=== PATIENT | male | born 1950 | race Two or more races ===

== ENCOUNTER 2020-01-29 08:37 | Outpatient (REF) | payer MEDICARE, SELFPAY ==
[2020-01-29 10:28] LABS: Prostate Specific Antigen 0.09 ng/mL (<0.05-4.0)
== END 2020-01-29 08:38 | disposition home or self-care (01) ==
LOC: HO.LAB 08:37
PROVIDERS: PCP Nurse Practitioner Family; Visit Provider Urology
DX: C61 Malignant neoplasm of prostate (principal)
CPT/HCPCS: 36415; 84153

== ENCOUNTER → 2020-02-12 10:04 | Outpatient (BNVA) | payer MEDICARE, SELFPAY | PROVIDERS: PCP Nurse Practitioner Family; Visit Provider Urology | DX: C61 Malignant neoplasm of prostate (principal); N32.0 Bladder-neck obstruction; R33.9 Retention of urine, unspecified; Z79.899 Other long term (current) drug therapy | CPT/HCPCS: 96402; 99214; J9217 ==

== ENCOUNTER 2020-05-09 09:31 | Outpatient (REF) | payer MEDICARE, SELFPAY ==
[2020-05-09 11:33] LABS: Prostate Specific Antigen 0.26 ng/mL (<0.05-4.0)
== END 2020-05-09 09:32 | disposition home or self-care (01) ==
LOC: HO.LAB 09:31
PROVIDERS: PCP Nurse Practitioner Family; Visit Provider Urology
DX: C61 Malignant neoplasm of prostate (principal)
CPT/HCPCS: 36415; 84153

== ENCOUNTER → 2020-05-13 12:51 | Outpatient (BNVA) | payer MEDICARE, SELFPAY | PROVIDERS: PCP Nurse Practitioner Family; Visit Provider Urology | DX: R97.20 Elevated prostate specific antigen [PSA] (principal) | CPT/HCPCS: 99212 ==

== ENCOUNTER 2020-07-22 09:57 | Outpatient (REF) | payer MEDICARE, SELFPAY ==
[2020-07-22 11:45] LABS: Prostate Specific Antigen 0.45 ng/mL (<0.05-4.0)
== END 2020-07-22 09:58 | disposition home or self-care (01) ==
LOC: HO.LAB 09:57
PROVIDERS: PCP Nurse Practitioner Family; Visit Provider Urology
DX: Z12.5 Encounter for screening for malignant neoplasm of prostate (principal); C61 Malignant neoplasm of prostate
CPT/HCPCS: 36415; 84153

== ENCOUNTER → 2020-07-29 13:25 | Outpatient (BNVA) | payer MEDICARE, SELFPAY | PROVIDERS: PCP Nurse Practitioner Family; Visit Provider Urology | DX: C61 Malignant neoplasm of prostate (principal); N32.0 Bladder-neck obstruction; R97.21 Rising PSA following treatment for malignant neoplasm of prostate | CPT/HCPCS: 96402; 99212; J9217 ==

== ENCOUNTER 2020-10-14 08:55 | Outpatient (REF) | payer MEDICARE, SELFPAY ==
[2020-10-14 10:15] LABS: Prostate Specific Antigen 0.59 ng/mL (<0.05-4.0)
[2020-10-19 15:12] LABS: Testosterone, Total 8 ng/dL (250-1100)
== END 2020-10-14 08:56 | disposition home or self-care (01) ==
LOC: HO.LAB 08:55
PROVIDERS: Visit Provider Urology
DX: N40.1 Benign prostatic hyperplasia with lower urinary tract symptoms (principal); E29.1 Testicular hypofunction; N13.8 Other obstructive and reflux uropathy; Z12.5 Encounter for screening for malignant neoplasm of prostate
CPT/HCPCS: 36415; 84153; 84403

== ENCOUNTER → 2020-10-27 13:36 | Outpatient (BNVA) | payer MEDICARE, SELFPAY | PROVIDERS: Visit Provider Urology | DX: C61 Malignant neoplasm of prostate (principal); N32.0 Bladder-neck obstruction | CPT/HCPCS: 99212 ==

== ENCOUNTER 2021-01-21 17:28 | Emergency (ER) | payer MEDICARE, SELFPAY ==
[2021-01-21 17:48] VITALS: BP 183/99; PULSE 85; RESP 18; TEMP 36.8; O2SAT 95; BMI 29.7
[2021-01-21 18:32] LABS: Appearance Urine CLOUDY; Color Urine STRAW; Glucose Urine UA >=1000 MG/DL (NEG); Leukocyte Esterase Urine 2+ (NEG); Nitrite Urine NEG (NEG); Specific Gravity - Urine 1.015 (1.005-1.025); UACC Culture Trigger YES; Urine Blood 2+ (NEG); Urine Ketones NEG (NEG); Urine Protein NEG (NEG-TRACE)
[2021-01-21 18:43] LABS: Bacteria Urine 2+ /LPF; Squamous Epithelial Cell Urine 3+ /LPF
[2021-01-21 20:57] VITALS: BP 205/111; PULSE 74; RESP 16; TEMP 36.8; O2SAT 94
--- NOTE | 2021-01-21 21:04 | PC.NURSE ---
BP 205/111 Provider (Rosa) notified
--- NOTE | 2021-01-21 21:24 | ED_ITS ---
HPI - Male Genitourinary General Chief complaint: Urogenital-Male Stated complaint: Groin swelling Time Seen by Provider: 01/21/21 21:10 History of Present Illness HPI Narrative: Patient states for the past 3-4 days he has had penile swelling and pain. He is able to urinate without difficulty but states it gilliam at the tip of his penis. He has never had anything like this before. No causative factors that he can think of. He has a history of prostate trouble for which he takes tamsulosin. No history of acute urinary retention. No fevers or chills. No nausea vomiting. No testicular pain or swelling. No pelvic pain History of type 2 diabetes for which he takes metformin Related Data Previous Rx's Medication Instructions Recorded bicalutamide 50 mg tablet 50 mg PO DAILY 30 Days #30 tab 04/07/20 bicalutamide 50 mg tablet 50 mg PO DAILY 30 Days #30 tab 11/24/20 tamsulosin 0.4 mg capsule 0.4 mg PO BEDTIME #90 cap 01/04/21 cephalexin 500 mg tablet 1,000 mg PO Q12H #40 tab 01/21/21 fluconazole 100 mg tablet 100 mg PO DAILY #7 tab 01/21/21 (Diflucan) Allergies Allergy/AdvReac Type Severity Reaction Status Date / Time lisinopril [LISINOPRIL] Allergy Unknown ANGIOEDEMA, Verified 01/21/21 17:48 edema Review of Systems Constitutional: Comments: No fevers or chills or weakness Cardiovascular: Comments: No chest pain Respiratory: Comments: No shortness of breath or cough Gastrointestinal: Comments: No abdominal pain or nausea or vomiting Genitourinary: Comments: Penile pain. No testicular pain. Dysuria only at the tip of the penis [facility] Past Medical History Medical History Benign prostatic hyperplasia with lower urinary tract symptoms H/O urinary retention HTN (hypertension) with goal to be determined Nonrheumatic aortic (valve) stenosis Pure hypercholesterolemia Renal artery stenosis Type 2 diabetes mellitus without complication, without long-term current use of insulin Surgical History History of prostate biopsy Social History Social History Advance Directives: No Advance Directives Information Provided: No Physical Exam Vital Signs: Vital Signs: Last Vital Signs Temp 98.2 F 01/21/21 20:57 Pulse 74 01/21/21 20:57 Resp 16 01/21/21 23:01 BP 205/111 H 01/21/21 20:57 Pulse Ox 94 01/21/21 20:57 Body Mass Index 29.7 Const: Other: Awake alert in no obvious distress Resp: Other: Clear and equal bilaterally without wheezes rales or rhonchi. Cardio: Other: Regular rate and rhythm GI: Other: Abdomen is soft nontender nondistended. Normoactive bowel sounds : Other: Penis is swollen, erythematous, warm to touch. Some purulence drainage at the meatus. No ulceration. No fluctuant areas noted Skin: Other: Otherwise warm pink and dry Neuro: Other: Awake alert no acute distress Course Course Course Narrative: Apparent penile cellulitis. Afebrile. Will treat with IV antibiotics. Urinalysis shows bacteria and yeast. Also treated with Diflucan Urology consult. Case discussed with . Agree with plan. Will hospitalize for further treatment. 11:43 p.m.. Patient now declining hospitalization as he states he has a 13-year-old granddaughter to take care of at home and is unable to leave her alone. He st ates he will return in the morning when he can get her mother to stay with her. In the meantime will treat with antibiotics as above. He understands he is leaving against medical advice. MDM - Male Genitourinary Lab Data Result diagrams: 01/21/21 21:37 01/21/21 21:37 Labs: Lab Results 01/21/21 01/21/21 01/21/21 Range/Units 18:10 21:36 21:37 WBC 6.2 (4.8-10.8) X10*3/uL RBC 4.65 (4.60-5.80) X10*6/uL Hgb 13.7 L (14.0-18.0) g/dl Hct 41.9 L (42-52) % MCV 90.1 (80-98) fL MCH 29.5 (27.0-33.0) pg MCHC 32.7 (31.0-36.0) g/dl RDW 13.1 (11.0-16.0) % Plt Count 218 (160-400) X10*3/uL MPV 11.3 (9.4-12.4) fL Immature Gran % (Auto) 0.3 (0.0-0.4) % Neut % (Auto) 61.1 (45-73) % Lymph % (Auto) 28.8 (20-40) % [place] % (Auto) 8.2 (2-11) % Eos % (Auto) 1.4 (0-4) % Baso % (Auto) 0.2 (0-2) % Lymph # (Auto) 1.8 (1.2-4.9) X10*3/uL [place] # (Auto) 0.5 (0.1-1.2) X10*3/uL Eos # (Auto) 0.1 (0.0-0.4) X10*3/uL Baso # (Auto) 0.0 (0.0-0.2) X10*3/uL Abs Immat Gran (auto) 0.02 (0.00-0.03) X10*3/uL Absolute Neuts (auto) 3.8 (2.0-8.3) X10*3/uL Absolute Nucleated RBC 0.000 (0.0-0.012) X10*3/uL Nucleated RBC % (auto) 0.0 (0.0-0.2) /100WBC Sodium (135-145) mmol/L Potassium (3.3-5.1) mmol/L Chloride (96-108) mmol/L Carbon Dioxide (22-29) mmol/L Anion Gap (12-20) BUN (9-16) mg/dL Creatinine (0.5-1.4) mg/dL Estim Creat Clear Calc Estimated GFR POC Glucose (60-115) mg/dL Random Glucose (60-115) mg/dL Lactic Acid 1.6 (0.5-2.0) mmol/L Calcium (8.4-10.2) mg/dL Total Bilirubin (0.0-1.0) mg/dL AST (5-37) U/L ALT (0-40) U/L Alkaline Phosphatase (39-117) U/L Total Protein (6.5-8.0) g/dL Albumin (3.5-5.0) g/dL Urine Color STRAW Urine Appearance CLOUDY Urine pH 6.0 (5.0-8.0) Ur Specific [place] 1.015 (1.005-1.025) Urine Protein NEG (NEG-TRACE) MG/DL Urine Glucose (UA) >=1000 H (NEG) MG/DL Urine Ketones NEG (NEG) MG/DL Urine Blood 2+ H (NEG) Urine Nitrite NEG (NEG) Ur Leukocyte Esterase 2+ H (NEG) Urine RBC 1-4 (0) /HPF Urine WBC 15-29 H (0-4) /HPF Ur Squamous Epith Cells 3+ /LPF Urine Bacteria 2+ /LPF Urine Yeast 2+ /HPF 01/21/21 01/21/21 Range/Units 21:37 23:13 WBC (4.8-10.8) X10*3/uL RBC (4.60-5.80) X10*6/uL Hgb (14.0-18.0) g/dl Hct (42-52) % MCV (80-98) fL MCH (27.0-33.0) pg MCHC (31.0-36.0) g/dl RDW (11.0-16.0) % Plt Count (160-400) X10*3/uL MPV (9.4-12.4) fL Immature Gran % (Auto) (0.0-0.4) % Neut % (Auto) (45-73) % Lymph % (Auto) (20-40) % [place] % (Auto) (2-11) % Eos % (Auto) (0-4) % Baso % (Auto) (0-2) % Lymph # (Auto) (1.2-4.9) X10*3/uL [place] # (Auto) (0.1-1.2) X10*3/uL Eos # (Auto) (0.0-0.4) X10*3/uL Baso # (Auto) (0.0-0.2) X10*3/uL Abs Immat Gran (auto) (0.00-0.03) X10*3/uL Absolute Neuts (auto) (2.0-8.3) X10*3/uL Absolute Nucleated RBC (0.0-0.012) X10*3/uL Nucleated RBC % (auto) (0.0-0.2) /100WBC Sodium 139 (135-145) mmol/L Potassium 4.0 (3.3-5.1) mmol/L Chloride 102 (96-108) mmol/L Carbon Dioxide 27 (22-29) mmol/L Anion Gap 14 (12-20) BUN 10 (9-16) mg/dL Creatinine 0.98 (0.5-1.4) mg/dL Estim Creat Clear Calc 64.4 Estimated GFR > 60 POC Glucose 270 H (60-115) mg/dL Random Glucose 373 H* (60-115) mg/dL Lactic Acid (0.5-2.0) mmol/L Calcium 9.9 (8.4-10.2) mg/dL Total Bilirubin 0.6 (0.0-1.0) mg/dL AST 11 (5-37) U/L ALT 18 (0-40) U/L Alkaline Phosphatase 146 H (39-117) U/L Total Protein 7.7 (6.5-8.0) g/dL Albumin 4.3 (3.5-5.0) g/dL Urine Color Urine Appearance Urine pH (5.0-8.0) Ur Specific [place] (1.005-1.025) Urine Protein (NEG-TRACE) MG/DL Urine Glucose (UA) (NEG) MG/DL Urine Ketones (NEG) MG/DL Urine Blood (NEG) Urine Nitrite (NEG) Ur Leukocyte Esterase (NEG) Urine RBC (0) /HPF Urine WBC (0-4) /HPF Ur Squamous Epith Cells /LPF Urine Bacteria /LPF Urine Yeast /HPF Discharge Plan Discharge Clinical Impression: Balanitis, Cellulitis of penis Patient Disposition: Left Against Medical Advice Instructions: Cellulitis (ED), Balanitis (ED) Prescriptions: New cephalexin 500 mg tablet 1,000 mg PO Q12H Qty: 40 RF: 0 fluconazole [Diflucan] 100 mg tablet 100 mg PO DAILY Qty: 7 RF: 0 No Action bicalutamide 50 mg tablet 50 mg PO DAILY 30 Days Qty: 30 RF: 6 bicalutamide 50 mg tablet 50 mg PO DAILY 30 Days Qty: 30 RF: 6 tamsulosin 0.4 mg capsule 0.4 mg PO BEDTIME Qty: 90 RF: 3
[2021-01-21 21:44] LABS: MANUAL DIFF FLAG NO
[2021-01-21 21:46] VITALS: RESP 16
[2021-01-21] MEDS: HYDROmorphone HCl 0.5 MG/0.5 ML SYRINGE IVPUSH (21:46)
[2021-01-21] MEDS: Piperacillin Sodium/Tazobactam 3.375 GM in 0.9 % Sodium Chloride 50 ML IV (21:48)
[2021-01-21] MEDS: 0.9 % Sodium Chloride 500 ML IV (21:52)
[2021-01-21 22:00] LABS: Lactic Acid 1.6 mmol/L (0.5-2.0)
[2021-01-21 22:04] LABS: Basophils Percent Auto 0.2 % (0-2); Eosinophils Absolute Auto 0.1 X10*3/uL (0.0-0.4); Eosinophils Percent Auto 1.4 % (0-4); Hematocrit 41.9 % (42-52); Hemoglobin 13.7 g/dl (14.0-18.0); Imm Gran Abs Auto 0.02 X10*3/uL (0.00-0.03); Imm Gran Pct Auto 0.3 % (0.0-0.4); Lymphocytes Absolute Auto 1.8 X10*3/uL (1.2-4.9); Lymphocytes Percent Auto 28.8 % (20-40); Mean Corpuscular HGB Conc 32.7 g/dl (31.0-36.0); Mean Corpuscular Hemoglobin 29.5 pg (27.0-33.0); Mean Corpuscular Volume 90.1 fL (80-98); Mean Platelet Volume 11.3 fL (9.4-12.4); Monocytes Absolute Auto 0.5 X10*3/uL (0.1-1.2); Monocytes Percent Auto 8.2 % (2-11); Neutrophils Absolute Auto 3.8 X10*3/uL (2.0-8.3); Neutrophils Percent Auto 61.1 % (45-73); Platelet Count 218 X10*3/uL (160-400); Red Blood Count 4.65 X10*6/uL (4.60-5.80); Red Cell Distribution Width 13.1 % (11.0-16.0); White Blood Count 6.2 X10*3/uL (4.8-10.8)
[2021-01-21 22:11] LABS: Alanine Aminotransferase 18 U/L (0-40); Albumin Level 4.3 g/dL (3.5-5.0); Alkaline Phosphatase 146 U/L (39-117); Anion Gap 14 (12-20); Aspartate Amino Transferase 11 U/L (5-37); Bilirubin Total 0.6 mg/dL (0.0-1.0); Blood Urea Nitrogen 10 mg/dL (9-16); Calcium 9.9 mg/dL (8.4-10.2); Carbon Dioxide 27 mmol/L (22-29); Chloride 102 mmol/L (96-108); Creatinine Clr Calc Pharmacy 64.4; Estimated Glomerular Filt Rate > 60; Glucose Random 373 mg/dL (60-115); Sodium 139 mmol/L (135-145); Total Protein 7.7 g/dL (6.5-8.0)
[2021-01-21] MEDS: vancomycin HCL 1,500 MG in 0.9 % Sodium Chloride 500 ML 333.33 MG IV (22:11)
[2021-01-21] MEDS: Insulin Regular, Human 100 UNIT/ML 3 ML VIAL IVPUSH (22:38)
[2021-01-21 23:01] VITALS: RESP 16
--- NOTE | 2021-01-21 23:09 | PC.NURSE ---
hospitalist at bedside doing admission eval and pt stated he was unaware he was being admitted and that he cannot stay in the hospital as he has teenagers at home he has to take care of. ED provider notified and brought to bedside to discuss with pt possibility of admission.
--- NOTE | 2021-01-21 23:17 | PC.NURSE ---
pt is making the decision to leave AMA. pt aware of risks of leaving and informed he can return at anytime. pt stated he will return to ED tomorrow for treatment/admission however he is unable to stay tonight due to not having childcare. MD at bedside with staff engineer during this discussion. charge nurse aware.
[2021-01-21 23:18] LABS: Glucose, Whole Blood 270 mg/dL (60-115)
[2021-01-21] MEDS: Fluconazole 150 MG TABLET PO (23:46)
[2021-01-21 23:52] VITALS: BP 179/90; PULSE 62; RESP 16; TEMP 36.8; O2SAT 96
== END 2021-01-22 07:01 | disposition left against medical advice (07) ==
PROVIDERS: Emergency Provider Emergency Medicine
DX: N48.1 Balanitis (principal); Z79.899 Other long term (current) drug therapy
CPT/HCPCS: 36415; 80053; 81001; 82947; 83605; 85025; 87040; 87086; 96361; 96365; 96367; 96375; 99284; J1170; J2543; J3370

== ENCOUNTER 2021-01-24 07:55 | Outpatient (REF) | payer MEDICARE, SELFPAY ==
[2021-01-24 10:12] LABS: Prostate Specific Antigen 0.73 ng/mL (<0.05-4.0)
[2021-01-28 08:12] LABS: Testosterone, Total 24 ng/dL (250-1100)
== END 2021-01-24 07:56 | disposition home or self-care (01) ==
LOC: HO.LAB 07:55
PROVIDERS: Visit Provider Urology
DX: Z12.5 Encounter for screening for malignant neoplasm of prostate (principal); C61 Malignant neoplasm of prostate; N13.8 Other obstructive and reflux uropathy; N40.1 Benign prostatic hyperplasia with lower urinary tract symptoms
CPT/HCPCS: 36415; 84153; 84403

== ENCOUNTER → 2021-01-31 14:12 | Outpatient (BNVA) | payer MEDICARE, SELFPAY | PROVIDERS: Visit Provider Urology | DX: C61 Malignant neoplasm of prostate (principal) | CPT/HCPCS: 96402; 99212; J9217 ==

== ENCOUNTER 2021-04-28 09:25 | Outpatient (REF) | payer MEDICARE, SELFPAY ==
[2021-04-28 11:20] LABS: Prostate Specific Antigen 1.34 ng/mL (<0.05-4.0)
[2021-05-03 00:02] LABS: Testosterone, Total 10 ng/dL (250-1100)
== END 2021-04-28 09:26 | disposition home or self-care (01) ==
LOC: HO.LAB 09:25
PROVIDERS: Visit Provider Urology
DX: Z12.5 Encounter for screening for malignant neoplasm of prostate (principal); C61 Malignant neoplasm of prostate; N13.8 Other obstructive and reflux uropathy; N40.1 Benign prostatic hyperplasia with lower urinary tract symptoms
CPT/HCPCS: 36415; 84153; 84403

== ENCOUNTER → 2021-05-09 15:19 | Outpatient (BNVA) | payer MEDICARE, SELFPAY | PROVIDERS: Visit Provider Urology | DX: M81.8 Other osteoporosis without current pathological fracture (principal); C61 Malignant neoplasm of prostate; T38.7X5A Adverse effect of androgens and anabolic congeners, initial encounter; C79.51 Secondary malignant neoplasm of bone | CPT/HCPCS: 99212 ==

== ENCOUNTER 2021-06-24 09:54 | Emergency (ER) | payer MEDICARE, SELFPAY ==
--- NOTE | ~2021-06-24 | CT_ITS ---
EXAMINATION CT CHEST, ABDOMEN AND PELVIS WITH CONTRAST CLINICAL INFORMATION: Multiple rib fractures. Assess for contusion/hemothorax. COMPARISON: X-ray performed earlier same date TECHNIQUE: Multidetector volumetric CT imaging of the chest, abdomen and pelvis was obtained after the administration of 80 mL of intravenous Omnipaque 350 without immediate adverse reactions. Coronal and sagittal reformats were reviewed. This CT examination was performed using dose optimization techniques as appropriate, variously including the following: *Automated exposure control *Adjustment of mA and/or kV according to patient size (this includes techniques or standardized protocols for targeted exams where dose is matched to indication/reason for exam; i.e. extremities or head) *Use of iterative reconstruction technique DLP: 1102 mGy-cm. FINDINGS: CHEST LUNGS/PLEURA: There is a small left pleural effusion, simple fluid in attenuation with accompanying atelectasis. No pulmonary parenchymal contusion/lacerations seen. No pneumothorax. MEDIASTINUM/GIANCARLO: Mild cardiomegaly. No pericardial effusion. Great vessels normal caliber. No evidence of acute traumatic aortic injury. No mediastinal hematoma. No lymphadenopathy. CHEST WALL/AXILLA: Unremarkable. ABDOMEN/PELVIS HEPATOBILIARY: Liver normal in size, contour and morphology. There is a subcentimeter cyst within hepatic segment 7 laterally. There is a anterior subcapsular hypodensity within hepatic segment 4A, which may represent focal fatty infiltration. No suspicious lesions. No intra or extrahepatic biliary dilation. Gallbladder unremarkable. PANCREAS: Unremarkable. SPLEEN: Unremarkable. ADRENAL GLANDS: Unremarkable. KIDNEYS, URETERS AND BLADDER: Kidneys normal in size, axis and morphology demonstrating symmetric enhancement. There are a few bilateral subcentimeter renal cysts which are benign and require no further follow-up. No hydronephrosis or urinary calculi. Ureters normal in course and caliber. There is approximately 1.6 cm rounded soft tissue density structure within the left inferolateral bladder (see anguiano images). GASTROINTESTINAL TRACT: Scattered colonic diverticula. No evidence of diverticulitis. Normal appendix. Small sliding-type hernia. Stomach otherwise unremarkable. Normal small bowel. PELVIC VISCERA: Unremarkable. LYMPH NODES: No lymphadenopathy. PERITONEUM/BODY WALL: Unremarkable. VASCULAR STRUCTURES: Aorta is atherosclerotic but normal caliber. Patent venous structures. OSSEOUS STRUCTURES Nondisplaced left posterior second rib fracture. Segmental fractures of the left 3rd-6th ribs anteriorly and posteriorly. Mildly displaced left lateral seventh rib fracture. No additional fractures of the imaged axial and appendicular skeleton. Prominent bulky endplate osteophytes present throughout the thoracic and lumbar spine. Moderate bilateral hip joint space narrowing and marginal osteophytosis bilateral hip joints. Prominent subchondral cyst present within the superior acetabula bilaterally. CT/CT abdomen pelvis w con IMPRESSION: * Acute left third through seventh rib fractures as described. * Small simple fluid left pleural effusion with accompanying atelectasis. * No hemothorax, pulmonary contusion, pulmonary laceration or pneumothorax. * No evidence of acute traumatic injury within the abdomen or pelvis.mmm * Incidental 1.6 cm rounded soft tissue density structure within the bladder. While this could represent asymmetric prominence of the median lobe of the prostate, the structure does appear to be separate from the prostate and bladder neoplasm is the diagnosis until proven otherwise. Recommend cystoscopy for further evaluation.
--- NOTE | ~2021-06-24 | XR_ITS ---
EXAMINATION: XR RIBS, LEFT CLINICAL INFORMATION: Fall with rib fractures COMPARISON: 06/08/2019 TECHNIQUE: PA view of the chest and 4 views of the left ribs were obtained. XR/XR ribs LT min 3V w CXR1V FINDINGS/IMPRESSION: Acute mildly displaced and angulated fractures of the left lateral 3rd-7th ribs. No pneumothorax. Small left pleural effusion. Right lung and pleural space are clear. Normal heart size and pulmonary vascularity. Aorta is atherosclerotic.
[2021-06-24 10:04] VITALS: BP 199/102; PULSE 80; RESP 20; TEMP 35.9; O2SAT 96; BMI 29.7
--- NOTE | 2021-06-24 10:10 | ED.GENADULT ---
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 He reports he was walking down the stairs at his home in [place] when he slipped and fell onto his left side. He went to the doctor there where they performed a CXR and told him he had a rib fracture. He was prescribed NSAID and muscle relaxer and discharged. [place] the [place] and has had continued pain in his left ribs with movement and deep breathing. He denies any cough, fever or chills. No abdominal pain, nausea or vomiting. MD complaint: rib pain s/p fall Onset (ago): day(s) (9) Location: chest and back Radiation: non-radiation Severity: severe Severity scale (1-10): 8 Quality: sharp Pain Consistency: constant Relieving factors: immobilization and rest Exacerbating factors: movement and other (deep breaths) Associated symptoms: denies other symptoms Treatments prior to arrival: NSAID Related Data Previous Rx's Medication Instructions Recorded bicalutamide 50 mg tablet 50 mg PO DAILY 30 Days #30 tab 04/07/20 bicalutamide 50 mg tablet 50 mg PO DAILY 30 Days #30 tab 11/24/20 tamsulosin 0.4 mg capsule 0.4 mg PO BEDTIME #90 cap 01/04/21 cephalexin 500 mg tablet 1,000 mg PO Q12H #40 tab 01/21/21 fluconazole 100 mg tablet 100 mg PO DAILY #7 tab 01/21/21 (Diflucan) calcium carbonate 500 mg calcium 500 mg PO BID 90 Days #180 tab 05/09/21 (1,250 mg) chewable tablet (Calcium 500) cholecalciferol (vitamin D3) 10 800 unit PO DAILY 90 Days #180 cap 05/09/21 mcg (400 unit) capsule hydrocodone 5 mg-acetaminophen 325 1 tab PO Q8H PRN #8 tab 06/24/21 mg tablet Allergies Allergy/AdvReac Type Severity Reaction Status Date / Time lisinopril [LISINOPRIL] Allergy Unknown ANGIOEDEMA, Verified 01/21/21 17:48 edema Review of Systems Review of Systems: Constitutional: No Fever, No Chills ENT/Mouth: No sore throat, No Rhinorrhea, No Swallowing Difficulty Cardiovascular: + Chest Pain (left lateral), No SOB Respiratory: No Cough, No Sputum, No Wheezing, No dyspnea Gastrointestinal: No Nausea, No Vomiting, No Diarrhea, No abdominal Pain, No Hematochezia, No Melena Genitourinary: No Dysuria, No Urinary Frequency, No Hematuria Musculoskeletal: + joint pain, + Myalgias Skin: No Skin Lesions, No rash Neuro: No Weakness, No Numbness, No Dizziness, No Headache Psych: No Anxiety/Panic, No Depression Heme/Lymph: No Bruising, No Lymphadenopathy PMFSH Past Medical History Medical History Benign prostatic hyperplasia with lower urinary tract symptoms H/O urinary retention HTN (hypertension) with goal to be determined Nonrheumatic aortic (valve) stenosis Pure hypercholesterolemia Renal artery stenosis Type 2 diabetes mellitus without complication, without long-term current use of insulin Surgical History History of prostate biopsy Social History Social History Alcohol intake: former Patient Tobacco Use Status: Never used Tobacco Use of substances other than those prescribed or required for medical reasons: No Advance Directives: Yes Advance Directives Information Provided: No Advance Directives on File: No Physical Exam ED Vital Signs: Vital Signs - 24 hr 06/24/21 10:04 06/24/21 10:29 06/24/21 13:39 Temperature 96.7 F L 97.8 F 98.8 F Pulse Rate 80 76 63 Respiratory Rate 20 17 18 Blood Pressure 199/102 H 181/94 H 205/107 H Pulse Oximetry 96 93 95 06/24/21 14:29 Temperature Pulse Rate Respiratory Rate Blood Pressure 170/76 H Pulse Oximetry BMI result Body Mass Index 29.7 Appearance: Alert. Oriented X3. No acute distress. Eyes: Pupils equal, round and reactive to light. ENT: Pharynx normal. Neck: Normal inspection. Neck supple. CVS: Normal heart rate and rhythm. Pulses normal. Respiratory: No respiratory distress. Breath sounds diminished at left base, no crackles. left anterior and lateral middle and lower ribs with moderate tenderness, no crepitus, no palpable flail chest, no ecchymosis Abdomen: Soft and nontender. +BS x4 Skin: Skin warm and dry. Normal skin color. Normal skin turgor. No rashes. Extremities: No lower extremity edema. Neuro: Oriented X 3. No motor deficit. No sensory deficit. Course Course Course Narrative: 70 y/o male with hx DM and HTN presents to the ER ongoing left sided rib pain s/p slip and fall on stairs in [place] on 06/15/21. He reports no relief with meloxicam and orphenadrine. SpO2 93% on room air on arrival, he is splinting slightly due to pain. Concern for possible PNA or atelectasis. CXR/rib XR pending. BP severely elevated on arrival - he did not take his BP med this morning, cannot recall what he is on. Pain likely contributing as well. Will give dose of [place] and reassess. Reevaluation(s) Reevaluation #1: XR with acute, mildly displaced and angulated fractures of left lateral ribs 3-7. no PTX. small left effusion. Concern for possible hemothorax and/or pulmonary contusion. Will get CT scan of the chest for further evaluation and add CT abd to assess the spleen given multiple fractures are present. Reevaluation #2: CT scan is showing multiple rib fractures 3 through 7 on the left side. Small simple left-sided pleural effusion without any evidence of pneumothorax, pulmonary contusion or pulmonary lacerations. No pneumothorax. There was no traumatic injury in the abdomen. 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 The results of the CT scans were discussed with the patient using staff nuclear weapons officer. At this time given his injury was 9 days ago, he has no pneumonia, is saturating well on room air he is stable for discharge home with close outpatient follow-up with his PCP. Will also refer to Dr. Choi for further evaluation of his bladder lesion. Will prescribe short course of opiates for pain control. We will send him home with an incentive spirometer to maintain pulmonary expansion and help prevent pneumonia. Stable for discharge home. Case discussed with Reevaluation #3: Blood pressure elevated in the 200 systolic. He has asymptomatic has no chest pain, headache, vision changes. He is on blood pressure medication but does not know what they are called. Will give a dose of amlodipine and see if this improves his blood pressure. Shortly after administration of amlodipine blood pressure improved to the 170 systolic. He remains symptom free. Stable for discharge home. Medical Decision Making Lab Data Result diagrams: 06/24/21 11:05 06/24/21 11:05 Labs: Lab Results 06/24/21 06/24/21 06/24/21 Range/Units 11:05 11:05 11:05 WBC 4.8 (4.8-10.8) X10*3/uL RBC 4.34 L (4.60-5.80) X10*6/uL Hgb 12.3 L (14.0-18.0) g/dl Hct 38.4 L (42.0-52.0) % MCV 88.5 (80.0-98.0) fL MCH 28.3 (27.0-33.0) pg MCHC 32.0 (31.0-36.0) g/dl RDW 13.3 (11.0-16.0) % Plt Count 240 (160-400) X10*3/uL MPV 10.3 (9.4-12.4) fL Immature Gran % (Auto) 0.4 (0.0-0.4) % Neut % (Auto) 64.3 (45-73) % Lymph % (Auto) 23.0 (20-40) % [place] % (Auto) 9.4 (2-11) % Eos % (Auto) 2.7 (0-4) % Baso % (Auto) 0.2 (0-2) % Lymph # (Auto) 1.1 L (1.2-4.9) X10*3/uL [place] # (Auto) 0.5 (0.1-1.2) X10*3/uL Eos # (Auto) 0.1 (0.0-0.4) X10*3/uL Baso # (Auto) 0.0 (0.0-0.2) X10*3/uL Abs Immat Gran (auto) 0.02 (0.00-0.03) X10*3/uL Absolute Neuts (auto) 3.1 (2.0-8.3) x10*3/uL Absolute Nucleated RBC 0.000 (0.0-0.012) X10*3/uL Nucleated RBC % (auto) 0.0 (0.0-0.2) /100WBC Sodium 138 (135-145) mmol/L Potassium 4.3 (3.3-5.1) mmol/L Chloride 103 (96-108) mmol/L Carbon Dioxide 26 (22-29) mmol/L Anion Gap 13 (12-20) BUN 14 (9-16) mg/dL Creatinine 0.81 (0.5-1.4) mg/dL Estim Creat Clear Calc 78.0 Estimated GFR > 60 Random Glucose 140 H D (60-115) mg/dL Calcium 9.8 (8.4-10.2) mg/dL Magnesium 1.7 (1.6-2.6) mg/dL Total Bilirubin 0.3 (0.0-1.0) mg/dL Direct Bilirubin 0.2 (0.0-0.5) mg/dL AST 14 (5-37) U/L ALT 17 (0-40) U/L Alkaline Phosphatase 102 D (39-117) U/L Total Protein 7.0 (6.5-8.0) g/dL Albumin 3.9 (3.5-5.0) g/dL COVID-19 (ESTRADA) Negative (Negative) COVID-19 Clin Com See Note Discharge Plan Discharge Clinical Impression: Multiple fractures of ribs, Bladder tumor, Poorly-controlled hypertension Patient Disposition: Home, Self-Care Instructions: Rib Fracture (ED), Chronic Hypertension (DC) Additional Instructions: Your imaging today showed you have multiple fractured rib #3 through #7. Take the prescribed medications as needed for pain Use the incentive spirometer several times per day - recommend 10 deep breaths per hour while awake This helps prevent pneumonia - even though it may be uncomfortable it is important to do deep breathing CT scan also showed a 1.6 cm lesion in your bladder. You need to follow up with Urologist Dr. Choi for further evaluation Follow up with your PCP as well for high blood pressure If you develop new or worsening symptoms call 911 or come back to the ER for further evaluation. Lyn imagen de hoy mostr? que tiene varias costillas fracturadas del n.? 3 al n.? 7. [place] los medicamentos recetados seg?n sea necesario para el dolor. Use el espir?metro de incentivo varias veces al d?a; recomiende 10 respiraciones profundas por hora mientras est? despierto [place] ayuda a prevenir la neumon?a; aunque puede ser inc?modo, es importante respirar profundamente. La tomograf?a computarizada tambi?n mostr? mau lesi?n de 1,6 cm en la vejiga. Debe hacer un seguimiento con el ur?logo Dr. Choi para mau evaluaci?n adicional. Ramón un seguimiento con lyn PCP tambi?n para la presi?n arterial nemesio Si desarrolla s?ntomas nuevos o que empeoran, llame al 911 o regrese a la tj de emergencias para mau evaluaci?n adicional. Prescriptions: New hydrocodone-acetaminophen 5-325 mg tablet 1 tab PO Q8H PRN (Reason: pain) Qty: 8 0RF No Action bicalutamide 50 mg tablet 50 mg PO DAILY 30 Days Qty: 30 6RF bicalutamide 50 mg tablet 50 mg PO DAILY 30 Days Qty: 30 6RF tamsulosin 0.4 mg capsule 0.4 mg PO BEDTIME Qty: 90 3RF cephalexin 500 mg tablet 1,000 mg PO Q12H Qty: 40 0RF fluconazole [Diflucan] 100 mg tablet 100 mg PO DAILY Qty: 7 0RF calcium carbonate [Calcium 500] 500 mg calcium (1,250 mg) tablet,chewable 500 mg PO BID 90 Days Qty: 180 1RF cholecalciferol (vitamin D3) 10 mcg (400 unit) capsule 800 unit PO DAILY 90 Days Qty: 180 1RF Referrals: Ga Choi MD [Physician] - 2 days (CT 06/24: 1.6 cm rounded soft tissue density structure within the bladder. While this could represent asymmetric prominence of the median lobe of the prostate, the structure does appear to be separate from the prostate and bladder neoplasm is the diagnosis until proven otherwise. Recommend cystoscopy for further evaluation.) Interventions: ED Discharge Assessment Last Done: 06/24/21 14:34 Discharge Date/Time: 06/24/21 14:49
[2021-06-24 10:29] VITALS: BP 181/94; PULSE 76; RESP 17; TEMP 36.6; O2SAT 93
[2021-06-24] MEDS: HYDROcodone Bit/Acetam 5/325 TABLET 1 TAB PO (10:45)
[2021-06-24 11:08] LABS: MANUAL DIFF FLAG NO
[2021-06-24 11:21] LABS: Basophils Percent Auto 0.2 % (0-2); Eosinophils Absolute Auto 0.1 X10*3/uL (0.0-0.4); Eosinophils Percent Auto 2.7 % (0-4); Hematocrit 38.4 % (42.0-52.0); Hemoglobin 12.3 g/dl (14.0-18.0); Imm Gran Abs Auto 0.02 X10*3/uL (0.00-0.03); Imm Gran Pct Auto 0.4 % (0.0-0.4); Lymphocytes Absolute Auto 1.1 X10*3/uL (1.2-4.9); Mean Corpuscular Hemoglobin 28.3 pg (27.0-33.0); Mean Corpuscular Volume 88.5 fL (80.0-98.0); Mean Platelet Volume 10.3 fL (9.4-12.4); Monocytes Absolute Auto 0.5 X10*3/uL (0.1-1.2); Monocytes Percent Auto 9.4 % (2-11); Neutrophils Absolute Auto 3.1 x10*3/uL (2.0-8.3); Neutrophils Percent Auto 64.3 % (45-73); Platelet Count 240 X10*3/uL (160-400); Red Blood Count 4.34 X10*6/uL (4.60-5.80); Red Cell Distribution Width 13.3 % (11.0-16.0); White Blood Count 4.8 X10*3/uL (4.8-10.8)
[2021-06-24 11:34] LABS: Alanine Aminotransferase 17 U/L (0-40); Albumin Level 3.9 g/dL (3.5-5.0); Alkaline Phosphatase 102 U/L (39-117); Anion Gap 13 (12-20); Aspartate Amino Transferase 14 U/L (5-37); Bilirubin Direct 0.2 mg/dL (0.0-0.5); Bilirubin Total 0.3 mg/dL (0.0-1.0); Blood Urea Nitrogen 14 mg/dL (9-16); Calcium 9.8 mg/dL (8.4-10.2); Carbon Dioxide 26 mmol/L (22-29); Chloride 103 mmol/L (96-108); Estimated Glomerular Filt Rate > 60; Glucose Random 140 mg/dL (60-115); Magnesium 1.7 mg/dL (1.6-2.6); Potassium 4.3 mmol/L (3.3-5.1); Sodium 138 mmol/L (135-145)
[2021-06-24 11:39] LABS: COVID-19 Test Negative (Negative)
[2021-06-24] MEDS: iohexoL 350 MG/ML 100 ML INFUS..BTL IV (12:14)
[2021-06-24 13:39] VITALS: BP 205/107; PULSE 63; RESP 18; TEMP 37.1; O2SAT 95
[2021-06-24] MEDS: amLODIPine Besylate 10 MG TABLET PO (13:56)
[2021-06-24 14:29] VITALS: BP 170/76
== END 2021-06-24 14:49 | disposition home or self-care (01) ==
PROVIDERS: Physician Assistant; Emergency Provider Emergency Medicine Emergency Medical Services
DX: S22.42XA Multiple fractures of ribs, left side, initial encounter for closed fracture (principal); W10.8XXA Fall (on) (from) other stairs and steps, initial encounter; J90 Pleural effusion, not elsewhere classified; D49.4 Neoplasm of unspecified behavior of bladder; I10 Essential (primary) hypertension; Z20.822 Contact with and (suspected) exposure to COVID-19; Y93.89 Activity, other specified; Y92.9 Unspecified place or not applicable; Y99.9 Unspecified external cause status; Z85.46 Personal history of malignant neoplasm of prostate
CPT/HCPCS: 71101; 71260; 74177; 80048; 80076; 83735; 85025; 87635; 99284; Q9967

== ENCOUNTER 2021-07-28 07:42 | Outpatient (REF) | payer MEDICARE, SELFPAY ==
[2021-07-28 08:45] LABS: Prostate Specific Antigen 1.47 ng/mL (<0.05-4.0)
[2021-08-03 02:11] LABS: Testosterone, Total 6 ng/dL (250-1100)
== END 2021-07-28 07:43 | disposition home or self-care (01) ==
LOC: HO.LAB 07:42
PROVIDERS: Visit Provider Urology
DX: C61 Malignant neoplasm of prostate (principal); M81.8 Other osteoporosis without current pathological fracture; T38.7X5A Adverse effect of androgens and anabolic congeners, initial encounter; Z12.5 Encounter for screening for malignant neoplasm of prostate
CPT/HCPCS: 36415; 84153; 84403

== ENCOUNTER 2021-08-08 14:58 | Outpatient (REF) | payer MEDICARE, SELFPAY ==
--- NOTE | ~2021-08-08 | MM_ITS ---
EXAMINATION: BONE DENSITOMETRY CLINICAL INDICATION: Other specified disorders of bone density and structure. COMPARISON: None (current study represents initial baseline exam). TECHNIQUE: Using a IActionable DXA System (software version: 13.1) manufactured by [employer], dual-energy x-ray absorptiometry was performed of the lumbar spine and left hip. The images are of good technical quality. Summary results are attached. FINDINGS: AP SPINE L1-L4: BMD 1.171 g/cm2, Z-score 0.0, T-score -0.4, normal. LEFT FEMUR, NECK: BMD 0.852 g/cm2, Z-score -0.5, T-score -1.7, osteopenia. LEFT FEMUR, TOTAL: BMD 0.932 g/cm2, Z-score -0.5, T-score -1.2, osteopenia. IDENTIFIED RISK FACTORS: History of fracture (adult). HISTORY OF FRACTURE: Other; No insufficiency fracture reported. MEDICATIONS: None listed. MM/XR DEXA axial skeleton IMPRESSION: 1. DIAGNOSIS: Osteopenia based on the lowest T-score value of -1.7 in the femoral neck applying World Health Organization criteria. 2. 10-YEAR FRACTURE RISK PREDICTION, FRAX: Major osteoporotic fracture (clinical spine, forearm, hip or shoulder) 3.9%. Hip fracture 1.0%. 3. Treatment Recommendations: NOF guidelines recommend consideration for treatment in postmenopausal women and men age 50 and older presenting with the following: -A hip or vertebral (clinical or morphometric) fracture. -T-score less than or equal to -2.5 at the femoral neck or spine after appropriate evaluation to exclude secondary causes. -Low bone mass at the hip or spine and a 10-year fracture probability by FRAX of greater than or equal to 3% for hip fracture or greater than or equal to 20% for major osteoporotic fracture based on the [place] adapted WHO algorithm. 4. Other Recommendations: All treatment decisions require clinical judgment and consideration of individual patient factors, including patient preferences, comorbidities, previous drug use, risk factors not captured in the FRAX model (e.g. frailty, falls, vitamin D deficiency, increased bone turnover, interval significant decline in bone density) and possible under or overestimation of fracture risk by FRAX. Additional medical evaluation for secondary cause of low bone mineral density may be appropriate. FUTURE SCAN RECOMMENDATION: People with diagnosed cases of osteoporosis or at high risk for fracture should have regular bone mineral density tests. For patients eligible for Medicare, routine testing is allowed once every 2 years. The testing frequency can be increased to one year for patients who have rapidly progressing disease, those who are receiving or discontinuing medical therapy to restore bone mass, or have additional risk factors.
== END 2021-08-08 14:59 | disposition home or self-care (01) ==
LOC: HO.MAMMO 14:58
PROVIDERS: Visit Provider Urology
DX: Z13.820 Encounter for screening for osteoporosis (principal); M85.88 Other specified disorders of bone density and structure, other site
CPT/HCPCS: 77080

== ENCOUNTER → 2021-08-09 10:58 | Outpatient (REF) | payer MEDICARE, SELFPAY ==
--- NOTE | ~2021-08-09 | NM_ITS ---
EXAMINATION: NM BONE SCAN OF THE WHOLE BODY CLINICAL INFORMATION: Malignant neoplasm of prostate. COMPARISON: The previous bone scan dated 07/30/2018 is available for comparison. The diagnostic CT scan of the chest, abdomen, and pelvis, dated 06/24/2021, is available for comparison. Left rib radiographs also dated 06/24/2021 are available for comparison. TECHNIQUE: Multiple gamma scintillation camera images of the whole body were performed 2.5 hours following the intravenous administration of 29 mCi Tc-99m MDP. FINDINGS: In the head, there is moderately intense diffuse abnormality in the right maxillary sinus region. In the thoracic cage and upper extremities, multiple left-sided moderately intense rib lesions are present involving the anterolateral aspects of the left third through seventh ribs and posterior aspects of the second through 6 ribs and in additional prominent focus in the costovertebral junction of the right eighth rib. There is also mildly increased activity in the right sternoclavicular joint region which appears somewhat expansile and there is mildly increased activity in the left glenohumeral articulation. In the spine, no significant abnormalities are present other than at the left side of the eighth costovertebral junction which may be in the posterior medial left eighth rib or the left transverse process of T8. In the pelvis, there is minimally increased activity in the superior aspect of the right sacroiliac joint and there is very mildly increased activity in the superior lip of the acetabula bilaterally. In the lower extremities, there is moderately increased activity in a bilaterally symmetrical distribution in the medial compartments of both knees. There is mildly increased activity in the first metatarsophalangeal joint regions bilaterally and in additional mild abnormalities are present laterally in the proximal feet bilaterally and faintly in the lateral malleolus of the right ankle. No other definite bony abnormalities are noted. The urinary bladder and faint visualization of both kidneys are noted. Compared to the previous scan dated 07/30/2018, all of the rib abnormalities are new but the abnormalities in the acetabula, knees, and feet appear unchanged. The faint abnormality in the superior aspect of the right sacroiliac joint appears new. The abnormality in the right maxillary sinus is similar in distribution but appears slightly more intense on the current study. NM/NM bone scan whole body IMPRESSION: 1. Multiple left-sided rib fractures involving the left lateral and left posterior ribs as well as the left costovertebral junction of T8 are noted as described above, all most likely due to recent fractures. 2. Prominent chronic abnormality in the right maxillary sinus is nonspecific. This may be due to a chronic sinusitis, but other nonaggressive pathology, such as fibrous dysplasia, might also have this appearance. This could be further characterized with CT imaging of the right maxillary sinus, if clinically indicated. 3. A few additional mild nonspecific abnormalities are noted as described above and these are all likely arthritic or traumatic in etiology. None of these abnormalities is strongly suspicious for metastatic disease.
== END ==
LOC: HO.NUCMED 10:58
PROVIDERS: Visit Provider Urology
DX: C61 Malignant neoplasm of prostate (principal); C79.51 Secondary malignant neoplasm of bone
CPT/HCPCS: 78306; A9503

== ENCOUNTER → 2021-08-11 14:59 | Outpatient (BNVA) | payer MEDICARE, SELFPAY | PROVIDERS: Visit Provider Urology | DX: R97.21 Rising PSA following treatment for malignant neoplasm of prostate (principal); C61 Malignant neoplasm of prostate | CPT/HCPCS: 52000; 96402; 99212; J9217 ==

== ENCOUNTER 2021-11-17 07:38 | Outpatient (REF) | payer MEDICARE, SELFPAY ==
[2021-11-17 09:27] LABS: Prostate Specific Antigen 0.11 ng/mL (<0.05-4.0)
[2021-11-26 09:23] LABS: Testosterone, Total <1 ng/dL (250-1100)
== END 2021-11-17 07:39 | disposition home or self-care (01) ==
LOC: HO.LAB 07:38
PROVIDERS: Visit Provider Urology
DX: Z12.5 Encounter for screening for malignant neoplasm of prostate (principal); C61 Malignant neoplasm of prostate; R97.21 Rising PSA following treatment for malignant neoplasm of prostate
CPT/HCPCS: 36415; 84153; 84403

== ENCOUNTER → 2021-11-29 11:41 | Outpatient (BNVA) | payer MEDICARE, SELFPAY | PROVIDERS: Visit Provider Urology | DX: C61 Malignant neoplasm of prostate (principal); M81.8 Other osteoporosis without current pathological fracture; T38.7X5A Adverse effect of androgens and anabolic congeners, initial encounter; Z19.2 Hormone resistant malignancy status | CPT/HCPCS: Q3014 ==

== ENCOUNTER 2022-02-16 07:42 | Outpatient (REF) | payer MEDICARE, SELFPAY ==
[2022-02-16 09:45] LABS: Prostate Specific Antigen < 0.05 ng/mL (<0.05-4.0)
[2022-02-23 01:18] LABS: Testosterone, Total <1 ng/dL (250-1100)
== END 2022-02-16 07:43 | disposition home or self-care (01) ==
LOC: HO.LAB 07:42
PROVIDERS: Visit Provider Urology
DX: Z12.5 Encounter for screening for malignant neoplasm of prostate (principal); R97.21 Rising PSA following treatment for malignant neoplasm of prostate
CPT/HCPCS: 36415; 84153; 84403

== ENCOUNTER → 2022-03-02 14:34 | Outpatient (BNVA) | payer MEDICARE, SELFPAY | PROVIDERS: Visit Provider Urology | DX: C61 Malignant neoplasm of prostate (principal); N32.0 Bladder-neck obstruction; N40.1 Benign prostatic hyperplasia with lower urinary tract symptoms; N13.8 Other obstructive and reflux uropathy; R97.21 Rising PSA following treatment for malignant neoplasm of prostate; M85.80 Other specified disorders of bone density and structure, unspecified site | CPT/HCPCS: 96402; 99212; J9217 ==

== ENCOUNTER 2022-05-18 07:39 | Outpatient (REF) | payer MEDICARE, SELFPAY ==
[2022-05-18 09:22] LABS: Prostate Specific Antigen < 0.10 ng/mL (<0.05-4.0)
[2022-05-25 18:43] LABS: Testosterone, Total 3 ng/dL (250-1100)
== END 2022-05-18 07:40 | disposition home or self-care (01) ==
LOC: HO.LAB 07:39
PROVIDERS: Visit Provider Urology
DX: R97.21 Rising PSA following treatment for malignant neoplasm of prostate (principal); Z12.5 Encounter for screening for malignant neoplasm of prostate
CPT/HCPCS: 36415; 84153; 84403

== ENCOUNTER → 2022-06-06 15:17 | Outpatient (BNVA) | payer MEDICARE, SELFPAY | PROVIDERS: Visit Provider Urology | DX: M81.8 Other osteoporosis without current pathological fracture (principal); T38.7X5A Adverse effect of androgens and anabolic congeners, initial encounter; C61 Malignant neoplasm of prostate; Z19.2 Hormone resistant malignancy status | CPT/HCPCS: 99212 ==

== ENCOUNTER 2022-08-24 07:20 | Outpatient (REF) | payer MEDICARE, SELFPAY ==
[2022-08-24 08:25] LABS: Blood Urea Nitrogen 16 mg/dL (9-16); Estimated Glomerular Filt Rate > 60
[2022-08-24 09:06] LABS: Prostate Specific Antigen 0.19 ng/mL (<0.05-4.0)
[2022-08-30 13:49] LABS: Testosterone, Total 7 ng/dL (250-1100)
== END 2022-08-24 07:21 | disposition home or self-care (01) ==
LOC: HO.LAB 07:20
PROVIDERS: Visit Provider Urology
DX: C61 Malignant neoplasm of prostate (principal); Z19.2 Hormone resistant malignancy status; Z12.5 Encounter for screening for malignant neoplasm of prostate
CPT/HCPCS: 36415; 82565; 84153; 84403; 84520

== ENCOUNTER 2022-09-07 14:54 | Outpatient (AMB) | payer MEDICARE, SELFPAY ==
--- NOTE | 2022-09-07 15:46 | A.OFFVIS_ITS ---
Intake Intake Visit Reasons: 3M LABS/MRI/GnRH(Set) Intake Note: Patient is present for Follow Up MRI/LABS/[facility] Med: Tamsulosin Antibiotic Allergy: none Blood Thinner: none Allergies lisinopril [LISINOPRIL] Allergy (Unknown, Verified 12/26/22 13:55) ANGIOEDEMA, edema HPI HPI Comments History of Present Illness Details Toro is a pleasant male. He is a patient of Dr. Noel. he is seen for the following urologic conditions - prostate cancer - bladder outlet obstruction Belarusian translation provided by qualified medical chemist Here for injection GnRH today Three-month follow-up lab work and imaging Prostate cancer group 5 - primary therapy hormonal last GnRH 03/20 Diagnosed 07/[address] Che Presenting PSA 150 Initial biopsy Haroldo 8 and 9 disease Staging bone scan 07/18 rib fractures but no evidence of metastatic disease Imaging - 08/18 DEXA osteopenia Current PSA 11/15 <0.1, 07/17 0.45, 10/17 .6 T 8, 01/17 0.7 T 24, 04/18 1.4 T 10, 08/18 1.47 T 6, 11/17 0.1 <1, 02/17 <0.1 T <1, 05/21 <0.1 T 3, 08/19 0.2 7 Adjuvant therapy calcium and vitamin-D 3 08/18 GnRH given, anti androgen started 03/20 GnRH given, antiandrogen held Bladder outlet obstruction Ongoing urgency, hesitancy Good response to tamsulosin Cystoscopy 08/18 prostatic regrowth left side PFSH Medical History Benign prostatic hyperplasia with lower urinary tract symptoms H/O urinary retention HTN (hypertension) with goal to be determined Nonrheumatic aortic (valve) stenosis Pure hypercholesterolemia Renal artery stenosis Type 2 diabetes mellitus without complication, without long-term current use of insulin Surgical History History of prostate biopsy Social History Alcohol intake: former Patient Tobacco Use Status: Never used Tobacco Review of Systems Const Denies chills and Denies fever(s) Card Reports no additional complaints and Denies syncope Resp Denies cough GI Denies abdominal pain and Denies heartburn Reports as per HPI and Denies change in libido Neuro Denies syncope Psych Denies change in libido Endo Denies change in libido Physical Exam Const General: cooperative, healthy appearing, comfortable and no acute distress Orientation/consciousness: patient oriented x3 HEENT Face and sinus: Yes normal facial exam Mouth: moist mucous membranes Neck Neck: Yes normal visual inspection, Yes full ROM and Yes trachea midline Chest Chest palpation & inspection: normal inspection of the chest Resp Effort & Inspection: normal respiratory effort, able to speak in complete sentences and no respiratory distress GI Inspection: Yes normal to inspection Back/Spine/Pelvis Cervical Spine: normal cervical lordosis Thoracic/Lumbar Spine: thoracic and lumbar spine normal to inspection Skin General skin exam: no rashes or lesions noted Neuro General: patient oriented x3, gait normal, tone normal and moves all extremities Extrem General: Yes normal to inspection and Yes capillary refill normal Office Meds Gudelia (6 month) Performing Provider: Ga Choi MD Administered by: Fidelia Panda RN on 09/07/22 16:10 Dose Route Admin Location Lot Number Expiration Date NDC Internet Marketing Director 45 mg subcut left arm [id number] 02/28/24 [id number] [place]. 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: Code(s): C61 - Malignant neoplasm of prostate; Z19.2 - Hormone resistant malignancy status (2) Osteoporosis due to androgen therapy: Code(s): M81.8 - Other osteoporosis without current pathological fracture; T38.7X5A - Adverse effect of androgens and anabolic congeners, initial encounter (3) Prostate cancer: Comment: High-grade initial treatment hormonal Code(s): C61 - Malignant neoplasm of prostate Plan Continue with surveillance laboratory and imaging Orders: Orders XR DEXA axial skeleton 3 Months M81.8 - Other osteoporosis without current pathological fracture, T38.7X5A - Adverse effect of androgens and anabolic congeners, initial encounter AMB Leuprolide Injection - Practice Supplied 09/07/22 C61 - Malignant neoplasm of prostate Patient Instructions: Imaging studies, laboratory and physical exam results were discussed and reviewed in detail. No major barriers to patient understanding were identified. An opportunity to ask questions regarding the treatment plan was provided. All questions were answered. The patient expressed understanding and agreement with the above treatment plan. The patient is aware they should contact our office by phone for worsening of their current condition or the appearance of new urologic symptoms. Compliance is encouraged with any medications and followup testing that is ordered. It is a privilege to participate in the urologic care of your patient. If you have any questions or concerns regarding treatment for the above conditions, or other urologic issues, please do not hesitate to contact me. The office telephone contact is [phone]. This note is constructed using voice recognition software. While every effort has been made to ensure accuracy dishwashing machine operator errors may have been included. 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
== END 2022-09-07 16:15 | disposition home or self-care (01) ==
LOC: HO.HUSH 14:54
PROVIDERS: Visit Provider Urology
DX: C61 Malignant neoplasm of prostate (principal); Z19.2 Hormone resistant malignancy status; M81.8 Other osteoporosis without current pathological fracture; T38.7X5A Adverse effect of androgens and anabolic congeners, initial encounter
CPT/HCPCS: 99213

== ENCOUNTER → 2022-09-07 14:54 | Outpatient (BNVA) | payer MEDICARE, SELFPAY | PROVIDERS: Visit Provider Urology | DX: C61 Malignant neoplasm of prostate (principal); M81.8 Other osteoporosis without current pathological fracture; T38.7X5A Adverse effect of androgens and anabolic congeners, initial encounter; Z19.2 Hormone resistant malignancy status | CPT/HCPCS: 96402; 99212; J9217 ==

== ENCOUNTER 2022-11-19 12:59 | Outpatient (REF) | payer MEDICARE, SELFPAY ==
--- NOTE | 2022-11-19 | PFT_ITS ---
Forced vital capacity is 74% and FEV1 is 74%. FEV1/FVC ratio is 74. FEF 25/75 72%. MVV is 67%. Post bronchodilator therapy, there is no change. Total lung capacity 73% and residual volume is 76%. Diffusion capacity 82%. CONCLUSION: Mild restrictive pulmonary disorder. There is no evidence of any significant obstructive airway disorder. There is no response to bronchodilator therapy. Clinical correlation is recommended. MD BRANDON Salter/RUDOLPH / [phone]
== END 2022-11-19 13:00 | disposition home or self-care (01) ==
LOC: HO.RESP 12:59
PROVIDERS: Visit Provider Internal Medicine
DX: R06.02 Shortness of breath (principal)
CPT/HCPCS: 94010; 94727; 94729

== ENCOUNTER → 2022-11-19 13:25 | Outpatient (BNV) | payer MEDICARE, SELFPAY | PROVIDERS: Visit Provider Internal Medicine | DX: J45.909 Unspecified asthma, uncomplicated (principal) | CPT/HCPCS: 94060; 94727; 94729 ==

== ENCOUNTER 2022-12-07 07:41 | Outpatient (REF) | payer MEDICARE, SELFPAY ==
[2022-12-07 14:49] LABS: PSA,Total (Free>4and<10) 0.41 ng/mL (0.00-4.00)
[2022-12-12 12:12] LABS: Testosterone, Total 7 ng/dL (250-1100)
== END 2022-12-07 07:42 | disposition home or self-care (01) ==
LOC: HO.LAB 07:41
PROVIDERS: Visit Provider Urology
DX: Z12.5 Encounter for screening for malignant neoplasm of prostate (principal); C61 Malignant neoplasm of prostate
CPT/HCPCS: 36415; 84153; 84403

== ENCOUNTER 2022-12-26 13:45 | Outpatient (AMB) | payer MEDICARE, SELFPAY ==
--- NOTE | 2022-12-26 13:52 | A.OFFVIS_ITS ---
Intake Intake Visit Reasons: 3M PSA/Testo(set) Intake Note: Patient is present for Follow Up Urology Med:Tamsulosin Antibiotic Allergy:None Blood Thinner: None Pharmacy: [facility] Allergies lisinopril [LISINOPRIL] Allergy (Unknown, Verified 12/26/22 13:55) ANGIOEDEMA, edema HPI HPI Comments History of Present Illness Details Toro is a pleasant male. He is a patient of Dr. Noel. he is seen for the following urologic conditions - prostate cancer - bladder outlet obstruction Welsh translation provided by qualified pediatric medical assistant 12/19 P 0.4, T 7 MRI shows disease localized prostate Had initially been treated with hormonal therapy after diagnosis with PSA of 150 and high-grade disease Discussed possible definitive treatment with radiation Will obtain PET-CT with referral to Radiation Oncology Prostate cancer group 5 - primary therapy hormonal last GnRH 09/18 Diagnosed 07/[address] Che Presenting PSA 150 Initial biopsy Haroldo 8 and 9 disease Staging bone scan 07/18 rib fractures but no evidence of metastatic disease Imaging - 07/19 MRI pelvis disease localized to prostate - 08/18 DEXA osteopenia Current PSA 11/15 <0.1, 07/17 0.45, 10/17 .6 T 8, 01/17 0.7 T 24, 04/18 1.4 T 10, 08/18 1.47 T 6, 11/17 0.1 <1, 02/17 <0.1 T <1, 05/21 <0.1 T , 08/19 0.2 7 Adjuvant therapy calcium and vitamin-D 3 08/18 GnRH given, anti androgen started 03/20 GnRH given, antiandrogen held Bladder outlet obstruction Ongoing urgency, hesitancy Good response to tamsulosin Cystoscopy 08/18 prostatic regrowth left side [facility] Medical History Benign prostatic hyperplasia with lower urinary tract symptoms H/O urinary retention HTN (hypertension) with goal to be determined Nonrheumatic aortic (valve) stenosis Pure hypercholesterolemia Renal artery stenosis Type 2 diabetes mellitus without complication, without long-term current use of insulin Surgical History History of prostate biopsy Social History Alcohol intake: former Patient Tobacco Use Status: Never used Tobacco Review of Systems Const Denies chills and Denies fever(s) Card Reports no additional complaints and Denies syncope Resp Denies cough GI Denies abdominal pain and Denies heartburn Reports as per HPI and Denies change in libido Neuro Denies syncope Psych Denies change in libido Endo Denies change in libido Physical Exam Const General: cooperative, healthy appearing, comfortable and no acute distress Orientation/consciousness: patient oriented x3 HEENT Face and sinus: Yes normal facial exam Mouth: moist mucous membranes Neck Neck: Yes normal visual inspection, Yes full ROM and Yes trachea midline Chest Chest palpation & inspection: normal inspection of the chest Resp Effort & Inspection: normal respiratory effort, able to speak in complete sentences and no respiratory distress GI Inspection: Yes normal to inspection Back/Spine/Pelvis Cervical Spine: normal cervical lordosis Thoracic/Lumbar Spine: thoracic and lumbar spine normal to inspection Skin General skin exam: no rashes or lesions noted Neuro General: patient oriented x3, gait normal, tone normal and moves all extremities Extrem General: Yes normal to inspection and Yes capillary refill normal 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: Code(s): C61 - Malignant neoplasm of prostate; Z19.2 - Hormone resistant malignancy status (2) Prostate cancer: Comment: High-grade initial treatment hormonal Code(s): C61 - Malignant neoplasm of prostate Plan PET-CT, radiation oncology referral Orders: Orders Blood Urea Nitrogen Today C61 - Malignant neoplasm of prostate, R39.15 - Urgency of urination, Z19.2 - Hormone resistant malignancy status Creatinine Today C61 - Malignant neoplasm of prostate, R39.15 - Urgency of urination, Z19.2 - Hormone resistant malignancy status PET CT fusion skull to thigh Today C61 - Malignant neoplasm of prostate, Z19.2 - Hormone resistant malignancy status Prostate Specific Antigen 3 Months C61 - Malignant neoplasm of prostate Testosterone, Free/Total 3 Months C61 - Malignant neoplasm of prostate Referrals Radiation Oncology Referral C61 - Malignant neoplasm of prostate Patient Instructions: Imaging studies, laboratory and physical exam results were discussed and reviewed in detail. No major barriers to patient understanding were identified. An opportunity to ask questions regarding the treatment plan was provided. All questions were answered. The patient expressed understanding and agreement with the above treatment plan. The patient is aware they should contact our office by phone for worsening of their current condition or the appearance of new urologic symptoms. Compliance is encouraged with any medications and followup testing that is ordered. It is a privilege to participate in the urologic care of your patient. If you have any questions or concerns regarding treatment for the above conditions, or other urologic issues, please do not hesitate to contact me. The office telephone contact is [phone]. This note is constructed using voice recognition software. While every effort has been made to ensure accuracy private banker errors may have been included. 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
== END 2022-12-26 14:14 | disposition home or self-care (01) ==
PROVIDERS: Visit Provider Urology
DX: C61 Malignant neoplasm of prostate (principal); N32.0 Bladder-neck obstruction
CPT/HCPCS: 99214

== ENCOUNTER → 2022-12-26 13:45 | Outpatient (BNVA) | payer MEDICARE, SELFPAY | PROVIDERS: Visit Provider Urology | DX: C61 Malignant neoplasm of prostate (principal); Z19.2 Hormone resistant malignancy status | CPT/HCPCS: 99212 ==

== ENCOUNTER 2023-03-29 13:59 | Outpatient (AMB) | payer MEDICARE, SELFPAY ==
--- NOTE | 2023-03-29 14:10 | A.OFFVIS_ITS ---
Intake Intake Visit Reasons: [facility]-/PETCT Intake Note: Patient is Present for Follow Up Elipriyankad Inj/PET CT Follow Up Urology Medication: Tamsulosin Antibiotic Allergies: None Blood Thinners: None Allergies lisinopril [LISINOPRIL] Allergy (Unknown, Verified 03/29/23 14:11) ANGIOEDEMA, edema HPI HPI Comments History of Present Illness Details Toro is a pleasant male. He is a patient of Dr. Noel. he is seen for the following urologic conditions - prostate cancer - bladder outlet obstruction Welsh translation provided by qualified medical photographer Has seen Dr Tomas - radiation oncology. Is candidate for external beam radiation GnRH given today Would benefit from maximum androgen blockade Patient had concerns regarding receiving abiraterone Will plan on classic maximum androgen blockade using combination finasteride and bicalutamide throughout radiation Prescriptions provided 04/20 - PET-CT - enhancement of prostate and single node May still consider external beam radiation if known lies within typical area Recently updated [place] Society for Clinical Oncology (ASCO) evidence-based guidelines and the National Comprehensive Cancer Network (NCCN - (Version 3.2021)) Guidelines have updated recommendations for the addition of second generation anti-androgens to androgen deprivation therapy (ADT) in men receiving radiation therapy (RT) for noncastrate locally advanced high and very high risk nonmetastatic or node positive prostate cancer (cT3N0/1). ADT with RT is an established standard of care treatment for men with high-risk prostate cancer. RTOG 9202 prison ADT (24 months) significantly improved DFS (30%), local progression (46%, and OS (12% relative reduction) compared to short term ADT (4 months). Other similar studies included EORTC 42110 and DART/ GICOR trial. The 5-year results of AbiRT were presented at DEBBIE 2020. In this trial patients with unfavorable intermediate risk or low volume high risk prostate cancer (Eligibility included 2+ intermediate or 1 high NCCN risk factors and no metastatic disease) were treated with 6 months of abiraterone, prednisone, and depot LHRH agonist. The 5-year bPFS was 92%.This study suggested that a short course of complete androgen blockade (abiraterone with prednisone and LHRH agonist) and definitive RT may be beneficial without long-term toxicity as compared to 2-3 years of abiraterone and ADT. The NCCN Guidelines recommend use of anti-androgen in addition to ADT. Abiraterone can be added to EBRT and 2 years of ADT in patients with lctk-dvjr-puhe prostate cancer (Has at least one of the following: ? cT3b?cT4 ? Primary Haroldo pattern 5 ? 2 or 3 high-risk features ? >4 cores with Grade Group 4 or 5). In the STAMPEDE trial, the hazard ratios for overall survival with the addition of abiraterone to EBRT and ADT in patients with node-negative disease was 0.69 (95% CI, 0.49?0.96) 12/19 P 0.4, T 7 MRI shows disease localized prostate Discussed possible definitive treatment with radiation Prostate cancer group 5 - primary therapy hormonal last GnRH 09/18 Diagnosed 07/[address] Che Presenting PSA 150 Initial biopsy Reading 8 and 9 disease Staging bone scan 07/18 rib fractures but no evidence of metastatic disease Imaging - 07/19 MRI pelvis disease localized to p rostate - 08/18 DEXA osteopenia Current PSA 11/15 <0.1, 07/17 0.45, 10/17 .6 T 8, 01/17 0.7 T 24, 04/18 1.4 T 10, 08/18 1.47 T 6, 11/17 0.1 <1, 02/17 <0.1 T <1, 05/21 <0.1 T , 08/19 0.2 7 Adjuvant therapy calcium and vitamin-D 3 08/18 GnRH given, anti androgen started 03/20 GnRH given, antiandrogen held Bladder outlet obstruction Ongoing urgency, hesitancy Good response to tamsulosin Cystoscopy 08/18 prostatic regrowth left side [facility] Medical History (Updated 03/29/23 @ 14:47 by Ga Choi MD) 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 H/O urinary retention Benign prostatic hyperplasia with lower urinary tract symptoms Renal artery stenosis Pure hypercholesterolemia Type 2 diabetes mellitus without complication, without long-term current use of insulin HTN (hypertension) with goal to be determined Nonrheumatic aortic (valve) stenosis Surgical History History of prostate biopsy Social History Alcohol intake: former Patient Tobacco Use Status: Never used Tobacco Review of Systems Const Denies chills and Denies fever(s) Card Reports no additional complaints and Denies syncope Resp Denies cough GI Denies abdominal pain and Denies heartburn Reports as per HPI and Denies change in libido Neuro Denies syncope Psych Denies change in libido Endo Denies change in libido Physical Exam Const General: cooperative, healthy appearing, comfortable and no acute distress Orientation/consciousness: patient oriented x3 HEENT Face and sinus: Yes normal facial exam Mouth: moist mucous membranes Neck Neck: Yes normal visual inspection, Yes full ROM and Yes trachea midline Chest Chest palpation & inspection: normal inspection of the chest Resp Effort & Inspection: normal respiratory effort, able to speak in complete sentences and no respiratory distress GI Inspection: Yes normal to inspection Back/Spine/Pelvis Cervical Spine: normal cervical lordosis Thoracic/Lumbar Spine: thoracic and lumbar spine normal to inspection Skin General skin exam: no rashes or lesions noted Neuro General: patient oriented x3, gait normal, tone normal and moves all extremities Extrem General: Yes normal to inspection and Yes capillary refill normal Office Meds Eligard (6 month) 45 mg (6 month) subcutaneous syringe Performing Provider: Ga Choi MD [facility] Administered by: Fidelia Campbell RN on 03/29/23 14:47 Dose Route Admin Location Dispensed Lot Number Expiration Date [facility] Flight Mechanic 45 mg subcut 45 mg [id number] 04/29/24 41226-871-86 [id number]. Assessment & Plan Assessment & Plan (1) Osteoporosis due to androgen therapy: Code(s): M81.8 - Other osteoporosis without current pathological fracture; T38.7X5A - Adverse effect of androgens and anabolic congeners, initial encounter (2) Prostate cancer: Comment: High-grade initial treatment hormonal Code(s): C61 - Malignant neoplasm of prostate Plan GnRH Prescription provided for finasteride and bicalutamide for maximum androgen blockade Orders: Orders AMB Leuprolide Injection - Practice Supplied 03/29/23 C61 - Malignant neoplasm of prostate Medications: New finasteride 5 mg PO DAILY 90 tabs 0RF 90 days C61 - Malignant neoplasm of prostate, N32.0 - Bladder-neck obstruction levofloxacin Take day before, day of and day after procedure 500 mg PO ONCE 3 tabs 0RF 3 days C61 - Malignant neoplasm of prostate, R97.20 - Elevated prostate specific antigen [PSA] bicalutamide 50 mg PO DAILY 90 tabs 0RF 90 days C61 - Malignant neoplasm of prostate Patient Instructions: Imaging studies, laboratory and physical exam results were discussed and reviewed in detail. No major barriers to patient understanding were identified. An opportunity to ask questions regarding the treatment plan was provided. All questions were answered. The patient expressed understanding and agreement with the above treatment plan. The patient is aware they should contact our office by phone for worsening of their current condition or the appearance of new urologic symptoms. Compliance is encouraged with any medications and followup testing that is ordered. It is a privilege to participate in the urologic care of your patient. If you have any questions or concerns regarding treatment for the above conditions, or other urologic issues, please do not hesitate to contact me. The office telephone contact is [phone]. This note is constructed using voice recognition software. While every effort has been made to ensure accuracy call center dispatcher errors may have been included. Yours sincerely, Dr Ga Choi MD, MICHA[facility] - Urology Providers of Expert, Compassionate Care for the Genitourinary System Coding Level of Care Code Est Pt Level 4 (27268) Diagnoses Osteoporosis due to androgen therapy M81.8; T38.7X5A Prostate cancer C61
== END 2023-03-29 15:07 | disposition home or self-care (01) ==
PROVIDERS: Visit Provider Urology
DX: M81.8 Other osteoporosis without current pathological fracture (principal); T38.7X5A Adverse effect of androgens and anabolic congeners, initial encounter; C61 Malignant neoplasm of prostate
CPT/HCPCS: 99214

== ENCOUNTER → 2023-03-29 13:59 | Outpatient (BNVA) | payer MEDICARE, OTHER, SELFPAY | PROVIDERS: Visit Provider Urology | DX: M81.8 Other osteoporosis without current pathological fracture (principal); T38.7X5A Adverse effect of androgens and anabolic congeners, initial encounter; C61 Malignant neoplasm of prostate | CPT/HCPCS: 96402; 99212; J9217 ==

== ENCOUNTER → 2023-04-02 06:21 | Outpatient (BNV) | payer MEDICARE, SELFPAY | PROVIDERS: PCP General Practice; Visit Provider Urology | DX: C61 Malignant neoplasm of prostate (principal) | CPT/HCPCS: 55700; 76942 ==

== ENCOUNTER → 2023-04-02 06:21 | Day surgery (SDC) | payer MEDICARE, OTHER, SELFPAY ==
[2023-04-02 07:36] VITALS: BP 185/98; PULSE 81; RESP 16; TEMP 36.4; O2SAT 97
[2023-04-02 07:38] VITALS: BMI 32.6
--- NOTE | 2023-04-02 08:24 | W.PM.OPN ---
Operative Note Operative Note Date of Service: 04/02/23 Narrative: Preoperative diagnosis: Prostate cancer Postoperative diagnosis: Prostate cancer Procedure: 1. Transrectal ultrasound-guided pudendal nerve block 2. Transrectal ultrasound-guided gold seed placement Surgeon: Dr. Ga Choi Anesthetic: Local Indications for procedure: Prostate Cancer Procedure: After informed consent was verified, the patient was brought into the procedure area and lay left-hand side down on the table. Patient identity confirmed. Perioperative antibiotics confirmed. Gel was placed per rectum Ultrasound probe was placed per rectum A ultrasound-guided pudendal nerve block was performed using 10 cc of 1% lidocaine. 8 cc was placed at the base and 2 cc of the apex. 2 visicoil seed markers placed. 1 on the right, 1 on the left. The purpose is for triangulation. He tolerated the procedure well. Was able to ambulate to bathroom after 5 minutes. Printed instructions regarding antibiotic use and common side effects such as low-grade temperature and bleeding were given
[2023-04-02 08:34] VITALS: BP 180/96; PULSE 82; RESP 16; O2SAT 95
== END ==
PROVIDERS: PCP General Practice; Visit Provider Urology
PROC: (CPT 55876; principal; 2023-04-02 08:00)
DX: C61 Malignant neoplasm of prostate (principal)
CPT/HCPCS: 55876; 76942; A4648

== ENCOUNTER 2023-06-26 14:27 | Outpatient (AMB) | payer MEDICARE, SELFPAY ==
--- NOTE | 2023-06-26 14:28 | A.OFFVIS_ITS ---
Intake Vital Signs 06/26/23 14:29 Height 5 ft 4 in Weight 171 lb 15.369 oz BMI 29.5 BP 160/75 H Blood Pressure Location Lt brachial Position Sitting Pulse 72 Intake Visit Reasons: NPV/HTN/B. Maria Intake Note: PT is here NPV/HTN/B. Betancout, PT feels good. Scientist/Engineer Required: Yes Scientist/Engineer Name: [facility] Allergies lisinopril [LISINOPRIL] Allergy (Unknown, Verified 06/26/23 14:41) ANGIOEDEMA, edema Medication List - Last Reconciled 06/26/23 by Sergio Carreno MD amlodipine 10 mg PO DAILY atorvastatin 40 mg PO BEDTIME bicalutamide 50 mg PO DAILY 90 days calcium carbonate (Calcium 500) 500 mg PO BID 90 days cholecalciferol (vitamin D3) 800 units PO DAILY 90 days finasteride 5 mg PO DAILY 90 days fluconazole (Diflucan) 100 mg PO DAILY glipizide ER 10 mg PO QAM levofloxacin 500 mg PO ONCE 3 days metformin 1,000 mg PO orphenadrine citrate ER 100 mg PO DAILY PRN spironolactone 50 mg PO DAILY tamsulosin 0.4 mg PO BEDTIME HPI HPI Comments History of Present Illness Details Thank you for referring Toro in cardiology consultation today for exertional shortness of breath with management of blood pressure. Patient was last seen in 2019 was advised some testing although do not have a copy of any of the testing done in the past. Patient says that over the last several months he has been getting exertional shortness of breath especially when he climbs a flight of stairs. He denies any associated chest discomfort although history is difficult to obtain despite the welder apprentice arc which was present at bedside. Patient denies any symptoms of lightheadedness, syncope. Denies any exertional chest pain. Denies any orthopnea, PND, leg edema. Takes all his medications. Although not shown a dose of amlodipine, question is taking 10 mg. Patient was recently diagnosed with metastatic prostate cancer underwent radiation therapy as well as chemotherapy. Last treatment was last week as per him. 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 H/O urinary retention Benign prostatic hyperplasia with lower urinary tract symptoms Renal artery stenosis Pure hypercholesterolemia Type 2 diabetes mellitus without complication, without long-term current use of insulin HTN (hypertension) with goal to be determined Nonrheumatic aortic (valve) stenosis Surgical History History of prostate biopsy Social History Alcohol intake: former Patient Tobacco Use Status: Never used Tobacco Review of Systems Const Denies weakness ENT Denies dizziness Card Denies chest pain, Denies chest pain with activity, Denies syncope, Denies rapid heart rate, Denies pedal edema, Denies edema, Denies leg edema, Denies lightheadedness, Denies palpitations, Denies dyspnea, Denies dyspnea on exertion and Denies orthopnea Resp Denies cough, Denies dyspnea and Denies dyspnea on exertion GI Denies hematochezia and Denies change in stool character Musc Denies abnormal gait, Denies muscle cramps, Denies muscle weakness, Denies numbness, Denies radiating pain into limb and Denies tingling Neuro Denies abnormal gait, Denies dizziness, Denies syncope, Denies numbness, Denies tingling and Denies weakness Endo Denies palpitations Physical Exam Vital Signs: Last Vital Signs Pulse 72 06/26/23 14:29 BP 160/75 H 06/26/23 14:29 BMI result Body Mass Index 29.5 Const General: cooperative, comfortable, no acute distress, alert, awake and Physically active Nutritional Appearance: overweight Orientation/consciousness: patient oriented x3 Limitations: no limitations HEENT Head: Yes normocephalic and Yes atraumatic Neck Neck: Yes trachea midline, Yes supple and Yes no JVD Resp Effort & Inspection: normal respiratory effort Auscultation: clear to auscultation bilaterally Cardio Jugular venous distension: no JVD Rate: regular rate Rhythm: regular rhythm Heart sounds: S1 normal heart sound present, S2 normal heart sound present, no click, no gallops and Murmur heart sound present systolic late, decrescendo and crescendo GI Auscultation: normal bowel sounds Skin General skin exam: no rashes or lesions noted Neuro General: patient oriented x3 and no focal motor deficits Extrem General: Yes no clubbing, cyanosis or edema Psych Appearance: grossly normal Office Procedures EKG Details: EKG shows normal sinus rhythm at 72 beats per minute with right bundle-branch block and left anterior fascicular block [id number], Complete Assessment & Plan Assessment & Plan (1) SOB (shortness of breath) on exertion: Code(s): R06.02 - Shortness of breath Plan: Shortness of breath on exertion in this elderly gentleman with multiple risk factors for obstructive coronary artery disease. Could also be related to uncontrolled blood pressure. At this point time need to evaluate for coronary artery disease with exercise myocardial perfusion imaging. Also could be related to progressive aortic stenosis. Suggest an echocardiogram. These tests will be scheduled in near future. Needs better control of his blood pressure, see below. (2) Nonrheumatic aortic (valve) stenosis: Code(s): I35.0 - Nonrheumatic aortic (valve) stenosis Plan: Aortic stenosis which clinically appears to be moderately severe. Follow-up echocardiogram in near future. Suggest further treatment based on the findings of the echocardiogram. Should be on low-dose aspirin therapy for neurologic protection. Continue aggressive vascular risk factor modification. Currently on multiple blood pressure medication and despite the blood pressure is not well controlled. Continue current treatment. Further workup as below. Continue aggressive management diabetes goal hemoglobin A1c less than 7%. Goal LDL less than 70 mg/dL. (3) Uncontrolled hypertension: Code(s): I10 - Essential (primary) hypertension Plan: Uncontrolled hypertension on multiple medications at this point time. Patient amlodipine 10 mg, spironolactone 50 mg. He has not on angiotensin receptor blockers or beta-blockers. Can consider addition of labetalol 100 mg b.i.d. for better blood pressure control after pursuing renal duplex. Advised to monitor blood pressure at home maintain a log. Low-salt diet was discussed. Follow up in the clinic in 6 weeks time, sooner p.r.n.. Thank you for allowing me to partake in his care Orders: Orders NM cardiolite stress test 2 Weeks R06.02 - Shortness of breath, R07.9 - Chest pain, unspecified CA echo transthoracic complete Today R06.02 - Shortness of breath CA stress test Today R06.02 - Shortness of breath US renal doppler Today I10 - Essential (primary) hypertension Medications: New labetalol 100 mg PO BID 60 tabs 3RF I10 - Essential (primary) hypertension Coding Level of Care Code New Pt Level 4 (71845) Diagnoses SOB (shortness of breath) on exertion R06.02 Nonrheumatic aortic (valve) stenosis I35.0 Uncontrolled hypertension I10 CPT Codes EKG - CPT: 47629-[id number], Complete ([id number])
[2023-06-26 14:29] VITALS: BP 160/75; PULSE 72; BMI 29.5
== END 2023-06-26 14:54 | disposition home or self-care (01) ==
PROVIDERS: PCP General Practice; Visit Provider Internal Medicine Cardiovascular Disease
DX: R06.02 Shortness of breath (principal); I35.0 Nonrheumatic aortic (valve) stenosis; I10 Essential (primary) hypertension
CPT/HCPCS: 93010; 99204

== ENCOUNTER → 2023-06-26 14:27 | Outpatient (BNVA) | payer MEDICARE, SELFPAY | PROVIDERS: PCP General Practice; Visit Provider Internal Medicine | DX: I35.0 Nonrheumatic aortic (valve) stenosis (principal); I10 Essential (primary) hypertension; R06.02 Shortness of breath | CPT/HCPCS: 93005; 99202 ==

== ENCOUNTER 2023-06-28 10:05 | Outpatient (AMB) | payer OTHER, SELFPAY ==
--- NOTE | 2023-06-28 10:20 | A.OFFVIS_ITS ---
Intake Intake Visit Reasons: S/P Visicoil/3m follow up/after Radiation (CONF.) Intake Note: Patient presents today for a follow-up Meds- Finasteride, Tamsulosin Allergies to Antibiotic- No Known Allergies Blood Thinner- None PVR: 68ml Patient stated he does no need to take Tamsulosin. 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 He is a patient of Dr. Noel. he is seen for the following urologic conditions - prostate cancer - bladder outlet obstruction Hebrew translation provided by qualified medical staff services manager Undergoing radiation Tolerating current therapy three-month follow-up lab work, GnRH Patient had concerns regarding receiving abiraterone Will plan on classic maximum androgen blockade using combination finasteride and bicalutamide throughout radiation Prescriptions provided 06/22 follow-up from Visicoil placement 04/20 - PET-CT - enhancement of prostate and single node May still consider external beam radiation GnRH 12/19 P 0.4, T 7 MRI shows disease localized prostate Discussed possible definitive treatment with radiation Prostate cancer group 5 - primary therapy hormonal last GnRH 09/18 Diagnosed 07/[address] Che Presenting PSA 150 Initial biopsy Haroldo 8 and 9 disease Staging bone scan 07/18 rib fractures but no evidence of metastatic disease Imaging - 07/19 MRI pelvis disease localized to p rostate - 08/18 DEXA osteopenia Current PSA 11/15 <0.1, 07/17 0.45, 10/17 .6 T 8, 01/17 0.7 T 24, 04/18 1.4 T 10, 08/18 1.47 T 6, 11/17 0.1 <1, 02/17 <0.1 T <1, 05/21 <0.1 T 3, 08/19 0.2 7 Adjuvant therapy calcium and vitamin-D 3 08/18 GnRH given, anti androgen started 03/20 GnRH given, antiandrogen held Bladder outlet obstruction Ongoing urgency, hesitancy Good response to tamsulosin Cystoscopy 08/18 prostatic regrowth left side PFSH Medical History Uncontrolled hypertension 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 H/O urinary retention Benign prostatic hyperplasia with lower urinary tract symptoms Renal artery stenosis Pure hypercholesterolemia Type 2 diabetes mellitus without complication, without long-term current use of insulin HTN (hypertension) with goal to be determined Nonrheumatic aortic (valve) stenosis Surgical History History of prostate biopsy Social History Alcohol intake: former Patient Tobacco Use Status: Never used Tobacco Review of Systems Const Denies chills and Denies fever(s) Card Reports no additional complaints and Denies syncope Resp Denies cough GI Denies abdominal pain and Denies heartburn Reports as per HPI and Denies change in libido Neuro Denies syncope Psych Denies change in libido Endo Denies change in libido Physical Exam Const General: cooperative, healthy appearing, comfortable and no acute distress Orientation/consciousness: patient oriented x3 HEENT Face and sinus: Yes normal facial exam Mouth: moist mucous membranes Neck Neck: Yes normal visual inspection, Yes full ROM and Yes trachea midline Chest Chest palpation & inspection: normal inspection of the chest Resp Effort & Inspection: normal respiratory effort, able to speak in complete sentences and no respiratory distress GI Inspection: Yes normal to inspection Back/Spine/Pelvis Cervical Spine: normal cervical lordosis Thoracic/Lumbar Spine: thoracic and lumbar spine normal to inspection Skin General skin exam: no rashes or lesions noted Neuro General: patient oriented x3, gait normal, tone normal and moves all extremities Extrem General: Yes normal to inspection and Yes capillary refill normal Office Procedures Post Void Residual Post Residual Void Post Void Residual (PVR): [id number] Void Residual by ultrasound Assessment & Plan Assessment & Plan (1) Prostate cancer: Comment: High-grade initial treatment hormonal Code(s): C61 - Malignant neoplasm of prostate (2) Rising PSA following treatment for malignant neoplasm of prostate: Code(s): R97.21 - Rising PSA following treatment for malignant neoplasm of prostate Plan Three-month follow-up GnRH labs Orders: Orders Prostate Specific Antigen 3 Months C61 - Malignant neoplasm of prostate Testosterone, Total 3 Months C61 - Malignant neoplasm of prostate AMB Post Void Residual by ultrasound 06/28/23 R33.9 - Retention of urine, unspecified Medications: Refilled finasteride 5 mg PO DAILY 90 tabs 1RF 90 days C61 - Malignant neoplasm of prostate, N32.0 - Bladder-neck obstruction Discontinued bicalutamide Discontinued Reason: Doctor's Order 50 mg PO DAILY 90 days 90 tabs 0RF C61 - Malignant neoplasm of prostate Patient Instructions: Imaging studies, laboratory and physical exam results were discussed and reviewed in detail. No major barriers to patient understanding were identified. An opportunity to ask questions regarding the treatment plan was provided. All questions were answered. The patient expressed understanding and agreement with the above treatment plan. The patient is aware they should contact our office by phone for worsening of their current condition or the appearance of new urologic symptoms. Compliance is encouraged with any medications and followup testing that is ordered. It is a privilege to participate in the urologic care of your patient. If you have any questions or concerns regarding treatment for the above conditions, or other urologic issues, please do not hesitate to contact me. The office telephone contact is [phone]. This note is constructed using voice recognition software. While every effort has been made to ensure accuracy rotor casting machine setup operator errors may have been included. Yours sincerely, Dr Ga Choi MD, MIC[facility] - Urology Providers of Expert, Compassionate Care for the Genitourinary System Coding Level of Care Code Est Pt Level 3 (06115) Diagnoses Prostate cancer C61 Rising PSA following treatment for malignant neoplasm of prostate R97.21 CPT Codes Post Residual Void - PVR CPT Code: 81119-Qgpu Void Residual by ultrasound ([id number])
== END 2023-06-28 11:01 | disposition home or self-care (01) ==
PROVIDERS: PCP Internal Medicine; Visit Provider Urology
DX: C61 Malignant neoplasm of prostate (principal); R97.21 Rising PSA following treatment for malignant neoplasm of prostate
CPT/HCPCS: 99213

== ENCOUNTER → 2023-06-28 10:05 | Outpatient (BNVA) | payer OTHER, SELFPAY | PROVIDERS: PCP Internal Medicine; Visit Provider Urology | DX: C61 Malignant neoplasm of prostate (principal); R97.21 Rising PSA following treatment for malignant neoplasm of prostate | CPT/HCPCS: 51798; 99212 ==

== ENCOUNTER → 2023-07-30 07:48 | Outpatient (REF) | payer OTHER, SELFPAY ==
--- NOTE | ~2023-07-30 | NM_ITS ---
Myocardial perfusion study Indication: Chest pain to evaluate for myocardial ischemia Technique: The patient was brought in for a Lexiscan perfusion study on 07/30/2023. Patient performed low-level exercise and was injected 0.4 mg of Lexiscan intravenously. Within a minute of injection, 30 mCi of sestamibi was given intravenously. Images were obtained using the SPECT gamma camera interlaced with the gating device. Images were obtained in supine position. Resting perfusion study was performed on 08/06/2023. Patient was administered 30 mCi of sestamibi intravenously at rest. Images were then obtained in supine position. Images obtained with and without CT attenuation. Total DLP 75 mGy-cm. Images were processed with the software and compared side to side in short axis, horizontal long axis and vertical long axis views. Findings: The stress perfusion study showed non attenuated images show mildly reduced uptake in the basal and mid inferolateral wall of the LV myocardium. Is also mildly reduced uptake in the entire inferior wall of the LV myocardium. Attenuated corrected images show mildly reduced uptake in the inferolateral, distal anterior as well as apex of the LV myocardium. Remainder of the LV myocardium is normally perfused.. The gated study shows normal LV systolic function with calculated LVEF of 47%. LV cavity is mildly dilated size. The gated study shows normal wall thickening and contraction of segments. Resting study shows improved uptake in the mid and distal inferolateral as well as the distal anterior and apical wall of the LV myocardium on attenuated corrected images.. Gating at rest reveals normal systolic wall motion with ejection fraction at 54%. The findings are consistent with reversible defect of the mid and distal inferolateral as well as distal anterior and apical wall suggestive of ischemia, possibly in the circumflex and mid to distal LAD.. NM/NM cardiolite stress test Impression: 1. Myocardial perfusion imaging study shows mild intensity ischemia in circumflex as well as mid to distal LAD territory 2. Gated LVEF is 47% with stress and 54% with rest 3. Transient ischemic dilatation present EKG is nondiagnostic for ischemia
--- NOTE | 2023-07-30 07:51 | CA_ITS ---
Acquisition Time: 2023-07-30 09:56:26 Total Exercise Time: 00:02:00 Test Indications: R06.02 - Shortness of breath Medications: Protocol: LEXISCAN Max HR: 096 BPM 65% of Pred: 146 BPM Max BP: 162/084 mmHG Max Work Load: 1.0 METS Exercise stress test with exercise 39 sec of Alcides protocol and need to stop due to difficulty maneuvering treadmill and report of back discomfort. Testing was changed to a pharmacological stress test with Lexiscan injection, while sitting and kicking his legs, with report of mild sob and 9/10 mid chest pressure which lasted 1 min and resolved, without arrythmia, with normotensive response to injection, with nondiagnostic EKG for ischemia. In recovery there are downsloping ST segments seen in V4-V5. Throughout the test there are downsloping ST segments in V1-V3 consistent with his RBBB. In recovery he was treated with Aminophylline 75mg IVP to reverse Lexiscan. Nuclear images pending. Test reviewed with Dr Carreno. Referred By: Sergio Carreno Overread By: CARLOS FREIRE
--- NOTE | 2023-07-30 07:51 | CA_ITS ---
Transthoracic Echocardiogram Patient (Last, First, Middle): Toro Lu, Gender: Male Date of : 1950 Age: 72 Procedure Date: 07/30/2023 Procedure Type: Transthoracic Echocardiogram Location: OP Height: 162.56 cm Weight: 81.65 kg BSA: 1.87 m2 Heart Rate: bpm BP: 124 / 70 mmHg Fieldwork Coordinator: Referring MD: Sergio Carreno MD [employer] Principal: Sergio Carreno MD Symptoms: R06.02 - Shortness of breath Study Quality: Adequate ECG Rhythm: Sinus Conclusions: - 1. Normal LV ejection fraction 55-60% with mild LVH 2. Mild aortic regurgitation 3. Mildly dilated ascending aorta 3.7 cm 4. No gross pericardial effusion Findings Left Ventricle Normal left ventricular size and systolic function. There is mildly increased left ventricular wall thickness. The visually estimated ejection fraction is between 55-60%. Spectral Doppler is indicative of a normal filling pattern. Right Ventricle Normal right ventricular cavity size and systolic function. Atria The left atrium is likely dilated. There is no evidence of interatrial shunt. The right atrium is normal in size. Aortic Valve Normal aortic valve structure and function. There is no aortic valve stenosis. There is no aortic valve regurgitation. Mitral Valve Normal mitral valve structure and function. There is trace mitral valve regurgitation. There is no mitral valve stenosis. Pulmonic Valve The pulmonic valve is likely normal. There is trace pulmonic valve regurgitation. Tricuspid Valve Normal tricuspid valve structure. Tricuspid regurgitation envelope is inadequate for calculation of right ventricular systolic pressure. Normal right atrial pressure. Great Vessels The pulmonary artery was not well visualized. There is mild dilatation of the ascending aorta measuring 3.70 cm. Venous The inferior vena cava is normal in size and collapses greater than 50% with inspiration. Pericardium/Pleural There is no evidence of pericardial effusion. Prior Study Comparison No significant change compared to prior study dated: 03/16/2019. Measurements 2D Linear Measurements IVSd: 1.39 0.6-0.9/0.6-1.0 cm LVIDd: 4.89 3.9-5.3/4.2-5.9 cm LVIDd Index: 2.61 2.4-3.2/2.2-3.1 cm/m2 LVIDs: 3.68 2.0-3.6 cm LVPWd: 1.24 0.7-1.1 cm Ao Root: 3.00 2.1-3.5 cm LA Diam: 4.60 2.7-3.8/3.0-4.0 cm LAIDs Index: 2.46 1.5-2.3 cm/m2 LV Mass: 320.66 67-162/88-224 g LV Mass Index: 171.48 43-95/49-115 g/m2 LVOT Diam: 2.00 3.0+(-)1.3 cm 2D Systolic Function EF 4C: 57.50 >55% EF 2C: 55.00 >55% EF BiP: 55.80 >55% Mitral Valve MV Pk E: 0.89 MV PK A: 0.78 MV Decel Time: 168.00 E/A: 1.10 E'Lateral: 4.90 E'Medial: 4.35 E/E' Med: 20.50 E/E' Lat: 18.20 PHT: 49.00 MVA PHT: 4.49 Decel [place]: 5.31 Aortic Valve AoV Pk Patrick: 1.79 AoV Mn Patrick: 1.20 AoV VTI: 0.44 AoV Pk Grad: 13.00 Aov Mn Grad: 7.00 JIMMIE Cont.VTI: 1.61 LVOT LVOT Pk Patrick: 0.93 LVOT Mn Patrick: 0.64 LVOT VTI: 0.23 LVOT Pk Grad: 3.00 LVOT Mn Grad: 2.00 LVOT Diam: 2.00 LVOT Area: 3.14 Diastolic Function MV Pk E: 0.89 MV Pk A: 0.78 E/A: 1.10 E'Medial: 4.35 E/E' Med: 20.50 E' Laterial: 4.90 E/E' Lat: 18.20 Right Ventricle TAPSE (mm): 26.30 TVS' Patrick: 11.40 Tricuspid Valve TR Pk Patrick: 1.88 TR Pk Grad: 14.00 Great Vessels Aorta Ao Root-2D: 3.00 2.0-3.7 cm Ao Asc: 3.70 2.1-3.4 cm Pulmonary Valve PV Pk Patrick: 1.10 Peak PV Grad: 5.00 Updated in Other Vendor System with Status of Final Sergio Carreno MD electronically signed on 07/31/2023 12:47:40 PM with status of Final
== END ==
LOC: HO.CARD 07:48
PROVIDERS: PCP General Practice; Visit Provider Internal Medicine Cardiovascular Disease
DX: R07.9 Chest pain, unspecified (principal); R06.02 Shortness of breath
CPT/HCPCS: 78452; 93017; 93306; A9500; J0280; J2785

== ENCOUNTER → 2023-07-30 07:51 | Outpatient (BNV) | payer OTHER, SELFPAY | PROVIDERS: PCP General Practice; Visit Provider Nurse Practitioner Family | DX: I25.5 Ischemic cardiomyopathy (principal); R07.9 Chest pain, unspecified | CPT/HCPCS: 78452; 93016; 93018; 93320; 93350 ==

== ENCOUNTER 2023-08-09 12:59 | Outpatient (AMB) | payer OTHER, MEDICAID, SELFPAY ==
--- NOTE | 2023-08-09 13:22 | MHC.OFFVIS ---
Intake Vital Signs 08/09/23 13:23 Height 5 ft 4 in Weight 185 lb 3.013 oz BMI 31.8 BP 160/72 H Blood Pressure Location Lt brachial Position Sitting Pulse 69 Pulse Source Pulse Oximeter Intake Visit Reasons: 6 wk f/up flor/ echo/ NS Wastewater Project Engineer Required: Yes Wastewater Project Engineer Language: Rubber Liner Name: seferino contreras [id number] Ecological Technical Officer: Ecological Technical Officer Present Allergies lisinopril [LISINOPRIL] Allergy (Unknown, Verified 08/09/23 13:25) ANGIOEDEMA, edema Medication List - Last Reconciled 08/09/23 by Naida Guy, ALEXA-C amlodipine 10 mg PO DAILY atorvastatin 40 mg PO BEDTIME calcium carbonate (Calcium 500) 500 mg PO BID 90 days finasteride 5 mg PO DAILY 90 days glipizide ER 10 mg PO QAM labetalol 100 mg PO BID metformin 1,000 mg PO tamsulosin 0.4 mg PO BEDTIME HPI 6 wk f/up flor/ echo/ NS HPI Details Toro is a 72-year-old male with past medical history of hypertension, prostate CA who was recently evaluated for shortness of breath and uncontrolled hypertension. On last visit a echocardiogram and a nuclear stress test were ordered. Renal Doppler ordered however not completed as of yet. On last visit labetalol was started. Today he reports that he continues to have shortness of breath with stair climbing and walking distances. This visit he reports to me that he gets chest discomfort with these activities as well. No lightheadedness, presyncope, syncope, falls. No PND, orthopnea or edema. He says he is only taking 1 pill in the a.m. and 1 pill in the p.m., which I assume to be labetalol. He has not sure what happened with his other medications. Significant other present. 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 H/O urinary retention Benign prostatic hyperplasia with lower urinary tract symptoms Renal artery stenosis Pure hypercholesterolemia Type 2 diabetes mellitus without complication, without long-term current use of insulin HTN (hypertension) with goal to be determined Nonrheumatic aortic (valve) stenosis Surgical History History of prostate biopsy Social History Alcohol intake: former Patient Tobacco Use Status: Never used Tobacco Review of Systems Const All systems reviewed & are unremarkable except as noted in HPI and below ENT Denies dizziness Card Denies chest pain, Denies chest pain at rest, Reports chest pain with activity, Denies rapid heart rate, Denies pedal edema, Denies edema, Denies leg edema, Denies lightheadedness, Denies palpitations, Denies dyspnea, Denies dyspnea on exertion and Denies orthopnea Resp Denies cough, Denies dyspnea and Denies dyspnea on exertion GI Denies hematochezia and Denies change in stool character Musc Denies abnormal gait, Denies limited range of motion, Denies muscle cramps, Denies muscle weakness, Denies numbness, Denies radiating pain into limb, Denies stiffness and Denies tingling Neuro Denies abnormal gait, Denies dizziness, Denies numbness and Denies tingling Endo Denies palpitations Physical Exam Vital Signs: Last Vital Signs Pulse 69 08/09/23 13:23 BP 160/72 H 08/09/23 13:23 BMI result Body Mass Index 31.8 Const General: cooperative, healthy appearing, comfortable and no acute distress Orientation/consciousness: patient oriented x3 Eyes Sclerae: sclerae normal Neck Neck: Yes normal visual inspection Resp Effort & Inspection: normal respiratory effort Auscultation: clear to auscultation bilaterally, no crackles, no rales, no rhonchi and no wheezes Cardio Jugular venous distension: no JVD Rate: regular rate Rhythm: regular rhythm Heart sounds: S1 normal heart sound present, S2 normal heart sound present, no murmurs and no rubs Neuro General: patient oriented x3 Extrem General: Yes normal to inspection and No no pedal edema Psych Appearance: grossly normal Mental Status: mental status grossly normal Speech and movement: Normal speech and movement present Assessment & Plan Assessment & Plan (1) Abnormal nuclear stress test: Code(s): R94.39 - Abnormal result of other cardiovascular function study Plan: Cardiac evaluation for shortness of breath and now chest discomfort with physical activity. Cardiac risk factors of hypertension, hyperlipidemia, diabetes, obesity. EKG completed last visit shows normal sinus rhythm, right bundle branch block, left anterior fascicular block, rate 72. An echocardiogram was done on 07/30/2023 showing EF 55-60%, mild LVH, mild AR, ascending aorta 3.7 cm. A nuclear stress test was done on 07/30/2023. He was unable to exercise on the treadmill so pharmacological test was done which he did get chest discomfort following Reg adenosine injection. His nuclear scan shows mild ischemia in the left circumflex territory and mid distal LAD territory. He has no chest discomfort today. This time he seems to be only on labetalol 100 mg b.i.d.. He is unsure what happened to the prior amlodipine and Aldactone. He says he only takes 1 pill in the morning and 1 pill in the evening. His blood pressure is elevated today. Will send his antihypertensives to the pharmacy, amlodipine and Aldactone. His labetalol and amlodipine can act as dual anti anginal agents. Will start on aspirin and moderate dose atorvastatin. No recent lipid profile in our system. Lipids done 06/13/2018 showed LDL 109. Will arrange for cardiology follow-up in 2 weeks to reassess vital signs and condition. At that time will make arrangements for preprocedure labs and diagnostic cardiac catheterization. (2) Uncontrolled hypertension: Code(s): I10 - Essential (primary) hypertension Plan: History of uncontrolled hypertension. Had been on amlodipine and Aldactone which he is unsure of what happened to. He is now only on labetalol. Will be restarting his other antihypertensives. Labs done 08/24/2022 had shown creatinine 0.84. He will need an update of his labs which I will be ordering next visit. His echocardiogram did show mild LVH. A renal Doppler study was ordered however not completed as of yet. Will notify our air traffic systems technician. Blood pressure elevated today at 160/72. Planning recheck in 2 weeks. (3) Chest discomfort: Code(s): R07.89 - Other chest pain Plan: As above Medications: New aspirin 81 mg PO DAILY 90 tabs 3RF spironolactone 50 mg PO DAILY 90 tabs 1RF amlodipine 10 mg PO DAILY 90 tabs 1RF atorvastatin 40 mg PO BEDTIME 90 tabs 1RF Patient Instructions: Time spent on chart review, documentation, interview and assessment Coding Level of Care Code Est Pt Level 4 (58191) Diagnoses Abnormal nuclear stress test R94.39 Uncontrolled hypertension I10 Chest discomfort R07.89 Time Spent (min) 30
[2023-08-09 13:23] VITALS: BP 160/72; PULSE 69; BMI 31.8
== END 2023-08-09 13:53 | disposition home or self-care (01) ==
PROVIDERS: PCP General Practice; Visit Provider Nurse Practitioner Family
DX: R94.39 Abnormal result of other cardiovascular function study (principal); I10 Essential (primary) hypertension; R07.89 Other chest pain
CPT/HCPCS: 99214

== ENCOUNTER → 2023-08-09 12:59 | Outpatient (BNVA) | payer MEDICARE, SELFPAY | PROVIDERS: PCP General Practice; Visit Provider Nurse Practitioner Family | DX: R94.39 Abnormal result of other cardiovascular function study (principal); R07.89 Other chest pain; I10 Essential (primary) hypertension | CPT/HCPCS: 99212 ==

== ENCOUNTER 2023-08-27 08:46 | Outpatient (REF) | payer MEDICARE, SELFPAY ==
--- NOTE | ~2023-08-27 | US_ITS ---
EXAMINATION: ULTRASOUND RENAL WITH DOPPLER CLINICAL INFORMATION: Hypertension. COMPARISON: CT abdomen 06/24/2021. Renal ultrasound 11/29/2017. TECHNIQUE: Real-time grayscale, color Doppler, and duplex Doppler evaluation of the kidneys and renal vasculature was performed. FINDINGS: RENAL MEASUREMENTS: Right: 10.7 x 5.1 x 5.5 cm (Sag x AP x TV) Left: 11.1 x 5.1 x 4.9 cm (Sag x AP x TV) Unchanged 7 mm nonobstructing calculus in the mid to lower left kidney. No hydronephrosis. Benign renal cysts bilaterally for which no imaging follow-up is recommended. DOPPLER INTERROGATION: AORTA: Mid aorta: 133 cm/sec RIGHT MAIN RENAL ARTERY: Proximal: 108 cm/sec Mid: 71 cm/sec Distal: 118 cm/sec LEFT MAIN RENAL ARTERY: Proximal: 60 cm/sec Mid: 309 cm/sec Distal: 113 cm/sec RENAL-AORTIC RATIO (RAR): Right: Not calculated due to mid aortic velocity outside of range 40-100 cm/s making RAR inaccurate. Left: Not calculated due to mid aortic velocity outside of range 40-100 cm/s making RAR inaccurate. SEGMENTAL RESISTIVE INDICES: Right: 0.57-0.71 Left: 0.74-0.79 RENAL VEINS: Right: Patent with normal waveform. Left: Patent with normal waveform. US/US renal doppler IMPRESSION: Elevated velocity in the mid left renal artery consistent with a less than 60% stenosis. Recommend CTA of the abdomen without and with contrast for further evaluation.
== END 2023-08-27 08:47 | disposition home or self-care (01) ==
LOC: HO.US 08:46
PROVIDERS: PCP General Practice; Visit Provider Internal Medicine Cardiovascular Disease
DX: I10 Essential (primary) hypertension (principal)
CPT/HCPCS: 93975

== ENCOUNTER 2023-08-30 08:17 | Outpatient (AMB) | payer MEDICARE, MEDICAID, SELFPAY ==
[2023-08-30 08:21] VITALS: BP 144/82; PULSE 62; BMI 31.8
--- NOTE | 2023-08-30 08:21 | MHC.OFFVIS ---
Vital Signs 08/30/23 08:21 Height 5 ft 4 in Weight 185 lb 3.013 oz BMI 31.8 BP 144/82 H Blood Pressure Location Lt brachial Position Sitting Pulse 62 Pulse Source Pulse Oximeter Intake Visit Reasons: 2wk f/up post med change Informatics Analyst Required: Yes Informatics Analyst Language: Housing Management Representative Name: seferino ballesteros [id number] Allergies lisinopril [LISINOPRIL] Allergy (Unknown, Verified 08/30/23 08:23) ANGIOEDEMA, edema Medication List - Last Reconciled 08/30/23 by Naida Guy NP-C amlodipine 10 mg PO DAILY atorvastatin 40 mg PO BEDTIME calcium carbonate (Calcium 500) 500 mg PO BID 90 days finasteride 5 mg PO DAILY 90 days glipizide ER 10 mg PO QAM labetalol 100 mg PO BID metformin 1,000 mg PO spironolactone 50 mg PO DAILY tamsulosin 0.4 mg PO BEDTIME HPI HPI 2wk f/up post med change: Details: Toro is a 72-year-old male with past medical history of hypertension, prostate CA who is being followed for shortness of breath and uncontrolled hypertension. On prior visit he was started on labetalol. His stress test was mildly abnormal. On last visit he was started on amlodipine, Aldactone, atorvastatin and aspirin and he now presents for follow-up. Today he reports that he he has been feeling better in recent months since starting his medications. He tells me at this point his breathing is now comfortable at rest and with activity. He has not been getting any concerning chest discomfort. 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 He reports compliance with his medications. No lightheadedness, presyncope, syncope, falls. No PND, orthopnea or edema. He says he is not taking aspirin for unclear reason. 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 H/O urinary retention Benign prostatic hyperplasia with lower urinary tract symptoms Renal artery stenosis Pure hypercholesterolemia Type 2 diabetes mellitus without complication, without long-term current use of insulin HTN (hypertension) with goal to be determined Nonrheumatic aortic (valve) stenosis Surgical History History of prostate biopsy Social History Alcohol intake: former Patient Tobacco Use Status: Never used Tobacco Review of Systems Const All systems reviewed & are unremarkable except as noted in HPI and below ENT Denies dizziness Card Denies chest pain, Denies chest pain at rest, Denies chest pain with activity, Denies rapid heart rate, Denies pedal edema, Denies edema, Denies leg edema, Denies lightheadedness, Denies palpitations, Denies dyspnea, Denies dyspnea on exertion and Denies orthopnea Resp Denies cough, Denies dyspnea and Denies dyspnea on exertion GI Denies hematochezia and Denies change in stool character Musc Denies abnormal gait, Denies limited range of motion, Denies muscle cramps, Denies muscle weakness, Denies numbness, Denies radiating pain into limb, Denies stiffness and Denies tingling Neuro Denies abnormal gait, Denies dizziness, Denies numbness and Denies tingling Endo Denies palpitations Physical Exam Vital Signs: Last Vital Signs Pulse 62 08/30/23 08:21 BP 144/82 H 08/30/23 08:21 BMI result Body Mass Index 31.8 Const General: cooperative, healthy appearing, comfortable and no acute distress Orientation/consciousness: patient oriented x3 Eyes Sclerae: sclerae normal Neck Neck: Yes normal visual inspection Resp Effort & Inspection: normal respiratory effort Auscultation: clear to auscultation bilaterally, no crackles, no rales, no rhonchi and no wheezes Cardio Jugular venous distension: no JVD Rate: regular rate Rhythm: regular rhythm Heart sounds: S1 normal heart sound present, S2 normal heart sound present, no murmurs and no rubs Neuro General: patient oriented x3 Extrem General: Yes normal to inspection and No no pedal edema Psych Appearance: grossly normal Mental Status: mental status grossly normal Speech and movement: Normal speech and movement present Assessment & Plan Assessment & Plan (1) Abnormal nuclear stress test: Code(s): R94.39 - Abnormal result of other cardiovascular function study Category: Medical Plan: Cardiac evaluation for shortness of breath. On last visit he did report some chest discomfort with physical activity as well. Cardiac risk factors of hypertension, hyperlipidemia, diabetes, obesity. EKG previously done showed normal sinus rhythm, right bundle branch block, left anterior fascicular block, rate 72. An echocardiogram was done on 07/30/2023 showing EF 55-60%, mild LVH, mild AR, ascending aorta 3.7 cm. A nuclear stress test was done on 07/30/2023. A pharmacological test was done which he did get chest discomfort following Reg adenosine injection. His nuclear scan shows mild ischemia in the left circumflex territory and mid distal LAD territory. His blood pressure has been uncontrolled. Has since been started on medications for better blood pressure control. At this time he denies any concerning symptoms of shortness of breath or chest discomfort. He tells me he has been feeling good. He is reporting compliance with his amlodipine, labetalol, Aldactone, atorvastatin. On last visit I started aspirin but he says he is not taking it. I will recent to his pharmacy. He still may have some coronary artery disease. Discussed options for further evaluation including CTA of the coronary arteries versus diagnostic cardiac catheterization. Since he is reportedly asymptomatic at this time will pursue the CTA of the coronaries as it is less invasive. Will check a CMP and lipids. Continue labetalol and amlodipine which can act as dual anti anginal agents. No med changes made. Signs and symptoms of angina reviewed. Instructed to notify this office if he has recurrent symptoms. Emergency care if ever needed for symptoms. Cardiology follow-up in 3 months, sooner if needed. (2) Uncontrolled hypertension: Code(s): I10 - Essential (primary) hypertension Category: Medical Plan: History of uncontrolled hypertension. Had been on amlodipine and Aldactone which he is unsure of what happened to. As of last visit he was only on labetalol. I restarted his amlodipine and Aldactone. He is due for lab work, orders placed and placed and patient informed. Blood pressure improved on examination today. Initially 144/82 in recheck done by me 138/70. His echocardiogram did show mild LVH. A renal Doppler study was done on 08/27/2023 showing increased velocity in the mid left renal artery consistent with less than 60% stenosis, CTA was recommended. Reviewed results with him. Will order a CTA of the abdomen to evaluate for significant renal artery stenosis. Restarting aspirin, continue atorvastatin. Orders: Orders CT angio abdomen Today I70.1 - Atherosclerosis of renal artery Comprehensive Met. Panel Today I10 - Essential (primary) hypertension, R94.39 - Abnormal result of other cardiovascular function study Lipid Panel Today E78.00 - Pure hypercholesterolemia, unspecified CT Cardiac Coronary Angio Today I10 - Essential (primary) hypertension, R94.39 - Abnormal result of other cardiovascular function study Medications: New aspirin 81 mg PO DAILY 90 tabs 1RF Coding Level of Care Code Est Pt Level 4 (28317) Diagnoses Abnormal nuclear stress test R94.39 Uncontrolled hypertension I10 Time Spent (min) 30
== END 2023-08-30 09:00 | disposition home or self-care (01) ==
PROVIDERS: PCP General Practice; Visit Provider Nurse Practitioner Family
DX: R94.39 Abnormal result of other cardiovascular function study (principal); I10 Essential (primary) hypertension
CPT/HCPCS: 99214

== ENCOUNTER → 2023-08-30 08:17 | Outpatient (BNVA) | payer MEDICARE, SELFPAY | PROVIDERS: PCP General Practice; Visit Provider Nurse Practitioner Family | DX: R94.39 Abnormal result of other cardiovascular function study (principal); I10 Essential (primary) hypertension; Z79.899 Other long term (current) drug therapy | CPT/HCPCS: 99212 ==

== ENCOUNTER 2023-09-18 07:11 | Outpatient (REF) | payer MEDICARE, SELFPAY ==
[2023-09-18 08:49] LABS: Alanine Aminotransferase 13 U/L (0-40); Albumin Level 4.1 g/dL (3.5-5.0); Alkaline Phosphatase 111 U/L (39-117); Anion Gap 14 (12-20); Aspartate Amino Transferase 12 U/L (5-37); Bilirubin Total 0.6 mg/dL (0.0-1.0); Blood Urea Nitrogen 18 mg/dL (9-16); Calcium 9.8 mg/dL (8.4-10.2); Carbon Dioxide 20 mmol/L (22-29); Chloride 108 mmol/L (96-108); Cholesterol 145 mg/dL (<200); Estimated Glomerular Filt Rate > 60; Glucose Random 195 mg/dL (60-115); HDL Cholesterol 58 mg/dL (>40); LDL Cholesterol Calculated 58 mg/dL (<100); Sodium 138 mmol/L (135-145); Total Protein 7.5 g/dL (6.5-8.0); Triglycerides 147 mg/dL (<150)
[2023-09-18 09:01] LABS: Prostate Specific Antigen 0.21 ng/mL (<0.05-4.0)
[2023-09-22 16:39] LABS: Testosterone, Total 6 ng/dL (250-1100)
== END 2023-09-18 07:12 | disposition home or self-care (01) ==
LOC: HO.LAB 07:11
PROVIDERS: Nurse Practitioner Family; Visit Provider Urology
DX: I10 Essential (primary) hypertension (principal); R94.39 Abnormal result of other cardiovascular function study; E78.00 Pure hypercholesterolemia, unspecified; C61 Malignant neoplasm of prostate; Z12.5 Encounter for screening for malignant neoplasm of prostate
CPT/HCPCS: 36415; 80053; 80061; 84153; 84403

== ENCOUNTER 2023-10-02 11:30 | Outpatient (AMB) | payer MEDICARE, SELFPAY ==
--- NOTE | 2023-10-02 11:38 | A.OFFVIS_ITS ---
Intake Visit Reasons: LABS/GnRH(Set) Intake Note: Patient presents today for a 3 months follow-up, Labs and GnRH Injection: Meds- Finasteride, Tamsulosin Allergies to Antibiotic- No Known Allergies Blood Thinner- Aspirin Gas Pit Worker Required: Yes Accompanied by: Self / Same As Patient Allergies lisinopril [LISINOPRIL] Allergy (Unknown, Verified 10/02/23 11:39) ANGIOEDEMA, edema Medication List - Last Reconciled 10/02/23 by Ga Choi MD amlodipine 10 mg PO DAILY aspirin 81 mg PO DAILY atorvastatin 40 mg PO BEDTIME calcium carbonate (Calcium 500) 500 mg PO BID 90 days finasteride 5 mg PO DAILY 90 days glipizide ER 10 mg PO QAM labetalol 100 mg PO BID metformin 1,000 mg PO spironolactone 50 mg PO DAILY tamsulosin 0.4 mg PO BEDTIME HPI Comments Details: Toro is a pleasant male. He is a patient of Dr. Noel. he is seen for the following urologic conditions - prostate cancer - bladder outlet obstruction Amharic translation provided by qualified medical logistics specialist Review in 3 months with lab 10/20 PSA 0.2 T 6 GNRH given, continue finasteride 06/22 follow-up from Visicoil placement Maximum androgen blockade during radiation 04/20 - PET-CT - enhancement of prostate and single node 12/19 P 0.4, T 7 MRI shows disease localized prostate Discussed possible definitive treatment with radiation Prostate cancer group 5 - primary therapy hormonal Diagnosed 07/[address] Che Presenting PSA 150 Initial biopsy [place] 8 and 9 disease Staging bone scan 07/18 rib fractures but no evidence of metastatic disease Imaging - 07/19 MRI pelvis disease localized to prostate - 08/18 DEXA osteopenia Current PSA 11/15 <0.1, 07/17 0.45, 10/17 .6 T 8, 01/17 0.7 T 24, 04/18 1.4 T 10, 08/18 1.47 T 6, 11/17 0.1 <1, 02/17 <0.1 T <1, 05/21 <0.1 T 3, 08/19 0.2 7 Adjuvant therapy calcium and vitamin-D 3 08/18 GnRH given, anti androgen started 03/20 GnRH given, antiandrogen held Bladder outlet obstruction Ongoing urgency, hesitancy Good response to tamsulosin Cystoscopy 08/18 prostatic regrowth left side PFSH Medical History (Updated 08/30/23 @ 09:14 by Naida Guy NP-C) Uncontrolled hypertension 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 H/O urinary retention Benign prostatic hyperplasia with lower urinary tract symptoms Renal artery stenosis Pure hypercholesterolemia Type 2 diabetes mellitus without complication, without long-term current use of insulin HTN (hypertension) with goal to be determined Nonrheumatic aortic (valve) stenosis Surgical History History of prostate biopsy Social History Alcohol intake: former Patient Tobacco Use Status: Never used Tobacco Review of Systems Const Denies chills and Denies fever(s) Card Reports no additional complaints and Denies syncope Resp Denies cough GI Denies abdominal pain and Denies heartburn Reports as per HPI and Denies change in libido Neuro Denies syncope Psych Denies change in libido Endo Denies change in libido Physical Exam Const General: cooperative, healthy appearing, comfortable and no acute distress Orientation/consciousness: patient oriented x3 HEENT Face and sinus: Yes normal facial exam Mouth: moist mucous membranes Neck Neck: Yes normal visual inspection, Yes full ROM and Yes trachea midline Chest Chest palpation & inspection: normal inspection of the chest Resp Effort & Inspection: normal respiratory effort, able to speak in complete sentences and no respiratory distress GI Inspection: Yes normal to inspection Back/Spine/Pelvis Cervical Spine: normal cervical lordosis Thoracic/Lumbar Spine: thoracic and lumbar spine normal to inspection Skin General skin exam: no rashes or lesions noted Neuro General: patient oriented x3, gait normal, tone normal and moves all extremities Extrem General: Yes normal to inspection and Yes capillary refill normal Office Meds Eligard (6 month) 45 mg (6 month) subcutaneous syringe Performing Provider: Ga Choi MD Performing Location: [facility] Administered by: Octavio Cruz LPN on 10/02/23 12:16 Dose Route Admin Location Dispensed Lot Number Expiration Date [employer] 45 mg subcut left arm 45 mg [id number] 11/27/24 82269-662-64 [employer]. Assessment & Plan Assessment & Plan (1) Osteoporosis due to androgen therapy: Code(s): M81.8 - Other osteoporosis without current pathological fracture; T38.7X5A - Adverse effect of androgens and anabolic congeners, initial encounter Category: Medical (2) Rising PSA following treatment for malignant neoplasm of prostate: Code(s): R97.21 - Rising PSA following treatment for malignant neoplasm of prostate Category: Medical (3) Prostate cancer: Comment: High-grade initial treatment hormonal Code(s): C61 - Malignant neoplasm of prostate Category: Medical Plan Three-month follow-up lab work Orders: Orders Prostate Specific Antigen 3 Months C61 - Malignant neoplasm of prostate AMB Leuprolide Injection - Practice Supplied 10/02/23 C61 - Malignant neoplasm of prostate, M81.8 - Other osteoporosis without current pathological fracture, R97.21 - Rising PSA following treatment for malignant neoplasm of prostate, T38.7X5A - Adverse effect of androgens and anabolic congeners, initial encounter Testosterone, Total 3 Months C61 - Malignant neoplasm of prostate Patient Instructions: Imaging studies, laboratory and physical exam results were discussed and reviewed in detail. No major barriers to patient understanding were identified. An opportunity to ask questions regarding the treatment plan was provided. All questions were answered. The patient expressed understanding and agreement with the above treatment plan. The patient is aware they should contact our office by phone for worsening of their current condition or the appearance of new urologic symptoms. Compliance is encouraged with any medications and followup testing that is ordered. It is a privilege to participate in the urologic care of your patient. If you have any questions or concerns regarding treatment for the above conditions, or other urologic issues, please do not hesitate to contact me. The office telephone contact is [phone]. This note is constructed using voice recognition software. While every effort has been made to ensure accuracy mental health nurse errors may have been included. Yours sincerely, Dr Ga Choi MD, [facility] - Urology Providers of Expert, Compassionate Care for the Genitourinary System Coding Level of Care Code Est Pt Level 3 (20436) Diagnoses Osteoporosis due to androgen therapy M81.8; T38.7X5A Rising PSA following treatment for malignant neoplasm of prostate R97.21 Prostate cancer C61
== END 2023-10-02 12:20 | disposition home or self-care (01) ==
PROVIDERS: PCP Internal Medicine; Visit Provider Urology
DX: M81.8 Other osteoporosis without current pathological fracture (principal); T38.7X5A Adverse effect of androgens and anabolic congeners, initial encounter; R97.21 Rising PSA following treatment for malignant neoplasm of prostate; C61 Malignant neoplasm of prostate
CPT/HCPCS: 99213

== ENCOUNTER → 2023-10-02 11:30 | Outpatient (BNVA) | payer MEDICARE, SELFPAY | PROVIDERS: PCP Internal Medicine; Visit Provider Urology | DX: C61 Malignant neoplasm of prostate (principal); M81.8 Other osteoporosis without current pathological fracture; T38.7X5A Adverse effect of androgens and anabolic congeners, initial encounter; R97.21 Rising PSA following treatment for malignant neoplasm of prostate; N32.0 Bladder-neck obstruction; Z79.899 Other long term (current) drug therapy | CPT/HCPCS: 96402; 99212; J9217 ==

== ENCOUNTER 2023-10-28 15:14 | Outpatient (REF) | payer MEDICARE, SELFPAY ==
--- NOTE | ~2023-10-28 | CT_ITS ---
EXAMINATION: CT ANGIOGRAM ABDOMEN CLINICAL INFORMATION: Atherosclerosis of the renal artery COMPARISON: Renal duplex August 29, 2023, CT abdomen and pelvis June 24, 2021 TECHNIQUE: Multiple axial images were obtained through the abdomen following the administration of 80 mL Omnipaque 350 intravenous contrast. Images were reviewed on a dedicated 3-D workstation. This CT examination was performed using dose optimization techniques as appropriate, variously including the following: *Automated exposure control *Adjustment of mA and/or kV according to patient size (this includes techniques or standardized protocols for targeted exams where dose is matched to indication/reason for exam; i.e. extremities or head) *Use of iterative reconstruction technique DLP: 183 mGy-cm FINDINGS: VASCULAR: Abdominal aorta: The abdominal aorta is normal in caliber. Iliac arteries: The right common iliac artery is ectatic measuring 1.5 cm in diameter. The left common iliac artery is ectatic measuring 1.5 cm. Mesenteric arteries: The celiac artery is patent. The common hepatic artery is replaced to the SMA. The SMA is patent. Renal arteries: Patent bilateral renal arteries. Fibrofatty plaque in the proximal left renal artery causing approximately 20% stenosis. NONVASCULAR: Lung Bases: The lungs are clear with no evidence of inflammation or nodules. Liver, Gallbladder, Biliary Tree: The liver is normal in size, shape, and attenuation. No focal hepatic lesion or biliary ductal dilatation is present. The gallbladder is unremarkable with no evidence of radiopaque gallstones, gallbladder wall thickening, or pericholecystic inflammatory changes. Pancreas: Unremarkable. Spleen: Unremarkable. Adrenal Glands: Unremarkable. Kidneys and Ureters: The kidneys are normal in size, shape, and attenuation. No hydronephrosis or hydroureter or calculi seen. No perinephric stranding. Gastrointestinal Tract: The small and large bowel are unremarkable. The appendix is unremarkable. Abdominal Wall: No hernia is demonstrated. Lymph Nodes: Normal. Osseous Structures: Severe degenerative changes at the L5-S1 level. CT/CT angio abdomen IMPRESSION: 1. Fibrofatty plaque in the proximal left renal artery causing approximately 20% stenosis. 2. 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
[2023-10-28 16:03] LABS: Alanine Aminotransferase 22 U/L (0-40); Albumin Level 4.2 g/dL (3.5-5.0); Alkaline Phosphatase 108 U/L (39-117); Anion Gap 14 (12-20); Aspartate Amino Transferase 16 U/L (5-37); Bilirubin Total 0.5 mg/dL (0.0-1.0); Blood Urea Nitrogen 19 mg/dL (9-16); Calcium 9.8 mg/dL (8.4-10.2); Carbon Dioxide 25 mmol/L (22-29); Chloride 106 mmol/L (96-108); Cholesterol 179 mg/dL (<200); Estimated Glomerular Filt Rate > 60; Glucose Random 143 mg/dL (60-115); HDL Cholesterol 65 mg/dL (>40); LDL Cholesterol Calculated 86 mg/dL (<100); Potassium 4.1 mmol/L (3.3-5.1); Sodium 141 mmol/L (135-145); Total Protein 7.8 g/dL (6.5-8.0); Triglycerides 142 mg/dL (<150)
[2023-10-28] MEDS: iohexoL 350 MG/ML 100 ML INFUS..BTL 80 ML IV (16:37)
[2023-10-28 16:38] LABS: Creatinine Urine 84.24 mg/dL; Microalbum/Creatinine Ratio Ur 39.1 ug/mg cr (<30)
[2023-10-29 07:39] LABS: ~HepC Num1 0.14 S/CO (0.00-0.79); ~Hepatitis C Antibody Nonreactive (Nonreactive)
== END 2023-10-28 15:15 | disposition home or self-care (01) ==
LOC: HO.CT 15:14
PROVIDERS: General Practice; PCP Internal Medicine; Visit Provider Nurse Practitioner Family
DX: I70.1 Atherosclerosis of renal artery (principal); E11.9 Type 2 diabetes mellitus without complications
CPT/HCPCS: 36415; 74175; 80053; 80061; 82043; 82570; 86803; Q9967

== ENCOUNTER 2024-01-07 07:39 | Outpatient (REF) | payer MEDICARE, SELFPAY ==
[2024-01-07 09:20] LABS: Anion Gap 12 (12-20); Blood Urea Nitrogen 12 mg/dL (9-16); Calcium 9.8 mg/dL (8.4-10.2); Carbon Dioxide 28 mmol/L (22-29); Chloride 104 mmol/L (96-108); Estimated Glomerular Filt Rate > 60; Glucose Random 214 mg/dL (60-115); Potassium 4.1 mmol/L (3.3-5.1); Sodium 140 mmol/L (135-145)
[2024-01-07 09:52] LABS: Prostate Specific Antigen < 0.10 ng/mL (<0.05-4.0)
[2024-01-14 09:24] LABS: Testosterone, Free 2.6 pg/mL (30.0-135.0); Testosterone, Total 13 ng/dL (250-1100)
== END 2024-01-07 07:40 | disposition home or self-care (01) ==
LOC: HO.LAB 07:39
PROVIDERS: Nurse Practitioner Family; PCP General Practice; Visit Provider Urology
DX: C61 Malignant neoplasm of prostate (principal); R94.39 Abnormal result of other cardiovascular function study; I10 Essential (primary) hypertension; R07.89 Other chest pain; Z12.5 Encounter for screening for malignant neoplasm of prostate
CPT/HCPCS: 36415; 80048; 84153; 84402; 84403

== ENCOUNTER 2024-01-24 09:13 | Outpatient (AMB) | payer MEDICARE, SELFPAY ==
--- NOTE | 2024-01-24 09:10 | A.OFFVIS_ITS ---
Intake Visit Reasons: 3M Follow Up-PSA/Testo(set) Intake Note: Patient presents today for a 3 months follow-up/PSA/TESTO Meds- Finasteride, Tamsulosin Allergies to Antibiotic- No Known Allergies Blood Thinner- Aspirin Exchange Teller Required: Yes Accompanied by: Self / Same As Patient Allergies lisinopril [LISINOPRIL] Allergy (Unknown, Verified 01/24/24 09:11) ANGIOEDEMA, edema Medication List - Last Reconciled 01/24/24 by Ga Choi MD amlodipine 10 mg PO DAILY aspirin 81 mg PO DAILY atorvastatin 40 mg PO BEDTIME calcium carbonate (Calcium 500) 500 mg PO BID 90 days finasteride 5 mg PO DAILY 90 days glipizide ER 10 mg PO QAM labetalol 100 mg PO BID metformin 1,000 mg PO spironolactone 50 mg PO DAILY tamsulosin 0.4 mg PO BEDTIME HPI Comments Details: Toro is a pleasant male. He is a patient of Dr. Noel. he is seen for the following urologic conditions - prostate cancer - bladder outlet obstruction Uzbek translation provided by qualified medical assistant per diem Telemedicine Evaluation 15 min Consultation Doximity Antelmo Video attempted Three-month follow-up lab work Well-controlled lab work Nocturia 1-2x which he is tolerating 01/20 PSA <0.1, T 13 10/20 PSA 0.2 T 6 GNRH given, continue finasteride Completed external beam radiation therapy with Dr. Genoveva Khan - 7800 Gy 32 fractions 06/22 follow-up from Visicoil placement Maximum androgen blockade during radiation 04/20 - PET-CT - enhancement of prostate and single node 12/19 P 0.4, T 7 MRI shows disease localized prostate Discussed possible definitive treatment with radiation Prostate cancer group 5 - primary therapy hormonal Diagnosed 07/[address] Che Presenting PSA 150 Initial biopsy [place] 8 and 9 disease Staging bone scan 07/18 rib fractures but no evidence of metastatic disease Imaging - 07/19 MRI pelvis disease localized to prostate - 08/18 DEXA osteopenia Current PSA 11/15 <0.1, 07/17 0.45, 10/17 .6 T 8, 01/17 0.7 T 24, 04/18 1.4 T 10, 08/18 1.47 T 6, 11/17 0.1 <1, 02/17 <0.1 T <1, 05/21 <0.1 T 3, 08/19 0.2 7 Adjuvant therapy calcium and vitamin-D 3 08/18 GnRH given, anti androgen started 03/20 GnRH given, antiandrogen held Bladder outlet obstruction Ongoing urgency, hesitancy Good response to tamsulosin Cystoscopy 08/18 prostatic regrowth left side [facility] Medical History (Updated 08/30/23 @ 09:14 by MINERVA MirelesC) Uncontrolled hypertension 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 H/O urinary retention Benign prostatic hyperplasia with lower urinary tract symptoms Renal artery stenosis Pure hypercholesterolemia Type 2 diabetes mellitus without complication, without long-term current use of insulin HTN (hypertension) with goal to be determined Nonrheumatic aortic (valve) stenosis Surgical History History of prostate biopsy Social History Alcohol intake: former Patient Tobacco Use Status: Never used Tobacco Review of Systems Const All systems reviewed & are unremarkable except as noted in HPI and below Reports no additional complaints Resp Reports no additional complaints GI Reports no additional complaints Reports as per HPI Musc Reports no additional complaints Physical Exam Telemedicine evaluation Appropriate responses Regular breathing rate and rhythm HEENT Head: Yes normal to inspection Ears: hearing grossly normal bilaterally Eyes General: appearance normal, both eyes and all related structures Neck Neck: Yes normal visual inspection Chest Chest palpation & inspection: normal inspection of the chest Resp Effort & Inspection: normal respiratory effort and able to speak in complete sentences Telehealth Telehealth Telehealth Platform: [facility] Location of provider rendering services: practice address Location of patient: address on file Patient Identification confirmed using: Name, : Yes Telehealth method: video Patient verbally consented to treatment: Yes Patient verbally consented to billing insurance company: Yes Patient informed of any privacy concerns related to visit: Yes Minutes spent on Phone/Video with Pt.: 15 Assessment & Plan Assessment & Plan (1) Prostate cancer: Comment: High-grade initial treatment hormonal Code(s): C61 - Malignant neoplasm of prostate Category: Medical Plan Three-month follow-up GnRH, lab work Orders: Orders Prostate Specific Antigen 3 Months C61 - Malignant neoplasm of prostate Testosterone, Total 3 Months C61 - Malignant neoplasm of prostate Patient Instructions: Imaging studies, laboratory and physical exam results were discussed and reviewed in detail. No major barriers to patient understanding were identified. An opportunity to ask questions regarding the treatment plan was provided. All questions were answered. The patient expressed understanding and agreement with the above treatment plan. The patient is aware they should contact our office by phone for worsening of their current condition or the appearance of new urologic symptoms. Compliance is encouraged with any medications and followup testing that is ordered. It is a privilege to participate in the urologic care of your patient. If you have any questions or concerns regarding treatment for the above conditions, or other urologic issues, please do not hesitate to contact me. The office telephone contact is [phone]. This note is constructed using voice recognition software. While every effort has been made to ensure accuracy high school business teacher errors may have been included. Yours sincerely, Dr Ga Choi MD, [facility] - Urology Providers of Expert, Compassionate Care for the Genitourinary System Coding Level of Care Code Tele Est Pt Level 3 (73460) Diagnoses Prostate cancer C61
== END 2024-01-24 10:09 | disposition home or self-care (01) ==
LOC: HO.HUSH 09:13
PROVIDERS: PCP General Practice; Visit Provider Urology
DX: C61 Malignant neoplasm of prostate (principal)
CPT/HCPCS: 99213

== ENCOUNTER → 2024-01-24 09:13 | Outpatient (BNVA) | payer MEDICARE, SELFPAY | PROVIDERS: PCP General Practice; Visit Provider Urology ==

== ENCOUNTER 2024-05-01 10:07 | Outpatient (REF) | payer OTHER, SELFPAY ==
[2024-05-01 11:06] LABS: Blood Urea Nitrogen 12 mg/dL (9-16); Estimated Glomerular Filt Rate > 60
[2024-05-01 11:46] LABS: Prostate Specific Antigen < 0.10 ng/mL (<0.05-4.0)
[2024-05-06 14:12] LABS: Testosterone, Total 14 ng/dL (250-1100)
== END 2024-05-01 10:08 | disposition home or self-care (01) ==
LOC: HO.LAB 10:07
PROVIDERS: Nurse Practitioner Family; PCP General Practice; Visit Provider Urology
DX: C61 Malignant neoplasm of prostate (principal); Z12.5 Encounter for screening for malignant neoplasm of prostate
CPT/HCPCS: 36415; 82565; 84153; 84403; 84520

== ENCOUNTER 2024-05-13 14:38 | Outpatient (AMB) | payer MEDICARE, SELFPAY ==
--- NOTE | 2024-05-13 14:39 | MHC.OFFVIS ---
Intake Visit Reasons: GnRH/Labs(set)PA Set Intake Note: Pt presents to the office today for a follow up labs/GnRH. Allergies lisinopril [LISINOPRIL] Allergy (Unknown, Verified 05/13/24 14:43) ANGIOEDEMA, edema HPI Comments Details: Toro is a pleasant male. He is a patient of Dr. Noel. he is seen for the following urologic conditions - prostate cancer - bladder outlet obstruction Turkmen translation provided by qualified medical billing and coding specialist Three-month follow-up lab work Well-controlled lab work Nocturia 1-2x which he is tolerating T remains controlled Last GnRH today Continue three-month follow-up 05/23 PSA <0.1, T 14 01/20 PSA <0.1, T 13 10/20 PSA 0.2 T 6 - GNRH given, continue finasteride Completed external beam radiation therapy with Dr. Genoveva Khan - 7800 Gy 32 fractions 06/22 follow-up from Visicoil placement - Maximum androgen blockade during radiation 04/20 - PET-CT - enhancement of prostate and single node 12/19 P 0.4, T 7 MRI shows disease localized prostate Discussed possible definitive treatment with radiation Prostate cancer group 5 - primary therapy hormonal Diagnosed 07/[address] Che Presenting PSA 150 Initial biopsy [place] 8 and 9 disease Staging bone scan 07/18 rib fractures but no evidence of metastatic disease Imaging - 07/19 MRI pelvis disease localized to prostate - 08/18 DEXA osteopenia Current PSA 11/15 <0.1, 07/17 0.45, 10/17 .6 T 8, 01/17 0.7 T 24, 04/18 1.4 T 10, 08/18 1.47 T 6, 11/17 0.1 <1, 02/17 <0.1 T <1, 05/21 <0.1 T 3, 08/19 0.2 7 Adjuvant therapy calcium and vitamin-D 3 08/18 GnRH given, anti androgen started 03/20 GnRH given, antiandrogen held Bladder outlet obstruction Ongoing urgency, hesitancy Good response to tamsulosin Cystoscopy 08/18 prostatic regrowth left side [facility] Medical History Uncontrolled hypertension 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 H/O urinary retention Benign prostatic hyperplasia with lower urinary tract symptoms Renal artery stenosis Pure hypercholesterolemia Type 2 diabetes mellitus without complication, without long-term current use of insulin HTN (hypertension) with goal to be determined Nonrheumatic aortic (valve) stenosis Surgical History History of prostate biopsy Social History Alcohol intake: former Patient Tobacco Use Status: Never used Tobacco Review of Systems Const Denies chills and Denies fever(s) Card Reports no additional complaints and Denies syncope Resp Denies cough GI Denies abdominal pain and Denies heartburn Reports as per HPI and Denies change in libido Neuro Denies syncope Psych Denies change in libido Endo Denies change in libido Physical Exam Const General: cooperative, healthy appearing, comfortable and no acute distress Orientation/consciousness: patient oriented x3 HEENT Face and sinus: Yes normal facial exam Mouth: moist mucous membranes Neck Neck: Yes normal visual inspection, Yes full ROM and Yes trachea midline Chest Chest palpation & inspection: normal inspection of the chest Resp Effort & Inspection: normal respiratory effort, able to speak in complete sentences and no respiratory distress GI Inspection: Yes normal to inspection Back/Spine/Pelvis Cervical Spine: normal cervical lordosis Thoracic/Lumbar Spine: thoracic and lumbar spine normal to inspection Skin General skin exam: no rashes or lesions noted Neuro General: patient oriented x3, gait normal, tone normal and moves all extremities Extrem General: Yes normal to inspection and Yes capillary refill normal Assessment & Plan Assessment & Plan (1) Prostate cancer: Comment: High-grade initial treatment hormonal Code(s): C61 - Malignant neoplasm of prostate Category: Medical Plan Three-month follow-up lab work Orders: Orders Prostate Specific Antigen 3 Months C61 - Malignant neoplasm of prostate Testosterone, Total 3 Months C61 - Malignant neoplasm of prostate Patient Instructions: Imaging studies, laboratory and physical exam results were discussed and reviewed in detail. No major barriers to patient understanding were identified. An opportunity to ask questions regarding the treatment plan was provided. All questions were answered. The patient expressed understanding and agreement with the above treatment plan. The patient is aware they should contact our office by phone for worsening of their current condition or the appearance of new urologic symptoms. Compliance is encouraged with any medications and followup testing that is ordered. It is a privilege to participate in the urologic care of your patient. If you have any questions or concerns regarding treatment for the above conditions, or other urologic issues, please do not hesitate to contact me. The office telephone contact is [phone]. This note is constructed using voice recognition software. While every effort has been made to ensure accuracy business relations manager errors may have been included. Yours sincerely, Dr Ga Choi MD, [facility] - Urology Providers of Expert, Compassionate Care for the Genitourinary System Coding Level of Care Code Est Pt Level 3 (32065) Diagnoses Prostate cancer C61
--- NOTE | 2024-05-13 15:43 | MHC.OFFVIS ---
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 H/O urinary retention Benign prostatic hyperplasia with lower urinary tract symptoms Renal artery stenosis Pure hypercholesterolemia Type 2 diabetes mellitus without complication, without long-term current use of insulin HTN (hypertension) with goal to be determined Nonrheumatic aortic (valve) stenosis Surgical History History of prostate biopsy Social History Alcohol intake: former Patient Tobacco Use Status: Never used Tobacco Office Meds Eligard (6 month) 45 mg (6 month) subcutaneous syringe Performing Provider: Ga Choi MD [facility] Administered by: Octavio Cruz LPN on 05/13/24 15:43 Dose Route Admin Location Dispensed Lot Number Expiration Date [facility] [employer] 45 mg subcut left arm 45 mg [id number] 09/27/25 78072-613-52 [employer] Assessment & Plan Assessment & Plan (1) Prostate cancer: Comment: High-grade initial treatment hormonal Code(s): C61 - Malignant neoplasm of prostate Category: Medical Orders: Orders Prostate Specific Antigen 3 Months C61 - Malignant neoplasm of prostate Testosterone, Total 3 Months C61 - Malignant neoplasm of prostate AMB Leuprolide Injection - Practice Supplied Today C61 - Malignant neoplasm of prostate Medications: New Eligard (6 month) (leuprolide acetate (6 month)) 45 mg subcut ONCE 1 ea 0RF NS C61 - Malignant neoplasm of prostate Coding Diagnoses Prostate cancer C61
== END 2024-05-13 14:51 | disposition home or self-care (01) ==
PROVIDERS: PCP General Practice; Visit Provider Urology
DX: C61 Malignant neoplasm of prostate (principal)
CPT/HCPCS: 99213

== ENCOUNTER → 2024-05-13 14:38 | Outpatient (BNVA) | payer MEDICARE, SELFPAY | PROVIDERS: PCP General Practice; Visit Provider Urology | DX: C61 Malignant neoplasm of prostate (principal); N13.8 Other obstructive and reflux uropathy | CPT/HCPCS: 96402; 99212; J9217 ==

== ENCOUNTER 2024-07-24 15:54 | Outpatient (REF) | payer MEDICARE, SELFPAY ==
[2024-07-24 17:58] LABS: MANUAL DIFF FLAG NO
[2024-07-24 18:04] LABS: Basophils Percent Auto 0.2 % (0-2); Eosinophils Absolute Auto 0.1 X10*3/uL (0.0-0.4); Eosinophils Percent Auto 1.1 % (0-4); Hematocrit 39.5 % (42.0-52.0); Hemoglobin 13.2 g/dl (14.0-18.0); Imm Gran Abs Auto 0.02 X10*3/uL (0.00-0.03); Imm Gran Pct Auto 0.5 % (0.0-0.4); Lymphocytes Absolute Auto 0.9 X10*3/uL (1.2-4.9); Lymphocytes Percent Auto 19.7 % (20-40); Mean Corpuscular HGB Conc 33.4 g/dl (31.0-36.0); Mean Corpuscular Hemoglobin 30.5 pg (27.0-33.0); Mean Corpuscular Volume 91.2 fL (80.0-98.0); Mean Platelet Volume 10.8 fL (9.4-12.4); Monocytes Absolute Auto 0.5 X10*3/uL (0.1-1.2); Monocytes Percent Auto 10.3 % (2-11); Neutrophils Percent Auto 68.2 % (45-73); Platelet Count 204 X10*3/uL (160-400); Red Blood Count 4.33 X10*6/uL (4.60-5.80); Red Cell Distribution Width 13.6 % (11.0-16.0); White Blood Count 4.4 X10*3/uL (4.8-10.8)
[2024-07-24 18:18] LABS: B Type Natriuretic Peptide 33 pg/mL (<100)
[2024-07-24 18:22] LABS: Alanine Aminotransferase 25 U/L (0-40); Alkaline Phosphatase 104 U/L (39-117); Anion Gap 10 (12-20); Aspartate Amino Transferase 19 U/L (5-37); Bilirubin Total 0.5 mg/dL (0.0-1.0); Blood Urea Nitrogen 18 mg/dL (9-16); Calcium 9.6 mg/dL (8.4-10.2); Carbon Dioxide 26 mmol/L (22-29); Chloride 105 mmol/L (96-108); Estimated Glomerular Filt Rate > 60; Glucose Random 244 mg/dL (60-115); Lipase 17 U/L (8-78); Potassium 4.2 mmol/L (3.3-5.1); Sodium 137 mmol/L (135-145); Total Protein 7.5 g/dL (6.5-8.0)
[2024-07-24 18:39] LABS: TSH reflex Free T4 0.73 uIU/mL (0.32-4.0)
== END 2024-07-24 15:55 | disposition home or self-care (01) ==
LOC: HO.HHCL 15:54
PROVIDERS: Visit Provider General Practice
DX: R10.11 Right upper quadrant pain (principal)
CPT/HCPCS: 36415; 80053; 83690; 83880; 84443; 85025

== ENCOUNTER 2024-07-29 06:09 | Outpatient (REF) | payer OTHER, SELFPAY ==
--- OUTSIDE RECORDS SUMMARY | 2024-07-29 06:12 | XMS_ITS | Encounter Summary ---
Author Organization [employer] Address [address] [facility] 7[address] [place] [address] Care Team Providers Care Sizing Machine And Drier Operator Name Role Phone Bala Blanco MD Primary Care Provider [phone] Reason for Referral * Imaging (Routine) - Authorized Specialty Diagnoses / Procedures Referred By Contac t Referred To Contact Radiology Diagnoses Right upper quadrant abdominal pain Procedures US Abdomen Complete Bala Blanco MD [address] [place] [address] Phone: tel: fax: [address] Phone: tel: fax: Referral ID Status Reason Start Date Expiration Date V isits Requested Visits Authorized [id number] Authorized 07/28/2024 07/28/2025 1 1 Reason for Visit * Reason Comments Abdominal Pain Encounter Details Date Type Department Care Team (Late st Contact Info) Description 07/24/2024 3:40 PM EDT Office Visit [facility] [address] [place], [place] [phone] Bala Blanco MD [address] [place] [address] [phone] Right upper quadrant abdominal pain (Primary Dx); Essential hypertension; Left renal artery stenosis (CMS/HCC); Adenocarcinoma of prostate (CMS/HCC); Diabetes 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, with long-term current use of insulin (CMS/HCC); Dietary counseling; Exercise counseling; Class 1 obesity with serious comorbidity and body mass index (BMI) of 32.0 to 32.9 in adult, unspecified obesity type Social History Tobacco Use Types Packs/Day Years Used Date Smoking Tobacco: Never Smokeless Tobacco: Never Tobacco Cessation:Counseling Given: Not Answered Alcohol Use Standard Drinks/Week Comments Yes 0 (1 standard drink = 0.6 oz pur e alcohol) Depression Answer Date Recorded Patient Health Questionnaire-9 Score 0 10/14/2023 Patient Health Questionnaire-9 Score 0 10/14/2023 Last PHQ-9: Questionnaire Data Not on file 0 10/14/2023 Housing Stability Answer Date Recorded What is your housing situation today? I have vidya webster 02/11/[address] you li ve. Do you have problems with any of the following? None of the above 02/11/2023 Food Insecurity Answer Date Recorded Within the past 12 months, y ou worried that your food would run out before you got money to buy more: Never True 02/11/2023 Within the past 12 months,th e food you bought just didn't last and you didn't have enough money to get more: Never True Transportation Answer Date Recorded In the past 12 months, has l ack of transportation kept you from medical appts, meetings, work or from getting things needed for daily living? No 10/02/2023 Utilities Answer Date Recorded In the past 12 months, has t he electric, gas, oil or water company threatened to shut off services in your home? No 02/11/2023 Depression Answer Date Recorded Patient Health Questionnaire-2 Score 0 10/14/2023 Sex and Gender Information Value Date Recorded Sex Assigned at Male 02/26/2022 10:15 AM EDT Legal Sex Male 10:15 AM EDT Gender Identity Male 02/26/2022 10:15 AM EDT Sexual Orientation Straight 02/26/2022 10 :15 AM EDT documented as of this encounter Last Filed Vital Signs Vital Sign Reading Time Taken Comments Blood Pressure 170/91 07/24/2024 3:11 PM EDT Pulse 78 07/24/2024 3:11 PM EDT Temperature 36.8 ??C (98.3 ??F) 07/24/2024 3:11 PM ED T Respiratory Rate 19 07/24/2024 3:11 PM EDT Oxygen Saturation - - Inhaled Oxygen Concentration - - Weight 85.7 kg (189 lb) 07/24/2024 3:11 PM EDT Height 162.6 cm (5' 4 ) 07/24/2024 3:11 PM EDT Body Mass Index 32.44 07/24/2024 3:11 PM EDT documented in this encounter Progress Notes * Bala Blanco MD - 07/24/2024 3:40 PM EDT Images from the original note were not included. SUBJECTIVE: Toro Lu is a 73 y.o. male who presents for acute visit of RUQ pain for two weeks. Denies recent illness, ER visit, or hospitalization. Acute Concerns: RUQ/flank pain intermittently x 2 weeks. It is not related to position or food intake. Not related to ongoing GnRH agonist treatment for prostate cancer. Labs with normal renal and liver function. Normal lipase. Slight anemia of 13.2 Interim Updates: Bilateral knee pain saw [facility] early 2023 had liquid drained from his knee and given prn follow-up Still with pain, but not effusion Using cream for diabetic pain that he buys over the counter SOB, PFTs not diagnostic of asthma 11/20/2022 PFTs Forced vital capacity is 74% and FEV1 is 74%. FEV1/FVC ratio is 74. FEF 25/75 72%. MVV is 67%. Post bronchodilator therapy, there is no change. Total lung capacity 73% and residual volume is 76%. Diffusion capacity 82%. Uses RL prn as he feels it gives relief of SOB Prostate cancer with bladder outlet obstruction Bladder tumor 1.6cm seen incidentally on CT in ER, has urology appt with Dr Choi at [facility] 08/11/2021 ended up being prostate impinging on bladder, known history of prostate cancer persistent slow rise in PSA following treatment for cancer Initiate second-line therapy with anti androgen aberiterone Every three month PSA monitoring 11/19/2022 Pirads 4 MRI Cystoscopy showed prostatic regrowth 12/2023 total testosterone 13, gnRH/lab work with urology, on hormonal treatment of prostate cancer 04/2024 testosterone 14 (up from 3, one year ago), followed by Dr Choi for prostate cancer 06/11/24 Patient received GNRH injection Hypertension Taking Amlodipine and maybe chlorthalidone Blood pressure machine at home not working had a MPI done in 2019 with normal perfusion and preserved EF, pending cardiology consult Cards 07/2023 1. Myocardial perfusion imaging study shows mild intensity ischemia in circumflex as well as mid todistal LAD territory 2. Gated LVEF is 47% with stress and 54% with rest 3. Transient ischemic dilatation present 08/2023 renal artery doppler IMPRESSION: Elevated velocity in the mid left renal artery consistent with a less than 60% stenosis. Recommend CTA of the abdomen without and with contrast for further evaluation. 10/2023 CT/CT angio abdomen IMPRESSION: 1. Fibrofatty plaque in the proximal left renal artery causing approximately 20% stenosis. 2. 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 Diabetes - A1C 10.3 Gluc 286 Taking Metforin 1000mg twice a day Taking Glipizide 5mg daily Lantus 30 units at night Eye surgery for glaucoma: had it in 2020 at [facility] [place] [facility], followed at [facility] 02/23/24, no ocular complication of DM2, L eye global atrophy Health maintenance: Colon- 10/2016, due 10/2026 Prostate- n/a due to prostate cancer Imms- COVID vaccines x 3 07/24/241839 Comprehensive Metabolic Panel Collected: 07/24/241555 Final result Specimen: Blood, Venous Sodium 137 mmol/L Glucose 244 High mg/dL Potassium 4.2 mmol/L Calcium 9.6 mg/dL Chloride 105 mmol/L Bilirubin, Total 0.5 mg/dL Carbon Dioxide 26 mmol/L Aspartate Amino Transferase 19 U/L Anion Gap 10 Low Alanine Aminotransferase 25 U/L Urea Nitrogen (BUN) 18 High mg/dL Total Protein 7.5 g/dL Creatinine, Serum 0.92 mg/dL Albumin Level 4.0 g/dL Estimated Glomerular Filt Rate >60 Alkaline Phosphatase 104 U/L 07/24/24 184 Lipase Collected: 07/24/241555 Final result Specimen: Blood, Venous Lipase 17 U/L 07/24/241839 TSH W/Reflex to FT4 Collected: 07/24/241555 Final result Specimen: Blood, Venous TSH reflex Free T4 0.73 uIU/mL 07/24/24 181 B Type Natriuretic Peptide (BNP) Collected: 03/28/25 1556 Final result Specimen: Blood, Venous B Type Natriuretic Peptide 33 pg/mL 07/24/24 1806 CBC auto differential Collected: 07/24/24 155 Final result Specimen: Blood, Venous White Blood Count 4.4 Low X10*3/uL Lymphocytes Percent Auto 19.7 Low % Red Blood Count 4.33 Low X10*6/uL Monocytes Percent Auto 10.3 % Hemoglobin 13.2 Low g/dl Eosinophils Percent Auto 1.1 % Hematocrit 39.5 Low % Basophils Percent Auto 0.2 % Mean Corpuscular Volume 91.2 fL NRBC Pct Auto 0.0 /100WBC Mean Corpuscular Hemoglobin 30.5 pg Neutrophils Absolute Auto 3.0 x10*3/uL Mean Corpuscular HGB Conc 33.4 g/dl Imm Gran Abs Auto 0.02 X10*3/uL Red Cell Distribution Width 13.6 % Lymphocytes Absolute Auto 0.9 Low X10*3/uL Platelet Count 204 X10*3/uL Monocytes Absolute Auto 0.5 X10*3/uL Mean Platelet Volume 10.8 fL Eosinophils Absolute Auto 0.1 X10*3/uL Neutrophils Percent Auto 68.2 % Basophils Absolute Auto 0.0 X10*3/uL Imm Gran Pct Auto 0.5 High % NRBC Abs Auto 0.000 X10*3/uL Patient Active Problem List Diagnosis Adenocarcinoma of prostate ([facility]) Bilateral cataracts Diabetes 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, with long-term current use of insulin ([facility]) Essential hypertension Neoplasm of bladder Osteoporosis Right bundle branch block Vitamin D deficiency Left renal artery stenosis ([facility]) Right upper quadrant abdominal pain Class 1 obesity with serious comorbidity and body mass index (BMI) of 32.0 to 32.9 in adult Past Surgical History: Procedure Laterality Date CTA ABDOMEN W AND WO CONTRAST 10/30/2023 CTA ABDOMEN W AND WO CONTRAST No family history on file. Social History Social History Narrative Not on file Review of Systems Constitutional: Negative. HENT: Negative. Respiratory: Negative. Cardiovascular: Negative. Gastrointestinal: Positive for abdominal distention and abdominal pain. Negative for anal bleeding,blood in stool, constipation, diarrhea, nausea, rectal pain and vomiting. OBJECTIVE: Vitals: 07/24/24 1511 BP: (!) 170/91 BP Location: Left arm Patient Position: Sitting BP Cuff Size: Adult Pulse: 78 Resp: 19 Temp: 98.3 ??F (36.8 ??C) TempSrc: Temporal Weight: 189 lb (85.7 kg) Height: 5' 4 (1.626 m) Physical Exam Vitals and nursing note reviewed. Constitutional: Appearance: Normal appearance. He is normal weight. HENT: Head: Normocephalic and atraumatic. Right Ear: Tympanic membrane, ear canal and external ear normal. Left Ear: Tympanic membrane, ear canal and external ear normal. Nose: Nose normal. Mouth/Throat: Mouth: Mucous membranes are moist. Pharynx: Oropharynx is clear. Eyes: Extraocular Movements: Extraocular movements intact. Conjunctiva/sclera: Conjunctivae normal. Pupils: Pupils are equal, round, and reactive to light. Cardiovascular: Rate and Rhythm: Normal rate and regular rhythm. Pulses: Normal pulses. Heart sounds: Normal heart sounds. Pulmonary: Effort: Pulmonary effort is normal. Breath sounds: Normal breath sounds. Abdominal: General: There is distension. Palpations: There is no mass. Tenderness: There is abdominal tenderness. There is no right CVA tenderness, left CVA tenderness, guarding or rebound. Hernia: No hernia is present. Musculoskeletal: Cervical back: Normal range of motion and neck supple. Skin: General: Skin is warm and dry. Capillary Refill: Capillary refill takes less than 2 seconds. Neurological: General: No focal deficit present. Mental Status: He is alert and oriented to person, place, and time. Psychiatric: Mood and Affect: Mood normal. Behavior: Behavior normal. ASSESSMENT/PLAN Problem List Items Addressed This Visit Adenocarcinoma of prostate ([facility]) Current Assessment & Plan Continue GnRH agonist treatments Urologist is Dr Choi at [facility] Continue q 3 month followup Diabetes 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, with long-term current use of insulin ([facility]) Current Assessment & Plan Next visit with [place] 09/04/24 for DM2 mgmt, labs ordered so they can be completed prior to visit Relevant Orders Hemoglobin A1c Lipid Panel, Standard Albumin, Random Urine W/Creatinine Essential hypertension Current Assessment & Plan Continue Amlodipine, Labetalol, Aldactone, clorthalidone; refills sent for one year and encouraged compliance with his med regimen to protect his eyes, kidneys Measure home Bps daily and record Start ARB as next line therapy if needed The 10-year ASCVD risk score (Kirk DK, et al., 2019) is: 61% Values used to calculate the score: Age: 73 years Sex: Male Is Non- : No Diabetic: Yes Tobacco smoker: No Systolic Blood Pressure: 170 mmHg Is BP treated: Yes HDL Cholesterol: 65 mg/dL Total Cholesterol: 179 mg/dL - Aerobic exercise to reduce BP. Initial goal of 30 min walk 3-5x/week. Increase as tolerated. - low-sodium diet (goal: <2g/day) and heart healthy diet such as DASH to reduce BP and prevent ASCVD. - Home BP monitoring 1-2 x day with goal of <140/90. - Seek immediate medical attention for chest pain, palpitations, SOB, syncope, or sudden changes inmental status. - Do not change or discontinue current prescriptions without first consulting health care provider Left renal artery stenosis (CMS/HCC) Overview 10/2023 CTA of abd/pelvis 20% blockage of L renal artery Right upper quadrant abdominal pain - Primary Current Assessment & Plan Exam is reassuring for non-emergent abdominal pain, labs within normal limits Will obtain RUQUS to rule out cholelithiasis, encourage bland diet with lots of fiber to assist with regular bowel movements and walking daily, preferably after a meal ER precautions for worsening pain, fever> 102, intolerance to PO with N/V/D Relevant Orders Comprehensive Metabolic Panel (Completed) Lipase (Completed) CBC auto differential (Completed) B Type Natriuretic Peptide (BNP) (Completed) TSH W/Reflex to FT4 (Completed) US Abdomen Complete Class 1 obesity with serious comorbidity and body mass index (BMI) of 32.0 to 32.9 in adult Other Visit Diagnoses Dietary counseling Exercise counseling Follow Up: 1 months or sooner prn Allergies Allergen Reactions Lisinopril Angioedema Current Outpatient Medications: albuterol 108 (90 Base) MCG/ACT inhaler, Inhale 2 puffs every 4 (four) hours if needed for wheezing., Disp: 18 g, Rfl: 11 amLODIPine (Norvasc) 10 MG tablet, Take 1 tablet (10 mg) by mouth Once per day., Disp: 90 tablet, Rfl: 3 aspirin (Ecotrin Low Strength) 81 MG EC tablet, Take 1 tablet (81 mg) by mouth Once per day., Disp:90 tablet, Rfl: 3 atorvastatin (Lipitor) 40 MG tablet, Take 1 tablet (40 mg) by mouth at bedtime., Disp: 90 tablet, Rfl: 3 Blood Pressure kit, Use to check blood pressure once daily (1 hour after taking medication for blood pressure) and if symptomatic, Disp: 1 kit, Rfl: 0 brimonidine-timolol (Combigan) 0.2-0.5 % ophthalmic solution, INSTILL 1 DROP IN THE LEFT EYE TWICE DAILY, Disp: , Rfl: chlorthalidone (Hygroton) 25 MG tablet, Take 1 tablet (25 mg) by mouth Once per day., Disp: 90 tablet, Rfl: 3 finasteride (Proscar) 5 MG tablet, Take 5 mg by mouth Once per day., Disp: , Rfl: glipiZIDE XL (Glucotrol XL) 10 MG 24 hr tablet, Take 1 tablet (10 mg) by mouth with breakfast. Do not crush, chew, or split., Disp: 90 tablet, Rfl: 3 glucose blood (FREESTYLE LITE) test strip, Check BS once a day, Disp: , Rfl: insulin glargine (Lantus SoloStar) 100 UNIT/ML pen, inject 30 units by Subcutaneous route every evening, Disp: 3 mL, Rfl: 11 insulin pen needle (Sure Comfort Pen [place]) 31G x 5 mm [facility], USE WITH lantus, Disp: 100 each, Rfl: 11 labetalol (Normodyne) 100 MG tablet, Take 1 tablet (100 mg) by mouth 2 times daily., Disp: 180 tablet, Rfl: 3 metFORMIN (Glucophage) 1000 MG tablet, Take 1 tablet (1,000 mg) by mouth with breakfast and with evening meal., Disp: 180 tablet, Rfl: 3 prednisoLONE acetate (Pred-Forte) 1 % ophthalmic suspension, PLACE 1 DROP IN THE AFFECTED EYE THREETIMES DAILY. START ON THE DAY AFTER SURGERY, Disp: , Rfl: sildenafil (Viagra) 50 MG tablet, Take 1 tablet (50 mg) by mouth if needed for erectile dysfunction(20-30 minutes before sexual activity)., Disp: 10 tablet, Rfl: 3 spironolactone (Aldactone) 50 MG tablet, Take 1 tablet (50 mg) by mouth Once per day., Disp: 90 tablet, Rfl: 3 Albanian Translation: Provided by [facility] staff member YOMI Hooker documented in this encounter Miscellaneous Notes * Assessment & Plan Note - Bala Blanco MD - 07/28/2024 8:42 AM EDTAssociated Problem(s): Diabetes 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, with long-term current use of insulin ([facility]) Next visit with [place] 09/04/24 for DM2 mgmt, labs ordered so they can be completed prior to visit * Assessment & Plan Note - Bala Blanco MD - 07/28/2024 8:42 AM EDTAssociated Problem(s): Adenocarcinoma of prostate (CMS/HCC) Continue GnRH agonist treatments Urologist is Dr Choi at [facility] Continue q 3 month followup * Assessment & Plan Note - Bala Blanco MD - 07/28/2024 8:42 AM EDTAssociated Problem(s): Essential hypertension Continue Amlodipine, Labetalol, Aldactone, clorthalidone; refills sent for one year and encouraged compliance with his med regimen to protect his eyes, kidneys Measure home Bps daily and record Start ARB as next line therapy if needed The 10-year ASCVD risk score (Kirk TURNER, et al., 2019) is: 61% Values used to calculate the score: Age: 73 years Sex: Male Is Non- : No Diabetic: Yes Tobacco smoker: No Systolic Blood Pressure: 170 mmHg Is BP treated: Yes HDL Cholesterol: 65 mg/dL Total Cholesterol: 179 mg/dL - Aerobic exercise to reduce BP. Initial goal of 30 min walk 3-5x/week. Increase as tolerated. - low-sodium diet (goal: <2g/day) and heart healthy diet such as DASH to reduce BP and prevent ASCVD. - Home BP monitoring 1-2 x day with goal of <140/90. - Seek immediate medical attention for chest pain, palpitations, SOB, syncope, or sudden changes inmental status. - Do not change or discontinue current prescriptions without first consulting health care provider * Assessment & Plan Note - Bala Blanco MD - 07/28/2024 8:41 AM EDTAssociated Problem(s): Right upper quadrant abdominal pain Exam is reassuring for non-emergent abdominal pain, labs within normal limits Will obtain RUQUS to rule out cholelithiasis, encourage bland diet with lots of fiber to assist with regular bowel movements and walking daily, preferably after a meal ER precautions for worsening pain, fever> 102, intolerance to PO with N/V/D * Addendum Note - Bala Blanco MD - 07/24/2024 3:40 PM EDTAddended by: BALA BLANCO on: 07/28/2024 08:44 AM Modules accepted: Orders documented in this encounter Plan of Treatment Upcoming Encounters Date Type Department Care Team (Late st Contact Info) Description 09/04/2024 2:30 PM EDT Office Visit [facility] [address] [place] [address] Bala Blanco MD [address] [place] [address] Scheduled Orders Name Type Priority Associated Diagnoses Orde r Schedule Hemoglobin A1c Lab Routine Diabetes 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, with long-term current use of insulin ([facility]) Expected: 07/28/2024 (Approximate), Expires: 07/28/2025 US Abdomen Complete Imaging Routine Right upper quadrant abdominal pain Expected: 07/28/2024, Expires: 07/28/2025 Lipid Panel, Standard Lab Routine Diabetes 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, with long-term current use of insulin ([facility]) Expected: 07/28/2024 (Approximate), Expires: 07/28/2025 Albumin, Random Urine W/Creatinine Lab Routine Diabetes 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, with long-term current use of insulin (CMS/HCC) Expected: 07/28/2024 (Approximate), Expires: 07/28/2025 documented as of this encounter Procedures Procedure Name Priority Date/Time Associated Diagnosis Comments TSH W/REFLEX TO FT4 Routine 07/24/2024 3 :56 PM EDT Right upper quadrant abdominal pain CBC WITH AUTO DIFFERENTIAL Routine 07/24/2024 3:56 PM EDT Right upper quadrant abdominal pain B TYPE NATRIURETIC PEPTIDE (BNP) Routine 07/24/2024 3:56 PM EDT Right upper quadrant abdominal pain LIPASE Routine 07/24/2024 3:56 PM EDT Right upper quadrant abdominal pain COMPREHENSIVE METABOLIC PANEL Routine 07/24/2024 3:56 PM EDT Right upper quadrant abdominal pain documented in this encounter Results * TSH W/Reflex to FT4 (07/24/2024 3:56 PM EDT) TSH reflex Free T4 0.73 0.32 - 4.0 uIU/mL [facility] Blood Venous blood specimen / Unknown 07/24/2024 3:56 PM EDT 07/24/2024 5:56 PM EDT Bala Blanco MD LAB BLOOD ORDERABLES Final Res ult [facility] [address] [place] [phone] * B Type Natriuretic Peptide (BNP) (07/24/2024 3:56 PM EDT) B Type Natriuretic Peptide 33 <100 pg/mL [facility] Blood Venous blood specimen / Unknown 07/24/2024 3:56 PM EDT 07/24/2024 5:56 PM EDT Bala Blanco MD LAB BLOOD ORDERABLES Final Res ult [facility] [address] [place], [place] [phone] * (ABNORMAL) CBC auto differential (07/24/2024 3:56 PM EDT) White Blood Count 4.4(L) 4.8 - 10.8 X10*3/uL [facility] Red Blood Count 4.33(L) 4.60 - 5.80 X10*6/uL [facility] Hemoglobin 13.2(L) 14.0 - 18.0 g/dl [facility] Hematocrit 39.5(L) 42.0 - 52.0 % [facility] Mean Corpuscular Volume 91.2 80.0 - 98.0 fL [facility] Mean Corpuscular Hemoglobin 30.5 27.0 - 33.0 pg [facility] Mean Corpuscular HGB Conc 33.4 31.0 - 36.0 g/dl [facility] Red Cell Distribution Width 13.6 11.0 - 16.0 % [facility] Platelet Count 204 160 - 400 X10*3/uL [facility] Mean Platelet Volume 10.8 9.4 - 12.4 fL [facility] Neutrophils Percent Auto 68.2 45 - 73 % [facility] Imm Gran Pct Auto 0.5(H) 0.0 - 0.4 % [facility] Lymphocytes Percent Auto 19.7(L) 20 - 40 % [facility] Monocytes Percent Auto 10.3 2 - 11 % [facility] Eosinophils Percent Auto 1.1 0 - 4 % [facility] Basophils Percent Auto 0.2 0 - 2 % [facility] NRBC Pct Auto 0.0 0.0 - 0.2 /100WBC [facility] Neutrophils Absolute Auto 3.0 2.0 - 8.3 x10*3/uL [facility] Imm Gran Abs Auto 0.02 0.00 - 0.03 X10*3/uL [facility] Lymphocytes Absolute Auto 0.9(L) 1.2 - 4.9 X10*3/uL [facility] Monocytes Absolute Auto 0.5 0.1 - 1.2 X10*3/uL [facility] Eosinophils Absolute Auto 0.1 0.0 - 0.4 X10*3/uL [facility] Basophils Absolute Auto 0.0 0.0 - 0.2 X10*3/uL [facility] NRBC Abs Auto 0.000 0.0 - 0.012 X10*3/uL [facility] Blood Venous blood specimen / Unknown 07/24/2024 3:56 PM EDT 07/24/2024 5:56 PM EDT Bala Blanco MD LAB BLOOD ORDERABLES Final Res ult Performing Organization Address [facility]/ZIP Co de Phone Number [facility] [address] [place] [phone] * Lipase (07/24/2024 3:56 PM EDT) Pathologist [facility] Lipase 17 8 - 78 U/L [facility] Blood Venous blood specimen / Unknown 07/24/2024 3:56 PM EDT 07/24/2024 5:56 PM EDT Bala Blanco MD LAB BLOOD ORDERABLES Final Res ult Performing Organization Address [facility]/ZIP Co de Phone Number [facility] [address] [place] [phone] * (ABNORMAL) Comprehensive Metabolic Panel (07/24/2024 3:56 PM EDT) Pathologist [facility] Sodium 137 135 - 145 mmol/L [facility] Potassium 4.2 3.3 - 5.1 mmol/L [facility] Chloride 105 96 - 108 mmol/L [facility] Carbon Dioxide 26 22 - 29 mmol/L [facility] Anion Gap 10(L) 12 - 20 [facility] Urea Nitrogen (BUN) 18(H) 9 - 16 mg/dL [facility] Creatinine, Serum 0.92 0.5 - 1.4 mg/dL [facility] Estimated Glomerular Filt Rate >60 [facility] Comment:Chronic Kidney Disea se: Estimated GFR < 60 mL/min/1.41o0Upglmt Kidney Disease: Estimated GFR < 15 mL/min/1.73m2 Glucose 244(H) 60 - 115 mg/dL [facility] Calcium 9.6 8.4 - 10.2 mg/dL [facility] Bilirubin, Total 0.5 0.0 - 1.0 mg/dL [facility] Aspartate Amino Transferase 19 5 - 37 U/L [facility] Alanine Aminotransferase 25 0 - 40 U/L [facility] Total Protein 7.5 6.5 - 8.0 g/dL [facility] Albumin Level 4.0 3.5 - 5.0 g/dL [facility] Alkaline Phosphatase 104 39 - 117 U/L [facility] Blood Venous blood specimen / Unknown 07/24/2024 3:56 PM EDT 07/24/2024 5:56 PM EDT us Bala Blanco MD LAB BLOOD ORDERABLES Final Res ult [facility] [address] [place] [address] [phone] documented in this encounter Visit Diagnoses Diagnosis Right upper quadrant abdominal pain- Primary Essential hypertension Unspecified essential hypertension Left renal artery stenosis (CMS/HCC) Adenocarcinoma of prostate (CMS/HCC) Malignant neoplasm of prostate Diabetes 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, with long-term current use of insulin (CMS/HCC) Dietary counseling Dietary surveillance and counseling Exercise counseling Class 1 obesity with serious comorbidity and body mass index (BMI) of 32.0 to 32.9 in adult, unspecified obesity type documented in this encounter Additional Health Concerns Assessment Noted Time PHQ-9 Depression Total Score: 0 10/14/19 24 3:49 PM EDT documented as of this encounter Care Teams Sizing Machine And Drier Operator Relationship Specialty Start Date End Date Bala Blanco MD [address] [place] [id number] PCP - General Family Medicine 11/21/20 documented as of this encounter
--- OUTSIDE RECORDS SUMMARY | 2024-07-29 06:12 | XMS_ITS | Encounter Summary ---
Author Organization [employer] Address [address] [facility] [address] [place] [address] Care Team Providers Care Bookstore Clerk Name Role Phone Urszula Sue MD Primary Care Provider [phone] Encounter Details Date Type Department Care Team (Late Contact Info) Description 10/31/2022 Orders Only [facility] [address] [place] [address] Gregoria Mitchell LPN Social History Tobacco Use Types Packs/Day Years Used Date Smoking Tobacco: Never Smokeless Tobacco: Never Alcohol Use Standard Drinks/Week Comments Yes 0 (1 standard drink = 0.6 oz pur e alcohol) Depression Answer Date Recorded Patient Health Questionnaire-2 Score 0 09/15/2022 Sex and Gender Information Value Date Recorded Sex Assigned at Male 02/26/2022 10:15 AM EDT Legal Sex Male 10:15 AM EDT Gender Identity Male 02/26/2022 10:15 AM EDT Sexual Orientation Straight 02/26/2022 10 :15 AM EDT documented as of this encounter Plan of Treatment Upcoming Encounters Date Type Department Care Team (Late st Contact Info) Description 09/04/2024 2:30 PM EDT Office Visit [facility] [address] [place] [address] Urszula Sue MD [address] [place], [place] [phone] documented as of this encounter Visit Diagnoses Not on filedocumented in this encounter Care Teams Bookstore Clerk Relationship Specialty Start Date End Date Urszula Sue MD [address] [place], [place] [phone] PCP - General Family Medicine 11/21/20 documented as of this encounter
--- OUTSIDE RECORDS SUMMARY | 2024-07-29 06:12 | XMS_ITS | Encounter Summary ---
Author Organization [employer] Address [address] [facility] [address] [place] [address] Care Team Providers Care Customer Associate Name Role Phone Urszula Sue MD Primary Care Provider [phone] Encounter Details Date Type Department Care Team (Late st Contact Info) Description 07/28/2024 Telephone [facility] [address] [place], [place] [phone] Urszula Sue MD [address] [place], [place] [phone] Social History Tobacco Use Types Packs/Day Years [...] AM EDT documented as of this encounter Miscellaneous Notes * Telephone Encounter - Juliana Cooley RN - 07/28/2024 10:07 AM EDT T/C placed to pt via [employer] Free[employer] Worker Artem #[id number]. Advised of message from PCP re: lab results andpoc. Pt verbalized understanding and reports agreement with plan. * Telephone Encounter - Juliana Cooley RN - 07/28/2024 10:01 AM EDT ----- Message from Urszula Sue MD sent at 07/28/2024 8:44 AM EDT ----- Good morning, please let Toro know that his abdominal labs returned normal. I ordered an abd US to rule out cholelithiasis, encourage bland diet with lots of fiber to assist with regular bowel movements and walking daily, preferably after a meal. I also ordered his DM2 labs, to be completed prior to his visit 09/04/24 with me. Also, to record his BP daily and bring that log in August as well. Thank you! documented in this encounter Plan of Treatment Upcoming Encounters Date Type Department Care Team (Late st Contact Info) Description 09/04/2024 2:30 PM EDT Office Visit [facility] [address] [place] [address] Urszula Sue MD [address] [place] [address] documented as of this encounter Visit Diagnoses Not on filedocumented in this encounter Additional Health Concerns Assessment Noted Time PHQ-9 Depression Total Score: 0 10/14/19 24 3:49 PM EDT documented as of this encounter Care Teams Customer Associate Relationship Specialty Start Date End Date Urszula Sue MD [address] [place] [phone] PCP - General Family Medicine 11/21/20 documented as of this encounter
--- OUTSIDE RECORDS SUMMARY | 2024-07-29 06:12 | XMS_ITS | Clinical Summary ---
Author Organization [employer] Address [address] [facility] [address] [place] [address] Care Team Providers Care Stitcher Set Up Operator Automatic Name Role Phone Urszula Sue MD Primary Care Provider [phone] Allergies Active Allergy Reactions Criticality Noted Date Comments Lisinopril Angioedema 06/06/2017 Medications glucose blood (FREESTYLE LITE) test strip Check BS once a day 1 Active prednisoLONE acetate (Pred-Forte) 1 % ophthalmic suspension PLACE 1 DROP IN THE AFFECTED EYE THREE TIMES DAILY. START ON THE DAY AFTER SURGERY 2 Active insulin pen needle (Sure Comfort Pen [place]) 31G x 5 mm misc USE WITH lantus 100 each 11 3 Active brimonidine-cali lol (Combigan) 0.2-0.5 % ophthalmic solution INSTILL 1 DROP IN THE LEFT EYE TWICE DAILY 4 Active finasteride (Proscar) 5 MG tablet Take 5 mg by mouth Once per day. 4 Active insulin glargine (Lantus SoloStar) 100 UNIT/ML pen inject 30 units by Subcutaneous route every evening 3 mL 11 4 Active sildenafil (Viagra) 50 MG tablet Take 1 tablet (50 mg) by mouth if needed for erectile dysfunction (20-30 minutes before sexual activity). 10 tablet 3 4 Active metFORMIN (Glucophage) 1000 MG tabletIndication s:Diabetes 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, with long-term current use of insulin (CMS/HCC) Take 1 tablet (1,000 mg) by mouth with breakfast and with evening meal. 180 tablet 3 4 Active labetalol (Normodyne) 100 MG tabletIndication s:Essential hypertension Take 1 tablet (100 mg) by mouth 2 times daily. 180 tablet 3 4 Active spironolactone (Aldactone) 50 MG tabletIndication s:Essential hypertension Take 1 tablet (50 mg) by mouth Once per day. 90 tablet 3 4 Active amLODIPine (Norvasc) 10 MG tabletIndication s:Essential hypertension Take 1 tablet (10 mg) by mouth Once per day. 90 tablet 3 4 Active aspirin (Ecotrin Low Strength) 81 MG EC tabletIndication s:Diabetes 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, with long-term current use of insulin (CMS/HCC) Take 1 tablet (81 mg) by mouth Once per day. 90 tablet 3 4 Active atorvastatin (Lipitor) 40 MG tabletIndication s:Diabetes 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, with long-term current use of insulin (CMS/HCC) Take 1 tablet (40 mg) by mouth at bedtime. 90 tablet 3 4 Active albuterol 108 (90 Base) MCG/ACT inhaler Inhale 2 puffs every 4 (four) hours if needed for wheezing. 18 g 11 4 025 Active glipiZIDE XL (Glucotrol XL) 10 MG 24 hr tabletIndication s:Diabetes 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, with long-term current use of insulin (CMS/HCC) Take 1 tablet (10 mg) by mouth with breakfast. Do not crush, chew, or split. 90 tablet 3 4 Active chlorthalidone (Hygroton) 25 MG tabletIndication s:Essential hypertension Take 1 tablet (25 mg) by mouth Once per day. 90 tablet 3 4 025 Active Blood Pressure kit Use to check blood pressure once daily (1 hour after taking medication for blood pressure) and if symptomatic 1 kit 5 Active Active Problems Problem Noted Date Diagnosed Date Class 1 obesity with serious comorbidity and body mass index (BMI) of 32.0 to 32.9 in adult 07/28/2024 Right upper quadrant abdominal pain 07/27/2024 Assessment & Plan (07/28/2024 8:41 AM EDT): Exam is reassuring for non-emergent abdominal pain, labs within normal limits Will obtain RUQUS to rule out cholelithiasis, encourage bland diet with lots of fiber to assist with regular bowel movements and walking daily, preferably after a meal ER precautions for worsening pain, fever> 102, intolerance to PO with N/V/D Left renal artery stenosis 03/20/2024 Overview (03/20/2024): 10/2023 CTA of abd/pelvis 20% blockage of L renal artery Right bundle branch block 11/06/2022 Neoplasm of bladder 06/28/2021 Osteoporosis 06/28/2021 Adenocarcinoma of prostate 01/28/2019 Assessment & Plan (07/28/2024 8:42 AM EDT): Continue GnRH agonist treatments Urologist is Dr Choi at [facility] [place] Continue q 3 month followup Assessment & Plan (11/10/2022 9:17 AM EDT): Mgmt per [facility] Urologist is Dr Choi at [facility] [place] Continue q 3 month followup Vitamin D deficiency 06/27/2018 Bilateral cataracts 09/11/2017 Diabetes mellitus due to und erlying condition with hyperglycemia, with long-term current use of insulin 09/05/2016 Assessment & Plan (07/28/2024 8:42 AM EDT): Next visit with me 09/04/24 for DM2 mgmt, labs ordered so they can be completed prior to visit Assessment & Plan (03/20/2024 2:05 PM EST): Current A1c: 10.3 Continue Lantus 30 units nightly Add back Metformin 1000mg BID and Glipizide 10mg BMP: 0.84 Cr, eGFR > 60 Microalbumin: due Foot Exam: Complete at follow up Eye Exam: 01/2024 Lipid panel: due ASCVD: The 10-year ASCVD risk score (Kirk TURNER, et al., 2019) is: 63.7% Values used to calculate the score: Age: 73 years Sex: Male Is Non- : No Diabetic: Yes Tobacco smoker: No Systolic Blood Pressure: 177 mmHg Is BP treated: Yes HDL Cholesterol: 65 mg/dL Total Cholesterol: 179 mg/dL Statin: Yes, Atorvastatin 40mg ASA: Yes MILDRED/ARB: No Encouraged regular aerobic exercise for improved glycemic control Encouraged daily foot checks Encouraged lean protein snacks and to avoid foods high in sugar and simple carbohydrates Treatment Goals: A1c goal: <7% FBG goal: <130 2 hour post prandial goal: <180 Assessment & Plan (10/15/2023 7:20 PM EDT): Current A1c: 8.7 Continue Lantus 30 units nightly Continue Metformin 1000mg BID and Glipizide 10mg BMP: 0.84 Cr, eGFR > 60 Microalbumin: due Foot Exam: Complete at follow up Eye Exam: with eye and Lasik, referral placed today Lipid panel: due ASCVD: Calculate pending updated labs Statin: Yes, Atorvastatin 40mg ASA: Yes MILDRED/ARB: No Encouraged regular aerobic exercise for improved glycemic control Encouraged daily foot checks Encouraged lean protein snacks and to avoid foods high in sugar and simple carbohydrates Treatment Goals: A1c goal: <7% FBG goal: <130 2 hour post prandial goal: <180 Assessment & Plan (11/10/2022 9:21 AM EDT): Current A1c: 11.5, restart Lantus 30 units nightly Continue Metformin 1000mg BID and Glipizide 10mg If A1C > 9 at next visit, with add Trulicity BMP: 0.84 Cr, eGFR > 60 Microalbumin: due Foot Exam: Complete at follow up Eye Exam: with eye and Lasik Lipid panel: due ASCVD: Calculate pending updated labs Statin: Yes ASA: No MILDRED/ARB: Yes Encouraged regular aerobic exercise for improved glycemic control Encouraged daily foot checks Encouraged lean protein snacks and to avoid foods high in sugar and simple carbohydrates Treatment Goals: A1c goal: <7% FBG goal: <130 2 hour post prandial goal: <180 Essential hypertension 09/05/2016 Assessment & Plan (07/28/2024 8:42 AM EDT): Continue Amlodipine, Labetalol, Aldactone, clorthalidone; refills sent for one year and encouraged compliance with his med regimen to protect his eyes, kidneys Measure home Bps daily and record Start ARB as next line therapy if needed The 10-year ASCVD risk score ([place] DK, et al., 2019) is: 61% Values [...] pain, palpitations, SOB, syncope, or sudden changes in mental status. - Do not change or discontinue current prescriptions without first consulting health care provider Assessment & Plan (03/20/2024 2:03 PM EST): Continue Amlodipine, Labetalol, Aldactone, clorthalidone; refills sent for one year and encouraged compliance with his med regimen to protect his eyes, kidneys He reports that at home his BP <140/90 Start ARB as next line therapy if needed The 10-year ASCVD risk score (Kirk TURNER, et al., 2019) is: 63.7% Values used to calculate the score: Age: 73 years Sex: Male Is Non- : No Diabetic: Yes Tobacco smoker: No Systolic Blood Pressure: 177 mmHg Is BP treated: Yes HDL Cholesterol: [...] pain, palpitations, SOB, syncope, or sudden changes in mental status. - Do not change or discontinue current prescriptions without first consulting health care provider Assessment & Plan (10/15/2023 7:19 PM EDT): Continue Amlodipine, chlorthalidone, Labetalol, Aldactone He reports that at home his BP <140/90 Start ARB as next line therapy if needed The 10-year ASCVD risk score (Kirk TURNER, et al., 2019) is: 45.3% Values used to calculate the score: Age: 72 years Sex: Male Is Non- : No Diabetic: Yes Tobacco smoker: No Systolic Blood Pressure: 148 mmHg Is BP treated: No HDL Cholesterol: 54 mg/dL Total Cholesterol: 169 mg/dL - Aerobic exercise to reduce BP. Initial goal of 30 min walk 3-5x/week. Increase as tolerated. - low-sodium diet (goal: <2g/day) and heart healthy diet such as DASH to reduce BP and prevent ASCVD. - Home BP monitoring 1-2 x day with goal of <140/90. - Seek immediate medical attention for chest pain, palpitations, SOB, syncope, or sudden changes in mental status. - Do not change or discontinue current prescriptions without first consulting health care provider Assessment & Plan (11/10/2022 9:20 AM EDT): Restarted Amlodipine, chlorthalidone Start ARB at next visit if BP still >140/90 - Aerobic exercise to reduce BP. Initial goal of 30 min walk 3-5x/week. Increase as tolerated. - low-sodium diet (goal: <2g/day) and heart healthy diet such as DASH to reduce BP and prevent ASCVD. - Home BP monitoring 1-2 x day with goal of <140/90. - Seek immediate medical attention for chest pain, palpitations, SOB, syncope, or sudden changes in mental status. - Do not change or discontinue current prescriptions without first consulting health care provider Resolved Problems Problem Noted Date Diagnosed Date Resolved Date Class 1 obesity with serious comorbidity and body mass index (BMI) of 33.0 to 33.9 in adult 10/14/2023 07/28/2024 Encounters Date Type Department Care Team Description 07/28/2024 Telephone [facility] [address] [place] [address] Urszula Sue MD 07/24/2024 3:40 PM EDT Office Visit [facility] [address] [place] [address] Urszula Sue MD Right upper quadrant abdominal pain (Primary Dx); Essential hypertension; Left renal artery stenosis (CMS/HCC); Adenocarcinoma of prostate ([facility]); Diabetes 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, with long-term current use of insulin ([facility]); Dietary counseling; Exercise counseling; Class 1 obesity with serious comorbidity and body mass index (BMI) of 32.0 to 32.9 in adult, unspecified obesity type 06/19/2024 Telephone [facility] [address], [place] [phone] Urszula Sue MD recall 05/01/2024 Orders Only GENERIC EXTERNAL DATA DEPARTMENT Provider, Generic External Data from Last 3 Months Immunizations Name Administration Dates Next Due Hep B, adult 03/28/2017, 7,04/01/2014,11/20 Influenza High-dose Quadriva lent Preservative Free 02/13/2021,01/29/2020 Influenza injectable quadriv alent IIV4 with preservative 03/28/2017,01/24/2015 Influenza injectable quadriv alent preservative free 01/28/2019,06/09/2018 Influenza, IIV3, injectable 04/01/2014, 0 Moderna Covid-19 Vaccine 6+ Bivalent 05/04/2022 Pneumococcal Conjugate PCV 13 09/05/2016 Pneumococcal Polysaccharide PPSV23 06/09/2018, TD (adult), 2 Lf tetanus tox oid, preservative free, adsorbed 10/27/1996 Tdap 03/20/2010 Social History Tobacco Use Types Packs/Day Years [...] Orientation Straight 02/26/2022 10 :15 AM EDT Last Filed Vital Signs Vital Sign Reading Time Taken Comments Blood Pressure 170/91 07/24/2024 3:11 PM EDT Pulse 78 07/24/2024 3:11 PM EDT Temperature 36.8 ??C (98.3 ??F) 07/24/2024 3:11 PM ED T Respiratory Rate 19 07/24/2024 3:11 PM EDT Oxygen Saturation 98% 03/20/2024 1:11 PM EST Inhaled Oxygen Concentration - - Weight 85.7 kg (189 lb) 07/24/2024 3:11 PM EDT Height 162.6 cm (5' 4 ) 07/24/2024 3:11 PM EDT Body Mass Index 32.44 07/24/2024 3:11 PM EDT Plan of Treatment Upcoming Encounters Date Type Department Care Team (Late st Contact Info) Description 09/04/2024 2:30 PM EDT Office Visit [facility] [address] [place] [address] Urszula Sue MD [address] [place] [address] Health Maintenance Due Date Last Done Comments CT Colonography 1948 FIT DNA/Cologuard 1948 FIT 1948 FOBT 1948 Sigmoidoscopy 1948 Diabetes: Foot Exam 1958 Alcohol/Substance Use Screening 1960 Zoster Vaccines (1 of 2) 1998 DTaP/Tdap/Td Vaccines (2 - Td or Tdap) 03/20/2020 03/20/2010, 10/27/1996 RSV Patients and Patients Aged 60 years or older (1 - 1-dose 75+ series) 12/17/2023 COVID-19 Vaccine (6 - season) 2023 05/04/2022, 09/29/2021, 04/20/2021, Additional history exists Influenza Vaccine (#1) 2023 , 01/29/2020, 01/28/2019, Additional history exists Diabetes: Hemoglobin A1C 06/20/2024 024, 10/14/2023, 11/09/2022, Additional history exists SDOH Screening 10/01/2024 10/02/2023 Depression Screening 10/13/2024 10/14/2023, 10/14/19 Diabetes: Urine Protein Screening 10/27/2024 10/28/2023, 02/13/2021 Lipid Panel 10/27/2024 10/28/2023, 02/10/2021 Tobacco Screening 07/27/2025 07/27/2024 Eye Exam 02/20/2026 02/21/2024 Colonoscopy 11/23/2026 11/23/2016 Colorectal Cancer Screening 11/23/2026 Hepatitis B Vaccines Completed 03/28/2017, 09/05/2016, 04/01/2014, Additional history exists Pneumococcal Vaccine: 50+ Years Completed 06/09/2018, 09/05/2016, 07/03/2010 Hepatitis C Screening Completed 10/28/2023 HIB Vaccines Aged Out No longer eligi ble based on patient's age to complete this topic HPV Vaccines Aged Out No longer eligi ble based on patient's age to complete this topic Hepatitis A Vaccines Aged Out No long er eligible based on patient's age to complete this topic IPV Vaccines Aged Out No longer eligi ble based on patient's age to complete this topic Meningococcal Vaccine Aged Out No bryon trevor eligible based on patient's age to complete this topic RSV under 20 months Aged Out No longe r eligible based on patient's age to complete this topic Rotavirus Vaccines Aged Out No longer eligible based on patient's age to complete this topic Procedures Procedure Name Priority Date/Time Associated Diagnosis [...] PM EDT Right upper quadrant abdominal pain TESTOSTERONE, TOTAL, MALES (ADULT), IA Routine 05/01/2024 10:26 AM EST PSA, TOTAL Routine 05/01/2024 10:26 AM EST POCT GLYCATED HEMOGLOBIN, TOTAL Routine 03/20/2024 1:21 PM EST Diabetes 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, with long-term current use of insulin (CMS/HCC) ALBUMIN, RANDOM URINE W/CREATININE Routine 10/28/2023 3:40 PM EDT Diabetes mellitus without complication (CMS/HCC) HEPATITIS C AB W/REFL TO HCV RNA, QN, PCR Routine 10/28/2023 3:39 PM EDT Diabetes mellitus without complication (CMS/HCC) LIPID PANEL, STANDARD Routine 10/28/2023 3:39 PM EDT Diabetes mellitus without complication (CMS/HCC) HM COLONOSCOPY Routine 11/23/2016 3:19 PM EDT from Last 3 Months or Most Recently Relevant to Health Maintenance Results * TSH W/Reflex to FT4 (07/24/2024 3:56 PM EDT) TSH reflex Free T4 0.73 0.32 - 4.0 uIU/mL [facility] Blood Venous blood specimen / Unknown 07/24/2024 3:56 PM EDT 07/24/2024 5:56 PM EDT us Urszula Sue MD LAB BLOOD ORDERABLES Final Res ult [facility] [address] [place] [phone] * (ABNORMAL) CBC auto differential (07/24/2024 3:56 PM EDT) Pathologist [facility] White Blood Count 4.4(L) 4.8 - 10.8 X10*3/uL [facility] Red Blood Count 4.33(L) 4.60 - 5.80 X10*6/uL [facility] Hemoglobin 13.2(L) 14.0 - 18.0 g/dl [facility] Hematocrit 39.5(L) 42.0 - 52.0 % [facility] Mean Corpuscular Volume 91.2 80.0 - 98.0 fL [facility] Mean Corpuscular Hemoglobin 30.5 27.0 - 33.0 pg [facility] Mean Corpuscular HGB Conc 33.4 31.0 - 36.0 g/dl [facility] Red Cell Distribution Width 13.6 11.0 - 16.0 % [facility] Platelet Count 204 160 - 400 X10*3/uL [facility] Mean Platelet Volume 10.8 9.4 - 12.4 fL [facility] Neutrophils Percent Auto 68.2 45 - 73 % [facility] Imm Gran Pct Auto 0.5(H) 0.0 - 0.4 % [facility] Lymphocytes Percent Auto 19.7(L) 20 - 40 % [facility] Monocytes Percent Auto 10.3 2 - 11 % [facility] Eosinophils Percent Auto 1.1 0 - 4 % [facility] Basophils Percent Auto 0.2 0 - 2 % [facility] NRBC Pct Auto 0.0 0.0 - 0.2 /100WBC [facility] Neutrophils Absolute Auto 3.0 2.0 - 8.3 x10*3/uL [facility] Imm Gran Abs Auto 0.02 0.00 - 0.03 X10*3/uL [facility] Lymphocytes Absolute Auto 0.9(L) 1.2 - 4.9 X10*3/uL [facility] Monocytes Absolute Auto 0.5 0.1 - 1.2 X10*3/uL [facility] Eosinophils Absolute Auto 0.1 0.0 - 0.4 X10*3/uL [facility] Basophils Absolute Auto 0.0 0.0 - 0.2 X10*3/uL [facility] NRBC Abs Auto 0.000 0.0 - 0.012 X10*3/uL [facility] Blood Venous blood specimen / Unknown 07/24/2024 3:56 PM EDT 07/24/2024 5:56 PM EDT Urszula Sue MD LAB BLOOD ORDERABLES Final Res ult Performing Organization Address City/[facility]/ZIP Co de Phone Number [facility] [address] [place] [phone] * B Type Natriuretic Peptide (BNP) (07/24/2024 3:56 PM EDT) B Type Natriuretic Peptide 33 <100 pg/mL [facility] Blood Venous blood specimen / Unknown 07/24/2024 3:56 PM EDT 07/24/2024 5:56 PM EDT Urszula Sue MD LAB BLOOD ORDERABLES Final Res ult Performing Organization Address City/[facility]/ZIP Co de Phone Number [facility] [address] [place] [phone] * Lipase (07/24/2024 3:56 PM EDT) Lipase 17 8 - 78 U/L [facility] Blood Venous blood specimen / Unknown 07/24/2024 3:56 PM EDT 07/24/2024 5:56 PM EDT us Urszula Sue MD LAB BLOOD ORDERABLES Final Res ult [facility] [address] [place] [phone] * (ABNORMAL) Comprehensive Metabolic Panel (07/24/2024 3:56 PM EDT) Sodium 137 135 - 145 mmol/L [facility] Potassium 4.2 3.3 - 5.1 mmol/L [facility] Chloride 105 96 - 108 mmol/L [facility] Carbon Dioxide 26 22 - 29 mmol/L [facility] Anion Gap 10(L) 12 - 20 [facility] Urea Nitrogen (BUN) 18(H) 9 - 16 mg/dL [facility] Creatinine, Serum 0.92 0.5 - 1.4 mg/dL [facility] Estimated Glomerular Filt Rate >60 [facility] Comment:Chronic Kidney Disea se: Estimated GFR < 60 mL/min/1.71i4Bymxtr Kidney Disease: Estimated GFR < 15 mL/min/1.73m2 Glucose 244(H) 60 - 115 mg/dL [facility] Calcium 9.6 8.4 - 10.2 mg/dL [facility] Bilirubin, Total 0.5 0.0 - 1.0 mg/dL [facility] Aspartate Amino Transferase 19 5 - 37 U/L [facility] Alanine Aminotransferase 25 0 - 40 U/L [facility] Total Protein 7.5 6.5 - 8.0 g/dL [facility] Albumin Level 4.0 3.5 - 5.0 g/dL [facility] Alkaline Phosphatase 104 39 - 117 U/L [facility] Blood Venous blood specimen / Unknown 07/24/2024 3:56 PM EDT 07/24/2024 5:56 PM EDT us Urszula Sue MD LAB BLOOD ORDERABLES Final Res ult Performing Organization Address [facility] Co de Phone Number [facility] [address] [place] [phone] * (ABNORMAL) Testosterone, Total, males (Adult), IA (05/01/2024 10:26 AM EST) Testosterone, Total 14(A) 250 - 1100 ng/dL [facility] Comment:Men with clinically significant hypogonadalsymptoms and testosterone values repeatedly inthe range of the 200-300 ng/dL or less, maybenefit from testosterone treatment afteradequate risk and benefits counseling.For additional information, please refer [email or web address].se/faq/[email or web address](This link is being provided for informational/educational purposes only.)This test was developed and its analytical performancecharacteristics have been determined by [employer] [place], [place]. It hasnot been cleared or approved by the U.S. Food and DrugAdministration. This assay has been validated pursuantto the CLIA regulations and is used for clinicalpurposes.THIS TEST WAS PERFORMED AT:[employer] [place] [id number] GONZALEZ MD,PHD 05/01/2024 10:2 6 AM EST 05/01/2024 10:26 AM EST us Generic External Data Provider LAB BLOOD ORDERAB LES Final Result Performing Organization Address [facility]/ZIP Co de Phone Number [facility] [address] [place] [address] [phone] * PSA,Total (05/01/2024 10:26 AM EST) Prostate Specific Antigen <0.10 <0.05 - 4.0 ng/mL [facility] Comment:PSA methodology: Abb sj Aligaboty i ChemiluminescentMicroparticle Immunoassay (CMIA) 05/01/2024 10:2 6 AM EST 05/01/2024 10:26 AM EST Generic External Data Provider LAB BLOOD ORDERAB LES Final Result Performing Organization Address [facility] Co de Phone Number [facility] [address] [place] [phone] * (ABNORMAL) POCT HGB A1C (03/20/2024 1:21 PM EST) Hemoglobin A1C 10.3(A) 4.0 - 6.0 % QC Media Lot # [id number] Lot# Expiration Date Blood 03/20/2024 1:21 PM EST Urszula Sue MD POINT OF CARE TEST ENTER/EDIT ORDERABLES Final Result * (ABNORMAL) Albumin, Random Urine W/Creatinine (10/28/2023 3:40 PM EDT) Creatinine, Urine 84.24 mg/dL [facility] Microalbumin Urine 33.0 mg/L [facility] Microalbum Creatinine Ratio Ur 39.1(H) <30 ug/mg cr [facility] Comment:Albumin/Creatinine R atio Reference Ranges: Normal: < 30 ug/mg creatinine Microalbuminuria: 30 - 300 ug/mg creatinineClinical Albuminuria: > 300 ug/mg creatinine Urine (Urine, Random) 10/28/2023 3:40 PM EDT 10/28/2023 4:02 PM EDT Urszula Sue MD LAB URINE ORDERABLES Final Res ult Performing Organization Address [facility]/ZIP Co de Phone Number [facility] [address] [place] [phone] * Hepatitis C Antibody with Reflex to HCV, RNA, Quantitative, Real-Time PCR (10/28/2023 3:39 PM EDT) Hepatitis C Antibody Nonreactive Nonreactive [facility] Comment:Antibodies to HCV no t detected; does not exclude early acuteHCV infection. Blood Venous blood specimen / Unknown 10/28/2023 3:39 PM EDT 10/28/2023 3:39 PM EDT us Urszula Sue MD LAB BLOOD ORDERABLES Final Res ult Performing Organization Address [facility]/State/ZIP Co de Phone Number [facility] [address] [place] [address] [phone] * Lipid Panel, Standard (10/28/2023 3:39 PM EDT) Triglycerides 142 <150 mg/dL [facility] Comment:Desirable Triglyceri de: less than 150 mg/dLBorderline High Triglyceride 150-199 mg/dLHigh Triglyceride: 200-499 mg/dLVery High Triglyceride: greater than or equal to 5OO mg/dL Cholesterol 179 <200 mg/dL [facility] Comment:Desirable Cholestero l: less than 200 mg/dLBorderline High Cholesterol: 200-239 mg/dLHigh Cholesterol: greater than 239 mg/dL LDL Cholesterol Calculated 86 <100 mg/dL [facility] Comment:Desirable LDL: less than 100 mg/dLNear Optimal/Above Optimal LDL: 110- 129 mg/dLBorderline High LDL: 130-159 mg/dLHigh LDL: 160-189 mg/dLVery High LDL: greater than or equal to 190 mg/dL HDL Cholesterol 65 >40 mg/dL [facility] Comment:Desirable HDL: great er than 40 mg/dL Note: This HDL assay may give artificially low results in patients with liver disease. Blood Venous blood specimen / Unknown 10/28/2023 3:39 PM EDT 10/28/2023 3:39 PM EDT Urszula Sue MD LAB BLOOD ORDERABLES Final Res ult [facility] [address] [place] [phone] * Hm Colonoscopy (11/23/2016 3:19 PM EDT) us Historical Provider HEALTH MAINTENANCE Final Result from Last 3 Months or Most Recently Relevant to Health Maintenance Insurance [facility] Care Teams Stitcher Set Up Operator Automatic Relationship Specialty Start Date End Date Urszula Sue MD [address] [place] [phone] PCP - General Family Medicine 11/21/20
--- OUTSIDE RECORDS SUMMARY | 2024-07-29 06:12 | XMS_ITS | Encounter Summary ---
Author Organization [employer] Address [address] [place] [address] Care Team Providers Care Transit Survey Worker Name Role Phone Urszula Sue MD Primary Care Provider [phone] Encounter Details Date Type Department Care Team (Late st Contact Info) Description 09/05/2023 Orders Only [facility] [address] [place] [address] ProviderMartha MD Social History Tobacco Use Types Packs/Day Years Used Date Smoking Tobacco: Never Smokeless Tobacco: Never Alcohol Use Standard Drinks/Week Comments Yes 0 (1 standard drink = 0.6 oz pur e alcohol) Housing Stability Answer Date Recorded What is your housing situation today? I have [employer] webster 02/11/[address] you [...] from getting things needed for daily living? Yes, it has kept me from medical appointments or getting medications. 02/03/2023 Utilities Answer Date Recorded In the past [...] Description 09/04/2024 2:30 PM EDT Office Visit [facility] [address] [place] [address] Urszula Sue MD [address] [place] [address] documented as of this encounter Procedures Procedure Name Priority Date/Time Associated Diagnosis Comments HM COLONOSCOPY Routine 11/23/2016 3:19 PM EDT documented in this encounter Results * Hm Colonoscopy (11/23/2016 3:19 PM EDT) Historical Provider HEALTH MAINTENANCE Final Result documented in this encounter Visit Diagnoses Not on filedocumented in this encounter Care Teams Transit Survey Worker Relationship Specialty Start Date End Date Urszula Sue MD [address] [place] [address] PCP - General Family Medicine 11/21/20 documented as of this encounter
--- OUTSIDE RECORDS SUMMARY | 2024-07-29 06:12 | XMS_ITS | Encounter Summary ---
Author Organization [employer] [facility] Address [address] [facility] [address] [place] [address] Care Team Providers Care Classification Analyst Name Role Phone Urszula Sue MD Primary Care Provider [phone] Encounter Details Date Type Department Care Team (Late st Contact Info) Description 08/16/2022 Orders Only [facility] [address] [place] [phone] Barbara Cerna LPN Social History Tobacco Use Types Packs/Day Years Used Date Smoking Tobacco: Never Assessed Sex and Gender Information Value Date Recorded Sex Assigned at Male 02/26/2022 10:15 AM EDT Legal Sex Male 10:15 AM EDT Gender Identity Male 02/26/2022 10:15 AM EDT Sexual Orientation Straight 02/26/2022 10 :15 AM EDT documented as of this encounter Plan of Treatment Upcoming Encounters Date Type Department Care Team (Late st Contact Info) Description 09/04/2024 2:30 PM EDT Office Visit [facility] [address] [place] [phone] Urszula Sue MD [address] [place] [phone] documented as of this encounter Visit Diagnoses Not on filedocumented in this encounter Care Teams Classification Analyst Relationship Specialty Start Date End Date Urszula Sue MD [address] [place] [phone] PCP - General Family Medicine 11/21/20 documented as of this encounter
[2024-07-29 07:45] LABS: Estimated Average Glucose 292 mg/dL; Hemoglobin A1C 371.1943 umol/L; Hemoglobin A1c % 11.8 % (<6.0); Total Hemoglobin (HGBA1C) 3531.0911 umol/L
[2024-07-29 08:05] LABS: Cholesterol 170 mg/dL (<200); HDL Cholesterol 57 mg/dL (>40); LDL Cholesterol Calculated 79 mg/dL (<100); Triglycerides 171 mg/dL (<150)
[2024-07-29 08:33] LABS: Creatinine Urine 147.38 mg/dL
[2024-07-29 08:53] LABS: Prostate Specific Antigen < 0.10 ng/mL (<0.05-4.0)
[2024-08-08 13:24] LABS: Testosterone, Total 7 ng/dL (250-1100)
== END 2024-07-29 06:10 | disposition home or self-care (01) ==
LOC: HO.LAB 06:09
PROVIDERS: PCP General Practice; Visit Provider Urology
DX: C61 Malignant neoplasm of prostate (principal); E08.65 Diabetes 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; Z79.4 Long term (current) use of insulin; Z12.5 Encounter for screening for malignant neoplasm of prostate
CPT/HCPCS: 36415; 80061; 82043; 82570; 83036; 84153; 84403

== ENCOUNTER 2024-08-11 13:48 | Outpatient (AMB) | payer MEDICARE, SELFPAY ==
--- NOTE | 2024-08-11 13:49 | MHC.OFFVIS ---
Intake Visit Reasons: 3m/PSA/Testo Intake Note: Patient is present for 3m/psa/testo Urology Medication:tamsulosin,finasteride,calcium Antibiotic Allergy:none Blood Thinner:aspirin Ranch Helper Required: No Allergies lisinopril [LISINOPRIL] Allergy (Unknown, Verified 08/11/24 13:51) ANGIOEDEMA, edema HPI Comments Details: Toro is a pleasant male. He is a patient of Dr. Noel. he is seen for the following urologic conditions - prostate cancer - bladder outlet obstruction Macanese translation provided by qualified medical biller/coder Telemedicine Evaluation 15 min Consultation [employer] Three-month follow-up lab work Well-controlled lab work 4m f/u office 08/21 <0.1, T 7 05/23 PSA <0.1, T 14, GnRH 01/20 PSA <0.1, T 13 10/20 PSA 0.2 T 6 - GNRH given, continue finasteride Completed external beam radiation therapy with Dr. Genoveva Khan - 7800 Gy 32 fractions 06/22 follow-up from [facility] placement - Maximum androgen blockade during radiation 04/20 - PET-CT - enhancement of prostate and single node 12/19 P 0.4, T 7 MRI shows disease localized prostate Discussed possible definitive treatment with radiation Prostate cancer group 5 - primary therapy hormonal Diagnosed 07/[address] Che Presenting PSA 150 Initial biopsy Haroldo 8 and 9 disease Staging bone scan 07/18 rib fractures but no evidence of metastatic disease Imaging - 07/19 MRI pelvis disease localized to prostate - 08/18 DEXA osteopenia Current PSA 11/15 <0.1, 07/17 0.45, 10/17 .6 T 8, 01/17 0.7 T 24, 04/18 1.4 T 10, 08/18 1.47 T 6, 11/17 0.1 <1, 02/17 <0.1 T <1, 05/21 <0.1 T 3, 08/19 0.2 7 Adjuvant therapy calcium and vitamin-D 3 08/18 GnRH given, anti androgen started 03/20 GnRH given, antiandrogen held Bladder outlet obstruction Ongoing urgency, hesitancy Good response to tamsulosin Cystoscopy 08/18 prostatic regrowth left side [facility] Medical History (Reviewed 05/13/24 @ 14:43 by Doreen Butt [facility]) Uncontrolled hypertension 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 H/O urinary retention Benign prostatic hyperplasia with lower urinary tract symptoms Renal artery stenosis Pure hypercholesterolemia Type 2 diabetes mellitus without complication, without long-term current use of insulin HTN (hypertension) with goal to be determined Nonrheumatic aortic (valve) stenosis Surgical History History of prostate biopsy Social History Alcohol intake: former Patient Tobacco Use Status: Never used Tobacco Review of Systems Const All systems reviewed & are unremarkable except as noted in HPI and below Reports no additional complaints Resp Reports no additional complaints GI Reports no additional complaints Reports as per HPI Musc Reports no additional complaints Physical Exam Telemedicine evaluation Appropriate responses Regular breathing rate and rhythm HEENT Head: Yes normal to inspection Ears: hearing grossly normal bilaterally Eyes General: appearance normal, both eyes and all related structures Neck Neck: Yes normal visual inspection Chest Chest palpation & inspection: normal inspection of the chest Resp Effort & Inspection: normal respiratory effort and able to speak in complete sentences Telehealth Telehealth Location of provider rendering services: practice address Location of patient: address on file Patient Identification confirmed using: Name, : Yes Telehealth method: voice only Patient verbally consented to treatment: Yes Patient verbally consented to billing insurance company: Yes Patient informed of any privacy concerns related to visit: Yes Assessment & Plan Assessment & Plan (1) Prostate cancer: Comment: High-grade initial treatment hormonal Code(s): C61 - Malignant neoplasm of prostate Category: Medical Plan Four month follow-up lab work Patient Instructions: This note is constructed using voice recognition software. While every effort has been made to ensure accuracy territory manager errors may have been included. Imaging studies, laboratory and physical exam results were discussed and reviewed in detail. No major barriers to patient understanding were identified. An opportunity to ask questions regarding the treatment plan was provided. All questions were answered. The patient expressed understanding and agreement with the above treatment plan. The patient is aware they should contact our office by phone for worsening of their current condition or the appearance of new urologic symptoms. Compliance is encouraged with any medications and followup testing that is ordered. It is a privilege to participate in the urologic care of your patient. If you have any questions or concerns regarding treatment for the above conditions, or other urologic issues, please do not hesitate to contact me. The office telephone contact is [phone]. Sincerely, Dr Ga Choi MD, [facility] - Urology Compassionate Specialist Care for the Genitourinary System Coding Level of Care Code Tele Est Pt Level 3 (97546) Complex EM visit Add On G2211 Diagnoses Prostate cancer C61
--- OUTSIDE RECORDS SUMMARY | 2024-08-11 16:59 | XMS_ITS | Clinical Summary ---
Author Organization [employer] Address 75 [facility] 7t [place] [address] Care Team Providers Care Metal Bonder Name Role Phone Urszula Sue MD Primary Care Provider [phone] Allergies Active Allergy Reactions Criticality Noted Date Comments Lisinopril Angioedema 06/06/2017 Medications glucose blood (FREESTYLE LITE) test strip Check BS once a day 1 Active prednisoLONE acetate (Pred-Forte) 1 % ophthalmic suspension PLACE 1 DROP IN THE AFFECTED EYE THREE TIMES DAILY. START ON THE DAY AFTER SURGERY 2 Active insulin pen needle (Sure Comfort Pen [place]) 31G x 5 mm misc USE [...] agonist treatments Urologist is Dr Choi at [facility] Continue q 3 month followup Assessment & Plan (11/10/2022 9:17 AM EDT): Mgmt per [facility] Urologist is Dr Choi at [facility] Continue q 3 month [...] if needed The 10-year ASCVD risk score ([place] DK, et al., 2019) is: 61% Values [...] Encounters Date Type Department Care Team Description 07/29/2024 Orders Only GENERIC EXTERNAL DATA DEPARTMENT Provider, Generic External Data 07/28/2024 Telephone [facility] [address] [place] [address] Urszula Sue MD 07/24/2024 3:40 PM EDT Office Visit [facility] [address] [place] [address] Urszula Sue MD Right upper quadrant abdominal [...] Telephone [facility] [address] [place] [phone] Urszula Sue MD recall from Last 3 Months Immunizations Name Administration [...] Visit [facility] [address] [place] [address] Urszula Sue MD [address] [place] [address] Health Maintenance Due Date Last Done Comments CT Colonography 1948 FIT DNA/Cologuard 1948 FIT 1948 FOBT 1948 Sigmoidoscopy 1948 Diabetes: Foot Exam 1958 Alcohol/Substance Use Screening 1960 Zoster Vaccines (1 of 2) 1998 DTaP/Tdap/Td Vaccines (2 - Td or Tdap) 03/20/2020 03/20/2010, 10/27/1996 RSV Patients and Patients Aged 60 years or older (1 - 1-dose 75+ series) 12/17/2023 COVID-19 Vaccine ( - season) 2023 05/04/2022, 09/29/2021, 04/20/2021, Additional history exists Influenza Vaccine (#1) 2023 , 01/29/2020, 01/28/2019, Additional history exists SDOH Screening 10/01/2024 10/02/2023 Depression Screening 10/13/2024 10/14/2023, 10/14/19 Diabetes: Hemoglobin A1C 10/28/2024 025, 03/20/2024, 10/14/2023, Additional history exists Tobacco Screening 07/27/2025 07/27/2024 Diabetes: Urine Protein Screening 07/29/2025 07/29/2024, 10/28/2023, 02/13/2021 Lipid Panel 07/29/2025 07/29/2024, 07/0 04/2023, 02/10/2021 Eye Exam 02/20/2026 02/21/2024 Colonoscopy 11/23/2026 11/23/2016 [...] Procedure Name Priority Date/Time Associated Diagnosis Comments TESTOSTERONE, TOTAL, MALES (ADULT), IA Routine 07/29/2024 6:17 AM EDT PSA, TOTAL Routine 07/29/2024 6:17 AM EDT LIPID PANEL, STANDARD Routine 07/29/2024 6:17 AM EDT Diabetes 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, with long-term current use of insulin (CMS/HCC) HEMOGLOBIN A1C Routine 07/29/2024 6:17 AM EDT Diabetes 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, with long-term current use of insulin (CMS/HCC) ALBUMIN, RANDOM URINE W/CREATININE Routine 07/29/2024 6:15 AM EDT Diabetes 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, with long-term current use of insulin (CMS/HCC) TSH W/REFLEX TO FT4 Routine 07/24/2024 3 [...] PM EDT Right upper quadrant abdominal pain HEPATITIS C AB W/REFL TO HCV RNA, QN, PCR Routine 10/28/2023 3:39 PM EDT Diabetes mellitus without complication (CMS/HCC) HM COLONOSCOPY Routine 11/23/2016 3:19 PM EDT from Last 3 Months or Most Recently Relevant to Health Maintenance Results * (ABNORMAL) Testosterone, Total, males (Adult), IA (07/29/2024 6:17 AM EDT) Testosterone, Total 7(A) 250 - 1100 ng/dL [facility] Comment:Men with clinically significant hypogonadalsymptoms and testosterone values repeatedly inthe range of the 200-300 ng/dL or less, maybenefit from testosterone treatment afteradequate risk and benefits counseling.For additional information, please refer tohttp://education.[employer]/faq/TodamHhbgbfvpustfVWLCVXXGD643(This link is being provided for informational/educational purposes only.)This test was developed and its analytical performancecharacteristics have been determined by [employer] [place], [place]. It hasnot been cleared or approved by the U.S. Food and DrugAdministration. This assay has been validated pursuantto the CLIA regulations and is used for clinicalpurposes.THIS TEST WAS PERFORMED AT:[facility]/[id number] [place] [address]TZGWUZOADITYA GONZALEZ MD,PHD 07/29/2024 6:17 AM EDT 07/29/2024 6:17 AM EDT us Generic External Data Provider LAB BLOOD ORDERAB LES Final Result [facility] [address] [place] [phone] * PSA,Total (07/29/2024 6:17 AM EDT) Pathologist [facility] Prostate Specific Antigen <0.10 <0.05 - 4.0 ng/mL [facility] Comment:PSA methodology: Abb sj Aligaboty i ChemiluminescentMicroparticle Immunoassay (CMIA) 07/29/2024 6:17 AM EDT 07/29/2024 6:17 AM EDT us Generic External Data Provider LAB BLOOD ORDERAB LES Final Result Performing Organization Address [facility] Co de Phone Number [facility] [address] [place] [address] [phone] * (ABNORMAL) Hemoglobin A1c (07/29/2024 6:17 AM EDT) Hemoglobin A1c 11.8(H) <6.0 % [facility] Comment:Hemoglobin A1C Refer ence Range Adults: 4.8 - 6.0 % Non diabetic: < 6.0 % Goal: < 7.0 %Additional Action Suggested: > 8.0 %Note: Hemoglobin A1c results are invalid for patients with abnormal amounts of HbF. Blood transfusions may impact the HbA1c concentration in the patient sample. Estimated Average Glucose 292 mg/dL [facility] Comment:eAG = Estimated ave rage glucose which is %A1C expressed asaverage glucose, using the formula of the K4X-VdqdeojHktturr Glucose study (ADAG), Diabetes Care, Vol.31,#8,Nov. 2007 Blood Venous blood specimen / Unknown 07/29/2024 6:17 AM EDT 07/29/2024 6:17 AM EDT us Urszula Sue MD LAB BLOOD ORDERABLES Final Res ult Performing Organization Address [facility] Co de Phone Number [facility] [address] [place] [address] [phone] * (ABNORMAL) Lipid Panel, Standard (07/29/2024 6:17 AM EDT) Triglycerides 171(H) <150 mg/dL [facility] Comment:Desirable Triglyceri de: less than 150 mg/dLBorderline High Triglyceride 150-199 mg/dLHigh Triglyceride: 200-499 mg/dLVery High Triglyceride: greater than or equal to 5OO mg/dL Cholesterol 170 <200 mg/dL [facility] Comment:Desirable Cholestero l: less than 200 mg/dLBorderline High Cholesterol: 200-239 mg/dLHigh Cholesterol: greater than 239 mg/dL LDL Cholesterol Calculated 79 <100 mg/dL [facility] Comment:Desirable LDL: less than 100 mg/dLNear Optimal/Above Optimal LDL: 110- 129 mg/dLBorderline High LDL: 130-159 mg/dLHigh LDL: 160-189 mg/dLVery High LDL: greater than or equal to 190 mg/dL HDL Cholesterol 57 >40 mg/dL [facility] Comment:Desirable HDL: great er than 40 mg/dL Note: This HDL assay may give artificially low results in patients with liver disease. Blood Venous blood specimen / Unknown 07/29/2024 6:17 AM EDT 07/29/2024 6:17 AM EDT us Urszula Sue MD LAB BLOOD ORDERABLES Final Res ult Performing Organization Address [facility] de Phone Number [facility] [address] [place] [address] [phone] * (ABNORMAL) Albumin, Random Urine W/Creatinine (07/29/2024 6:15 AM EDT) Creatinine, Urine 147.38 mg/dL [facility] Microalbumin Urine 62.0 mg/L [facility] Microalbum Creatinine Ratio Ur 42.0(H) <30 ug/mg cr [facility] Comment:Albumin/Creatinine R atio Reference Ranges: Normal: < 30 ug/mg creatinine Microalbuminuria: 30 - 300 ug/mg creatinineClinical Albuminuria: > 300 ug/mg creatinine Urine (Urine, Random) 07/29/2024 6:15 AM EDT 07/29/2024 7:44 AM EDT us Urszula Sue MD LAB URINE ORDERABLES Final Res ult Performing Organization Address [facility] Co de Phone Number [facility] [address] [place] [address] [phone] * TSH W/Reflex to FT4 (07/24/2024 3:56 PM EDT) TSH reflex Free T4 0.73 0.32 - 4.0 uIU/mL [facility] Blood Venous blood specimen / Unknown 07/24/2024 3:56 PM EDT 07/24/2024 5:56 PM EDT us Urszula Sue MD LAB BLOOD ORDERABLES Final Res ult [facility] [address] [place] [phone] * (ABNORMAL) CBC auto differential (07/24/2024 3:56 PM EDT) White Blood Count 4.4(L) 4.8 - 10.8 X10*3/uL [facility] Red Blood Count 4.33(L) 4.60 - 5.80 X10*6/uL [facility] Hemoglobin 13.2(L) 14.0 - 18.0 g/dl [facility] Hematocrit 39.5(L) 42.0 - 52.0 % [facility] Mean Corpuscular Volume 91.2 80.0 - 98.0 fL [facility] Mean Corpuscular Hemoglobin 30.5 27.0 - 33.0 pg [facility] Mean Corpuscular HGB Conc 33.4 31.0 - 36.0 g/dl [facility] Red Cell Distribution Width 13.6 11.0 - 16.0 % [facility] Platelet Count 204 160 - 400 X10*3/uL [facility] Mean Platelet Volume 10.8 9.4 - 12.4 fL [facility] Neutrophils Percent Auto 68.2 45 - 73 % [facility] Imm Gran Pct Auto 0.5(H) 0.0 - 0.4 % [facility] Lymphocytes Percent Auto 19.7(L) 20 - 40 % [facility] Monocytes Percent Auto 10.3 2 - 11 % [facility] Eosinophils Percent Auto 1.1 0 - 4 % [facility] Basophils Percent Auto 0.2 0 - 2 % [facility] NRBC Pct Auto 0.0 0.0 - 0.2 /100WBC [facility] Neutrophils Absolute Auto 3.0 2.0 - 8.3 x10*3/uL [facility] Imm Gran Abs Auto 0.02 0.00 - 0.03 X10*3/uL [facility] Lymphocytes Absolute Auto 0.9(L) 1.2 - 4.9 X10*3/uL [facility] Monocytes Absolute Auto 0.5 0.1 - 1.2 X10*3/uL [facility] Eosinophils Absolute Auto 0.1 0.0 - 0.4 X10*3/uL [facility] Basophils Absolute Auto 0.0 0.0 - 0.2 X10*3/uL [facility] NRBC Abs Auto 0.000 0.0 - 0.012 X10*3/uL [facility] Blood Venous blood specimen / Unknown 07/24/2024 3:56 PM EDT 07/24/2024 5:56 PM EDT Urszula Sue MD LAB BLOOD ORDERABLES Final Res ult Performing Organization Address City/[facility]/ZIP Co de Phone Number [facility] [address] [place] [phone] * B Type Natriuretic Peptide (BNP) (07/24/2024 3:56 PM EDT) B Type Natriuretic Peptide 33 <100 pg/mL [facility] Blood Venous blood specimen / Unknown 07/24/2024 3:56 PM EDT 07/24/2024 5:56 PM EDT Urszula Sue MD LAB BLOOD ORDERABLES Final Res ult Performing Organization Address City/[facility]/ZIP Co de Phone Number [facility] [address] [place] [address] [phone] * Lipase (07/24/2024 3:56 PM EDT) Lipase 17 8 - 78 U/L [facility] Blood Venous blood specimen / Unknown 07/24/2024 3:56 PM EDT 07/24/2024 5:56 PM EDT us Urszula Sue MD LAB BLOOD ORDERABLES Final Res ult [facility] [address] [place] [phone] * (ABNORMAL) Comprehensive Metabolic Panel (07/24/2024 3:56 PM EDT) Sodium 137 135 - 145 mmol/L [facility] Potassium 4.2 3.3 - 5.1 mmol/L [facility] Chloride 105 96 - 108 mmol/L [facility] Carbon Dioxide 26 22 - 29 mmol/L [facility] Anion Gap 10(L) 12 - 20 [facility] Urea Nitrogen (BUN) 18(H) 9 - 16 mg/dL [facility] Creatinine, Serum 0.92 0.5 - 1.4 mg/dL [facility] Estimated Glomerular Filt Rate >60 [facility] Comment:Chronic Kidney Disea se: Estimated GFR < 60 mL/min/1.01m9Tvoumz Kidney Disease: Estimated GFR < 15 mL/min/1.73m2 Glucose 244(H) 60 - 115 mg/dL [facility] Calcium 9.6 8.4 - 10.2 mg/dL [facility] Bilirubin, Total 0.5 0.0 - 1.0 mg/dL [facility] Aspartate Amino Transferase 19 5 - 37 U/L [facility] Alanine Aminotransferase 25 0 - 40 U/L [facility] Total Protein 7.5 6.5 - 8.0 g/dL [facility] Albumin Level 4.0 3.5 - 5.0 g/dL [facility] Alkaline Phosphatase 104 39 - 117 U/L [facility] Blood Venous blood specimen / Unknown 07/24/2024 3:56 PM EDT 07/24/2024 5:56 PM EDT Urszula Sue MD LAB BLOOD ORDERABLES Final Res ult Performing Organization Address City/[facility] Co de Phone Number [facility] [address] [place] [address] [phone] * Hepatitis C Antibody with Reflex to HCV, RNA, Quantitative, Real-Time PCR (10/28/2023 3:39 PM EDT) Hepatitis C Antibody Nonreactive Nonreactive [facility] Comment:Antibodies to HCV no t detected; does not exclude early acuteHCV infection. Blood Venous blood specimen / Unknown 10/28/2023 3:39 PM EDT 10/28/2023 3:39 PM EDT Urszula Sue MD LAB BLOOD ORDERABLES Final Res ult Performing Organization Address [facility] Co de Phone Number [facility] [address] [place] [address] [phone] * Hm Colonoscopy (11/23/2016 3:19 PM EDT) Martha Provider HEALTH MAINTENANCE Final Result from Last 3 Months or Most Recently Relevant to Health Maintenance Insurance [facility] Care Teams Metal Bonder Relationship Specialty Start Date End Date Urszual Sue MD [address] [place] [phone] PCP - General Family Medicine 11/21/20
--- OUTSIDE RECORDS SUMMARY | 2024-08-11 16:59 | XMS_ITS | Encounter Summary ---
Author Organization [employer] Address [address] [facility] 7t [place] [address] Care Team Providers Care Solar Photovoltaic Installer Name Role Phone Urszula Sue MD Primary Care Provider [phone] Encounter Details Date Type Department Care Team (Late Contact Info) Description 10/31/2022 Orders Only [facility] [address] [place] [address] Gregoria Mitchell LPN Social History Tobacco Use [...] Description 09/04/2024 2:30 PM EDT Office Visit [facility] [address] [place] [address] Urszula Sue MD [address] [place], [place] [phone] documented as of this encounter Visit Diagnoses Not on filedocumented in this encounter Care Teams Solar Photovoltaic Installer Relationship Specialty Start Date End Date Urszula Sue MD [address] [place], [place] [phone] PCP - General Family Medicine 11/21/20 documented as of this encounter
--- OUTSIDE RECORDS SUMMARY | 2024-08-11 16:59 | XMS_ITS | Encounter Summary ---
Author Organization [employer] Address [address] [facility] [address] [place] [address] Care Team Providers Care Contaminated Land Consultant Name Role Phone Urszula Sue MD Primary Care Provider [phone] Encounter Details Date Type Department Care Team (Late st Contact Info) Description 09/05/2023 Orders Only [facility] [address] [place] [address] ProviderMartha MD Social History Tobacco Use Types [...] Description 09/04/2024 2:30 PM EDT Office Visit [facility] [address] [place] [address] Urszula Sue MD [address] [place] [address] documented as of this encounter Procedures Procedure Name Priority Date/Time Associated Diagnosis Comments HM COLONOSCOPY Routine 11/23/2016 3:19 PM EDT documented in this encounter Results * Hm Colonoscopy (11/23/2016 3:19 PM EDT) Historical Provider HEALTH MAINTENANCE Final Result documented in this encounter Visit Diagnoses Not on filedocumented in this encounter Care Teams Contaminated Land Consultant Relationship Specialty Start Date End Date Urszula Sue MD [address] [place] [address] PCP - General Family Medicine 11/21/20 documented as of this encounter
--- OUTSIDE RECORDS SUMMARY | 2024-08-11 16:59 | XMS_ITS | Encounter Summary ---
Author Organization [employer] [facility] Address [address] [facility] 7t [place] [address] Care Team Providers Care Finish Off Operator Name Role Phone Urszula Sue MD Primary Care Provider [phone] Encounter Details Date Type Department Care Team (Late st Contact Info) Description 08/16/2022 Orders Only [facility] MEDICINE [address] [place] [phone] Barbara Cerna LPN Social History Tobacco Use [...] Description 09/04/2024 2:30 PM EDT Office Visit [facility] [address] [place] [phone] Urszula Sue MD [address] [place] [phone] documented as of this encounter Visit Diagnoses Not on filedocumented in this encounter Care Teams Finish Off Operator Relationship Specialty Start Date End Date Urszula Sue MD [address] [place] [address] [phone] PCP - General Family Medicine 11/21/20 documented as of this encounter
== END 2024-08-11 14:24 | disposition home or self-care (01) ==
LOC: HO.HUSH 13:48
PROVIDERS: PCP General Practice; Visit Provider Urology
DX: C61 Malignant neoplasm of prostate (principal)
CPT/HCPCS: 99213; G2211

== ENCOUNTER → 2024-08-11 13:48 | Outpatient (BNVA) | payer MEDICARE, SELFPAY | PROVIDERS: PCP General Practice; Visit Provider Urology ==

== ENCOUNTER 2024-09-03 08:10 | Outpatient (REF) | payer MEDICARE, SELFPAY ==
--- NOTE | ~2024-09-03 | US_ITS ---
CLINICAL HISTORY: RUQ pain x 4 weeks Exam: 1. Ultrasound of the abdomen, complete. 2. Duplex ultrasound of the main portal vein. Comparison: CT october 28, 2023. Findings: Liver is enlarged measuring 22 cm in long axis. Dense increased echotexture throughout the liver without focal lesions or intrahepatic biliary ductal dilatation. Common bile duct is within normal limits. Gallbladder is unremarkable. Pancreas is obscured by overlying bowel gas. No focal splenic lesions. Right kidney measures 11.0 cm in long axis. Several cysts within the right kidney measuring up to 1.5 cm in size. This includes a milk of calcium cyst. No concerning solid mass lesions or hydronephrosis. Left kidney measures 10.4 cm in long axis. Several simple cysts within the left kidney measuring up to 2.3 cm in size. No hydronephrosis. Aorta and inferior vena cava are patent. No free fluid. Duplex evaluation of the main portal vein was performed. This included real-time grayscale, color spectral Doppler analysis, and color Doppler flow imaging. Main portal vein is patent with hepatopetal flow. Impression: 1. Hepatomegaly with dense increased hepatic echotexture, likely related to fatty infiltration. 2. Bilateral renal cysts including a milk of calcium cyst within the right kidney. This document has been electronically signed by: Luís Stoll MD on 09/04/2024 08:45:10
--- OUTSIDE RECORDS SUMMARY | 2024-09-03 08:28 | XMS_ITS | Encounter Summary ---
Author Organization [employer] [facility] Address [address] [facility] [address]t [place] [address] Care Team Providers Care Scientific Publications Editor Name Role Phone Urszula Sue MD Primary Care Provider [phone] Encounter Details Date Type Department Care Team (Late st Contact Info) Description 08/16/2022 Orders Only [facility] MED[facility]INE [address] [place] [phone] Barbara Cerna LPN Social History Tobacco Use [...] Description 09/04/2024 2:30 PM EDT Office Visit [facility] MED[facility] [address] [place] [phone] Urszula Sue MD [address] [place] [phone] documented as of this encounter Visit Diagnoses Not on filedocumented in this encounter Care Teams Scientific Publications Editor Relationship Specialty Start Date End Date Urszula Sue MD [address] [place] [phone] PCP - General Family Medicine 11/21/20 documented as of this encounter
--- OUTSIDE RECORDS SUMMARY | 2024-09-03 08:28 | XMS_ITS | Encounter Summary ---
Author Organization [employer] Address [address] [facility] [address] [place] [address] Care Team Providers Care Student Finance Specialist Name Role Phone Urszula Sue MD Primary Care Provider [phone] Encounter Details Date Type Department Care Team (Late st Contact Info) Description 09/05/2023 Orders Only [facility] MED[facility]INE [address] [place] [address] ProviderMartha MD Social History Tobacco Use Types Packs/Day Years Used Date Smoking Tobacco: Never Smokeless Tobacco: Never Alcohol Use Standard Drinks/Week Comments Yes 0 (1 standard drink = 0.6 oz pur e alcohol) Housing Stability Answer Date Recorded What is your housing situation today? I have vidya darin 02/11/[address] you li [...] Office Visit [facility] [address] [place] [address] Urszula Sue MD [address] [place] [address] documented as of this encounter Procedures Procedure Name Priority Date/Time Associated Diagnosis Comments HM COLONOSCOPY Routine 11/23/2016 3:19 PM EDT documented in this encounter Results * Hm Colonoscopy (11/23/2016 3:19 PM EDT) Historical Provider HEALTH MAINTENANCE Final Result documented in this encounter Visit Diagnoses Not on filedocumented in this encounter Care Teams Student Finance Specialist Relationship Specialty Start Date End Date Urszula Sue MD [address] [place] [phone] PCP - General Family Medicine 11/21/20 documented as of this encounter
--- OUTSIDE RECORDS SUMMARY | 2024-09-03 08:28 | XMS_ITS | Clinical Summary ---
Author Organization [employer] Address [address] [facility] 7t [place] [address] Care Team Providers Care Utility Tech Name Role Phone Urszula Sue MD Primary Care Provider [phone] Allergies Active Allergy Reactions Criticality Noted Date Comments Lisinopril Angioedema 06/06/2017 Medications glucose blood (FREESTYLE LITE) test strip Check BS once a day 1 Active prednisoLONE acetate (Pred-Forte) 1 % ophthalmic suspension PLACE 1 DROP IN THE AFFECTED EYE THREE TIMES DAILY. START ON THE DAY AFTER SURGERY 2 Active insulin pen needle (Sure Comfort Pen [place]) 31G x 5 mm misc USE WITH [...] hyperglycemia, with long-term current use of insulin (CMS/[facility]) Take 1 tablet (10 mg) by mouth [...] Plan (11/10/2022 9:17 AM EDT): Mgmt per HPI [facility] [...] Encounters Date Type Department Care Team Description 08/31/2024 Patient Outreach [facility] [address] [place] [phone] Urszula Sue MD Care Coordination (W outreach for SDOH housing search-referral completed ) 08/31/2024 Patient Outreach [facility] [address] [place] [address] Urszula Sue MD Pre-visit Planning (SDOH screening positive and Tobacco screening negative) 07/29/2024 Orders Only GENERIC EXTERNAL DATA DEPARTMENT Provider, Generic External Data 07/28/2024 Telephone [facility] [address] [place], [place] [phone] Urszula Sue MD 07/24/2024 3:40 PM EDT Office Visit [facility] WALK[facility]IN [facility] [address] [place] [address] Urszula Sue MD Right upper quadrant abdominal pain (Primary Dx); Essential hypertension; Left renal artery stenosis (CMS/HCC); Adenocarcinoma of prostate (CMS/HCC); Diabetes 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, with long-term current use of insulin (CMS/HCC); Dietary counseling; Exercise counseling; Class 1 obesity with serious comorbidity and body mass index (BMI) of 32.0 to 32.9 in adult, unspecified obesity type 06/19/2024 Telephone [facility] [address] [place] [address] Urszula Sue MD recall from Last 3 [...] What is your housing situation today? I do not have housing (Staying with others, in a hotel, in a nursing home, living outside on the street, on a beach, in a car, or in a park 08/31/[address] you li ve. Do you have problems with any of the following? None of the above 08/31/2024 Food Insecurity Answer Date Recorded Within the [...] Recorded Patient Health Questionnaire-2 Score 0 10/14/2023 Internet Access Answer Date Recorded Internet Access Q1 Yes 08/31/2024 Internet Access Q2 Not on file 08/31/2024 Sex and Gender Information Value Date Recorded [...] Description 09/04/2024 2:30 PM EDT Office Visit [facility] [address] [place] [address] Urszula Sue MD [address] [place], [place] [phone] Health Maintenance Due Date Last Done Comments CT Colonography 1948 FIT DNA/Cologuard 1948 FIT 1948 FOBT 1948 Sigmoidoscopy 1948 Diabetes: Foot Exam 1958 Alcohol/Substance Use Screening 1960 Zoster Vaccines (1 of 2) 1998 DTaP/Tdap/Td Vaccines (2 - Td or Tdap) 03/20/2020 03/20/2010, 10/27/1996 RSV Patients and Patients Aged 60 years or older (1 - 1-dose 75+ series) 12/17/2023 COVID-19 Vaccine ( season) 2023 05/04/2022, 09/29/2021, 04/20/2021, Additional history exists Influenza Vaccine (#1) 2023 , 01/29/2020, 01/28/2019, Additional history exists Depression Screening 10/13/2024 10/14/2023, 10/14/19 24 Diabetes: Hemoglobin A1C 10/28/2024 04/2 025, 03/20/2024, 10/14/2023, Additional history exists Tobacco Screening 07/27/2025 07/27/2024 Diabetes: Urine Protein Screening 07/29/2025 07/29/2024, 10/28/2023, 02/13/2021 Lipid Panel 07/29/2025 07/29/2024, 07/0 04/2023, 02/10/2021 SDOH Screening 08/31/2025 08/31/2024 Eye Exam 02/20/2026 02/21/2024 Colonoscopy 11/23/2026 11/23/2016 [...] hyperglycemia, with long-term current use of insulin ([facility]) HEMOGLOBIN A1C Routine 07/29/2024 6:17 AM EDT Diabetes 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, with long-term current use of insulin ([facility]) ALBUMIN, RANDOM URINE W/CREATININE Routine 07/29/2024 6:15 AM EDT Diabetes 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, with long-term current use of insulin ([facility]) TSH W/REFLEX TO FT4 Routine 07/24/2024 3 [...] males (Adult), [place] (07/29/2024 6:17 AM EDT) [facility] Testosterone, Total 7(A) 250 - 1100 ng/dL [facility] Comment:Men with clinically significant hypogonadalsymptoms and testosterone values repeatedly inthe range of the 200-300 ng/dL or less, maybenefit from testosterone treatment afteradequate risk and benefits counseling.For additional information, please refer [email or web address](This link is being provided for informational/educational purposes only.)This test was developed and its analytical performancecharacteristics have been determined by [facility] [place], [place]. It hasnot been cleared or approved by the U.S. Food and DrugAdministration. This assay has been validated pursuantto the CLIA regulations and is used for clinicalpurposes.THIS TEST WAS PERFORMED AT:[facility] [id number] [place] [address]FERMCNTADITYA GONZALEZ MD,PHD 07/29/2024 6:17 AM EDT 07/29/2024 6:17 AM EDT us Generic External Data Provider LAB BLOOD ORDERAB LES Final Result Performing Organization Address [facility]/ZIP Co de Phone Number [facility] [address] [place] [phone] * PSA,Total (07/29/2024 6:17 AM EDT) Prostate Specific Antigen <0.10 <0.05 - 4.0 ng/mL [facility] Comment:PSA methodology: Abb sj Alinity i ChemiluminescentMicroparticle Immunoassay (CMIA) 07/29/2024 6:17 AM EDT 07/29/2024 6:17 AM EDT us Generic External Data Provider LAB BLOOD ORDERAB LES Final Result Performing Organization Address [facility] Co de Phone Number [facility] [address] [place] [phone] * (ABNORMAL) Hemoglobin A1c (07/29/2024 6:17 AM EDT) Hemoglobin A1c 11.8(H) <6.0 % [facility] Comment:Hemoglobin A1C Refer ence Range Adults: 4.8 - 6.0 % Non diabetic: < 6.0 % Goal: < 7.0 %Additional Action Suggested: > 8.0 %Note: Hemoglobin A1c results are invalid for patients with abnormal amounts of HbF. Blood transfusions may impact the HbA1c concentration in the patient sample. Estimated Average Glucose 292 mg/dL [facility] Comment:eAG = Estimated ave rage glucose which is %A1C expressed asaverage glucose, using the formula of the Y9D-HwscplcLwzpvti Glucose study (ADAG), Diabetes Care, Vol.31,#8,2007 Blood Venous blood specimen / Unknown 07/29/2024 6:17 AM EDT 07/29/2024 6:17 AM EDT us Urszula Sue MD LAB BLOOD ORDERABLES Final Res ult Performing Organization Address [facility] Co de Phone Number [facility] [address] [place] [phone] * (ABNORMAL) Lipid Panel, Standard (07/29/2024 6:17 AM EDT) Triglycerides 171(H) <150 mg/dL [facility] Comment:Desirable Triglyceri de: less than 150 mg/dLBorderline High Triglyceride 150-199 mg/dLHigh Triglyceride: 200-499 mg/dLVery High Triglyceride: greater than or equal to 5OO mg/dL Cholesterol 170 <200 mg/dL [facility] Comment:Desirable Cholestero l: less than 200 mg/dLBorderline High Cholesterol: 200-239 mg/dLHigh Cholesterol: greater than 239 mg/dL LDL Cholesterol Calculated 79 <100 mg/dL [facility] Comment:Desirable LDL: less than 100 mg/dLNear Optimal/Above Optimal LDL: 110- 129 mg/dLBorderline High LDL: 130-159 mg/dLHigh LDL: 160-189 mg/dLVery High LDL: greater than or equal to 190 mg/dL HDL Cholesterol 57 >40 mg/dL [facility] Comment:Desirable HDL: great er than 40 mg/dL Note: This HDL assay may give artificially low results in patients with liver disease. Blood Venous blood specimen / Unknown 07/29/2024 6:17 AM EDT 07/29/2024 6:17 AM EDT us Urszula Sue MD LAB BLOOD ORDERABLES Final Res ult [facility] [address] [place] [phone] * (ABNORMAL) Albumin, Random Urine W/Creatinine (07/29/2024 6:15 AM EDT) Creatinine, Urine 147.38 mg/dL [facility] Microalbumin Urine 62.0 mg/L [facility] Microalbum Creatinine Ratio Ur 42.0(H) <30 ug/mg cr [facility] Comment:Albumin/Creatinine R atio Reference Ranges: Normal: < 30 ug/mg creatinine Microalbuminuria: 30 - 300 ug/mg creatinineClinical Albuminuria: > 300 ug/mg creatinine Urine (Urine, Random) 07/29/2024 6:15 AM EDT 07/29/2024 7:44 AM EDT Urszula Sue MD LAB URINE ORDERABLES Final Res ult Performing Organization Address [facility]/ZIP Co de Phone Number [facility] [address] [place] [phone] * TSH W/Reflex to FT4 (07/24/2024 3:56 PM EDT) TSH reflex Free T4 0.73 0.32 - 4.0 uIU/mL [facility] Blood Venous blood specimen / Unknown 07/24/2024 3:56 PM EDT 07/24/2024 5:56 PM EDT Urszula Sue MD LAB BLOOD ORDERABLES Final Res ult Performing Organization Address [facility]/ZIP Co de Phone Number [facility] [address] [place] [phone] * (ABNORMAL) CBC auto differential (07/24/2024 3:56 PM EDT) White Blood Count 4.4(L) 4.8 - 10.8 X10*3/uL [facility] Red Blood Count 4.33(L) 4.60 - 5.80 X10*6/uL [facility] Hemoglobin 13.2(L) 14.0 - 18.0 g/dl [facility] Hematocrit 39.5(L) 42.0 - 52.0 % [facility] Mean Corpuscular Volume 91.2 80.0 - 98.0 fL [facility] Mean Corpuscular Hemoglobin 30.5 27.0 - 33.0 pg [facility] Mean Corpuscular HGB Conc 33.4 31.0 - 36.0 g/dl [facility] Red Cell Distribution Width 13.6 11.0 - 16.0 % [facility] Platelet Count 204 160 - 400 X10*3/uL [facility] Mean Platelet Volume 10.8 9.4 - 12.4 fL [facility] Neutrophils Percent Auto 68.2 45 - 73 % [facility] Imm Gran Pct Auto 0.5(H) 0.0 - 0.4 % [facility] Lymphocytes Percent Auto 19.7(L) 20 - 40 % [facility] Monocytes Percent Auto 10.3 2 - 11 % [facility] Eosinophils Percent Auto 1.1 0 - 4 % [facility] Basophils Percent Auto 0.2 0 - 2 % [facility] NRBC Pct Auto 0.0 0.0 - 0.2 /100WBC [facility] Neutrophils Absolute Auto 3.0 2.0 - 8.3 x10*3/uL [facility] Imm Gran Abs Auto 0.02 0.00 - 0.03 X10*3/uL [facility] Lymphocytes Absolute Auto 0.9(L) 1.2 - 4.9 X10*3/uL [facility] Monocytes Absolute Auto 0.5 0.1 - 1.2 X10*3/uL [facility] Eosinophils Absolute Auto 0.1 0.0 - 0.4 X10*3/uL [facility] Basophils Absolute Auto 0.0 0.0 - 0.2 X10*3/uL [facility] NRBC Abs Auto 0.000 0.0 - 0.012 X10*3/uL [facility] Blood Venous blood specimen / Unknown 07/24/2024 3:56 PM EDT 07/24/2024 5:56 PM EDT us Urszula Sue MD LAB BLOOD ORDERABLES Final Res ult [facility] [address] [place] [phone] * B Type Natriuretic Peptide (BNP) (07/24/2024 3:56 PM EDT) Pathologist [facility] B Type Natriuretic Peptide 33 <100 pg/mL [facility] Blood Venous blood specimen / Unknown 07/24/2024 3:56 PM EDT 07/24/2024 5:56 PM EDT Urszula Sue MD LAB BLOOD ORDERABLES Final Res ult Performing Organization Address [facility]/ZIP Co de Phone Number [facility] [address] [place] [phone] * Lipase (07/24/2024 3:56 PM EDT) [facility] Lipase 17 8 - 78 U/L [facility] Blood Venous blood specimen / Unknown 07/24/2024 3:56 PM EDT 07/24/2024 5:56 PM EDT Urszula Sue MD LAB BLOOD ORDERABLES Final Res ult Performing Organization Address [facility]/ZIP Co de Phone Number [facility] [address] [place] [phone] * (ABNORMAL) Comprehensive Metabolic Panel (07/24/2024 3:56 PM EDT) [facility] Sodium 137 135 - 145 mmol/L [facility] Potassium 4.2 3.3 - 5.1 mmol/L [facility] Chloride 105 96 - 108 mmol/L [facility] Carbon Dioxide 26 22 - 29 mmol/L [facility] Anion Gap 10(L) 12 - 20 [facility] Urea Nitrogen (BUN) 18(H) 9 - 16 mg/dL [facility] Creatinine, Serum 0.92 0.5 - 1.4 mg/dL [facility] Estimated Glomerular Filt Rate >60 [facility] Comment:Chronic Kidney Disea se: Estimated GFR < 60 mL/min/1.43s9Wqsahy Kidney Disease: Estimated GFR < 15 mL/min/1.73m2 Glucose 244(H) 60 - 115 mg/dL [facility] Calcium 9.6 8.4 - 10.2 mg/dL [facility] Bilirubin, Total 0.5 0.0 - 1.0 mg/dL [facility] Aspartate Amino Transferase 19 5 - 37 U/L [facility] Alanine Aminotransferase 25 0 - 40 U/L [facility] Total Protein 7.5 6.5 - 8.0 g/dL [facility] Albumin Level 4.0 3.5 - 5.0 g/dL [facility] Alkaline Phosphatase 104 39 - 117 U/L [facility] Blood Venous blood specimen / Unknown 07/24/2024 3:56 PM EDT 07/24/2024 5:56 PM EDT Urszula Sue MD LAB BLOOD ORDERABLES Final Res ult Performing Organization Address [facility] de Phone Number [facility] [address] [place] [phone] * Hepatitis C Antibody with Reflex to HCV, RNA, Quantitative, Real-Time PCR (10/28/2023 3:39 PM EDT) Hepatitis C Antibody Nonreactive Nonreactive [facility] Comment:Antibodies to HCV no t detected; does not exclude early acuteHCV infection. Blood Venous blood specimen / Unknown 10/28/2023 3:39 PM EDT 10/28/2023 3:39 PM EDT Urszula Sue MD LAB BLOOD ORDERABLES Final Res ult Performing Organization Address [facility] Co de Phone Number [facility] [address] [place] [phone] * Hm Colonoscopy (11/23/2016 3:19 PM EDT) Martha Cramona MD HEALTH MAINTENANCE Final Result from Last 3 Months or Most Recently Relevant to Health Maintenance Insurance [employer] (HMO D-SNP) [place] [id number] Care Teams Utility Tech Relationship Specialty Start Date End Date Urszula Sue MD [address] [place] [phone] PCP - General Family Medicine 11/21/20
--- OUTSIDE RECORDS SUMMARY | 2024-09-03 08:28 | XMS_ITS | Encounter Summary ---
Author Organization [employer] Address [address] 7t [place] [address] Care Team Providers Care Superintendent Power Name Role Phone Urszula Sue MD Primary Care Provider [phone] Encounter Details Date Type Department Care Team (Late Contact Info) Description 10/31/[address] [facility] [address] [place], [place] [phone] Gregoria Mitchell LPN Social History Tobacco Use [...] Encounters Date Type Department Care Team (Late Contact Info) Description 09/04/2024 2:30 PM EDT Office Visit [facility] [address] [place] [address] Urszula Sue MD [address] [place], [place] [phone] documented as of this encounter Visit Diagnoses Not on filedocumented in this encounter Care Teams Superintendent Power Relationship Specialty Start Date End Date Urszula Sue MD [address] [place], [place] [phone] PCP - General Family Medicine 7/26/21 documented as of this encounter
--- OUTSIDE RECORDS SUMMARY | 2024-09-03 08:28 | XMS_ITS | Encounter Summary ---
Author Organization [employer] Address [address] [place] [address] Care Team Providers Care Glycerin Operator Name Role Phone Urszula Sue MD Primary Care Provider [phone] Reason for Visit * Reason Comments Pre-visit Planning SDOH screening posit nahid and Tobacco screening negative Encounter Details Date Type Department Care Team ([facility] st Contact Info) Description 08/31/2024 Patient Outreach [facility] [address] [place] [address] Urszula Sue MD [address] [place] [address] Pre-visit Planning (SDOH screening positive and Tobacco screening negative) Social History Tobacco Use Types Packs/Day Years [...] with others, in a hotel, in a intermediate, living outside on the street, on a [...] AM EDT documented as of this encounter Progress Notes * Arnaud Segundo - 08/31/2024 10:31 AM EDT CC Arnaud Locke placed successful outbound call to patient for pre-visit planning. Patient name and confirmed. Patient confirms appt date and time, and has transportation arrangements. Biggest concern for appointment at this time is foot pain. Patient advised to bring to appointment a photo id andinsurance card. Appropriate screenings completed in anticipation of appointment. SDOH positive. Patient looking for assistance with housing: Staying with other. Referral will be placed. documented in this encounter Plan of Treatment Upcoming Encounters Date Type Department Care Team (Late st Contact Info) Description 09/04/2024 2:30 PM EDT Office Visit [facility] [address] [place] [address] Urszula Sue MD [address] [place] [address] documented as of this encounter Visit Diagnoses Not on filedocumented in this encounter Additional Health Concerns Assessment Noted Time PHQ-9 Depression Total Score: 0 10/14/19 24 3:49 PM EDT documented as of this encounter Care Teams Glycerin Operator Relationship Specialty Start Date End Date Urszula Sue MD [address] [place] [address] PCP - General Family Medicine 11/21/20 documented as of this encounter
--- OUTSIDE RECORDS SUMMARY | 2024-09-03 08:28 | XMS_ITS | Encounter Summary ---
Author Organization [employer] Address [address] [facility] 7t [place] [address] Care Team Providers Care Template Maker Name Role Phone Urszula Sue MD Primary Care Provider [phone] Reason for Visit * Reason Comments Care Coordination CHW outreach for SDO H housing search-referral completed Encounter Details Date Type Department Care Team (Latest Contact Info) Description 08/31/2024 Patient Outreach [facility] [address] [place] [address] Urszula Sue MD [address] [place] [address] Care Coordination (CHW outreach for SDOH housing search-referral completed ) Social History Tobacco Use Types Packs/Day Years [...] with others, in a hotel, in a longterm, living outside on the street, on a [...] as of this encounter Progress Notes * Ramiro Decker - 08/31/2024 1:04 PM EDT CHW Ramiro Decker, placed outbound call to patient for assistance with SDOH as a referral was received by the provider. Patient's name and were confirmed. Patient screened positive for the following SDSC housing insecurities. Patient states is staying with her friend but is searching for her own apartment. Will be in appointment 09/[address] Sanchez, will meet with CHW/CH after the appointment to provided the list of application for his housing search. Patient verbalizes understanding, andable to agree with plan to follow up herself. Patient educated on extended clinic hours on Mondays through Wednesdays, and Walk-In Urgent Care Located in [facility] of [facility]. Patient provided with after-hours line for [facility], , which offer night time triage service and option to transfer to director employee communications provider if needed. documented in this encounter Plan of Treatment Upcoming Encounters Date Type Department Care Team (Late st Contact Info) Description 09/04/2024 2:30 PM EDT Office Visit [facility] [address] [place] [phone] Urszula Sue MD [address] [place] [address] documented as of this encounter Visit Diagnoses Not on filedocumented in this encounter Additional Health Concerns Assessment Noted Time PHQ-9 Depression Total Score: 0 10/14/19 24 3:49 PM EDT documented as of this encounter Care Teams Template Maker Relationship Specialty Start Date End Date Urszula Sue MD [address] [place] [address] PCP - General Family Medicine 11/21/20 documented as of this encounter
== END 2024-09-03 08:11 | disposition home or self-care (01) ==
LOC: HO.US 08:10
PROVIDERS: PCP General Practice; Visit Provider General Practice
DX: R10.11 Right upper quadrant pain (principal)
CPT/HCPCS: 76700

== ENCOUNTER → 2024-09-03 08:13 | Outpatient (BNV) | payer MEDICARE, SELFPAY | PROVIDERS: PCP General Practice; Visit Provider Radiology Diagnostic Radiology | DX: R16.0 Hepatomegaly, not elsewhere classified (principal); N28.1 Cyst of kidney, acquired; R93.2 Abnormal findings on diagnostic imaging of liver and biliary tract | CPT/HCPCS: 76700; 93976 ==

== ENCOUNTER 2024-09-04 14:56 | Outpatient (REF) | payer MEDICARE, SELFPAY ==
--- NOTE | ~2024-09-04 | XR_ITS ---
XR KNEE DONALD 3V HISTORY: Chronic pain of both knees. COMPARISON: None. TECHNIQUE: AP view bilateral knees standing, AP view bilateral knees tunnel, and lateral views of both knees. FINDINGS: RIGHT KNEE: No fracture, dislocation, or suspicious bone lesion. Diffuse chondrocalcinosis in the medial and lateral compartments. Severe arthritis medial compartment with [id number] appearance, subchondral sclerosis, cystic changes, and marginally projecting spurs. Moderate arthritis in the lateral and patellofemoral compartments. No evidence of joint effusion. Soft tissues otherwise appear normal. There are vascular calcifications. LEFT KNEE: No fracture, dislocation, or suspicious bone lesion. Diffuse chondrocalcinosis in the medial and lateral compartments. Moderate to severe arthritis in the medial compartment with marginal and projecting osteophytes. Moderate changes in the medial lateral and patellofemoral compartments. There is a small to moderate sized suprapatellar joint effusion. Soft tissues otherwise appear normal. There are vascular calcifications. XR/XR Knee Donald 3V IMPRESSION: RIGHT KNEE: 1. No acute bony abnormalities. 2. Diffuse chondrocalcinosis suggesting CPPD. 3. Tricompartmental arthritis, severe in the medial compartment. LEFT KNEE: 1. No acute bony abnormalities. 2. Diffuse chondrocalcinosis suggesting CPPD. 3. Small to moderate size joint effusion. 4. Tricompartmental arthritis, moderate to severe in the medial compartment. Electronically signed by: Javi Redd MD 09/04/2024 03:54 PM EDT
--- OUTSIDE RECORDS SUMMARY | 2024-09-04 14:59 | XMS_ITS | Encounter Summary ---
Author Organization [employer] Address [address] [facility] 7[address] [place] [address] Care Team Providers Care Structural Steel Fitter Name Role Phone Urszula Sue MD Primary Care Provider [phone] Reason for Visit * Reason Onset Date Comments chart prep 09/03/2024 Encounter Details Date Type Department Care Team ([facility] st Contact Info) Description 09/03/2024 Telephone [facility] [address] [place], [place] [phone] Urszula Sue MD [address] [place], [place] [phone] chart prep Social History Tobacco Use Types Packs/Day Years [...] with others, in a hotel, in a fci, living outside on the street, on a [...] encounter Miscellaneous Notes * Telephone Encounter - Chiqui Mercado [place] - 09/03/2024 10:33 AM EDT Chart Prep Labs: done Images: done Abdomen US completed today 09/03/2024 report not ready Referrals: complete Vaccines due: Covid, Flu, Tdap, and RSV Screenings: foot exam Overdue care gaps: A1c, Glucose, PHQ-9, LAUREN-7, and Tobacco documented in this encounter Plan of Treatment Not on file documented as of this encounter Visit Diagnoses Not on filedocumented in this encounter Additional Health Concerns Assessment Noted Time PHQ-9 Depression Total Score: 0 10/14/19 24 3:49 PM EDT documented as of this encounter Care Teams Structural Steel Fitter Relationship Specialty Start Date End Date Urszula Sue MD [address] [place] [address] PCP - General Family Medicine 11/21/20 documented as of this encounter
--- OUTSIDE RECORDS SUMMARY | 2024-09-04 14:59 | XMS_ITS | Encounter Summary ---
Author Organization [employer] Address [address] [facility] [address] [place] [address] Care Team Providers Care Electrician Supervisor Substation Name Role Phone Urszula Sue MD Primary Care Provider [phone] Encounter Details Date Type Department Care Team (Late st Contact Info) Description 10/31/2022 Orders Only [facility] [address] [place] [address] Gregoria Mitchell LPN Social History Tobacco Use [...] as of this encounter Plan of Treatment Not on file documented as of this encounter Visit Diagnoses Not on filedocumented in this encounter Care Teams Electrician Supervisor Substation Relationship Specialty Start Date End Date Urszula Sue MD [address] [place] [address] PCP - General Family Medicine 11/21/20 documented as of this encounter
--- OUTSIDE RECORDS SUMMARY | 2024-09-04 14:59 | XMS_ITS | Clinical Summary ---
Author Organization [employer] Address [address] [facility] [address] [place] [address] Care Team Providers Care Reconsignment Clerk Name Role Phone Urszula Sue MD Primary Care Provider [phone] Allergies Active Allergy Reactions Criticality Noted Date Comments Lisinopril Angioedema 06/06/2017 Medications glucose blood (FREESTYLE LITE) test strip Check BS once a day 021 Active prednisoLONE acetate (Pred-Forte) 1 % ophthalmic suspension PLACE 1 DROP IN THE AFFECTED EYE THREE TIMES DAILY. START ON THE DAY AFTER SURGERY 022 Active insulin pen needle (Sure Comfort Pen [place]) 31G x 5 mm misc USE WITH lantus 100 each 11 023 Active brimonidine-manuel olol (Combigan) 0.2-0.5 % ophthalmic solution INSTILL 1 DROP IN THE LEFT EYE TWICE DAILY 024 Active insulin glargine (Lantus SoloStar) 100 UNIT/ML pen inject 30 units by Subcutaneous route every evening 3 mL 11 024 Active sildenafil (Viagra) 50 MG tablet Take 1 tablet (50 mg) by mouth if needed for erectile dysfunction (20-30 minutes before sexual activity). 10 tablet 3 024 Active metFORMIN (Glucophage) 1000 MG tabletIndicatio ns:Diabetes 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, with long-term current use of insulin ([facility]) Take 1 tablet (1,000 mg) by mouth with breakfast and with evening meal. 180 tablet 3 024 Active labetalol (Normodyne) 100 MG tabletIndicatio ns:Essential hypertension Take 1 tablet (100 mg) by mouth 2 times daily. 180 tablet 3 024 Active spironolactone (Aldactone) 50 MG tabletIndicatio ns:Essential hypertension Take 1 tablet (50 mg) by mouth Once per day. 90 tablet 3 Active albuterol 108 (90 Base) MCG/ACT inhaler Inhale 2 puffs every 4 (four) hours if needed for wheezing. 18 g 11 2024 Active glipiZIDE XL (Glucotrol XL) 10 MG 24 hr tabletIndicatio ns:Diabetes 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, with long-term current use of insulin (CMS/[facility]) Take 1 tablet (10 mg) by mouth with breakfast. Do not crush, chew, or split. 90 tablet 3 024 Active chlorthalidone (Hygroton) 25 MG tabletIndicatio ns:Essential hypertension Take 1 tablet (25 mg) by mouth Once per day. 90 tablet 3 2024 Active Blood Pressure kit Use to check blood pressure once daily (1 hour after taking medication for blood pressure) and if symptomatic 1 kit Active Blood Pressure Monitoring (Omron 3 Series BP Monitor) device USE TO CHECK BLOOD PRESSURE ONCE DAILY 1 HOUR AFTER MEDICATIONS FOR BLOOD PRESSURE AND NEEDED SYMPTOMS Active amLODIPine (Norvasc) 10 MG tabletIndicatio ns:Essential hypertension Take 1 tablet (10 mg) by mouth Once per day. 90 tablet 3 025 Active aspirin (Ecotrin Low Strength) 81 MG EC tabletIndicatio ns:Diabetes 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, with long-term current use of insulin (CMS/[facility]) Take 1 tablet (81 mg) by mouth Once per day. 90 tablet 3 025 Active atorvastatin (Lipitor) 40 MG tabletIndicatio ns:Diabetes 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, with long-term current use of insulin (CMS/HCC) Take 1 tablet (40 mg) by mouth at bedtime. 90 tablet 3 025 Active finasteride (Proscar) 5 MG tablet Take 1 tablet (5 mg) by mouth Once per day. 90 tablet 3 025 Active finasteride (Proscar) 5 MG tablet Take 5 mg by mouth Once per day. 024 2024 Discontinued(R eorder (will not trigger notification to Pharmacy)) amLODIPine (Norvasc) 10 MG tabletIndicatio ns:Essential hypertension Take 1 tablet (10 mg) by mouth Once per day. 90 tablet 3 024 2024 Discontinued(R eorder (will not trigger notification to Pharmacy)) aspirin (Ecotrin Low Strength) 81 MG EC tabletIndicatio ns:Diabetes 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, with long-term current use of insulin ([facility]) Take 1 tablet (81 mg) by mouth Once per day. 90 tablet 3 024 2024 Discontinued(R eorder (will not trigger notification to Pharmacy)) atorvastatin (Lipitor) 40 MG tabletIndicatio ns:Diabetes 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, with long-term current use of insulin ([facility]) Take 1 tablet (40 mg) by mouth at bedtime. 90 tablet 3 024 2024 Discontinued(R eorder (will not trigger notification to Pharmacy)) Active Problems Problem Noted Date Diagnosed Date [...] agonist treatments Urologist is Dr Choi at [facility] Continue q 3 month followup Assessment & Plan (11/10/2022 9:17 AM EDT): Mgmt per HPI Urologist is Dr Choi at [facility] Continue q 3 month followup Vitamin D deficiency 06/27/2018 Bilateral cataracts 09/11/2017 Diabetes mellitus due to und erlying condition with hyperglycemia, with long-term current use of insulin 09/05/2016 Assessment & Plan (07/28/2024 8:42 AM EDT): Next visit with mn 09/04/24 for DM2 mgmt, labs ordered so [...] Encounters Date Type Department Care Team Description 09/04/2024 2:30 PM EDT Office Visit [facility] [address] [place] [phone] Urszula Sue MD Chronic pain of both knees (Primary Dx); Diabetes 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, with long-term current use of insulin ([facility]); Essential hypertension 09/04/2024 Travel 09/03/[address] [facility] [address] [place] [phone] Urszula Sue MD chart prep 08/31/[address] [facility] [address] [place] [phone] Urszula Sue MD Care Coordination (W outreach for SDOH housing search-referral completed ) 08/31/2024 Patient Outreach [address] [phone] Urszula Sue MD Pre-visit Planning (SDOH screening positive and Tobacco screening negative) 07/29/2024 Orders Only GENERIC EXTERNAL DATA DEPARTMENT Provider, Generic External Data 07/28/[address] [facility] [address] [place] [phone] Urszula Sue MD 07/24/2024 3:40 PM EDT Office Visit [facility] [address] [place] [address] Urszula Sue MD Right upper quadrant abdominal pain (Primary Dx); Essential hypertension; Left renal artery stenosis (CMS/HCC); Adenocarcinoma of prostate (CMS/HCC); Diabetes 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, with long-term current use of insulin (CMS/HCC); Dietary counseling; Exercise counseling; Class 1 obesity with serious comorbidity and body mass index (BMI) of 32.0 to 32.9 in adult, unspecified obesity type 06/19/[address] [facility] [address] [place] [address] Urszula Sue MD recall from Last 3 [...] with others, in a hotel, in a assisted, living outside on the street, on a [...] Sign Reading Time Taken Comments Blood Pressure 177/96 09/04/2024 2:22 PM EDT Pulse 79 09/04/2024 2:22 PM EDT Temperature 35.4 ??C (95.7 ??F) 09/04/2024 2:22 PM ED T Respiratory Rate 20 09/04/2024 2:22 PM EDT Oxygen Saturation 97% 09/04/2024 2:22 PM EDT Inhaled Oxygen Concentration - - Weight 88.6 kg (195 lb 6 oz) 09/04/2024 2:22 PM EDT Height 162.6 cm (5' 4 ) 09/04/2024 2:22 PM EDT Body Mass Index 33.54 09/04/2024 2:22 PM EDT Plan of Treatment Health Maintenance Due Date Last Done Comments [...] history exists Depression Screening 10/13/2024 10/14/2023, 10/14/19 Diabetes: Hemoglobin [...] Procedure Name Priority Date/Time Associated Diagnosis Comments POCT GLUCOSE Routine 09/04/2024 2:24 PM EDT Diabetes 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, with long-term current use of insulin ([facility]) US ABDOMEN COMPLETE Routine 09/04/2024 8 :45 AM EDT Right upper quadrant abdominal pain TESTOSTERONE, TOTAL, MALES (ADULT), IA Routine 07/29/2024 6:17 AM EDT PSA, TOTAL Routine 07/29/2024 6:17 AM EDT LIPID PANEL, STANDARD Routine 07/29/2024 6:17 AM EDT Diabetes 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, with long-term current use of insulin ([facility]) HEMOGLOBIN A1C Routine 07/29/2024 6:17 AM EDT Diabetes 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, with long-term current use of insulin ([facility]) ALBUMIN, RANDOM URINE W/CREATININE Routine 07/29/2024 6:15 AM EDT Diabetes 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, with long-term current use of insulin ([facility]) TSH W/REFLEX TO FT4 Routine 07/24/2024 [...] Relevant to Health Maintenance Results * (ABNORMAL) POCT Glucose (09/04/2024 2:24 PM EDT) Glucose Blood, POC 271(A) 60 - 200 mg/dL QC Media Lot # [id number] Lot# Expiration Date [id number] Blood Capillary blood specimen / Unknown 09/04/2024 2:24 PM EDT us Urszula Sue MD POINT OF CARE TEST ENTER/EDIT ORDERABLES Final Result * US Abdomen Complete (09/04/2024 8:45 AM EDT) Anatomical Region Laterality Modality Abdomen Ultrasound 09/04/2024 8:45 AM EDT Narrative 09/04/2024 8:46 AM EDT ? [facility] ?[address] ?[place] [address] ? Ultrasound Report ? Signed ? Patient: Tabitha,Toro ?MR#: [id number] ? : 1950 ?Acct:[id number] ? Age/Sex: 73 / M ?ADM Date: 05/08/25 ? Loc: HO.US ? Attending Dr: Urszula Sue MD ? Ordering Physician: Urszula Sue ?? Date of Service: 05/08/25 ?? Procedure(s): US abdomen complete ?? Accession Number(s): [id number] ? cc: Urszula Sue ? CLINICAL HISTORY: RUQ pain x 4 weeks ? Exam: ? 1. Ultrasound of the abdomen, complete. ?? 2. Duplex ultrasound of the main portal vein. ? Comparison: CT october 28, 2023. ? Findings: ? Liver is enlarged measuring 22 cm in long axis. Dense increased ?? echotexture throughout the liver without focal lesions or intrahepatic ?? biliary ductal dilatation. ?? Common bile duct is within normal limits. ?? Gallbladder is unremarkable. ?? Pancreas is obscured by overlying bowel gas. ?? No focal splenic lesions. ?? Right kidney measures 11.0 cm in long axis. Several cysts within the right ?? kidney measuring up to 1.5 cm in size. This includes a milk of calcium ?? cyst. No concerning solid mass lesions or hydronephrosis. ?? Left kidney measures 10.4 cm in long axis. Several simple cysts within the ?? left kidney measuring up to 2.3 cm in size. No hydronephrosis. ?? Aorta and inferior vena cava are patent. ?? No free fluid. ? Duplex evaluation of the main portal vein was performed. This included ?? real-time grayscale, color spectral Doppler analysis, and color Doppler ?? flow imaging. Main portal vein is patent with hepatopetal flow. ? Impression: ? 1. Hepatomegaly with dense increased hepatic echotexture, likely related ?? to fatty infiltration. ?? 2. Bilateral renal cysts including a milk of calcium cyst within the right ?? kidney. ? This document has been electronically signed by: Luís Stoll MD on ?? 09/04/2024 08:45:10 ? Dictated By: ?Luís Stoll MD ? Signed By: ?<Electronically signed by Luís Stoll MD in OV> ? 09/04/24 0845 ? DD/ 0845 ? TD/TT: 09/04/24844 ? News Library Director: ? Procedure Note Mulugeta Parker - 09/04/[address] [address] Ultrasound Report Signed Patient: Manny Lu#: [id number] : 9Acct:[id number] Age/Sex: 73 / MADM Date: 09/03/24 Loc: HO.US Attending Dr: Urszula Sue MD Ordering Physician: Urszula Sue Date of Service: 09/03/24 Procedure(s): US abdomen complete Accession Number(s): [id number] cc: Urszula Sue CLINICAL HISTORY: RUQ pain x 4 weeks Exam: 1. Ultrasound of the abdomen, complete. 2. Duplex ultrasound of the main portal vein. Comparison: CT october 28, 2023. Findings: Liver is enlarged measuring 22 cm in long axis. Dense increased echotexture throughout the liver without focal lesions or intrahepatic biliary ductal dilatation. Common bile duct is within normal limits. Gallbladder is unremarkable. Pancreas is obscured by overlying bowel gas. No focal splenic lesions. Right kidney measures 11.0 cm in long axis. Several cysts within the right kidney measuring up to 1.5 cm in size. This includes a milk of calcium cyst. No concerning solid mass lesions or hydronephrosis. Left kidney measures 10.4 cm in long axis. Several simple cysts within the left kidney measuring up to 2.3 cm in size. No hydronephrosis. Aorta and inferior vena cava are patent. No free fluid. Duplex evaluation of the main portal vein was performed. This included real-time grayscale, color spectral Doppler analysis, and color Doppler flow imaging. Main portal vein is patent with hepatopetal flow. Impression: 1. Hepatomegaly with dense increased hepatic echotexture, likely related to fatty infiltration. 2. Bilateral renal cysts including a milk of calcium cyst within the right kidney. This document has been electronically signed by: Luís Stoll MD on 09/04/2024 08:45:10 Dictated By: Luís Stoll MD Signed By: <Electronically signed by Luís Stoll MD in OV> 09/04/24844 DD/ 4 TD/TT: 09/04/24844 News Library Director: us Urszula Sue MD [facility] US PROCEDURES Final Result * (ABNORMAL) Testosterone, Total, males (Adult), IA (07/29/2024 6:17 AM EDT) Testosterone, Total 7(A) 250 - 1100 ng/dL [facility] Comment:Men with clinically significant hypogonadalsymptoms and testosterone values repeatedly inthe range of the 200-300 ng/dL or less, maybenefit from testosterone treatment afteradequate risk and benefits counseling.For additional information, please refer [email or web address]/faq/[email or web address](This link is being provided for informational/educational purposes only.)This test was developed and its analytical performancecharacteristics have been determined by [facility] [place], [place]. It hasnot been cleared or approved by the U.S. Food and DrugAdministration. This assay has been validated pursuantto the CLIA regulations and is used for clinicalpurposes.THIS TEST WAS PERFORMED AT:[employer] [place] [address]SCNWYLFADITYA GONZALEZ MD,PHD 07/29/2024 6:17 AM EDT 07/29/2024 6:17 AM EDT Generic External Data Provider LAB BLOOD ORDERAB LES Final Result Performing Organization Address [facility]/ZIP Co de Phone Number [facility] [address] [place] [phone] * PSA,Total (07/29/2024 6:17 AM EDT) Prostate Specific Antigen <0.10 <0.05 - 4.0 ng/mL [facility] Comment:PSA methodology: Piter Garsia i ChemiluminescentMicroparticle Immunoassay (CMIA) 07/29/2024 6:17 AM EDT 07/29/2024 6:17 AM EDT Generic External Data Provider LAB BLOOD ORDERAB LES Final Result Performing Organization Address [facility]/ZIP Co de Phone Number [facility] [address] [place] [phone] * (ABNORMAL) Hemoglobin A1c (07/29/2024 6:17 AM EDT) Hemoglobin A1c 11.8(H) <6.0 % [facility] Comment:Hemoglobin A1C Refer ence Range Adults: 4.8 - 6.0 % Non diabetic: < 6.0 % Goal: < 7.0 %Additional Action Suggested: > 8.0 %Note: Hemoglobin A1c results are invalid for patients with abnormal amounts of HbF. Blood transfusions may impact the HbA1c concentration in the patient sample. Estimated Average Glucose 292 mg/dL [facility] Comment:eAG = Estimated ave rage glucose which is %A1C expressed asaverage glucose, using the formula of the A3Q-NoghtnqXpiikra Glucose study (ADAG), Diabetes Care, Vol.31,#8,Nov. 2007 Blood Venous blood specimen / Unknown 07/29/2024 6:17 AM EDT 07/29/2024 6:17 AM EDT us Urszula Sue MD LAB BLOOD ORDERABLES Final Res ult [facility] [address] [place] [phone] * (ABNORMAL) Lipid Panel, Standard (07/29/2024 6:17 AM EDT) Triglycerides 171(H) <150 mg/dL [facility] Comment:Desirable Triglyceri de: less than 150 mg/dLBorderline High Triglyceride 150-199 mg/dLHigh Triglyceride: 200-499 mg/dLVery High Triglyceride: greater than or equal to 5OO mg/dL Cholesterol 170 <200 mg/dL [facility] Comment:Desirable Cholestero l: less than 200 mg/dLBorderline High Cholesterol: 200-239 mg/dLHigh Cholesterol: greater than 239 mg/dL LDL Cholesterol Calculated 79 <100 mg/dL [facility] Comment:Desirable LDL: less than 100 mg/dLNear Optimal/Above Optimal LDL: 110- 129 mg/dLBorderline High LDL: 130-159 mg/dLHigh LDL: 160-189 mg/dLVery High LDL: greater than or equal to 190 mg/dL HDL Cholesterol 57 >40 mg/dL [facility] Comment:Desirable HDL: great er than 40 mg/dL Note: This HDL assay may give artificially low results in patients with liver disease. Blood Venous blood specimen / Unknown 07/29/2024 6:17 AM EDT 07/29/2024 6:17 AM EDT Urszula Sue MD LAB BLOOD ORDERABLES Final Res ult Performing Organization Address [facility]/ZIP Co de Phone Number [facility] [address] [place] [phone] * (ABNORMAL) Albumin, Random Urine W/Creatinine (07/29/2024 6:15 AM EDT) Creatinine, Urine 147.38 mg/dL [facility] Microalbumin Urine 62.0 mg/L [facility] Microalbum Creatinine Ratio Ur 42.0(H) <30 ug/mg cr [facility] Comment:Albumin/Creatinine R atio Reference Ranges: Normal: < 30 ug/mg creatinine Microalbuminuria: 30 - 300 ug/mg creatinineClinical Albuminuria: > 300 ug/mg creatinine Urine (Urine, Random) 07/29/2024 6:15 AM EDT 07/29/2024 7:44 AM EDT Urszula Sue MD LAB URINE ORDERABLES Final Res ult Performing Organization Address [facility] Co de Phone Number [facility] [address] [place] [phone] * TSH W/Reflex to FT4 (07/24/2024 3:56 PM EDT) TSH reflex Free T4 0.73 0.32 - 4.0 uIU/mL [facility] Blood Venous blood specimen / Unknown 07/24/2024 3:56 PM EDT 07/24/2024 5:56 PM EDT Urszula Sue MD LAB BLOOD ORDERABLES Final Res ult Performing Organization Address [facility] Co de Phone Number [facility] [address] [place] [phone] * (ABNORMAL) CBC auto differential (07/24/2024 3:56 PM EDT) White Blood Count 4.4(L) 4.8 - 10.8 X10*3/uL [facility] Red Blood Count 4.33(L) 4.60 - 5.80 X10*6/uL [facility] Hemoglobin 13.2(L) 14.0 - 18.0 g/dl [facility] Hematocrit 39.5(L) 42.0 - 52.0 % [facility] Mean Corpuscular Volume 91.2 80.0 - 98.0 fL [facility] Mean Corpuscular Hemoglobin 30.5 27.0 - 33.0 pg [facility] Mean Corpuscular HGB Conc 33.4 31.0 - 36.0 g/dl [facility] Red Cell Distribution Width 13.6 11.0 - 16.0 % [facility] Platelet Count 204 160 - 400 X10*3/uL [facility] Mean Platelet Volume 10.8 9.4 - 12.4 fL [facility] Neutrophils Percent Auto 68.2 45 - 73 % [facility] Imm Gran Pct Auto 0.5(H) 0.0 - 0.4 % [facility] Lymphocytes Percent Auto 19.7(L) 20 - 40 % [facility] Monocytes Percent Auto 10.3 2 - 11 % [facility] Eosinophils Percent Auto 1.1 0 - 4 % [facility] Basophils Percent Auto 0.2 0 - 2 % [facility] NRBC Pct Auto 0.0 0.0 - 0.2 /100WBC [facility] Neutrophils Absolute Auto 3.0 2.0 - 8.3 x10*3/uL [facility] Imm Gran Abs Auto 0.02 0.00 - 0.03 X10*3/uL [facility] Lymphocytes Absolute Auto 0.9(L) 1.2 - 4.9 X10*3/uL [facility] Monocytes Absolute Auto 0.5 0.1 - 1.2 X10*3/uL [facility] Eosinophils Absolute Auto 0.1 0.0 - 0.4 X10*3/uL [facility] Basophils Absolute Auto 0.0 0.0 - 0.2 X10*3/uL [facility] NRBC Abs Auto 0.000 0.0 - 0.012 X10*3/uL [facility] Blood Venous blood specimen / Unknown 07/24/2024 3:56 PM EDT 07/24/2024 5:56 PM EDT Urszula Sue MD LAB BLOOD ORDERABLES Final Res ult Performing Organization Address City/[facility]/ZIP Co de Phone Number [facility] [address] [place] [phone] * B Type Natriuretic Peptide (BNP) (07/24/2024 3:56 PM EDT) Pathologist [facility] [place] B Type Natriuretic Peptide 33 <100 pg/mL [facility] Blood Venous blood specimen / Unknown 07/24/2024 3:56 PM EDT 07/24/2024 5:56 PM EDT Urszula Sue MD LAB BLOOD ORDERABLES Final Res ult Performing Organization Address [facility] de Phone Number [facility] [address] [place] [phone] * Lipase (07/24/2024 3:56 PM EDT) Pathologist [facility] Lipase 17 8 - 78 U/L [facility] Blood Venous blood specimen / Unknown 07/24/2024 3:56 PM EDT 07/24/2024 5:56 PM EDT Urszula Sue MD LAB BLOOD ORDERABLES Final Res ult Performing Organization Address [facility] de Phone Number [facility] [address] [place] [phone] * (ABNORMAL) Comprehensive Metabolic Panel (07/24/2024 3:56 PM EDT) Pathologist [facility] Sodium 137 135 - 145 mmol/L [facility] Potassium 4.2 3.3 - 5.1 mmol/L [facility] Chloride 105 96 - 108 mmol/L [facility] Carbon Dioxide 26 22 - 29 mmol/L [facility] Anion Gap 10(L) 12 - 20 [facility] Urea Nitrogen (BUN) 18(H) 9 - 16 mg/dL [facility] Creatinine, Serum 0.92 0.5 - 1.4 mg/dL [facility] Estimated Glomerular Filt Rate >60 [facility] Comment:Chronic Kidney Disea se: Estimated GFR < 60 mL/min/[id number] Kidney Disease: Estimated GFR < 15 mL/min/1.73m2 Glucose 244(H) 60 - 115 mg/dL [facility] Calcium 9.6 8.4 - 10.2 mg/dL [facility] Bilirubin, Total 0.5 0.0 - 1.0 mg/dL [facility] Aspartate Amino Transferase 19 5 - 37 U/L [facility] Alanine Aminotransferase 25 0 - 40 U/L [facility] Total Protein 7.5 6.5 - 8.0 g/dL [facility] Albumin Level 4.0 3.5 - 5.0 g/dL [facility] Alkaline Phosphatase 104 39 - 117 U/L [facility] Blood Venous blood specimen / Unknown 07/24/2024 3:56 PM EDT 07/24/2024 5:56 PM EDT us Urszula Sue MD LAB BLOOD ORDERABLES Final Res ult [facility] [address] [place] [phone] * Hepatitis C Antibody with Reflex to HCV, RNA, Quantitative, Real-Time PCR (10/28/2023 3:39 PM EDT) Hepatitis C Antibody Nonreactive Nonreactive [facility] Comment:Antibodies to HCV no t detected; does not exclude early acuteHCV infection. Blood Venous blood specimen / Unknown 10/28/2023 3:39 PM EDT 10/28/2023 3:39 PM EDT Urszula Sue MD LAB BLOOD ORDERABLES Final Res ult [facility] [address] [place] [phone] * Colonoscopy (11/23/2016 3:19 PM EDT) us Historical Provider HEALTH MAINTENANCE Final Result from Last 3 Months or Most Recently Relevant to Health Maintenance Insurance [facility] LONG[employer]M OPT[employer] (O D-SNP) [place]RY [id number] Care Teams Reconsignment Clerk Relationship Specialty Start Date End Date Urszula Sue MD [address] [place] [id number] PCP - General Family Medicine 11/21/20
--- OUTSIDE RECORDS SUMMARY | 2024-09-04 14:59 | XMS_ITS | Encounter Summary ---
Author Organization [employer] Address [address] [facility] 7t [place] [address] Care Team Providers Care Fryline Attendant Name Role Phone Urszula Sue MD Primary Care Provider Reason for Visit * Reason Comments Care Coordination CHW outreach for SDO H housing search-referral completed Encounter Details Date Type Department Care Team (Latest Contact Info) Description 08/31/2024 Patient Outreach [facility] [address] [place] [address] Urszula Sue MD [address] [place] [address] Care Coordination (CHW outreach for SDOH housing [...] with others, in a hotel, in a [place] [facility], living outside on the street, on a [...] confirmed. Patient screened positive for the following SDOH housing insecurities. Patient states is staying with [...] Wednesdays, and Walk-In Urgent Care Located in [facility]. Patient provided with after-hours line for [facility], , which offer night time triage service and option to transfer to software applications engineer provider if needed. documented in this encounter Plan of Treatment Not on file documented as of this encounter Visit Diagnoses Not on filedocumented in this encounter Additional Health Concerns Assessment Noted Time PHQ-9 Depression Total Score: 0 10/14/19 24 3:49 PM EDT documented as of this encounter Care Teams Fryline Attendant Relationship Specialty Start Date End Date Urszula Sue MD [address] [place] [address] PCP - General Family Medicine 11/21/20 documented as of this encounter
--- OUTSIDE RECORDS SUMMARY | 2024-09-04 14:59 | XMS_ITS | Encounter Summary ---
Author Organization [employer] Address [address] [facility] 7t [place] [address] Care Team Providers Care Victim Witness Administrator Name Role Phone Urszula Sue MD Primary Care Provider [phone] Encounter Details Date Type Department Care Team (Late st Contact Info) Description 08/16/2022 Orders Only [facility] [address] [place] [address] Barbara Cerna LPN Social History Tobacco Use [...] on filedocumented in this encounter Care Teams Victim Witness Administrator Relationship Specialty Start Date End Date Urszula Sue MD [address] [place] [address] PCP - General Family Medicine 11/21/20 documented as of this encounter
--- OUTSIDE RECORDS SUMMARY | 2024-09-04 14:59 | XMS_ITS | Encounter Summary ---
Author Organization [employer] Address [address] [facility] [address] [place] [address] Care Team Providers Care Caddy Packer Name Role Phone Urszula Sue MD Primary Care Provider [phone] Encounter Details Date Type Department Care Team (Latest Contact Info) Description 09/04/2024 Travel Social History Tobacco Use Types Packs/Day Years [...] with others, in a hotel, in a detention, living outside on the street, on a [...] documented as of this encounter Care Teams Caddy Packer Relationship Specialty Start Date End Date Urszula Sue MD [address] [place] [address] PCP - General Family Medicine 11/21/20 documented as of this encounter
--- OUTSIDE RECORDS SUMMARY | 2024-09-04 14:59 | XMS_ITS | Encounter Summary ---
Author Organization [employer] Address [address] [facility] [place] [address] Care Team Providers Care Marketing Strategy Analyst Name Role Phone Urszula Sue MD Primary Care Provider [phone] Encounter Details Date Type Department Care Team (Late st Contact Info) Description 09/05/2023 Orders Only [facility] [address] [place] [address] ProviderMartha MD Social History Tobacco Use Types [...] on file documented as of this encounter Procedures Procedure Name Priority Date/Time Associated Diagnosis Comments HM COLONOSCOPY Routine 11/23/2016 3:19 PM EDT documented in this encounter Results * Hm Colonoscopy (11/23/2016 3:19 PM EDT) Historical Provider HEALTH MAINTENANCE Final Result documented in this encounter Visit Diagnoses Not on filedocumented in this encounter Care Teams Marketing Strategy Analyst Relationship Specialty Start Date End Date Urszula Sue MD [address] [place] [id number] PCP - General Family Medicine 11/21/20 documented as of this encounter
--- OUTSIDE RECORDS SUMMARY | 2024-09-04 14:59 | XMS_ITS | Encounter Summary ---
Author Organization [employer] Address [address] [facility] 7t [place] [address] Care Team Providers Care Instructional Technology Coordinator Name Role Phone Urszula Sue MD Primary Care Provider Reason for Referral * Consultation (Routine) - Authorized Specialty Diagnoses / Procedures Referred By Contac t Referred To Contact Pharmacy Diagnoses Diabetes 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, with long-term current use of insulin (CMS/HCC) Essential hypertension Urszula Sue MD [address] [place] [address] Phone: tel: fax: Referral ID Status Reason Start Date Expiration Date Visits Requested Visits Authorized [id number] Authorized Continuity of Care 09/04/2024 09/04/2025 6 6 Reason for Visit * Reason Comments Diabetes Encounter Details Date Type Department Care Team (Late st Contact Info) Description 09/04/2024 2:30 PM EDT Office Visit [facility] [address] [place], [place] [phone] Urszula Sue MD [address] [place], [place] [phone] Chronic pain of both knees (Primary Dx); Diabetes 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, with long-term current use of insulin (CMS/HCC); Essential hypertension Social History Tobacco Use Types Packs/Day Years [...] with others, in a hotel, in a alf, living outside on the street, on a [...] Mass Index 33.54 09/04/2024 2:22 PM EDT documented in this encounter Plan of Treatment Scheduled Orders Name Type Priority Associated Diagnoses Orde r Schedule XR Knee 3 Views Bilateral Imaging Routine Chronic pain of both knees Expected: 09/04/2024, Expires: 09/04/2025 Scheduled Referrals Name Type Priority Associated Diagnoses Orde r Schedule Referral to Pharmacy [facility] Outpatient Referral Routine Diabetes 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, with long-term current use of insulin ([facility]) Essential hypertension Ordered: 09/04/2024 documented as of this encounter Procedures Procedure Name Priority Date/Time Associated Diagnosis Comments POCT GLUCOSE Routine 09/04/2024 2:24 PM EDT Diabetes 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, with long-term current use of insulin ([facility]) documented in this encounter Results * (ABNORMAL) POCT Glucose (09/04/2024 2:24 PM EDT) [facility] Glucose Blood, POC 271(A) 60 - 200 mg/dL QC Media Lot # [id number] Lot# Expiration Date [id number] Blood Capillary blood specimen / Unknown 09/04/2024 2:24 PM EDT Urszula Sue MD POINT OF CARE TEST ENTER/EDIT ORDERABLES Final Result documented in this encounter Visit Diagnoses Diagnosis Chronic pain of both knees- Primary Diabetes 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, with long-term current use of insulin ([facility]) Essential hypertension Unspecified essential hypertension documented in this encounter Additional Health Concerns Assessment Noted Time PHQ-9 Depression Total Score: 0 10/14/19 24 3:49 PM EDT documented as of this encounter Care Teams Instructional Technology Coordinator Relationship Specialty Start Date End Date Urszula Sue MD [address] [place] [phone] PCP - General Family Medicine 11/21/20 documented as of this encounter
--- OUTSIDE RECORDS SUMMARY | 2024-09-04 14:59 | XMS_ITS | Encounter Summary ---
Author Organization [employer] Address [address] [facility] 7[address] [place] [address] Care Team Providers Care Sort Worker Name Role Phone Urszula Sue MD Primary Care Provider [phone] Reason for Visit * Reason Comments Pre-visit Planning SDOH screening posit nahid and Tobacco screening negative Encounter Details Date Type Department Care Team ([facility] st Contact Info) Description 08/31/2024 Patient Outreach [facility] [address] [place] [address] Urszula Sue MD [address] [place] [address] Pre-visit Planning (SDOH screening positive and Tobacco [...] with others, in a hotel, in a [facility], living outside on the street, on a [...] documented as of this encounter Care Teams Sort Worker Relationship Specialty Start Date End Date Urszula Sue MD [address] [place] [address] PCP - General Family Medicine 11/21/20 documented as of this encounter
== END 2024-09-04 14:57 | disposition home or self-care (01) ==
LOC: HO.HHCX 14:56
PROVIDERS: Visit Provider General Practice
DX: M25.561 Pain in right knee (principal); M25.562 Pain in left knee; G89.29 Other chronic pain
CPT/HCPCS: 73562

== ENCOUNTER → 2024-09-04 14:56 | Outpatient (BNV) | payer MEDICARE, SELFPAY | PROVIDERS: Visit Provider Radiology Diagnostic Radiology | DX: M17.0 Bilateral primary osteoarthritis of knee (principal) | CPT/HCPCS: 73562 ==

== ENCOUNTER 2024-10-08 06:03 | Outpatient (REF) | payer OTHER, SELFPAY ==
[2024-10-08 07:44] LABS: Anion Gap 13 (12-20); Blood Urea Nitrogen 19 mg/dL (9-16); Calcium 9.7 mg/dL (8.4-10.2); Carbon Dioxide 26 mmol/L (22-29); Chloride 105 mmol/L (96-108); Estimated Glomerular Filt Rate > 60; Glucose Random 185 mg/dL (60-115); Potassium 4.3 mmol/L (3.3-5.1); Sodium 140 mmol/L (135-145)
[2024-10-08 08:21] LABS: Vitamin B12 240 pg/mL (200-900)
== END 2024-10-08 06:04 | disposition home or self-care (01) ==
LOC: HO.LAB 06:03
PROVIDERS: PCP General Practice; Visit Provider General Practice
DX: Z79.4 Long term (current) use of insulin (principal); E08.65 Diabetes 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
CPT/HCPCS: 36415; 80048; 82607

== ENCOUNTER 2024-12-01 07:57 | Outpatient (REF) | payer OTHER, SELFPAY ==
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
--- OUTSIDE RECORDS SUMMARY | 2024-12-01 08:00 | XMS_ITS | Clinical Summary ---
Author Organization [employer] Address [address] [place] [address] Care Team Providers Care Ramp Service Man Name Role Phone Urszula Sue MD Primary Care Provider [phone] Kendy Madsen PharmD Unavailable [phone] Allergies Active Allergy Reactions Criticality Noted Date Comments Lisinopril Angioedema 06/06/2017 Medications metFORMIN (Glucophage) 1000 MG tabletIndication s:Diabetes 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, with long-term current use of insulin ([facility]) Take 1 tablet (1,000 mg) by mouth with breakfast and with evening meal. 180 tablet 3 4 Active labetalol (Normodyne) 100 MG tabletIndication s:Essential hypertension Take 1 tablet (100 mg) by mouth 2 times daily. 180 tablet 3 4 Active spironolactone (Aldactone) 50 MG tabletIndication s:Essential hypertension Take 1 tablet (50 mg) by mouth Once per day. 90 tablet 3 4 Active albuterol 108 (90 Base) MCG/ACT inhaler Inhale 2 puffs every 4 (four) hours if needed for wheezing. 18 g 11 4 025 Active glipiZIDE XL (Glucotrol XL) 10 MG 24 hr tabletIndication s:Diabetes 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, with long-term current use of insulin ([facility]) Take 1 tablet (10 mg) by mouth with breakfast. Do not crush, chew, or split. 90 tablet 3 4 Active chlorthalidone (Hygroton) 25 MG tabletIndication s:Essential hypertension Take 1 tablet (25 mg) by mouth Once per day. 90 tablet 3 4 025 Active Blood Pressure Monitoring (Omron 3 Series BP Monitor) device USE TO CHECK BLOOD PRESSURE ONCE DAILY 1 HOUR AFTER MEDICATIONS FOR BLOOD PRESSURE AND NEEDED SYMPTOMS 5 Active amLODIPine (Norvasc) 10 MG tabletIndication s:Essential hypertension Take 1 tablet (10 mg) by mouth Once per day. 90 tablet 3 5 Active atorvastatin (Lipitor) 40 MG tabletIndication s:Diabetes 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, with long-term current use of insulin (CMS/HCC) Take 1 tablet (40 mg) by mouth at bedtime. 90 tablet 3 5 Active finasteride (Proscar) 5 MG tablet Take 1 tablet (5 mg) by mouth Once per day. 90 tablet 3 5 Active naproxen sodium (Aleve) 220 MG tablet Take 1 tablet (220 mg) by mouth if needed in the morning and at bedtime for mild pain (knee pain). 60 tablet 1 5 026 Active insulin pen needle 32G x 4 mm miscIndications: Diabetes 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, with long-term current use of insulin ([facility]) Use to inject insulin 1 times daily 100 each 5 Active TRUEplus Lancets 33G miscIndications: Diabetes 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, with long-term current use of insulin (CMS/HCC) Use to test blood sugar 2 time(s) daily 100 each 5 Active Continuous Glucose Envelope Stuffer (FreeStyle Gwen 3 Wheeler) deviceIndication s:Diabetes 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, with long-term current use of insulin (CMS/HCC) 1 each Once per day. Use as directed for CGM 1 each 5 Active Continuous Glucose Sensor (FreeStyle Gwen 3 Plus Sensor) miscIndications: Diabetes 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, with long-term current use of insulin (CMS/HCC) 1 each every 15 days. Apply 1 every 15 days as directed for CGM 2 each 5 Active glucose blood (FreeStyle Precision Tay Test) test stripIndications :Diabetes 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, with long-term current use of insulin (CMS/HCC) Use to test blood sugar 2 times daily in case of CGM failure or extremes of BG 50 each 11 5 026 Active Calcium Citrate-Vitamin D (Calcium Citrate+D3 Petites) 200-6.25 MG-MCG tablet Take 1 tablet by mouth in the morning and 1 tablet in the evening. OTC. Active tamsulosin (Flomax) 0.4 MG 24 hr capsule Take 0.4 mg by mouth Once per day. Active Dulaglutide (Trulicity) 0.75 MG/0.5ML solution auto-injector Inject 0.75 mg under the skin 1 (one) time per week. 2 mL 11 5 Active insulin glargine (Lantus SoloStar) 100 UNIT/ML penIndications:D iabetes 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, with long-term current use of insulin (CMS/HCC) inject 40 units by Subcutaneous route every evening 15 mL 1 5 Active Active Problems Problem Noted Date [...] agonist treatments Urologist is Dr Choi at [facility] Continue q 3 month followup Assessment & Plan (11/10/2022 9:17 AM EDT): Mgmt per HPI Urologist is Dr Choi at [facility] Continue q 3 month [...] Encounters Date Type Department Care Team Description 11/25/[address] [facility] [address] [place] [address] Urszula Sue MD Pre-visit Planning ([facility] unable to reach [facility] ) 10/28/2024 Travel 10/09/2024 Travel 10/08/2024 Telephone [facility] [address] [place] [phone] Kendy Madsen PharmD Prior Authorization ([facility], Gwen [facility]) 10/08/2024 Orders Only [facility] [address] [place] [phone] Urszula Sue MD 10/07/2024 Travel 09/17/2024 Refill [facility] [address] [place] [address] Kendy Madsen PharmD Diabetes 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, with long-term current use of insulin ([facility]) (Primary Dx) 09/08/2024 Telephone [facility] [place] [address] Corrie Bhatia, RN Results 09/04/2024 2:30 PM EDT Office Visit [facility] [address] [place] [phone] Urszula Sue MD Chronic pain of both knees (Primary Dx); Diabetes 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, with long-term current use of insulin ([facility]); Essential hypertension 09/04/2024 Travel 09/03/2024 Telephone [facility] [address] [place] [phone] Urszula Sue MD chart prep 08/31/2024 Patient Outreach [address] [address] Urszula Sue MD Care Coordination ([facility] outreach for SDOH housing search-referral completed ) 08/31/2024 Patient Outreach [address] [address] Urszula Sue MD Pre-visit Planning (SDOH screening positive and Tobacco screening negative) from Last 3 Months Immunizations Immunization Administration Dates Next Due Hep B, adult 03/28/2017, 7,04/01/2014,11/20 Influenza High-dose Quadriva lent Preservative Free 02/13/2021,01/29/2020 Influenza injectable quadriv alent IIV4 with preservative 03/28/2017,01/24/2015 Influenza injectable quadriv alent preservative free 01/28/2019,06/09/2018 Influenza, IIV3, injectable 04/01/2014, 0 Moderna Covid-19 Vaccine 6+ Bivalent 05/04/2022 Pneumococcal Conjugate PCV 13 09/05/2016 Pneumococcal Polysaccharide PPSV23 06/09/2018, TD (adult), 2 Lf tetanus tox oid, preservative free, adsorbed 10/27/1996 Tdap 10/28/2024,03/20/2010 Social History Tobacco Use Types Packs/Day Years [...] with others, in a hotel, in a correction, living outside on the street, on a [...] Sign Reading Time Taken Comments Blood Pressure 142/72 10/28/2024 3:13 PM EDT Pulse 70 10/07/2024 2:30 PM EDT Temperature 35.4 C (95.7 F) 09/04/2024 2:22 PM EDT Respiratory Rate 20 09/04/2024 2:22 PM EDT Oxygen Saturation 97% 09/04/2024 2:22 PM EDT Inhaled Oxygen Concentration - - Weight 88.6 kg (195 lb 6 oz) 09/04/2024 2:22 PM EDT Height 162.6 cm (5' 4 ) 09/04/2024 2:22 PM EDT Body Mass Index 33.54 09/04/2024 2:22 PM EDT Plan of Treatment Upcoming Encounters Date Type Department Care Team (Late st Contact Info) Description 12/02/2024 3:00 PM EDT Office Visit [facility] [address] [place] [address] Urszula Sue MD [address] [place] [address] 01/05/2025 1:00 PM EDT Medication Management [facility] [address] [place] [address] Kendy Madsen, PharmD [address] [place] [address] Health Maintenance Due Date Last Done Comments CT Colonography 1948 FIT DNA/Cologuard 1950 FIT 1950 FOBT 1950 Sigmoidoscopy 1950 Diabetes: Foot Exam 1958 Alcohol/Substance Use Screening 1960 Zoster Vaccines (1 of 2) 1998 RSV Patients and Patients Aged 60 years or older (1 - 1-dose 75+ series) 12/17/2023 COVID-19 Vaccine ( season) 2023 05/04/2022, 09/29/2021, 04/20/2021, Additional history exists Depression Screening 10/13/2024 10/14/2023, 10/14/19 24 Influenza Vaccine (#1) 2024 , 01/29/2020, 01/28/2019, Additional history exists Diabetes: Hemoglobin A1C 01/28/2025 [address]70[address] 025, 07/29/2024, 03/20/2024, Additional history exists Diabetes: Urine Protein Screening 07/29/2025 07/29/2024, 10/28/2023, 02/13/2021 Lipid Panel 07/29/2025 07/29/2024, 07/0 04/2023, 02/10/2021 SDOH Screening 08/31/2025 08/31/2024 Tobacco Screening 09/08/2025 09/08/2024 Eye Exam 02/20/2026 02/21/2024 Colonoscopy 11/23/2026 11/23/2016 Colorectal Cancer Screening 11/23/2026 DTaP/Tdap/Td Vaccines (3 - Td or Tdap) 10/28/2034 10/28/2024, 03/20/2010, 10/27/1996 Hepatitis B Vaccines Completed 03/28/2017, 09/05/2016, 04/01/2014, [...] patient's age to complete this topic Meningococcal B Vaccine Aged Out No l onger eligible based on patient's age to complete [...] Name Priority Date/Time Associated Diagnosis Comments POCT GLYCATED HEMOGLOBIN, TOTAL Routine 10/28/2024 3:17 PM EDT Diabetes 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, with long-term current use of insulin ([facility]) VITAMIN B12 Routine 10/08/2024 6:19 AM EDT BASIC METABOLIC PANEL Routine 10/08/2024 6:19 AM EDT XR KNEE 3 VIEWS BILATERAL Routine 09/04/2024 2:56 PM EDT Chronic pain of both knees POCT GLUCOSE Routine 09/04/2024 2:24 PM EDT Diabetes 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, with long-term current use of insulin ([facility]) US ABDOMEN COMPLETE Routine 09/04/2024 8 :45 AM EDT Right upper quadrant abdominal pain LIPID PANEL, STANDARD Routine 07/29/2024 6:17 AM EDT Diabetes 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, with long-term current use of insulin (CMS/HCC) ALBUMIN, RANDOM URINE W/CREATININE Routine 07/29/2024 6:15 AM EDT Diabetes 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, with long-term current use of insulin (CMS/HCC) HEPATITIS C AB W/REFL TO HCV RNA, QN, PCR Routine 10/28/2023 3:39 PM EDT Diabetes mellitus without complication (CMS/HCC) HM COLONOSCOPY Routine 11/23/2016 3:19 PM EDT from Last 3 Months or Most Recently Relevant to Health Maintenance Results * (ABNORMAL) POCT HGB A1C (10/28/2024 3:17 PM EDT) Hemoglobin A1C 10.4(A) 4.0 - 5.7 % Blood 10/28/2024 3:17 PM EDT Urszula Sue MD POINT OF CARE TEST ENTER/EDIT ORDERABLES Final Result * Vitamin B12 (10/08/2024 6:19 AM EDT) Vitamin B12 240 200 - 900 pg/mL [facility] Comment:NORMAL 200-900 PG/ML INDETERMINATE 160-199 PG/ML DEFICIENT < 160 PG/ML 10/08/2024 6:19 AM EDT 10/08/2024 6:19 AM EDT us Urszula Sue MD LAB BLOOD ORDERABLES Final Res ult [facility] [address] [place] [phone] * (ABNORMAL) Basic Metabolic Panel (10/08/2024 6:19 AM EDT) Sodium 140 135 - 145 mmol/L [facility] Potassium 4.3 3.3 - 5.1 mmol/L [facility] Chloride 105 96 - 108 mmol/L [facility] Carbon Dioxide 26 22 - 29 mmol/L [facility] Anion Gap 13 12 - 20 [facility] Urea Nitrogen (BUN) 19(H) 9 - 16 mg/dL [facility] Creatinine, Serum 0.80 0.5 - 1.4 mg/dL [facility] Estimated Glomerular Filt Rate >60 [facility] Comment:Chronic Kidney Disea se: Estimated GFR < 60 mL/min/1.71h2Yeobct Kidney Disease: Estimated GFR < 15 mL/min/1.73m2 Glucose 185(H) 60 - 115 mg/dL [facility] Calcium 9.7 8.4 - 10.2 mg/dL [facility] 10/08/2024 6:19 AM EDT 10/08/2024 6:19 AM EDT us Urszula Sue MD LAB BLOOD ORDERABLES Final Res ult Performing Organization Address City/State/[facility] Co de Phone Number [facility] [address] [place] [phone] * XR Knee 3 Views Bilateral (09/04/2024 2:56 PM EDT) Anatomical Region Laterality Modality Lower Extremities, Knee Bilateral Radiogra phic Imaging 09/04/2024 2:56 PM EDT Narrative 09/04/2024 3:57 PM EDT [address] [address] XRay Report Signed Patient: Toro Lu MR#: [id number] : 1950 Acct:[id number] Age/Sex: 73 / M ADM Date: 09/04/24 Loc: HO.HHCX Attending Dr: Urszula Sue MD Ordering Physician: Urszula Sue Date of Service: 09/04/24 Procedure(s): XR Knee Donald 3V Accession Number(s): [id number] cc: Urszula Sue XR KNEE DONALD 3V HISTORY: Chronic pain of both knees. COMPARISON: None. TECHNIQUE: AP view bilateral knees standing, AP view bilateral knees tunnel, and lateral views of both knees. FINDINGS: RIGHT KNEE: No fracture, dislocation, or suspicious bone lesion. Diffuse chondrocalcinosis in the medial and lateral compartments. Severe arthritis medial compartment with ghal-gx-[id number] appearance, subchondral sclerosis, cystic changes, and marginally projecting spurs. Moderate arthritis in the lateral and patellofemoral compartments. No evidence of joint effusion. Soft tissues otherwise appear normal. There are vascular calcifications. LEFT KNEE: No fracture, dislocation, or suspicious bone lesion. Diffuse chondrocalcinosis in the medial and lateral compartments. Moderate to severe arthritis in the medial compartment with marginal and projecting osteophytes. Moderate changes in the medial lateral and patellofemoral compartments. There is a small to moderate sized suprapatellar joint effusion. Soft tissues otherwise appear normal. There are vascular calcifications. XR/XR Knee Donald 3V IMPRESSION: RIGHT KNEE: 1. No acute bony abnormalities. 2. Diffuse chondrocalcinosis suggesting CPPD. 3. Tricompartmental arthritis, severe in the medial compartment. LEFT KNEE: 1. No acute bony abnormalities. 2. Diffuse chondrocalcinosis suggesting CPPD. 3. Small to moderate size joint effusion. 4. Tricompartmental arthritis, moderate to severe in the medial compartment. Electronically signed by: Javi Redd MD 09/04/2024 03:54 PM EDT Dictated By: Javi Redd MD Signed By: <Electronically signed by Javi Redd MD in OV> 09/04/24 1554 DD/ 1456 TD/TT: 09/04/24 1500 Software Clerk: Procedure Note Donotuseinterpreter, Image - 09/04/[address] [address] XRay Report Signed Patient: Toro LuMR#: [id number] : 9Acct:[id number] Age/Sex: 73 / MADM Date: 09/04/24 [facility] Dr: Urszula Sue MD Ordering Physician: Urszula Sue Date of Service: 09/04/24 Procedure(s): XR Knee Donald 3V Accession Number(s): [id number] cc: Urszula Sue XR KNEE DONALD 3V HISTORY: Chronic pain of both knees. COMPARISON: None. TECHNIQUE: AP view bilateral knees standing, AP view bilateral knees tunnel, and lateral views of both knees. FINDINGS: RIGHT KNEE: No fracture, dislocation, or suspicious bone lesion. Diffuse chondrocalcinosis in the medial and lateral compartments. Severe arthritis medial compartment with fagm-rh-mzpa appearance, subchondral sclerosis, cystic changes, and marginally projecting spurs. Moderate arthritis in the lateral and patellofemoral compartments. No evidence of joint effusion. Soft tissues otherwise appear normal. There are vascular calcifications. LEFT KNEE: No fracture, dislocation, or suspicious bone lesion. Diffuse chondrocalcinosis in the medial and lateral compartments. Moderate to severe arthritis in the medial compartment with marginal and projecting osteophytes. Moderate changes in the medial lateral and patellofemoral compartments. There is a small to moderate sized suprapatellar joint effusion. Soft tissues otherwise appear normal. There are vascular calcifications. XR/XR Knee Donald 3V IMPRESSION: RIGHT KNEE: 1. No acute bony abnormalities. 2. Diffuse chondrocalcinosis suggesting CPPD. 3. Tricompartmental arthritis, severe in the medial compartment. LEFT KNEE: 1. No acute bony abnormalities. 2. Diffuse chondrocalcinosis suggesting CPPD. 3. Small to moderate size joint effusion. 4. Tricompartmental arthritis, moderate to severe in the medial compartment. Electronically signed by: Javi Redd MD 09/04/2024 03:54 PM EDT Dictated By: Javi Redd MD Signed By: <Electronically signed by Javi Redd MD in OV> 09/04/24 1554 DD/ 1456 TD/TT: 09/04/24 1500 Software Clerk: Urszula Sue MD IMG XR PROCEDURES Final Result * (ABNORMAL) POCT Glucose (09/04/2024 2:24 PM [...] AM EDT Narrative 09/04/2024 8:46 AM EDT [place] [address] Ultrasound Report Signed Patient: Toro Lu MR#: [id number] : 1950 Acct:[id number] Age/Sex: 73 / M ADM Date: 09/03/24 Loc: HO.US Attending Dr: Urszula Sue MD Ordering Physician: Urszula Sue Date of Service: 09/03/24 Procedure(s): US abdomen complete Accession Number(s): [id number] cc: Urszula Sue CLINICAL HISTORY: RUQ pain [...] in OV> 09/04/24844 DD/ 4 TD/TT: 09/04/24844 Software Clerk: Procedure Note Donotuseinterpreter, Image - 09/04/2024 [place] [address] Ultrasound Report Signed Patient: Manny Lu#: [id number] : 9Acct:[id number] Age/Sex: 73 / MADM Date: 09/03/24 Loc: HO.US Attending Dr: Urszula Sue MD Ordering Physician: Urszula Sue Date of Service: 09/03/24 Procedure(s): US abdomen complete Accession Number(s): [id number] cc: Urszula Sue CLINICAL HISTORY: RUQ pain [...] in OV> 09/04/24844 DD/ 4 TD/TT: 09/04/24844 Software Clerk: us Urszula Sue MD IMG US PROCEDURES Final Result * (ABNORMAL) Lipid Panel, Standard (07/29/2024 6:17 AM EDT) Triglycerides 171(H) <150 mg/dL [facility] Comment:Desirable Triglyceri de: less than 150 mg/dLBorderline High Triglyceride 150-199 mg/dLHigh Triglyceride: 200-499 mg/dLVery High Triglyceride: greater than or equal to 5OO mg/dL Cholesterol 170 <200 mg/dL [facility] Comment:Desirable Cholestero l: less than 200 mg/dLBorderline High Cholesterol: 200-239 mg/dLHigh Cholesterol: greater than 239 mg/dL LDL Cholesterol Calculated 79 <100 mg/dL [facility] Comment:Desirable LDL: less than 100 mg/dLNear Optimal/Above Optimal LDL: 110- 129 mg/dLBorderline High LDL: 130-159 mg/dLHigh LDL: 160-189 mg/dLVery High LDL: greater than or equal to 190 mg/dL HDL Cholesterol 57 >40 mg/dL [facility] Comment:Desirable HDL: grea ter than 40 mg/dL Note: This HDL assay may give artificially low results in patients with liver disease. Blood Venous blood specimen / Unknown 07/29/2024 6:17 AM EDT 07/29/2024 6:17 AM EDT Urszula Sue MD LAB BLOOD ORDERABLES Final Res ult [facility] [address] [place] [phone] * (ABNORMAL) Albumin, Random Urine W/Creatinine (07/29/2024 6:15 AM EDT) Creatinine, Urine 147.38 mg/dL [facility] Microalbumin Urine 62.0 mg/L H [facility] Microalbum Creatinine Ratio Ur 42.0(H) <30 ug/mg cr [facility] Comment:Albumin/Creatinine R atio Reference Ranges: Normal: < 30 ug/mg creatinine Microalbuminuria: 30 - 300 ug/mg creatinineClinical Albuminuria: > 300 ug/mg creatinine Urine (Urine, Random) 07/29/2024 6:15 AM EDT 07/29/2024 7:44 AM EDT Urszula Sue MD LAB URINE ORDERABLES Final Res ult Performing Organization Address [facility] Co de Phone Number [facility] [address] [place] [phone] * Hepatitis C Antibody with Reflex to HCV, RNA, Quantitative, Real-Time PCR (10/28/2023 3:39 PM EDT) Hepatitis C Antibody Nonreactive Nonreactive [facility] Comment:Antibodies to HCV no t detected; does not exclude early acuteHCV infection. Blood Venous blood specimen / Unknown 10/28/2023 3:39 PM EDT 10/28/2023 3:39 PM EDT Urszula Sue MD LAB BLOOD ORDERABLES Final Res ult Performing Organization Address [facility] Co de Phone Number [facility] [address] [place] [phone] * Hm Colonoscopy (11/23/2016 3:19 PM EDT) Historical Provider HEALTH MAINTENANCE Final Result from Last 3 Months or Most Recently Relevant to Health Maintenance Insurance [facility] [employer] (HMO D-SNP) Care Teams Ramp Service Man Relationship Specialty Start Date End Date Urszula Sue MD [address] [place] [address] PCP - General Family Medicine 11/21/20 Kendy Madsen PharmD [address] [place], [place] Pharmacist Internal Medicine 10/07/24
[2024-12-01 09:16] LABS: Anion Gap 12 (12-20); Blood Urea Nitrogen 18 mg/dL (9-16); Calcium 9.2 mg/dL (8.4-10.2); Carbon Dioxide 26 mmol/L (22-29); Chloride 107 mmol/L (96-108); Estimated Glomerular Filt Rate > 60; Potassium 4.2 mmol/L (3.3-5.1); Sodium 141 mmol/L (135-145)
[2024-12-01 09:29] LABS: Prostate Specific Antigen < 0.10 ng/mL (<0.05-4.0)
[2024-12-01 09:37] LABS: Vitamin B12 304 pg/mL (200-900)
== END 2024-12-01 07:58 | disposition home or self-care (01) ==
LOC: HO.LAB 07:57
PROVIDERS: PCP General Practice; Visit Provider Urology
DX: C61 Malignant neoplasm of prostate (principal); R97.21 Rising PSA following treatment for malignant neoplasm of prostate; E08.65 Diabetes 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; S81.801A Unspecified open wound, right lower leg, initial encounter; I70.1 Atherosclerosis of renal artery; I10 Essential (primary) hypertension; T14.8XXD Other injury of unspecified body region, subsequent encounter; Z79.4 Long term (current) use of insulin
CPT/HCPCS: 36415; 73590; 80048; 82607; 84153; 84403

== ENCOUNTER → 2024-12-01 14:20 | Outpatient (BNV) | payer OTHER, SELFPAY | PROVIDERS: PCP General Practice; Visit Provider Radiology Diagnostic Radiology | DX: M79.604 Pain in right leg (principal) | CPT/HCPCS: 73590 ==

== ENCOUNTER 2024-12-01 16:54 | Outpatient (REF) | payer OTHER, SELFPAY | END 2024-12-01 16:55 | disposition home or self-care (01) | LOC: HO.HHCLNP 16:54 | PROVIDERS: Visit Provider Nurse Practitioner Primary Care | DX: S81.801D Unspecified open wound, right lower leg, subsequent encounter (principal) | CPT/HCPCS: 87070; 87077; 87186; 87205 ==

== ENCOUNTER 2024-12-11 15:03 | Outpatient (AMB) | payer MEDICARE, SELFPAY ==
--- NOTE | 2024-12-11 15:04 | A.OFFVIS_ITS ---
Intake Visit Reasons: 4m/labs Intake Note: Patient is present for 4m/psa/testo Urology Medication:tamsulosin,finasteride, Antibiotic Allergy:none Blood Thinner:aspirin Labs done : 12/01/2024 PSA <0.10, Total testosterone :[address] Required: Yes Accompanied by: Self / Same As Patient Allergies lisinopril (LISINOPRIL) Allergy (Unknown, Verified 12/11/24 15:06) ANGIOEDEMA, edema HPI Comments Details: Toro is a pleasant male. He is a patient of Dr. Noel. he is seen for the following urologic conditions - prostate cancer - bladder outlet obstruction [place] translation provided by qualified pediatric medical assistant 4m f/u office Lab work stable May stop finasteride Continue tamsulosin 12/21 <0.1 T 12 08/21 <0.1, T 7 05/23 PSA <0.1, T 14, GnRH 01/20 PSA <0.1, T 13 10/20 PSA 0.2 T 6 - GNRH given, continue finasteride Completed external beam radiation therapy with Dr. Genoveva Khan - 7800 Gy 32 fractions 06/22 follow-up from [facility] placement - Maximum androgen blockade during radiation 04/20 - PET-CT - enhancement of prostate and single node 12/19 P 0.4, T 7 MRI shows disease localized prostate Discussed possible definitive treatment with radiation Prostate cancer group 5 - primary therapy hormonal - had good response with localization on Imaging and underwent external beam radiation Diagnosed 07/[address] Che Presenting PSA 150 Initial biopsy [place] 8 and 9 disease Staging bone scan 07/18 rib fractures but no evidence of metastatic disease Imaging - 07/19 MRI pelvis disease localized to prostate - 08/18 DEXA osteopenia Current PSA 11/15 <0.1, 07/17 0.45, 10/17 .6 T 8, 01/17 0.7 T 24, 04/18 1.4 T 10, 08/18 1.47 T 6, 11/17 0.1 <1, 02/17 <0.1 T <1, 05/21 <0.1 T , 08/19 0.2 7 Adjuvant therapy calcium and vitamin-D 3 08/18 GnRH given, anti androgen started 03/20 GnRH given, antiandrogen held Bladder outlet obstruction Ongoing urgency, hesitancy Good response to tamsulosin Cystoscopy 08/18 prostatic regrowth left side [facility] Medical History Uncontrolled hypertension 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 H/O urinary retention Benign prostatic hyperplasia with lower urinary tract symptoms Renal artery stenosis Pure hypercholesterolemia Type 2 diabetes mellitus without complication, without long-term current use of insulin HTN (hypertension) with goal to be determined Nonrheumatic aortic (valve) stenosis Surgical History History of prostate biopsy Social History Alcohol intake: former Patient Tobacco Use Status: Never used Tobacco Review of Systems Const Denies chills and Denies fever(s) Card Reports no additional complaints and Denies syncope Resp Denies cough GI Denies abdominal pain and Denies heartburn Reports as per HPI and Denies change in libido Neuro Denies syncope Psych Denies change in libido Endo Denies change in libido Physical Exam Const General: cooperative, healthy appearing, comfortable and no acute distress Orientation/consciousness: patient oriented x3 HEENT Face and sinus: Yes normal facial exam Mouth: moist mucous membranes Neck Neck: Yes normal visual inspection, Yes full ROM and Yes trachea midline Chest Chest palpation & inspection: normal inspection of the chest Resp Effort & Inspection: normal respiratory effort, able to speak in complete sentences and no respiratory distress GI Inspection: Yes normal to inspection Back/Spine/Pelvis Cervical Spine: normal cervical lordosis Thoracic/Lumbar Spine: thoracic and lumbar spine normal to inspection Skin General skin exam: no rashes or lesions noted Neuro General: patient oriented x3, gait normal, tone normal and moves all extremities Extrem General: Yes normal to inspection and Yes capillary refill normal Assessment & Plan Assessment & Plan (1) Prostate cancer: Comment: High-grade initial treatment hormonal Code(s): C61 - Malignant neoplasm of prostate Category: Medical Plan Four month follow-up lab work office Orders: Orders Testosterone, Total 4 Months C61 - Malignant neoplasm of prostate Prostate Specific Antigen 4 Months C61 - Malignant neoplasm of prostate Medications: Discontinued finasteride Discontinued Reason: Doctor's Order 5 mg PO DAILY 90 days 90 tabs 1RF C61 - Malignant neoplasm of prostate, N32.0 - Bladder-neck obstruction Patient Instructions: This note is constructed using voice recognition software. While every effort has been made to ensure accuracy senior staff specialized employment errors may have been included. Imaging studies, laboratory and physical exam results were discussed and reviewed in detail. No major barriers to patient understanding were identified. An opportunity to ask questions regarding the treatment plan was provided. All questions were answered. The patient expressed understanding and agreement with the above treatment plan. The patient is aware they should contact our office by phone for worsening of their current condition or the appearance of new urologic symptoms. Compliance is encouraged with any medications and followup testing that is ordered. It is a privilege to participate in the urologic care of your patient. If you have any questions or concerns regarding treatment for the above conditions, or other urologic issues, please do not hesitate to contact me. The office telephone contact is [phone]. Sincerely, Dr Ga Choi MD, [facility] - Urology Compassionate Specialist Care for the Genitourinary System Coding Level of Care Code Est Pt Level 3 (14910) Complex EM visit Add On G2211 Diagnoses Prostate cancer C61
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
== END 2024-12-11 15:41 | disposition home or self-care (01) ==
LOC: HO.HUSH 15:03
PROVIDERS: PCP General Practice; Visit Provider Urology
DX: C61 Malignant neoplasm of prostate (principal)
CPT/HCPCS: 99213; G2211

== ENCOUNTER → 2024-12-11 15:03 | Outpatient (BNVA) | payer OTHER, SELFPAY | PROVIDERS: PCP General Practice; Visit Provider Urology | DX: C61 Malignant neoplasm of prostate (principal); N32.0 Bladder-neck obstruction | CPT/HCPCS: 99212 ==

== ENCOUNTER 2024-12-25 14:15 | Emergency (ER) | payer OTHER, SELFPAY ==
--- NOTE | ~2024-12-25 | XR_ITS ---
EXAMINATION: XR CHEST 2 VIEWS HISTORY: pain COMPARISON: Comparison is made with the prior examination dated 06/24/2021. FINDINGS: AP and lateral views of the chest are submitted. Multiple pads overlie the left lung. There are small bilateral pleural effusions. There is mild prominence of the pulmonary vasculature, suggestive of congestion. There is no pneumothorax. The heart is enlarged. There is degenerative disc disease of the spine. XR/XR chest 2V IMPRESSION: Cardiomegaly, mild pulmonary vascular congestion, and small bilateral pleural effusions. Electronically signed by: Trae Heredia MD 12/25/2024 03:52 PM EDT
[2024-12-25 14:32] VITALS: BP 175/121; PULSE 45; RESP 16; TEMP 36.8; O2SAT 95; BMI 33.1
--- NOTE | 2024-12-25 14:32 | ED.GENADULT ---
HPI - General Adult General Chief complaint: Dyspnea Stated complaint: sob Time Seen by Provider: 12/25/24 14:42 Source: patient, family, old records reviewed and hospice clinical marketer Mode of arrival: ambulatory Limitations: no limitations History of Present Illness ED Provider: HARI MELENDEZ narrative: 74 yo male with PMH of prostate cancer, osteoporosis, HTN, HLD - takes labetalol who notes 1 month of CASTILLO, leg edema, some orthopnea and feeling really tired. He notes any activity he starts to feel short of breath like he is choking. He denies weight loss, sputum, fevers. He did report chest pain in triage but to me he states he has not had any chest pain just dyspnea. He went to urgent care they noted bradycardia. He has had normal BPs at home but states he doesn't check his HR. On arrival he was found to be in complete HB with BP 170s and asymptomatic laying flat. Cardiology notified and consulted on patient in ED. MD complaint: CASTILLO Onset (ago): month(s) (1) Radiation: non-radiation Severity: moderate Relieving factors: none Exacerbating factors: movement Associated symptoms: shortness of breath Treatments prior to arrival: none Related Data Home Medications ?Medication ?Instructions ?Recorded ?Confirmed metformin 1,000 mg tablet 1,000 mg PO 08/11/21 01/24/24 glipizide 10 mg tablet, extended 10 mg PO QAM 11/29/21 01/24/24 release 24 hr Previous Rx's ?Medication ?Instructions ?Recorded calcium carbonate (Calcium 500) 500 mg PO BID Prostate cancer 90 05/09/21 days #180 tabs labetalol 100 mg tablet 100 mg PO BID #60 tabs 06/26/23 amlodipine 10 mg tablet 10 mg PO DAILY #90 tabs 08/09/23 atorvastatin 40 mg tablet 40 mg PO BEDTIME #90 tabs 08/09/23 spironolactone 50 mg tablet 50 mg PO DAILY #90 tabs 08/09/23 aspirin 81 mg tablet,delayed 81 mg PO DAILY #90 tabs 08/30/23 release tamsulosin 0.4 mg capsule 0.4 mg PO BEDTIME #90 caps 10/08/24 Allergies Allergy/AdvReac Type Severity Reaction Status Date / Time lisinopril (LISINOPRIL) Allergy Unknown ANGIOEDEMA, Verified 12/25/24 14:38 edema Review of Systems Review of Systems: Constitutional : No Fever, No Chills, pos fatigue ENT/Mouth : No sore throat, No Rhinorrhea, No Swallowing Difficulty Eyes: No Eye Pain, No Swelling, No Redness Cardiovascular : No Chest Pain, positive SOB, pos Orthopnea, positive Edema Respiratory : No Cough, No Sputum, No Wheezing, positive dyspnea Gastrointestinal : No Nausea, No Vomiting, No Diarrhea, No abdominal Pain, No Hematochezia, No Melena Genitourinary : No Dysuria, No Urinary Frequency, No Hematuria Musculoskeletal : No joint pain, No Myalgias Skin : No Skin Lesions, No rash Neuro : No Weakness, No Numbness, No Dizziness, No Headache All other systems reviewed and are negative PMFSH Past Medical History Attestation statement: The following information was validated with the patient. 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 H/O urinary retention Benign prostatic hyperplasia with lower urinary tract symptoms Renal artery stenosis Pure hypercholesterolemia Type 2 diabetes mellitus without complication, without long-term current use of insulin HTN (hypertension) with goal to be determined Nonrheumatic aortic (valve) stenosis Surgical History History of prostate biopsy Social History Social History Alcohol intake: current Alcohol intake frequency: a few times a week Patient Tobacco Use Status: Never used Tobacco Smoked in Last 30 Days: No Use of substances other than those prescribed or required for medical reasons: No Advance Directives: No Advance Directives Information Provided: Yes Physical Exam ED Vital Signs: Vital Signs - 24 hr 12/25/24 14:32 12/25/24 15:10 12/25/24 15:10 Temperature 98.2 F Pulse Rate 45 L 44 L Pulse Rate [Monitor] 44 L Respiratory Rate 16 18 Blood Pressure 175/121 H 155/75 H Pulse Oximetry 95 95 Oxygen Delivery Method Room Air Room Air BMI result Body Mass Index 33.1 Appearance: Alert. Oriented X3. No acute distress. Eyes: Pupils equal, round and reactive to light. ENT: Pharynx normal. Neck: Normal inspection. Neck supple. CVS:bradycardic heart rate and rhythm. Pulses normal. Respiratory: No respiratory distress. Breath sounds rales both bases Abdomen: Soft and nontender. Skin: Skin warm and dry. Normal skin color. Normal skin turgor. Extremities: 1+ symmetric lower extremity edema. Neuro: Oriented X 3. No motor deficit. No sensory deficit. Course Course Course Narrative: RME, this is a rapid medical exam performed by Emanuel Boudreaux please refer to primary provider for complete H&P- 74 year old male presents for evaluation of dyspnea on exertion for 3 months but worsening over the last few days. He has associated chest pain. Plan for labs, EKG, chest x-ray and viral swabs Medical Decision Making Medical Decision Making MDM Narrative: 74 yo male with PMH of prostate cancer, osteoporosis, HTN, aortic stenosis, HLD - takes labetalol here with 1 month of CASTILLO, edema and feeling very tired. He denies chest pain. On arrival stable BPs and normal mentation but he is in complete heart block with rates in 40s. 2 IV lines, lyte check, trop check and consult to cardiology. He has pacer pads on but right now is maintaining well. Will discuss transfer for PPM - patient and grandson aware. Differential Diagnosis Differential Diagnoses: The differential diagnosis associated with the presentation includes heart block, CHF, acs seems less likely, anemia Admission/Observation Consideration of admission/observation: Escalation of care including admission/observation considered transfer to [facility] for PPM Dr. Malcolm faciliated the transfer - Dr. Mccoy Consult Healthcare Provider Management of the patient was discussed with: Rn Eligibility Dr. Malcolm at bedside will call EP at [facility] Lab Data [facility] Lab Attestation statement: I reviewed the patient's lab results. 12/25/24 14:57 12/25/24 14:57 Labs: Lab Results 12/25/24 Range/Units 14:57 WBC 4.2 L (4.8-10.8) X10*3/uL RBC 3.90 L (4.60-5.80) X10*6/uL Hgb 12.4 L (14.0-18.0) g/dl Hct 36.4 L (42.0-52.0) % MCV 93.3 (80.0-98.0) fL MCH 31.8 (27.0-33.0) pg MCHC 34.1 (31.0-36.0) g/dl RDW 14.6 (11.0-16.0) % Plt Count 178 (160-400) X10*3/uL MPV 11.4 (9.4-12.4) fL Immature Gran % (Auto) 0.2 (0.0-0.4) % Neut % (Auto) 71.3 (45-73) % Lymph % (Auto) 13.8 L (20-40) % [place] % (Auto) 11.9 H (2-11) % Eos % (Auto) 2.6 (0-4) % Baso % (Auto) 0.2 (0-2) % Lymph # (Auto) 0.6 L (1.2-4.9) X10*3/uL [place] # (Auto) 0.5 (0.1-1.2) X10*3/uL Eos # (Auto) 0.1 (0.0-0.4) X10*3/uL Baso # (Auto) 0.0 (0.0-0.2) X10*3/uL Abs Immat Gran (auto) 0.01 (0.00-0.03) X10*3/uL Absolute Neuts (auto) 3.0 (2.0-8.3) x10*3/uL Absolute Nucleated RBC 0.000 (0.0-0.012) X10*3/uL Nucleated RBC % (auto) 0.0 (0.0-0.2) /100WBC Sodium 142 (135-145) mmol/L Potassium 4.0 (3.3-5.1) mmol/L Chloride 111 H (96-108) mmol/L Carbon Dioxide 23 (22-29) mmol/L Anion Gap 12 (12-20) BUN 16 (9-16) mg/dL Creatinine 1.02 (0.5-1.4) mg/dL Estim Creat Clear Calc 61.4 Estimated GFR > 60 Random Glucose 173 H (60-115) mg/dL Calcium 9.0 (8.4-10.2) mg/dL Total Bilirubin 0.8 (0.0-1.0) mg/dL AST 30 (5-37) U/L ALT 70 H (0-40) U/L Alkaline Phosphatase 78 (39-117) U/L Troponin I High Sens 19.9 (<3.5-35.0) ng/L B-Natriuretic Peptide 819 H (<100) pg/mL Total Protein 6.9 (6.5-8.0) g/dL Albumin 3.9 (3.5-5.0) g/dL Lipase 18 (8-78) U/L COVID-19 (ESTRADA) Negative (Negative) COVID-19 Clin Com See Note Independent Interpretation I performed an independent interpretation of an: EKG and Plain X-Ray Interpretation: Rate: 44 Rhythm: 3rd degree heart block [place]: left RBBB. ST T wave : no MEDINA, nonspecific ST T wave changes anterior leads qTC: 388 prior studies: changed The study has been interpreted contemporaneously by me. FINDINGS: AP and lateral views of the chest are submitted. Multiple pads overlie the left lung. There are small bilateral pleural effusions. There is mild prominence of the pulmonary vasculature, suggestive of congestion. There is no pneumothorax. The heart is enlarged. There is degenerative disc disease of the spine. XR/XR chest 2V IMPRESSION: Cardiomegaly, mild pulmonary vascular congestion, and small bilateral pleural effusions. Radiology Impression Discussion of test interpretation with radiology: I have reviewed the radiologist's reading. Independent Historian Clinical information obtained from an independent historian. History obtained from or confirmed by: Other External Record Review External record reviewed: Outpatient record 2023 ECHO Transthoracic Echocardiogram Patient (Last, First, Middle): Toro Lu, Gender: Male Date of : 1950 Age: 72 Procedure Date: 07/30/2023 Procedure Type: Transthoracic Echocardiogram Location: OP Height: 162.56 cm Weight: 81.65 kg BSA: 1.87 m2 Heart Rate: bpm BP: 124 / 70 mmHg [place]: Referring MD: Sergio Carreno MD Care Assistant: Sergio Carreno MD Symptoms: R06.02 - Shortness of breath Study Quality: Adequate ECG Rhythm: Sinus Conclusions: - 1. Normal LV ejection fraction 55-60% with mild LVH 2. Mild aortic regurgitation 3. Mildly dilated ascending aorta 3.7 cm 4. No gross pericardial effusion Findings Left Ventricle Normal left ventricular size and systolic function. There is mildly increased left ventricular wall thickness. The visually estimated ejection fraction is between 55-60%. Spectral Doppler is indicative of a normal filling pattern. Right Ventricle Normal right ventricular cavity size and systolic function. Atria The left atrium is likely dilated. There is no evidence of interatrial shunt. The right atrium is normal in size. Aortic Valve Normal aortic valve structure and function. There is no aortic valve stenosis. There is no aortic valve regurgitation. Mitral Valve Normal mitral valve structure and function. There is trace mitral valve regurgitation. There is no mitral valve stenosis. Pulmonic Valve The pulmonic valve is likely normal. There is trace pulmonic valve regurgitation. Tricuspid Valve Normal tricuspid valve structure. Tricuspid regurgitation envelope is inadequate for calculation of right ventricular systolic pressure. Normal right atrial pressure. Great Vessels The pulmonary artery was not well visualized. There is mild dilatation of the ascending aorta measuring 3.70 cm. Venous The inferior vena cava is normal in size and collapses greater than 50% with inspiration. Pericardium/Pleural There is no evidence of pericardial effusion. Prior Study Comparison No significant change compared to prior study dated: 03/16/2019. Critical Care Time Critical Care Time Critical Care Time: Yes Total Critical Care Time: 45 Attestation: Time is exclusive of separately billable procedures. Time includes: direct patient care, patient reassessment, coordination of patient care, interpretation of data (laboratory data, pulse oximetry, chest xrays), review of patient's medical records, medical consultation and documentation of patient care. Procedures excluded from critical care time: central intravenous line placement and electrocardiography. I attest to this time spent taking care of the patient Discharge Plan Discharge Clinical Impression: AV heart block Congestive heart failure Qualifiers: Heart failure type: unspecified Heart failure chronicity: acute Qualified Code(s): I50.9 - Heart failure, unspecified Patient Disposition: [facility] Transfer Details: [facility] Prescriptions: No Action tamsulosin 0.4 mg capsule 0.4 mg PO BEDTIME Qty: 90 3RF calcium carbonate [Calcium 500] 500 mg calcium (1,250 mg) tablet,chewable 500 mg PO BID 90 Days Qty: 180 1RF metformin 1,000 mg tablet 1,000 mg PO glipizide 10 mg tablet extended release 24hr 10 mg PO QAM labetalol 100 mg tablet 100 mg PO BID Qty: 60 3RF spironolactone 50 mg tablet 50 mg PO DAILY Qty: 90 1RF amlodipine 10 mg tablet 10 mg PO DAILY Qty: 90 1RF atorvastatin 40 mg tablet 40 mg PO BEDTIME Qty: 90 1RF aspirin 81 mg tablet,delayed release (DR/EC) 81 mg PO DAILY Qty: 90 1RF Print Language: Jordanian
--- NOTE | 2024-12-25 14:33 | ECG_ITS ---
Test Reason : SOB Blood Pressure : */* mmHG Vent. Rate : 44 BPM Atrial Rate : 81 BPM P-R Int : * ms QRS Dur : 128 ms QT Int : 454 ms P-R-T Axes : * -19 -52 degrees QTcB Int : 388 ms Complete heart block Abnormal ECG When compared with ECG of 28-Oct-2008 10:20, Significant changes have occurred Referred By: Boaz Boudreaux Electronically Signed By: TERRI ARELLANO
[2024-12-25 15:03] LABS: MANUAL DIFF FLAG NO
[2024-12-25 15:06] LABS: Hematocrit 36.4 % (42.0-52.0); Hemoglobin 12.4 g/dl (14.0-18.0); Imm Gran Abs Auto 0.01 X10*3/uL (0.00-0.03); Imm Gran Pct Auto 0.2 % (0.0-0.4); Lymphocytes Absolute Auto 0.6 X10*3/uL (1.2-4.9); Mean Corpuscular HGB Conc 34.1 g/dl (31.0-36.0); Mean Corpuscular Hemoglobin 31.8 pg (27.0-33.0); Mean Corpuscular Volume 93.3 fL (80.0-98.0); NRBC Abs Auto 0.000 X10*3/uL (0.0-0.012); NRBC Pct Auto 0.0 /100WBC (0.0-0.2); Platelet Count 178 X10*3/uL (160-400); Red Blood Count 3.90 X10*6/uL (4.60-5.80); White Blood Count 4.2 X10*3/uL (4.8-10.8)
[2024-12-25 15:10] VITALS: BP 155/75; PULSE 44; RESP 18; O2SAT 95
--- NOTE | 2024-12-25 15:17 | PC.NURSE ---
Pt is alert and oriented, luxembourgish speaking only. Pt reports dizziness and SOB intermittently x 1 month. Feeling of near syncopal over that time as well. Denies dizziness at this time but does state SOB persist and worse with exertion. Denies CP. 3rd degree block on tele with HR 40s. Family at bedside. LS clear, breathing is even/unlabored. Skin is pwd. 18g to b/l forearms placed, pacer pads in place for precaution. ?transport to [facility] for pacer placement.
--- NOTE | 2024-12-25 15:19 | PM.CNCAR ---
History of Present Illness History of Present Illness Date of Service: 12/25/24 Chief complaint: sob Narrative: This is a cardiology consultation regarding complete heart block. Discussed with patient as well as grandson using translator/interpreter. Essentially, it seems that he has not been feeling well for the last month or so. Apparently, he has been getting short of breath with activity. No clear-cut anginal-type chest pains. He has been getting dizzy and has had sensations as if he is going to pass out. However, no clear true syncopal episodes. He was seen in the ER today and that shows complete heart block and hence we are consulted. Patient was seen by nurse practitioner last year. At that time, per notes she had an abnormal stress test showing mild ischemia in the left circumflex territory and distal LAD territory. She was arranging a coronary CTA but not clear if that was actually done. Review of Systems Review of Systems: Yes all other systems are reviewed and are negative Constitutional: Constitutional: Reports as per HPI and Reports no additional constitutional complaints Eyes: Eyes: Reports as per HPI and Denies no additional eye complaints ENT: Denies system reviewed and no additional complaints, except as documented and Reports as per HPI Cardiovascular: Cardiovascular: Reports as per HPI, Reports no additional cardiovascular complaints, Denies acrocyanosis, Denies cool extremities, Denies chest pain, Denies leg edema, Denies lightheadedness, Denies palpitations and Denies dyspnea Respiratory: Respiratory: Reports as per HPI, Denies no additional respiratory complaints and Denies dyspnea Gastrointestinal: Gastrointestinal: Reports as per HPI and Denies no additional gastrointestinal complaints Genitourinary: Genitourinary: Reports no additional male genitourinary complaints and Reports as per HPI Musculoskeletal: Musculoskeletal: Reports no additional musculoskeletal complaints and Reports as per HPI Integumentary/Breasts: Skin/Breast: Reports system reviewed and no additional complaints, except as docu Neurologic: Reports system reviewed and no additional complaints, except as documented and Reports as per HPI Psychiatric: Psychiatric: Reports no additional psychiatric complaints and Reports as per HPI Endocrine: Endocrine: Reports no additional endocrine complaints, Reports as per HPI and Denies palpitations Hematologic/Lymphatic: Hematologic/Lymphatic: Reports no additional hematologic/lymphatic complaints and Reports as per HPI Allergic/Immunologic: Allergic/Immunologic: Reports no additional allergic/immunologic complaints and Reports as per HPI [facility] Past Medical History Medical History Uncontrolled hypertension 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 H/O urinary retention Benign prostatic hyperplasia with lower urinary tract symptoms Renal artery stenosis Pure hypercholesterolemia Type 2 diabetes mellitus without complication, without long-term current use of insulin HTN (hypertension) with goal to be determined Nonrheumatic aortic (valve) stenosis Family History Pertinent family history: No pertinent family history Surgical History Surgical History History of prostate biopsy Social History Social History Alcohol intake: current Alcohol intake frequency: a few times a week Patient Tobacco Use Status: Never used Tobacco Meds Allergies Allergy/AdvReac Type Severity Reaction Status Date / Time lisinopril (LISINOPRIL) Allergy Unknown ANGIOEDEMA, Verified 12/25/24 14:38 edema Home Medications ?Medication ?Instructions ?Recorded ?Confirmed ?Last Taken ?Type metformin 1,000 mg tablet 1,000 mg PO 08/11/21 01/24/24 Unknown History glipizide 10 mg tablet, extended 10 mg PO QAM 11/29/21 01/24/24 Unknown History release 24 hr Physical Exam Vital Signs: Vital Signs: Last Vital Signs Temp 98.2 F 12/25/24 14:32 Pulse 44 L 12/25/24 15:10 Resp 18 12/25/24 15:10 BP 155/75 H 12/25/24 15:10 Pulse Ox 95 12/25/24 15:10 O2 Del Method Room Air 12/25/24 15:10 BMI result Body Mass Index 33.1 Const: General: comfortable and no acute distress Orientation/consciousness: patient oriented x3 HEENT: Other: Unremarkable Head: Yes normal to inspection Neck: Neck: Yes normal visual inspection Chest: Chest palpation & inspection: normal inspection of the chest Resp: Auscultation: clear to auscultation bilaterally Cardio: Palpation: normal PMI Heart sounds: S1 normal heart sound present, S2 normal heart sound present, no gallops, no murmurs and no rubs GI: Palpation (GI): Soft to palpation Back/Spine/Pelvis: Other: unremarkable Skin: General skin exam: no rashes or lesions noted Neuro: General: patient oriented x3 Extrem: General: Yes normal to inspection Psych: Mental Status: mental status grossly normal Objective Labs and Meds 12/25/24 14:57 12/25/24 14:57 Lab results: Laboratory Results - last 24 hr 12/25/24 14:57 WBC 4.2 L RBC 3.90 L Hgb 12.4 L Hct 36.4 L MCV 93.3 MCH 31.8 MCHC 34.1 RDW 14.6 Plt Count 178 MPV 11.4 Immature Gran % (Auto) 0.2 Neut % (Auto) 71.3 Lymph % (Auto) 13.8 L [place] % (Auto) 11.9 H Eos % (Auto) 2.6 Baso % (Auto) 0.2 Lymph # (Auto) 0.6 L [place] # (Auto) 0.5 Eos # (Auto) 0.1 Baso # (Auto) 0.0 Abs Immat Gran (auto) 0.01 Absolute Neuts (auto) 3.0 Absolute Nucleated RBC 0.000 Nucleated RBC % (auto) 0.0 ECG Interpretation: EKG with sinus rhythm and complete heart block, ventricular rate of 44/Min. Underlying right bundle-branch block. Assessment and Plan (1) Complete heart block: Status: Acute (2) Primary hypertension: Status: Acute Plan High sensitivity troponin within range. Cardiac BNP is elevated at 819. Potassium 1.02. Echocardiogram from 2023-LVEF 55-60%. Mild left ventricular hypertrophy. Mild aortic regurgitation. Ascending aortic size 3.7 cm. Overall, shortness of breath for the last month with dizziness/presyncope, complete heart block on EKGs/telemetry. On review of home medications, he is on a small dose of labetalol, 100 mg b.i.d. but that would not be causing the complete heart block. He still needs a permanent pacemaker. Message sent to EP at [facility], Dr. Mccoy. Also contacted transfer center/hospitalist. We can keep him in the ER for now and once he gets a bed at [facility], can transfer. With regard to blood pressure, he probably has longstanding blood pressure issues but could be worse because of the complete heart block. We can give him the amlodipine and spironolactone but hold off on the labetalol. Discussed with family at the bedside. Discussed using translator/interpreter. Procedures Date of Service Date of Service: 12/25/24
[2024-12-25 15:24] LABS: Alanine Aminotransferase 70 U/L (0-40); Albumin Level 3.9 g/dL (3.5-5.0); Alkaline Phosphatase 78 U/L (39-117); Anion Gap 12 (12-20); Aspartate Amino Transferase 30 U/L (5-37); Blood Urea Nitrogen 16 mg/dL (9-16); Calcium 9.0 mg/dL (8.4-10.2); Carbon Dioxide 23 mmol/L (22-29); Chloride 111 mmol/L (96-108); Creatinine Clr Calc Pharmacy 61.4; Estimated Glomerular Filt Rate > 60; Lipase 18 U/L (8-78); Potassium 4.0 mmol/L (3.3-5.1); Sodium 142 mmol/L (135-145); Total Protein 6.9 g/dL (6.5-8.0)
[2024-12-25 15:28] LABS: B Type Natriuretic Peptide 819 pg/mL (<100); Troponin-I High Sensitivity 19.9 ng/L (<3.5-35.0)
--- OUTSIDE RECORDS SUMMARY | 2024-12-25 15:30 | XMS_ITS | Encounter Summary ---
Author Organization [employer] Address [address] [facility] [address] [place] [address] Care Team Providers Care Public Health Professor Name Role Phone Urszula Sue MD Primary Care Provider [phone] Kendy Madsen PharmD Unavailable [phone] Encounter Details Date Type Department Care Team (Late Contact Info) Description 10/31/2022 Orders Only [facility] [address], [place] [phone] Gregoria Mitchell LPN Social History Tobacco Use [...] Department Care Team (Late Contact Info) Description 01/05/2025 1:00 PM EDT Medication Management [facility] [address] [place] [address] Kendy Madsen, PharmD [address] [place] [address] documented as of this encounter Visit Diagnoses Not on filedocumented in this encounter Care Teams Public Health Professor Relationship Specialty Start Date End Date Urszula Sue MD [address] [place] [address] PCP - General Family Medicine 11/21/20 Kendy Madsen, Ryley [address] [place] [address] [phone] Pharmacist Internal Medicine 10/07/24 documented as of this encounter
--- OUTSIDE RECORDS SUMMARY | 2024-12-25 15:30 | XMS_ITS | Encounter Summary ---
Author Organization [employer] Address [address] [facility] [address] [place] [address] Care Team Providers Care Arranging Funeral Director Name Role Phone Urszula Sue MD Primary Care Provider [phone] Kendy Madsen PharmD Unavailable [phone] Reason for Visit * Reason Onset Date Comments In person triage 12/25/2024 Encounter Details Date Type Department Care Team ([facility] Contact Info) Description 12/25/2024 Telephone [facility] [address] [place] [address] Belia Le MD [address] [place], [place] [phone] In person triage Social History Tobacco Use Types Packs/Day Years [...] with others, in a hotel, in a fdc, living outside on the street, on a [...] encounter Miscellaneous Notes * Telephone Encounter - Sobeida Ricks RN - 12/25/2024 1:34 PM EDT Patient presents to walk in center with complain of feeling dizzy,and complaining [place] [address], O2 95 on room air and pt found to be adolph cardic pulse btween 40-44. EKG obtained which was abnormal pt does had Dx of RBB pt advised that 911 would be called fro transport to hospital pt states he doesn't want to leave his car downtown and he will drive. The severity of his condition was including possible pt states he will documented in this encounter Plan of Treatment Upcoming Encounters Date Type Department Care Team (Late st Contact Info) Description 01/05/2025 1:00 PM EDT Medication Management [facility] [address] [place] [address] Kendy Madsen, PharmD [address] [place], [place] [phone] documented as of this encounter Visit Diagnoses Not on filedocumented in this encounter Additional Health Concerns Assessment Noted Time PHQ-9 Depression Total Score: 0 12/03/19 25 3:44 PM EDT documented as of this encounter Care Teams Arranging Funeral Director Relationship Specialty Start Date End Date Urszula Sue MD [address] [place], [place] [phone] PCP - General Family Medicine 11/21/20 Kendy Madsen PharmD [address] [place], [place] [phone] Pharmacist Internal Medicine 10/07/24 documented as of this encounter
--- OUTSIDE RECORDS SUMMARY | 2024-12-25 15:30 | XMS_ITS | Encounter Summary ---
Author Organization [employer] Address [address] [place] [address] 7[address] [place] [address] Care Team Providers Care Tin Pot Operator Name Role Phone Urszula Sue MD Primary Care Provider [phone] Kendy Madsen PharmD Unavailable [phone] Encounter Details Date Type Department Care Team (Late st Contact Info) Description 08/16/2022 Orders Only [facility] [address] [place] [phone] Barbara Cerna LPN Social History Tobacco Use [...] Description 01/05/2025 1:00 PM EDT Medication Management [facility] [address] [place] [phone] PuiaHomeroKendy, PharmD [address] [place] [address] documented as of this encounter Visit Diagnoses Not on filedocumented in this encounter Care Teams Tin Pot Operator Relationship Specialty Start Date End Date Urszula Sue MD [address] [place] [phone] PCP - General Family Medicine 11/21/20 Puia Kendy, PharmD [address] [place] [phone] Pharmacist Internal Medicine 10/07/24 documented as of this encounter
--- OUTSIDE RECORDS SUMMARY | 2024-12-25 15:30 | XMS_ITS | Clinical Summary ---
Author Organization [employer] Address [address] [facility] 7t [place] [address] Care Team Providers Care Latex Ribbon Machine Operator Name Role Phone Urszula Sue MD Primary Care Provider [phone] Kendy Madsen PharmD Unavailable [phone] Allergies Active Allergy Reactions Criticality Noted Date Comments Lisinopril Angioedema 06/06/2017 Medications metFORMIN (Glucophage) 1000 MG tabletIndicatio ns:Diabetes 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, with long-term current use of insulin ([facility]) Take 1 tablet (1,000 mg) by mouth with breakfast and with evening meal. 180 tablet 3 024 Active labetalol (Normodyne) 100 MG tabletIndicatio ns:Essential hypertension Take 1 tablet (100 mg) by mouth 2 times daily. 180 tablet 3 024 Active spironolactone (Aldactone) 50 MG tabletIndicatio ns:Essential hypertension Take 1 tablet (50 mg) by mouth Once per day. 90 tablet 3 024 Active albuterol 108 (90 Base) MCG/ACT inhaler Inhale 2 puffs every 4 (four) hours if needed for wheezing. 18 g 11 024 2024 Active chlorthalidone (Hygroton) 25 MG tabletIndicatio ns:Essential hypertension Take 1 tablet (25 mg) by mouth Once per day. 90 tablet 3 024 2024 Active Blood Pressure Monitoring (Omron 3 Series BP Monitor) device USE TO CHECK BLOOD PRESSURE ONCE DAILY 1 HOUR AFTER MEDICATIONS FOR BLOOD PRESSURE AND NEEDED SYMPTOMS 025 Active amLODIPine (Norvasc) 10 MG tabletIndicatio ns:Essential hypertension Take 1 tablet (10 mg) by mouth Once per day. 90 tablet 3 Active atorvastatin (Lipitor) 40 MG tabletIndicatio ns:Diabetes 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, with long-term current use of insulin ([facility]) Take 1 tablet (40 mg) by mouth at bedtime. 90 tablet 3 Active finasteride (Proscar) 5 MG tablet Take 1 tablet (5 mg) by mouth Once per day. 90 tablet 3 Active insulin pen needle 32G x 4 mm miscIndications :Diabetes 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, with long-term current use of insulin ([facility]) Use to inject insulin 1 times daily 100 each Active TRUEplus Lancets 33G miscIndications :Diabetes 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, with long-term current use of insulin ([facility]) Use to test blood sugar 2 time(s) daily 100 each Active Continuous Glucose Heel Boom Operator (FreeStyle Gwen 3 [place]) deviceIndicatio ns:Diabetes 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, with long-term current use of insulin ([facility]) 1 each Once per day. Use as directed for CGM 1 each 025 Active Continuous Glucose Sensor (FreeStyle Gwen 3 Plus Sensor) miscIndications :Diabetes 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, with long-term current use of insulin ([facility]) 1 each every 15 days. Apply 1 every 15 days as directed for CGM 2 each Active glucose blood (FreeStyle Precision Tay Test) test stripIndication s:Diabetes 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, with long-term current use of insulin ([facility]) Use to test blood sugar 2 times daily in case of CGM failure or extremes of BG 50 each 025 2025 Active Calcium Citrate-Vitamin D (Calcium Citrate+D3 Petites) 200-6.25 MG-MCG tablet Take 1 tablet by mouth in the morning and 1 tablet in the evening. OTC. Active tamsulosin (Flomax) 0.4 MG 24 hr capsule Take 0.4 mg by mouth Once per day. Active Dulaglutide (Trulicity) 0.75 MG/0.5ML solution auto-injector Inject 0.75 mg under the skin 1 (one) time per week. 2 mL 11 025 Active insulin glargine (Lantus SoloStar) 100 UNIT/ML penIndications: Diabetes 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, with long-term current use of insulin ([facility]) inject 40 units by Subcutaneous route every evening 15 mL 1 025 Active cefadroxil (Duricef) 500 MG capsuleIndicati ons:Open wound of right lower leg, initial encounter Take 1 capsule (500 mg) by mouth 2 times daily. 10 capsule 025 Active glipiZIDE XL (Glucotrol XL) 5 MG 24 hr tablet Take 1 tablet (5 mg) by mouth Once per day. Do not crush, chew, or split. 90 tablet 3 025 2025 Active naproxen sodium (Aleve) 220 MG tablet TAKE 1 TABLET BY MOUTH TWICE DAILY IN THE MORNING AND AT BEDTIME NEEDED FOR MILD PAIN (PAIN OF KNEE) 60 tablet 1 025 Active glipiZIDE XL (Glucotrol XL) 10 MG 24 hr tabletIndicatio ns:Diabetes 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, with long-term current use of insulin ([facility]) Take 1 tablet (10 mg) by mouth with breakfast. Do not crush, chew, or split. 90 tablet 3 024 2024 Discontinued(D ose adjustment) naproxen sodium (Aleve) 220 MG tablet Take 1 tablet (220 mg) by mouth if needed in the morning and at bedtime for mild pain (knee pain). 60 tablet 1 025 2024 Discontinued Active Problems Problem Noted Date Diagnosed Date [...] agonist treatments Urologist is Dr Choi at [facility] Continue q 3 month followup Assessment & Plan (11/10/2022 9:17 AM EDT): Mgmt per [facility] Urologist is Dr Choi at [facility] Continue q 3 month followup Vitamin D [...] Encounters Date Type Department Care Team Description 12/25/2024 Orders Only GENERIC EXTERNAL DATA DEPARTMENT Provider, Generic External Data 12/25/2024 Travel 12/25/2024 Telephone [facility] [address] [place] [phone] Belia Le MD In person triage 12/20/[address] [address] Urszula Sue MD 12/10/2024 Results Follow-Up [address] [address] Silviano Cunha ANP Gram Stain Result 12/02/2024 3:00 PM EDT Office Visit [address] [address] Urszula Sue MD Diabetes 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, with long-term current use of insulin ([facility]) (Primary Dx); Essential hypertension; Right bundle branch block; Adenocarcinoma of prostate (CMS/HCC); Non-healing wound of lower extremity, sequela 12/02/2024 Travel 12/01/2024 2:00 PM EDT Office Visit [facility] [address] [address] Silviano Cunha ANP Delayed wound healing (Primary Dx); Diabetes 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, with long-term current use of insulin (CMS/[facility]); Open wound of right lower leg, initial encounter; Bilateral leg edema 12/01/2024 Results Follow-Up [facility] [address] [place] [phone] Silviano Cunha ANP XR Tibia Fibula 2 Views Right 12/01/2024 Travel 12/01/2024 Orders Only [address] [address] Urszula Sue MD 12/01/[address] [address] Urszula Sue MD chart prep 11/25/2024 Patient Outreach [facility] [address] [place], [place] [phone] Urszula Sue MD Pre-visit Planning ([facility] unable to reach [facility] ) 10/28/2024 Travel 10/09/2024 Travel 10/08/2024 Telephone [facility] [address] [facility] [place] [address] Kendy Madsen, ClD Prior Authorization (CGM, Gwen 3) 10/08/2024 Orders Only [facility] [address] [place] [address] Urszula Sue MD 10/07/2024 Travel from Last 3 Months Immunizations Immunization Administration [...] with others, in a hotel, in a half-way, living outside on the street, on a [...] Description 01/05/2025 1:00 PM EDT Medication Management [facility] [address] [place] [address] Kendy Madsen, PharmD [address] [place] [address] Health Maintenance Due Date Last Done Comments Diabetes: Foot Exam 1960 Zoster Vaccines (1 [...] Screening 12/02/2025 12/02/2024 Eye Exam 02/20/2026 02/21/2024 DTaP/Tdap/Td Vaccines (3 - Td or Tdap) 10/28/2034 10/28/2024, 03/20/2010, 10/27/1996 Colonoscopy Discontinued 11/23/2016 Colorectal Cancer Screening Discontinued Hepatitis B Vaccines Completed 03/28/2017, 09/05/2016, 04/01/2014, Additional history exists Pneumococcal Vaccine: 50+ Years Completed 06/09/2018, 09/05/2016, 07/03/2010 Hepatitis C Screening Completed 10/28/2023 CT Colonography Discontinued FIT DNA/Cologuard Discontinued FIT Discontinued FOBT Discontinued HIB Vaccines Aged Out No longer eligi [...] on patient's age to complete this topic Sigmoidoscopy Discontinued Procedures Procedure Name Priority Date/Time Associated Diagnosis Comments B TYPE NATRIURETIC PEPTIDE (BNP) Routine 12/25/2024 2:57 PM EDT HIGH SENSITIVITY TROPONIN I Routine 12/25/2024 2:57 PM EDT LIPASE Routine 12/25/2024 2:57 PM EDT COMPREHENSIVE METABOLIC PANEL Routine 12/25/2024 2:57 PM EDT CBC WITH AUTO DIFFERENTIAL Routine 12/25/2024 2:57 PM EDT POCT GLUCOSE Routine 12/02/2024 3:45 PM EDT Diabetes 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, with long-term current use of insulin ([facility]) GRAM STAIN RESULT (NON ORDERABLE) Routine 12/01/2024 [...] with long-term current use of insulin (CMS/HCC) VITAMIN B12 Routine 10/08/2024 6:19 AM EDT [...] Recently Relevant to Health Maintenance Results * High Sensitivity Troponin I (12/25/2024 2:57 PM EDT) TROPONIN I HIGH SENSITIVITY 19.9 <3.5 - 35.0 ng/L LABS Comment:The [place] high sens itivity Troponin-I results should beused in conjunction with other diagnostic information suchas ECG, clinical observations and information, and patientsymptoms to aid in the diagnosis of AK. 12/25/2024 2:57 PM EDT 12/25/2024 3:01 PM EDT us Generic External Data Provider LAB BLOOD ORDERAB LES Final Result LABS [address] [place] [phone] * (ABNORMAL) CBC auto differential (12/25/2024 2:57 PM EDT) White Blood Count 4.2(L) 4.8 - 10.8 X10*3/uL LABS Red Blood Count 3.90(L) 4.60 - 5.80 X10*6/uL LABS Hemoglobin 12.4(L) 14.0 - 18.0 g/dl LABS Hematocrit 36.4(L) 42.0 - 52.0 % LABS Mean Corpuscular Volume 93.3 80.0 - 98.0 fL LABS Mean Corpuscular Hemoglobin 31.8 27.0 - 33.0 pg LABS Mean Corpuscular HGB Conc 34.1 31.0 - 36.0 g/dl LABS Red Cell Distribution Width 14.6 11.0 - 16.0 % LABS Platelet Count 178 160 - 400 X10*3/uL LABS Mean Platelet Volume 11.4 9.4 - 12.4 fL LABS Neutrophils Percent Auto 71.3 45 - 73 % LABS Imm Gran Pct Auto 0.2 0.0 - 0.4 % LABS Lymphocytes Percent Auto 13.8(L) 20 - 40 % LABS Monocytes Percent Auto 11.9(H) 2 - 11 % LABS Eosinophils Percent Auto 2.6 0 - 4 % LABS Basophils Percent Auto 0.2 0 - 2 % LABS NRBC Pct Auto 0.0 0.0 - 0.2 /100WBC LABS Neutrophils Absolute Auto 3.0 2.0 - 8.3 x10*3/uL LABS Imm Gran Abs Auto 0.01 0.00 - 0.03 X10*3/uL LABS Lymphocytes Absolute Auto 0.6(L) 1.2 - 4.9 X10*3/uL LABS Monocytes Absolute Auto 0.5 0.1 - 1.2 X10*3/uL LABS Eosinophils Absolute Auto 0.1 0.0 - 0.4 X10*3/uL LABS Basophils Absolute Auto 0.0 0.0 - 0.2 X10*3/uL LABS NRBC Abs Auto 0.000 0.0 - 0.012 X10*3/uL LABS 12/25/2024 2:57 PM EDT 12/25/2024 3:01 PM EDT us Generic External Data Provider LAB BLOOD ORDERAB LES Final Result Performing Organization Address [facility]/ZIP Co de Phone Number LABS [address] [place] [phone] * (ABNORMAL) B Type Natriuretic Peptide (BNP) (12/25/2024 2:57 PM EDT) B Type Natriuretic Peptide 819(H) <100 pg/mL LABS 12/25/2024 2:57 PM EDT 12/25/2024 3:01 PM EDT us Generic External Data Provider LAB BLOOD ORDERAB LES Final Result Performing Organization Address [facility] Co de Phone Number LABS [address] [place] [phone] * Lipase (12/25/2024 2:57 PM EDT) Lipase 18 8 - 78 U/L [facility] LABS 12/25/2024 2:57 PM EDT 12/25/2024 3:01 PM EDT us Generic External Data Provider LAB BLOOD ORDERAB LES Final Result Performing Organization Address [facility] Co de Phone Number LABS [address] [place] [phone] * (ABNORMAL) Comprehensive Metabolic Panel (12/25/2024 2:57 PM EDT) Sodium 142 135 - 145 mmol/L LABS Potassium 4.0 3.3 - 5.1 mmol/L LABS Chloride 111(H) 96 - 108 mmol/L LABS Carbon Dioxide 23 22 - 29 mmol/L LABS Anion Gap 12 12 - 20 LABS Urea Nitrogen (BUN) 16 9 - 16 mg/dL LABS Creatinine, Serum 1.02 0.5 - 1.4 mg/dL LABS Creatinine Clr Calc Pharmacy 61.4 LABS Comment:eGFR (calculated fro m the MDRD study equation) and eCrCl(calculated from the Cockcroft-Gault equation) are based ondifferent parameters and may not yield comparable results.If eCrCl result is absurd, please check patient'sheight/weight. Estimated Glomerular Filt Rate >60 LABS Comment:Chronic Kidney Disea se: Estimated GFR < 60 mL/min/1.37s3Orkstn Kidney Disease: Estimated GFR < 15 mL/min/1.73m2 Glucose 173(H) 60 - 115 mg/dL LABS Calcium 9.0 8.4 - 10.2 mg/dL LABS Bilirubin, Total 0.8 0.0 - 1.0 mg/dL LABS Aspartate Amino Transferase 30 5 - 37 U/L LABS Alanine Aminotransferase 70(H) 0 - 40 U/L LABS Total Protein 6.9 6.5 - 8.0 g/dL LABS Albumin Level 3.9 3.5 - 5.0 g/dL LABS Alkaline Phosphatase 78 39 - 117 U/L LABS 12/25/2024 2:57 PM EDT 12/25/2024 3:01 PM EDT us Generic External Data Provider LAB BLOOD ORDERAB LES Final Result LABS [address] [place] [phone] * POCT glucose manually resulted (12/02/2024 3:45 PM EDT) Glucose Blood, POC 145 60 - 200 mg/dL QC Media Lot # [id number] Lot# Expiration Date ,559,870 Blood Capillary blood specimen / Unknown 12/02/2024 3:45 PM EDT Urszula Sue MD POINT OF CARE TEST ENTER/EDIT ORDERABLES Final Result * Gram Stain Result (12/01/2024 2:12 PM EDT) 12/01/2024 2:12 PM EDT 12/01/2024 4:55 PM EDT Comment:Leg Rt Narrative LABS - 12/05/2024 7:43 AM EDT Gram [...] ANP HISTORICAL/NON ORDERABLE LABS Fi nal Result LABS [address] [place] [phone] * XR Tibia Fibula 2 Views Right (12/01/2024 1:49 PM EDT) Anatomical Region Laterality Modality Lower Extremities, Lower Leg Right Rad iographic Imaging 12/01/2024 1:49 PM EDT Narrative 12/01/2024 2:59 PM EDT [address] [address] XRay Report Signed Patient: Toro Lu MR#: [id number] : 1950 Acct:[id number] Age/Sex: 73 / M ADM Date: 12/01/24 Loc: HO.LAB Attending Dr: Ga Choi MD Ordering Physician: SILVIANO CUNHA NP Date of Service: 12/01/24 Procedure(s): XR tibia fibula RT 2V Accession Number(s): [id number] cc: Urszula Sue; SILVIANO CUNHA PELTS SKINNER EXAMINATION: XR TIBIA AND FIBULA, RIGHT CLINICAL [...] 12/01/24 1456 DD/ 1349 TD/TT: 12/01/24 1350 Professor Of Communication And Writing: Procedure Note Donotuseinterpreter, Image - 12/01/[address] [address] XRay Report Signed Patient: Toro LuMR#: [id number] : 1950cct:[id number] Age/Sex: 73 / MADM Date: 12/01/24 Loc: HO.LAB Attending Dr: Ga Choi MD Ordering Physician: SILVIANO CUNHA NP Date of Service: 12/01/24 Procedure(s): XR tibia fibula RT 2V Accession Number(s): [id number] cc: Urszula Sue; SILVIANO CUNHA PELTS SKINNER EXAMINATION: XR TIBIA AND FIBULA, RIGHT CLINICAL [...] 12/01/24 1456 DD/ 1349 TD/TT: 12/01/24 1350 Professor Of Communication And Writing: Silviano PINA IMSherrill XR PROCEDURES Edited Result - Final * (ABNORMAL) Testosterone, Total, males (Adult), IA (12/01/2024 8:10 AM EDT) [facility] Testosterone, Total 12(A) 250 - 1100 ng/dL LABS Comment:Men with clinically significant hypogonadalsymptoms and testosterone values repeatedly inthe range of the 200-300 ng/dL or less, maybenefit from testosterone treatment afteradequate risk and benefits counseling.For additional information, please refer [email or web address]/faq/[email or web address](This link is being provided for informational/educational purposes only.)This test was developed and its analytical performancecharacteristics have been determined by [employer] [place], [place]. It hasnot been cleared or approved by the U.S. Food and DrugAdministration. This assay has been validated pursuantto the CLIA regulations and is used for clinicalpurposes.THIS TEST WAS PERFORMED AT:[id number] [place] [address]CYLGLMGADITYA GONZALEZ MD,PHD 12/01/2024 8:10 AM EDT 12/01/2024 8:10 AM EDT Generic External Data Provider LAB BLOOD ORDERAB LES Final Result Performing Organization Address [facility] Co de Phone Number LABS [address] [place] [phone] * PSA,Total (12/01/2024 8:10 AM EDT) Prostate Specific Antigen <0.10 <0.05 - 4.0 ng/mL LABS Comment:PSA methodology: Abb sj Aligaboty i ChemiluminescentMicroparticle Immunoassay (CMIA) 12/01/2024 8:10 AM EDT 12/01/2024 8:10 AM EDT Generic External Data Provider LAB BLOOD ORDERAB LES Final Result Performing Organization Address [facility] de Phone Number LABS [address] [place] [phone] * Vitamin B12 (12/01/2024 8:10 AM EDT) Only the most recent of2 resultswithin the time period is included. Vitamin B12 304 200 - 900 pg/mL LABS Comment:NORMAL 200-900 PG/ML INDETERMINATE 160-199 PG/ML DEFICIENT < 160 PG/ML 12/01/2024 8:10 AM EDT 12/01/2024 8:10 AM EDT us Urszula Sue MD LAB BLOOD ORDERABLES Final Res ult Performing Organization Address [facility] Co de Phone Number LABS [address] [place] [phone] * (ABNORMAL) Basic Metabolic Panel (12/01/2024 8:10 AM EDT) Only the most recent of2 resultswithin the time period is included. Sodium 141 135 - 145 mmol/L LABS Potassium 4.2 3.3 - 5.1 mmol/L LABS Chloride 107 96 - 108 mmol/L LABS Carbon Dioxide 26 22 - 29 mmol/L LABS Anion Gap 12 12 - 20 LABS Urea Nitrogen (BUN) 18(H) 9 - 16 mg/dL LABS Creatinine, Serum 0.94 0.5 - 1.4 mg/dL LABS Estimated Glomerular Filt Rate >60 LABS Comment:Chronic Kidney Disea se: Estimated GFR < 60 mL/min/1.84r9Nvcepm Kidney Disease: Estimated GFR < 15 mL/min/1.73m2 Glucose 172(H) 60 - 115 mg/dL LABS Calcium 9.2 8.4 - 10.2 mg/dL LABS 12/01/2024 8:10 AM EDT 12/01/2024 8:10 AM EDT Urszula Sue MD LAB BLOOD ORDERABLES Final Res ult LABS [address] [place] [phone] * (ABNORMAL) POCT HGB A1C (10/28/2024 3:17 PM EDT) Hemoglobin A1C 10.4(A) 4.0 - 5.7 % Blood 10/28/2024 3:17 PM EDT Urszula Sue MD POINT OF CARE TEST ENTER/EDIT ORDERABLES Final Result * (ABNORMAL) Lipid Panel, Standard (07/29/2024 6:17 AM EDT) Triglycerides 171(H) <150 mg/dL [facility] LABS Comment:Desirable Triglyceri de: less than 150 mg/dLBorderline High Triglyceride 150-199 mg/dLHigh Triglyceride: 200-499 mg/dLVery High Triglyceride: greater than or equal to 5OO mg/dL Cholesterol 170 <200 mg/dL LABS Comment:Desirable Cholestero l: less than 200 mg/dLBorderline High Cholesterol: 200-239 mg/dLHigh Cholesterol: greater than 239 mg/dL LDL Cholesterol Calculated 79 <100 mg/dL LABS Comment:Desirable LDL: less than 100 mg/dLNear Optimal/Above Optimal LDL: 110- 129 mg/dLBorderline High LDL: 130-159 mg/dLHigh LDL: 160-189 mg/dLVery High LDL: greater than or equal to 190 mg/dL HDL Cholesterol 57 >40 mg/dL [facility] LABS Comment:Desirable HDL: great er than 40 mg/dL Note: This HDL assay may give artificially low results in patients with liver disease. Blood Venous blood specimen / Unknown 07/29/2024 6:17 AM EDT 07/29/2024 6:17 AM EDT us Urszula Sue MD LAB BLOOD ORDERABLES Final Res ult Performing Organization Address [facility] de Phone Number LABS [address] [place] [phone] * (ABNORMAL) Albumin, Random Urine W/Creatinine (07/29/2024 6:15 AM EDT) Creatinine, Urine 147.38 mg/dL [facility] LABS Microalbumin Urine 62.0 mg/L [facility] LABS Microalbum Creatinine Ratio Ur 42.0(H) <30 ug/mg cr LABS Comment:Albumin/Creatinine R atio Reference Ranges: Normal: < 30 ug/mg creatinine Microalbuminuria: 30 - 300 ug/mg creatinineClinical Albuminuria: > 300 ug/mg creatinine Urine (Urine, Random) 07/29/2024 6:15 AM EDT 07/29/2024 7:44 AM EDT Urszula Sue MD LAB URINE ORDERABLES Final Res ult Performing Organization Address [facility] Co de Phone Number LABS [address] [place] [phone] * Hepatitis C Antibody with Reflex to HCV, RNA, Quantitative, Real-Time PCR (10/28/2023 3:39 PM EDT) Hepatitis C Antibody Nonreactive Nonreactive LABS Comment:Antibodies to HCV no t detected; does not exclude early acuteHCV infection. Blood Venous blood specimen / Unknown 10/28/2023 3:39 PM EDT 10/28/2023 3:39 PM EDT Urszula Sue MD LAB BLOOD ORDERABLES Final Res ult LABS [address] [place] [phone] * Hm Colonoscopy (11/23/2016 3:19 PM EDT) Historical Provider HEALTH MAINTENANCE Final Result from Last 3 Months or Most Recently Relevant to Health Maintenance Insurance [facility] [employer] (HMO D-SNP) Care Teams Latex Ribbon Machine Operator Relationship Specialty Start Date End Date Urszula Sue MD [address] [place], [place] [phone] PCP - General Family Medicine 11/21/20 Kendy Madsen PharmD [address] [place], [place] [phone] Pharmacist Internal Medicine 10/07/24
--- OUTSIDE RECORDS SUMMARY | 2024-12-25 15:30 | XMS_ITS | Encounter Summary ---
Author Organization [employer] Address [address] 7[address] [place] [address] Care Team Providers Care Gas Scrubber Operator Name Role Phone Urszula Sue MD Primary Care Provider [phone] Kendy Madsen PharmD Unavailable [phone] Encounter Details Date Type Department Care Team (Late st Contact Info) Description 09/05/2023 Orders Only [facility] [address] [place] [address] ProviderMartha MD Social History Tobacco Use Types [...] Description 01/05/2025 1:00 PM EDT Medication Management [facility] [address] [place] [address] Kendy Madsen PharmD [address] [place] [address] documented as of this encounter Procedures Procedure Name Priority Date/Time Associated Diagnosis Comments HM COLONOSCOPY Routine 11/23/2016 3:19 PM EDT documented in this encounter Results * Hm Colonoscopy (11/23/2016 3:19 PM EDT) Historical Provider HEALTH MAINTENANCE Final Result documented in this encounter Visit Diagnoses Not on filedocumented in this encounter Care Teams Gas Scrubber Operator Relationship Specialty Start Date End Date Urszula Sue MD [address] [place] [phone] PCP - General Family Medicine 11/21/20 Kendy Madsen PharmD [address] [place] [phone] Pharmacist Internal Medicine 10/07/24 documented as of this encounter
--- OUTSIDE RECORDS SUMMARY | 2024-12-25 15:30 | XMS_ITS | Encounter Summary ---
Author Organization [employer] Address [address] [facility] 7t [place] [address] Care Team Providers Care Flame Hardening Machine Setter Name Role Phone Urszula Sue MD Primary Care Provider [phone] Kendy Madsen PharmD Unavailable [phone] Encounter Details Date Type Department Care Team (Latest Contact Info) Description 12/25/2024 Travel Social History Tobacco Use Types Packs/Day [...] with others, in a hotel, in a long term, living outside on the street, on a [...] the past 12 months, has t he [employer], [employer], oil or water [employer] threatened to shut off services in your [...] Description 01/05/2025 1:00 PM EDT Medication Management [facility] [address] [place] [address] Kendy Madsen PharmD [address] [place] [address] documented as of this encounter Visit Diagnoses Not on filedocumented in this encounter Additional Health Concerns Assessment Noted Time PHQ-9 Depression Total Score: 0 12/03/19 25 3:44 PM EDT documented as of this encounter Care Teams Flame Hardening Machine Setter Relationship Specialty Start Date End Date Urszula Sue MD [address] [place] [phone] PCP - General Family Medicine 11/21/20 Kendy Madsen, Ryley [address] [place] [phone] Pharmacist Internal Medicine 10/07/24 documented as of this encounter
--- OUTSIDE RECORDS SUMMARY | 2024-12-25 15:30 | XMS_ITS | Encounter Summary ---
Author Organization [employer] Address [address] [facility] 7t [place] [address] Care Team Providers Care Procurement Representative Name Role Phone Urszula Sue MD Primary Care Provider [phone] Kendy Madsen PharmD Unavailable [phone] Reason for Visit * Reason Comments Med Refill Encounter Details Date Type Department Care Team ([facility] st Contact Info) Description 12/20/2024 Refill [facility] [address] [place], [place] [phone] Urszula Sue MD [address] [place] [address] Social History Tobacco Use Types Packs/Day Years [...] Description 01/05/2025 1:00 PM EDT Medication Management [facility] [address] [place] [address] Kendy Madsen PharmD [address] [place] [address] documented as of this encounter Visit Diagnoses Not on filedocumented in this encounter Additional Health Concerns Assessment Noted Time PHQ-9 Depression Total Score: 0 12/03/19 25 3:44 PM EDT documented as of this encounter Care Teams Procurement Representative Relationship Specialty Start Date End Date Urszula Sue MD [address] [place] [phone] PCP - General Family Medicine 11/21/20 Kendy Madsen PharmD [address] [place] [address] [phone] Pharmacist Internal Medicine 10/07/24 documented as of this encounter
--- OUTSIDE RECORDS SUMMARY | 2024-12-25 15:30 | XMS_ITS | Encounter Summary ---
Author Organization [employer] Address [address] [facility] 7[address] [place] [address] Care Team Providers Care Clearance Representative Name Role Phone Urszula Sue MD Primary Care Provider [phone] Kendy Madsen PharmD Unavailable [phone] Encounter Details Date Type Department Care Team (Late st Contact Info) Description 12/25/2024 Orders Only GENERIC EXTERNAL DATA DEPARTMENT Provider, Generic External Data Social History Tobacco Use Types Packs/Day Years [...] Description 01/05/2025 1:00 PM EDT Medication Management [facility] [address] [place], [place] [phone] Kendy Madsen, PharmD [address] [place], [place] [phone] documented as of this encounter Procedures Procedure Name Priority Date/Time Associated Diagnosis Comments HIGH SENSITIVITY TROPONIN I Routine 12/25/2024 2:57 PM EDT CBC WITH AUTO DIFFERENTIAL Routine 12/25/2024 2:57 PM EDT B TYPE NATRIURETIC PEPTIDE (BNP) Routine 12/25/2024 2:57 PM EDT LIPASE Routine 12/25/2024 2:57 PM EDT COMPREHENSIVE METABOLIC PANEL Routine 12/25/2024 2:57 PM EDT documented in this encounter Results * (ABNORMAL) B Type Natriuretic Peptide (BNP) (12/25/2024 2:57 PM EDT) B Type Natriuretic Peptide 819(H) <100 pg/mL [facility] 12/25/2024 2:57 PM EDT 12/25/2024 3:01 PM EDT Generic External Data Provider LAB BLOOD ORDERAB LES Final Result Performing Organization Address [facility] de Phone Number [facility] [address] [place] [phone] * High Sensitivity Troponin I (12/25/2024 2:57 PM EDT) [facility] TROPONIN I HIGH SENSITIVITY 19.9 <3.5 - 35.0 ng/L [facility] Comment:The [place] high sens itivity Troponin-I results should beused in conjunction with other diagnostic information suchas ECG, clinical observations and information, and patientsymptoms to aid in the diagnosis of NE. 12/25/2024 2:57 PM EDT 12/25/2024 3:01 PM EDT Generic External Data Provider LAB BLOOD ORDERAB LES Final Result Performing Organization Address [facility] Phone Number [facility] [address] [place] [phone] * Lipase (12/25/2024 2:57 PM EDT) [facility] Lipase 18 8 - 78 U/L [facility] 12/25/2024 2:57 PM EDT 12/25/2024 3:01 PM EDT Generic External Data Provider LAB BLOOD ORDERAB LES Final Result Performing Organization Address [facility] de Phone Number [facility] [address] [place] [phone] * (ABNORMAL) Comprehensive Metabolic Panel (12/25/2024 2:57 PM EDT) [facility] Sodium 142 135 - 145 mmol/L [facility] Potassium 4.0 3.3 - 5.1 mmol/L [facility] Chloride 111(H) 96 - 108 mmol/L [facility] Carbon Dioxide 23 22 - 29 mmol/L [facility] Anion Gap 12 12 - 20 [facility] Urea Nitrogen (BUN) 16 9 - 16 mg/dL [facility] Creatinine, Serum 1.02 0.5 - 1.4 mg/dL [facility] Creatinine Clr Calc Pharmacy 61.4 [facility] Comment:eGFR (calculated fro m the MDRD study equation) and eCrCl(calculated from the Cockcroft-Gault equation) are based ondifferent parameters and may not yield comparable results.If eCrCl result is absurd, please check patient'sheight/weight. Estimated Glomerular Filt Rate >60 [facility] Comment:Chronic Kidney Disea se: Estimated GFR < 60 mL/min/[id number] Kidney Disease: Estimated GFR < 15 mL/min/1.73m2 Glucose 173(H) 60 - 115 mg/dL [facility] Calcium 9.0 8.4 - 10.2 mg/dL [facility] Bilirubin, Total 0.8 0.0 - 1.0 mg/dL [facility] Aspartate Amino Transferase 30 5 - 37 U/L [facility] Alanine Aminotransferase 70(H) 0 - 40 U/L [facility] Total Protein 6.9 6.5 - 8.0 g/dL [facility] Albumin Level 3.9 3.5 - 5.0 g/dL [facility] Alkaline Phosphatase 78 39 - 117 U/L [facility] 12/25/2024 2:57 PM EDT 12/25/2024 3:01 PM EDT us Generic External Data Provider LAB BLOOD ORDERAB LES Final Result [facility] [address] [place] [phone] * (ABNORMAL) CBC auto differential (12/25/2024 2:57 PM EDT) White Blood Count 4.2(L) 4.8 - 10.8 X10*3/uL [facility] Red Blood Count 3.90(L) 4.60 - 5.80 X10*6/uL [facility] Hemoglobin 12.4(L) 14.0 - 18.0 g/dl [facility] Hematocrit 36.4(L) 42.0 - 52.0 % [facility] Mean Corpuscular Volume 93.3 80.0 - 98.0 fL [facility] Mean Corpuscular Hemoglobin 31.8 27.0 - 33.0 pg [facility] Mean Corpuscular HGB Conc 34.1 31.0 - 36.0 g/dl [facility] Red Cell Distribution Width 14.6 11.0 - 16.0 % [facility] Platelet Count 178 160 - 400 X10*3/uL [facility] Mean Platelet Volume 11.4 9.4 - 12.4 fL [facility] Neutrophils Percent Auto 71.3 45 - 73 % [facility] Imm Gran Pct Auto 0.2 0.0 - 0.4 % [facility] Lymphocytes Percent Auto 13.8(L) 20 - 40 % [facility] Monocytes Percent Auto 11.9(H) 2 - 11 % [facility] Eosinophils Percent Auto 2.6 0 - 4 % [facility] Basophils Percent Auto 0.2 0 - 2 % [facility] NRBC Pct Auto 0.0 0.0 - 0.2 /100WBC [facility] Neutrophils Absolute Auto 3.0 2.0 - 8.3 x10*3/uL [facility] Imm Gran Abs Auto 0.01 0.00 - 0.03 X10*3/uL [facility] Lymphocytes Absolute Auto 0.6(L) 1.2 - 4.9 X10*3/uL [facility] Monocytes Absolute Auto 0.5 0.1 - 1.2 X10*3/uL [facility] Eosinophils Absolute Auto 0.1 0.0 - 0.4 X10*3/uL [facility] Basophils Absolute Auto 0.0 0.0 - 0.2 X10*3/uL [facility] NRBC Abs Auto 0.000 0.0 - 0.012 X10*3/uL [facility] 12/25/2024 2:57 PM EDT 12/25/2024 3:01 PM EDT us Generic External Data Provider LAB BLOOD ORDERAB LES Final Result [facility] [address] [place] [phone] documented in this encounter Visit Diagnoses Not on filedocumented in this encounter Additional Health Concerns Assessment Noted Time PHQ-9 Depression Total Score: 0 12/03/19 3:44 PM EDT documented as of this encounter Care Teams Clearance Representative Relationship Specialty Start Date End Date Urszula Sue MD [address] [place] [address] PCP - General Family Medicine 11/21/20 Kendy Madsen PharmD [address] [place] [address] Pharmacist Internal Medicine 10/07/24 documented as of this encounter
[2024-12-25 15:32] LABS: COVID-19 Test Negative (Negative); IDNOW Serial# 6674DD1D
[2024-12-25 16:05] LABS: IDNOW Serial# 55D5AD1C; Influenza B2 Negative (Negative)
[2024-12-25] MEDS: Furosemide 20 MG/2 ML VIAL IVPUSH (16:11)
[2024-12-25 16:12] VITALS: BP 172/71; PULSE 43; RESP 13; O2SAT 95
--- NOTE | 2024-12-25 17:33 | PC.NURSE ---
Report given to MEI Almanza on MM5 at [facility]. Awaiting transport.
[2024-12-25 17:48] LABS: Appearance Urine Clear; Glucose Urine UA Negative (Negative); PH 6.0 (5.0-9.0); Specific Gravity - Urine 1.010 (1.005-1.025)
[2024-12-25 18:08] VITALS: BP 172/71; PULSE 43; RESP 13; TEMP 36.8; O2SAT 95
== END 2024-12-25 18:10 | disposition short-term general hospital (02) ==
PROVIDERS: Physician Assistant; Emergency Provider Emergency Medicine; PCP General Practice
DX: I44.2 Atrioventricular block, complete (principal); I10 Essential (primary) hypertension; R06.00 Dyspnea, unspecified; Z79.899 Other long term (current) drug therapy; Z85.46 Personal history of malignant neoplasm of prostate; R07.9 Chest pain, unspecified
CPT/HCPCS: 36415; 71046; 80053; 81001; 83690; 83880; 84484; 85025; 87502; 87635; 93005; 96374; 99285; J1938

== ENCOUNTER → 2024-12-25 14:33 | Outpatient (BNV) | payer OTHER, SELFPAY | PROVIDERS: Emergency Provider Emergency Medicine; PCP General Practice; Visit Provider Radiology Diagnostic Radiology | DX: J90 Pleural effusion, not elsewhere classified (principal); I51.7 Cardiomegaly | CPT/HCPCS: 71046 ==

== ENCOUNTER → 2024-12-25 15:27 | Outpatient (BNV) | payer OTHER, SELFPAY | PROVIDERS: Emergency Provider Emergency Medicine; PCP General Practice; Visit Provider Internal Medicine | DX: I44.2 Atrioventricular block, complete (principal); I10 Essential (primary) hypertension | CPT/HCPCS: 99285 ==

== ENCOUNTER 2025-01-14 10:01 | Outpatient (AMB) | payer OTHER, SELFPAY ==
--- NOTE | 2025-01-14 10:24 | A.OFFVIS_ITS ---
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 Engineering Coordinator Required: Yes Engineering Coordinator Language: Digital Communications Manager Name: [email or web address] Accompanied by: Self / Same As Patient Allergies lisinopril (LISINOPRIL) Allergy (Unknown, Verified 12/25/24 14:38) ANGIOEDEMA, edema Medication List - Last Reconciled 01/14/25 by Naida Guy NP-C amlodipine 10 mg PO DAILY aspirin 81 mg PO DAILY atorvastatin 40 mg PO BEDTIME calcium carbonate (Calcium 500) 500 mg PO BID 90 days glipizide ER 10 mg PO QAM labetalol 100 mg PO BID metformin 1,000 mg PO spironolactone 50 mg PO DAILY tamsulosin 0.4 mg PO BEDTIME HPI 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 He was transferred to [facility] and underwent dual-chamber pacemaker placement. He now presents for follow-up. Today he reports that he was experiencing shortness of breath, fatigue and leg edema prior to pacemaker placement. He now feels well with no concerning symptoms. He denies shortness of breath at rest or with activity. No PND, orthopnea or edema. No chest discomfort at rest or with activity. No heart palpitations, lightheadedness, presyncope, syncope. He has mild soreness at his pacemaker site. He has been doing only light activities. He says he was never called for the CTA of the coronary arteries. He did not take medications yet today, he typically takes them in the afternoon. He has his [employer] remote monitor at his bedside. 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 H/O urinary retention Benign prostatic hyperplasia with lower urinary tract symptoms Renal artery stenosis Pure hypercholesterolemia Type 2 diabetes mellitus without complication, without long-term current use of insulin HTN (hypertension) with goal to be determined Nonrheumatic aortic (valve) stenosis Surgical History History of prostate biopsy Social History Alcohol intake: current Alcohol intake frequency: a few times a week Patient Tobacco Use Status: Never used Tobacco Review of Systems Const All systems reviewed & are unremarkable except as noted in HPI and below Denies chills, Denies fatigue, Denies fever(s), Denies frequent falls, Denies weakness, Denies weight gain and Denies weight loss ENT Denies dizziness Card Details: Minor soreness at pacemaker site Denies chest pain, Denies leg edema, Denies lightheadedness, Denies palpitations, Denies dyspnea and Denies dyspnea on exertion Resp Denies cough, Denies dyspnea and Denies dyspnea on exertion GI Denies hematochezia Musc Denies abnormal gait, Denies muscle weakness, Denies numbness, Denies radiating pain into limb and Denies tingling Neuro Denies abnormal gait, Denies dizziness, Denies frequent falls, Denies numbness, Denies tingling and Denies weakness Endo Denies fatigue and Denies palpitations Physical Exam Vital Signs: Last Vital Signs Pulse 81 01/14/25 10:26 BP 142/64 H 01/14/25 10:26 BMI result Body Mass Index 31.5 Const General: cooperative, healthy appearing, comfortable and no acute distress Orientation/consciousness: patient oriented x3 Neck Neck: Yes normal visual inspection Chest Other: Pacemaker site left upper chest, fully intact, mild swelling, no redness or ecchymosis, skin glue in place Resp Effort & Inspection: normal respiratory effort Auscultation: clear to auscultation bilaterally, no rales, no rhonchi and no wheezes Cardio Rate: regular rate Rhythm: regular rhythm Heart sounds: S1 normal heart sound present, S2 normal heart sound present, no gallops, no murmurs and no rubs Neuro General: patient oriented x3 Extrem General: Yes normal to inspection Psych Appearance: grossly normal Mental Status: mental status grossly normal Speech and movement: Normal speech and movement present Assessment & Plan Assessment & Plan (1) Complete heart block: Code(s): I44.2 - Atrioventricular block, complete Category: Medical Plan: Recently presented to [facility] with symptoms of increased shortness of breath and ed rachana. He was found to have complete heart block with heart rate in the 40s. He was transferred to [facility] and underwent [employer] dual-chamber pacemaker placement. Prior symptoms fully resolved. (2) Pacemaker: Comment: Medtronic dual-chamber 12/29/2024 Code(s): Z95.0 - Presence of cardiac pacemaker Category: Medical Plan: Recent Medtronic dual-chamber pacemaker placement. Pacemaker site healing well. Wound care reviewed with him. He has remote monitor at his bedside. Will arrange for office interrogation at next [employer] pacemaker clinic. Cardiology follow-up with device check in 6 months. (3) Abnormal nuclear stress test: Code(s): R94.39 - Abnormal result of other cardiovascular function study Category: Medical Plan: Cardiac evaluation for prior reports of shortness of breath in patient with multiple cardiac risk factors including hypertension, hyperlipidemia, diabetes, obesity. EKG previously done showed normal sinus rhythm, right bundle branch block, left anterior fascicular block, rate 72. An echocardiogram was done on 07/30/2023 showing EF 55-60%, mild LVH, mild AR, ascending aorta 3.7 cm. A nuclear stress test was done on 07/30/2023 shows mild ischemia in the left circumflex territory and mid distal LAD territory. His blood pressure had been uncontrolled and his meds were adjusted for better blood pressure control. A CTA of the coronary arteries was ordered last visit and has not been completed as of yet. Will reach out to our programmer developer to see about getting this appointment. Signs and symptoms of angina reviewed with him. Continue aspirin, atorvastatin, amlodipine and labetalol. Emergency care if ever needed for symptoms. Cardiology follow-up in 3 months, sooner if needed. (4) Uncontrolled hypertension: Code(s): I10 - Essential (primary) hypertension Category: Medical Plan: History of uncontrolled hypertension. His echocardiogram did show mild LVH. A renal Doppler study was done on 08/27/2023 showing increased velocity in the mid left renal artery consistent with less than 60% stenosis. CTA of the abdomen and pelvis did show fibrofatty plaque in the proximal left renal artery causing approximately 20% stenosis. Continue aspirin, atorvastatin. Blood pressure currently better controlled at this time with use of amlodipine and labetalol. Initial blood pressure 142/64, recheck done by me 132/72. He tells me he has not taken meds yet this morning. The need for strict med compliance reviewed. Low-salt diet discussed. (5) Hospital discharge follow-up: Code(s): Z09 - Encounter for follow-up examination after completed treatment for conditions other than malignant neoplasm Category: Medical Plan: Discharge summary reviewed, [facility] Plan I discussed with the patient the importance of monitoring the pacemaker site and avoiding certain arm movements to ensure proper healing. We also reviewed the need for follow-up appointments for pacemaker checks and the pending CAT scan of the heart arteries. Orders: Orders CT Cardiac Coronary Angio Today R94.39 - Abnormal result of other cardiovascular function study Patient Instructions: - Avoid raising your left arm above your head or moving it far back while the pacemaker site heals. - Call if you are having recurrent shortness of breath, chest discomfort or edema. - Attend follow-up appointments for pacemaker checks and the CAT scan of your heart arteries. Patient was informed and verbally consented to the use of an ambient scribe for clinic note documentation during this visit. Visit time spent on chart review, interview, assessment, orders, documentation. Coding Level of Care Code Est Pt Level 4 (57514) Complex EM visit Add On G2211 Diagnoses Complete heart block I44.2 Pacemaker Z95.0 Abnormal nuclear stress test R94.39 Uncontrolled hypertension I10 Hospital discharge follow-up Z09 Time Spent (min) 32
[2025-01-14 10:26] VITALS: BP 142/64; PULSE 81; BMI 31.5
--- OUTSIDE RECORDS SUMMARY | 2025-01-14 11:50 | XMS_ITS | Clinical Summary ---
Author Organization [employer] Address [address] [place] [address] Care Team Providers Care Farm Field Manager Name Role Phone Urszula Sue MD Primary Care Provider [phone] Kendy Madsen PharmD Unavailable Allergies Active Allergy Reactions Criticality Noted Date Comments Lisinopril Angioedema 06/06/2017 Medications metFORMIN (Glucophage) 1000 MG tabletIndicatio ns:Diabetes 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, with long-term current use of insulin ([facility]) Take 1 tablet (1,000 mg) by mouth with breakfast and with evening meal. 180 tablet 3 024 Active spironolactone (Aldactone) 50 MG tabletIndicatio ns:Essential hypertension Take 1 tablet (50 mg) by mouth Once per day. 90 tablet 3 024 Active albuterol 108 (90 Base) MCG/ACT inhaler Inhale 2 puffs every 4 (four) hours if needed for wheezing. 18 g 11 024 2024 Active Blood Pressure Monitoring (Omron [...] hyperglycemia, with long-term current use of insulin ([facility]) Take 1 tablet (40 mg) by mouth at bedtime. 90 tablet 3 025 Active insulin pen needle 32G x 4 mm miscIndications :Diabetes 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, with long-term current use of insulin ([facility]) Use to inject insulin 1 times daily 100 each 025 Active TRUEplus Lancets 33G miscIndications :Diabetes 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, with long-term current use of insulin (CMS/HCC) Use to test blood sugar 2 time(s) daily 100 each 025 Active Continuous Glucose Patient Services Coordinator (FreeStyle Gwen 3 [place]) deviceIndicatio ns:Diabetes 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, with long-term current use of insulin ([facility]) 1 each Once per day. Use as directed for CGM 1 each 025 Active Continuous Glucose Sensor (FreeStyle Gwen 3 Plus Sensor) miscIndications :Diabetes 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, with long-term current use of insulin (CMS/HCC) 1 each every 15 days. Apply 1 every 15 days as directed for CGM 2 each 025 Active glucose blood (FreeStyle Precision Tay Test) test stripIndication s:Diabetes 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, with long-term current use of insulin ([facility]) Use to test blood sugar 2 times [...] 1 (one) time per week. 2 mL 025 Active cefadroxil (Duricef) 500 MG capsuleIndicati ons:Open wound of right lower leg, initial encounter Take 1 capsule (500 mg) by mouth 2 times daily. 10 capsule 025 Active naproxen sodium (Aleve) 220 MG tablet TAKE 1 TABLET BY MOUTH TWICE DAILY IN THE MORNING AND AT BEDTIME NEEDED FOR MILD PAIN (PAIN OF KNEE) 60 tablet 1 Active furosemide (Lasix) 20 MG tablet Take 20 mg by mouth Once per day. Active gabapentin (Neurontin) 100 MG capsule Take 1 capsule (100 mg) by mouth 2 times daily. Do not start before January 27, 2025. 60 capsule 1 Active losartan (Cozaar) 25 MG tabletIndicatio ns:Essential hypertension Take 1 tablet (25 mg) by mouth before breakfast. 90 tablet 025 Active insulin glargine (Lantus SoloStar) 100 UNIT/ML penIndications: Diabetes 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, with long-term current use of insulin ([facility]) inject 20 units by Subcutaneous route every evening 15 mL 1 Active labetalol (Normodyne) 100 MG tabletIndicatio ns:Essential hypertension Take 1 tablet (100 mg) by mouth 2 times daily. 180 tablet 3 024 2024 Discontinued(D iscontinued by another clinician) chlorthalidone (Hygroton) 25 MG tabletIndicatio ns:Essential hypertension Take 1 tablet (25 mg) by mouth Once per day. 90 tablet 3 024 2024 Discontinued(D iscontinued by another clinician) finasteride (Proscar) 5 MG tablet Take 1 tablet (5 mg) by mouth Once per day. 90 tablet 3 025 2024 Discontinued(T herapy completed) naproxen sodium (Aleve) 220 MG tablet Take 1 tablet (220 mg) by mouth if needed in the morning and at bedtime for mild pain (knee pain). 60 tablet 1 025 2024 Discontinued insulin glargine (Lantus SoloStar) 100 UNIT/ML penIndications: Diabetes 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, with long-term current use of insulin ([facility]) inject 40 units by Subcutaneous route every evening 15 mL 1 025 2024 Discontinued(R eorder (will not trigger notification to Pharmacy)) glipiZIDE XL (Glucotrol XL) 5 MG 24 hr tablet Take 1 tablet (5 mg) by mouth Once per day. Do not crush, chew, or split. 90 tablet 3 025 2024 Discontinued(T herapy completed) gabapentin (Neurontin) 100 MG capsule Take 100 mg by mouth 2 times daily. 025 2024 Discontinued(R eorder (will not trigger notification to Pharmacy)) lisinopril 20 MG tablet Take 20 mg by mouth. 025 2024 Discontinued(A lternate therapy) Active Problems Problem Noted Date Diagnosed Date [...] agonist treatments Urologist is Dr Choi at [facility] Continue q 3 month followup Assessment & Plan (11/10/2022 9:17 AM EDT): Mgmt per HPI Urologist is Dr Choi at [facility] Continue q 3 month followup Vitamin D deficiency 06/27/2018 Bilateral cataracts 09/11/2017 Diabetes mellitus due to und erlying condition with hyperglycemia, with long-term current use of insulin 09/05/2016 Assessment & Plan (12/07/2024 7:53 AM EDT): SENSOR DATA SHOWS JADEN BLOOD SUGAR 154 for past 2 months, [...] Encounters Date Type Department Care Team Description 01/08/[address] [facility] [address] [place] [address] Urszula Sue MD Chart Prep 01/05/2025 Travel 01/05/[address] [facility] [address] [place] [address] Urszula Sue MD 01/05/[address] [facility] [address] [place] [phone] Kendy Madsen PharmD 12/31/[address] [facility] [address] [place] [phone] Urszula Sue MD Transition Of Care (Tcm) (HDF scheduled) 12/25/2024 Orders Only GENERIC EXTERNAL DATA DEPARTMENT Provider, Generic External Data 12/25/2024 Travel 12/25/[address] [facility] [address] [place] [phone] Belia Le MD In person triage 12/20/[address] [facility] [address] [place], [place] [phone] Urszula Sue MD 12/10/2024 Results Follow-Up [facility] [address] [place] [phone] Silviano Cunha ANP Gram Stain Result 12/02/2024 3:00 PM EDT Office Visit [address] [address] Urszula Sue MD Diabetes 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, with long-term current use of insulin ([facility]) (Primary Dx); Essential hypertension; Right bundle branch block; Adenocarcinoma of prostate (CMS/[facility]); Non-healing wound of lower extremity, sequela 12/02/2024 Travel 12/01/2024 2:00 PM EDT Office Visit [facility] [address] [place] [phone] Silviano Cunha ANP Delayed wound healing (Primary Dx); Diabetes 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, with long-term current use of insulin ([facility]); Open wound of right lower leg, initial encounter; Bilateral leg edema 12/01/2024 Results Follow-Up [facility] [address] [place] [phone] Silviano Cunha ANP XR Tibia Fibula 2 Views Right 12/01/2024 Travel 12/01/[address] [facility] [address] [place] [phone] Urszula Sue MD 12/01/[address] [address] Urszula Sue MD chart prep 11/25/[address] [facility] [address] [place], [place] [phone] Urszula Sue MD Pre-visit Planning ([facility] unable to reach [facility] ) 10/28/2024 Travel from Last 3 Months Immunizations Immunization [...] Sign Reading Time Taken Comments Blood Pressure 130/62 01/05/2025 1:20 PM EDT Pulse 67 12/02/2024 3:46 PM [...] Care Team (Late st Contact Info) Description 01/15/2025 2:00 PM EDT Office Visit [facility] [address] [place] [phone] Corrina Yung NP [address] [place] [address] 01/28/2025 11:30 AM EDT Medication Management [facility] [address] [place] [address] Kendy Madsen, PharmD [address] [place] [address] Health Maintenance Due Date Last Done Comments Diabetes: Foot Exam 1958 Zoster Vaccines (1 of 2) 1998 RSV Patients and Patients Aged 60 years or older (1 - 1-dose 75+ series) 12/17/2023 COVID-19 Vaccine ( season) 2024 05/04/2022, 09/29/2021, 04/20/2021, Additional history exists Influenza [...] Procedure Name Priority Date/Time Associated Diagnosis Comments URINALYSIS, COMPLETE, WITH REFLEX TO CULTURE Routine 12/25/2024 5:29 PM EDT COVID-19 ID NOW (THOMAS) Routine 12/25/2024 2:57 PM EDT B TYPE NATRIURETIC PEPTIDE (BNP) Routine 12/25/2024 2:57 PM EDT HIGH SENSITIVITY TROPONIN I Routine 12/25/2024 2:57 PM EDT LIPASE Routine 12/25/2024 2:57 PM EDT COMPREHENSIVE METABOLIC PANEL Routine 12/25/2024 2:57 PM EDT CBC WITH AUTO DIFFERENTIAL Routine 12/25/2024 2:57 PM EDT INFLUENZA A B2 ID NOW (THOMAS) Routine 12/25/2024 2:57 PM EDT XR CHEST 2 VIEWS Routine 12/25/2024 2:44 PM EDT POCT GLUCOSE Routine 12/02/2024 3:45 PM EDT Diabetes 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, with long-term current use of insulin ([facility]) GRAM STAIN RESULT (NON ORDERABLE) Routine 12/01/2024 [...] current use of insulin ([facility]/HCC) LIPID PANEL, STANDARD Routine 07/29/2024 6:17 AM EDT Diabetes 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, with long-term current use of insulin ([facility]/HCC) ALBUMIN, RANDOM URINE W/CREATININE Routine 07/29/2024 6:15 AM EDT Diabetes 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, with long-term current use of insulin (CMS/HCC) HEPATITIS C AB W/REFL TO HCV RNA, QN, PCR Routine 10/28/2023 3:39 PM EDT Diabetes mellitus without complication ([facility]/HCC) HM COLONOSCOPY Routine 11/23/2016 3:19 PM EDT from Last 3 Months or Most Recently Relevant to Health Maintenance Results * Urinalysis, Complete, with Reflex to Culture (12/25/2024 5:29 PM EDT) Color Urine Yellow [facility] Appearance Urine Clear [facility] PH 6.0 5.0 - 9.0 [facility] Glucose Urine UA Negative Negative mg/dL [facility] Urine Blood Negative Negative [facility] Specific [place] - Urine 1.010 1.005 - 1.025 [facility] Urine Protein Negative Neg-Trace mg/dL [facility] Urine Ketones Negative Negative mg/dL [facility] Nitrite Urine Negative Negative [facility] Leukocyte Esterase Urine Negative Negative [facility] RBC Urine 0-2 0 - 2 /HPF [facility] Urine WBC 0-5 0 - 5 /HPF [facility] Urine Squamous Epithelial Cell 0-2 0 - 2 /HPF [facility] Urine Bacteria None Seen None Seen [facility] Hyaline Casts, Urine 0-2 0 - 2 /LPF [facility] 12/25/2024 5:29 PM EDT 12/25/2024 5:32 PM EDT Narrative [facility] - 12/25/2024 6:01 PM EDT Urine, Clean Catch Generic External Data Provider LAB URINE ORDERAB LES Final Result Performing Organization Address [facility] Co de Phone Number [facility] [address] [place] [phone] * Influenza A B2 ID NOW (Thomas) (12/25/2024 2:57 PM EDT) IDNOW SERIAL# [id number] [facility] Influenza A Negative Negative [facility] Influenza B2 Negative Negative [facility] Influenza A B2 Note See Note [facility] Comment:The Thomas ID NOW In fluenza A B2 test is used for thequalitative detection of influenza A and B from patientswith signs and symptoms of respiratory infection.Negative results do not preclude influenza virus infectionand should not be used as the sole basis for diagnosis,treatment or other patient management decisions.There is a risk of false negative results due to thepresence of variants in the viral targets of the assay, lowlevels of virus in the specimen and co- infection withRespiratory Syncytial Virus. 12/25/2024 2:57 PM EDT 12/25/2024 3:01 PM EDT Generic External Data Provider LAB MICROBIOLOGY - GENERAL ORDERABLES Final Result Performing Organization Address [facility] Co de Phone Number [facility] [address] [place] [phone] * COVID-19 ID NOW (THOMAS) (12/25/2024 2:57 PM EDT) IDNOW SERIAL# [id number] [facility] COVID-19 TEST Negative Negative [facility] COVID-19 NOTE See Note [facility] Comment: Results are for the identification of SARS-CoV2 RNA. TheSARS-CoV2 RNA is generally detectable in respiratory samplesduring the acute phase of infection. Positive results areindicative of the presence of SARS-CoV-2 RNA; clinicalcorrelation with patient history and other diagnosticinformation is necessary to determine patient infectionstatus. Positive results do not rule out bacterial infectionor co- infection with other viruses.Testing facilities within the [facility] and [facility] hospitalies are required to report all positive results tothe appropriate public health authorities.Negative results should be treated as presumptive and, ifinconsistent with clinical signs and symptoms or necessaryfor patient management, should be tested with differentauthorized or cleared molecular tests. Negative results donot preclude SARS-CoV2 RNA infection and should not be usedas the sole basis for patient management decisions. Negativeresults should be considered in the context of a patient'srecent exposures, history and the presence of clinical signsand symptoms consistent with COVID-19.This test has been authorized by the FDA under an EmergencyUse Authorization (EUA) for use by authorized laboratories.Testing performed on the [employer] ID NOW utilizing NAAT. 12/25/2024 2:57 PM EDT 12/25/2024 3:01 PM EDT us Generic External Data Provider LAB MOLECULAR JULIO GNOSTICS ORDERABLES Final Result Performing Organization Address [facility] de Phone Number [facility] [address] [place] [phone] * High Sensitivity Troponin I (12/25/2024 2:57 PM EDT) TROPONIN I HIGH SENSITIVITY 19.9 <3.5 - 35.0 ng/L [facility] Comment:The Thomas high sens itivity Troponin-I results should beused in conjunction with other diagnostic information suchas ECG, clinical observations and information, and patientsymptoms to aid in the diagnosis of AR. 12/25/2024 2:57 PM EDT 12/25/2024 3:01 PM EDT us Generic External Data Provider LAB BLOOD ORDERAB LES Final Result Performing Organization Address City/[facility]/ZIP Co de Phone Number [facility] [address] [place] [phone] * (ABNORMAL) CBC auto differential (12/25/2024 2:57 PM EDT) White Blood Count 4.2(L) 4.8 - 10.8 X10*3/uL [facility] Red Blood Count 3.90(L) 4.60 - 5.80 X10*6/uL [facility] Hemoglobin 12.4(L) 14.0 - 18.0 g/dl [facility] Hematocrit 36.4(L) 42.0 - 52.0 % [facility] Mean Corpuscular Volume 93.3 80.0 - 98.0 fL [facility] Mean Corpuscular Hemoglobin 31.8 27.0 - 33.0 pg [facility] Mean Corpuscular HGB Conc 34.1 31.0 - 36.0 g/dl [facility] Red Cell Distribution Width 14.6 11.0 - 16.0 % [facility] Platelet Count 178 160 - 400 X10*3/uL [facility] Mean Platelet Volume 11.4 9.4 - 12.4 fL [facility] Neutrophils Percent Auto 71.3 45 - 73 % [facility] Imm Gran Pct Auto 0.2 0.0 - 0.4 % [facility] Lymphocytes Percent Auto 13.8(L) 20 - 40 % [facility] Monocytes Percent Auto 11.9(H) 2 - 11 % [facility] Eosinophils Percent Auto 2.6 0 - 4 % [facility] Basophils Percent Auto 0.2 0 - 2 % [facility] NRBC Pct Auto 0.0 0.0 - 0.2 /100WBC [facility] Neutrophils Absolute Auto 3.0 2.0 - 8.3 x10*3/uL [facility] Imm Gran Abs Auto 0.01 0.00 - 0.03 X10*3/uL [facility] Lymphocytes Absolute Auto 0.6(L) 1.2 - 4.9 X10*3/uL [facility] Monocytes Absolute Auto 0.5 0.1 - 1.2 X10*3/uL [facility] Eosinophils Absolute Auto 0.1 0.0 - 0.4 X10*3/uL [facility] Basophils Absolute Auto 0.0 0.0 - 0.2 X10*3/uL [facility] NRBC Abs Auto 0.000 0.0 - 0.012 X10*3/uL [facility] 12/25/2024 2:57 PM EDT 12/25/2024 3:01 PM EDT us Generic External Data Provider LAB BLOOD ORDERAB LES Final Result Performing Organization Address [facility] Co de Phone Number [facility] [address] [place] [phone] * (ABNORMAL) B Type Natriuretic Peptide (BNP) (12/25/2024 2:57 PM EDT) B Type Natriuretic Peptide 819(H) <100 pg/mL [facility] 12/25/2024 2:57 PM EDT 12/25/2024 3:01 PM EDT us Generic External Data Provider LAB BLOOD ORDERAB LES Final Result Performing Organization Address [facility] Co de Phone Number [facility] [address] [place] [phone] * Lipase (12/25/2024 2:57 PM EDT) Lipase 18 8 - 78 U/L [facility] 12/25/2024 2:57 PM EDT 12/25/2024 3:01 PM EDT us Generic External Data Provider LAB BLOOD ORDERAB LES Final Result Performing Organization Address [facility] Co de Phone Number [facility] [address] [place] [phone] * (ABNORMAL) Comprehensive Metabolic Panel (12/25/2024 2:57 PM EDT) Sodium 142 135 - 145 mmol/L [facility] Potassium 4.0 3.3 - 5.1 mmol/L [facility] Chloride 111(H) 96 - 108 mmol/L [facility] Carbon Dioxide 23 22 - 29 mmol/L [facility] Anion Gap 12 12 - 20 [facility] Urea Nitrogen (BUN) 16 9 - 16 mg/dL [facility] Creatinine, Serum 1.02 0.5 - 1.4 mg/dL [facility] Creatinine Clr Calc Pharmacy 61.4 [facility] Comment:eGFR (calculated fro m the MDRD study equation) and eCrCl(calculated from the Cockcroft-Gault equation) are based ondifferent parameters and may not yield comparable results.If eCrCl result is absurd, please check patient'sheight/weight. Estimated Glomerular Filt Rate >60 [facility] Comment:Chronic Kidney Disea se: Estimated GFR < 60 mL/min/[id number] Kidney Disease: Estimated GFR < 15 mL/min/1.73m2 Glucose 173(H) 60 - 115 mg/dL [facility] Calcium 9.0 8.4 - 10.2 mg/dL [facility] Bilirubin, Total 0.8 0.0 - 1.0 mg/dL [facility] Aspartate Amino Transferase 30 5 - 37 U/L [facility] Alanine Aminotransferase 70(H) 0 - 40 U/L [facility] Total Protein 6.9 6.5 - 8.0 g/dL [facility] Albumin Level 3.9 3.5 - 5.0 g/dL [facility] Alkaline Phosphatase 78 39 - 117 U/L [facility] 12/25/2024 2:57 PM EDT 12/25/2024 3:01 PM EDT us Generic External Data Provider LAB BLOOD ORDERAB LES Final Result [facility] [address] [place] [phone] * XR Chest 2 Views (12/25/2024 2:44 PM EDT) Anatomical Region Laterality Modality Chest Radiographic Delmi ging 12/25/2024 2:44 PM EDT Narrative 12/25/2024 3:55 PM EDT [address] [address] XRay Report Signed Patient: Toro Lu MR#: [id number] : 1950 Acct:[id number] Age/Sex: 74 / M ADM Date: 12/25/24 Loc: .ED Attending Dr: Ordering Physician: Boaz Boudreaux Date of Service: 12/25/24 Procedure(s): XR chest 2V Accession Number(s): [id number] cc: Urszula Sue; Boaz Boudreaux EXAMINATION: XR CHEST 2 VIEWS HISTORY: pain COMPARISON: Comparison is made with the prior examination dated 06/24/2021. FINDINGS: AP and lateral views of the chest are submitted. Multiple pads overlie the left lung. There are small bilateral pleural effusions. There is mild prominence of the pulmonary vasculature, suggestive of congestion. There is no pneumothorax. The heart is enlarged. There is degenerative disc disease of the spine. XR/XR chest 2V IMPRESSION: Cardiomegaly, mild pulmonary vascular congestion, and small bilateral pleural effusions. Electronically signed by: Trae Heredia MD 12/25/2024 03:52 PM EDT Dictated By: Trae Heredia MD Signed By: <Electronically signed by Trae Heredia MD in OV> 12/25/24 1552 DD/ 1444 TD/TT: 12/25/24 1543 Studio Data Analyst: Procedure Note Donotuseinterpreter, Image - 12/25/[address] [address] XRay Report Signed Patient: Toro LuMR#: [id number] : 9Acct:[id number] Age/Sex: 74 / MADM Date: 12/25/24 Loc: HO.ED Attending Dr: Ordering Physician: Boaz Boudreaux Date of Service: 12/25/24 Procedure(s): XR chest 2V Accession Number(s): [id number] cc: Urszula Sue; Boaz Boudreaux EXAMINATION: XR CHEST 2 VIEWS HISTORY: pain COMPARISON: Comparison is made with the prior examination dated 06/24/2021. FINDINGS: AP and lateral views of the chest are submitted. Multiple pads overlie the left lung. There are small bilateral pleural effusions. There is mild prominence of the pulmonary vasculature, suggestive of congestion. There is no pneumothorax. The heart is enlarged. There is degenerative disc disease of the spine. XR/XR chest 2V IMPRESSION: Cardiomegaly, mild pulmonary vascular congestion, and small bilateral pleural effusions. Electronically signed by: Trae Heredia MD 12/25/2024 03:52 PM EDT Dictated By: Trae Heredia MD Signed By: <Electronically signed by Trae Heredia MD in OV> 12/25/24 1552 DD/ 1444 TD/TT: 12/25/24 1543 Studio Data Analyst: [facility] External Provider IMG XR PROCEDURES Final Result * POCT glucose manually resulted (12/02/2024 3:45 PM EDT) Glucose Blood, POC 145 60 - 200 mg/dL QC Media Lot # [id number] Lot# Expiration Date ,007,519 Blood Capillary blood specimen / Unknown 12/02/2024 3:45 PM EDT Urszula Sue MD POINT OF CARE TEST ENTER/EDIT ORDERABLES Final Result * Gram Stain Result (12/01/2024 2:12 PM EDT) 12/01/2024 2:12 PM EDT 12/01/2024 4:55 PM EDT Comment:Leg Rt Narrative [facility] - 12/05/2024 7:43 AM EDT Gram [...] ANP HISTORICAL/NON ORDERABLE LABS Fi nal Result [facility] [address] [place] [phone] * XR Tibia Fibula 2 Views Right (12/01/2024 1:49 PM EDT) Anatomical Region Laterality Modality Lower Extremities, Lower Leg Right Rad iographic Imaging 12/01/2024 1:49 PM EDT Narrative 12/01/2024 2:59 PM EDT [address] [address] XRay Report Signed Patient: Toro Lu MR#: [id number] : 1950 Acct:[id number] Age/Sex: 73 / M ADM Date: 12/01/24 Loc: HO.LAB Attending Dr: Ga Choi MD Ordering Physician: SILVIANO CUNHA VALVE GRINDER Date of Service: 12/01/24 Procedure(s): XR tibia fibula RT 2V Accession Number(s): [id number] cc: Urszula Sue; SILVIANO CUNHA NP EXAMINATION: [...] Javi Redd MD 12/01/2024 02:56 PM EDT RP Dictated By: Javi Redd MD Signed By: <Electronically signed by Javi Redd MD in OV> 12/01/24 1456 DD/ 1349 TD/TT: 12/01/24 1350 Studio Data Analyst: Procedure Note Donotuseinterpreter, Image - 12/01/[address] [address] XRay Report Signed Patient: Manny Lu#: [id number] : 9Acct:[id number] Age/Sex: 73 / MADM Date: 12/01/24 Loc: HO.LAB Attending Dr: Ga Choi MD Ordering Physician: SILVIANO CUNHA NP Date of Service: 12/01/24 Procedure(s): XR tibia fibula RT 2V Accession Number(s): [id number] cc: Urszula Sue; SILVIANO CUNHA NP EXAMINATION: [...] Javi Redd MD 12/01/2024 02:56 PM EDT RP Dictated By: Javi Redd MD Signed By: <Electronically signed by Javi Redd MD in OV> 12/01/24 1456 DD/ 1349 TD/TT: 12/01/24 1350 Studio Data Analyst: us Silviano PINA IMG XR PROCEDURES Edited Result - Final * (ABNORMAL) Testosterone, Total, males (Adult), IA (12/01/2024 8:10 AM EDT) Testosterone, Total 12(A) 250 - 1100 ng/dL [facility] Comment:Men with clinically significant hypogonadalsymptoms and testosterone values repeatedly inthe range of the 200-300 ng/dL or less, maybenefit from testosterone treatment afteradequate risk and benefits counseling.For additional information, please refer [email or web address]/faq/[email or web address](This link is being provided for informational/educational purposes only.)This test was developed and its analytical performancecharacteristics have been determined by [employer], [place]. It hasnot been cleared or approved by the U.S. Food and DrugAdministration. This assay has been validated pursuantto the CLIA regulations and is used for clinicalpurposes.THIS TEST WAS PERFORMED AT:[employer] [id number] [place] [address]QRJUSXPADITYA GONZALEZ MD,PHD 12/01/2024 8:10 AM EDT 12/01/2024 8:10 AM EDT us Generic External Data Provider LAB BLOOD ORDERAB LES Final Result [facility] [address] [place] [phone] * PSA,Total (12/01/2024 8:10 AM EDT) Prostate Specific Antigen <0.10 <0.05 - 4.0 ng/mL [facility] Comment:PSA methodology: Abb sj Aligaboty i ChemiluminescentMicroparticle Immunoassay (CMIA) 12/01/2024 8:10 AM EDT 12/01/2024 8:10 AM EDT us Generic External Data Provider LAB BLOOD ORDERAB LES Final Result Performing Organization Address [facility] Co de Phone Number [facility] [address] [place] [phone] * Vitamin B12 (12/01/2024 8:10 AM EDT) Vitamin B12 304 200 - 900 pg/mL [facility] Comment:NORMAL 200-900 PG/ML INDETERMINATE 160-199 PG/ML DEFICIENT < 160 PG/ML 12/01/2024 8:10 AM EDT 12/01/2024 8:10 AM EDT us Urszula Sue MD LAB BLOOD ORDERABLES Final Res ult Performing Organization Address [facility] de Phone Number [facility] [address] [place] [phone] * (ABNORMAL) Basic Metabolic Panel (12/01/2024 8:10 AM EDT) Sodium 141 135 - 145 mmol/L [facility] Potassium 4.2 3.3 - 5.1 mmol/L [facility] Chloride 107 96 - 108 mmol/L [facility] Carbon Dioxide 26 22 - 29 mmol/L [facility] Anion Gap 12 12 - 20 [facility] Urea Nitrogen (BUN) 18(H) 9 - 16 mg/dL [facility] Creatinine, Serum 0.94 0.5 - 1.4 mg/dL [facility] Estimated Glomerular Filt Rate >60 [facility] Comment:Chronic Kidney Disea se: Estimated GFR < 60 mL/min/1.94o3Epiife Kidney Disease: Estimated GFR < 15 mL/min/1.73m2 Glucose 172(H) 60 - 115 mg/dL [facility] Calcium 9.2 8.4 - 10.2 mg/dL [facility] 12/01/2024 8:10 AM EDT 12/01/2024 8:10 AM EDT Urszula Sue MD LAB BLOOD ORDERABLES Final Res ult [facility] [address] [place] [phone] * (ABNORMAL) POCT HGB A1C (10/28/2024 3:17 PM EDT) Hemoglobin A1C 10.4(A) 4.0 - 5.7 % Blood 10/28/2024 3:17 PM EDT Urszula Sue MD POINT OF CARE TEST ENTER/EDIT ORDERABLES Final Result * (ABNORMAL) Lipid Panel, Standard (07/29/2024 6:17 AM EDT) Triglycerides 171(H) <150 mg/dL [facility] Comment:Desirable Triglyceri de: less than 150 mg/dLBorderline High Triglyceride 150-199 mg/dLHigh Triglyceride: 200-499 mg/dLVery High Triglyceride: greater than or equal to 5OO mg/dL Cholesterol 170 <200 mg/dL [facility] Comment:Desirable Cholestero l: less than 200 mg/dLBorderline High Cholesterol: 200-239 mg/dLHigh Cholesterol: greater than 239 mg/dL LDL Cholesterol Calculated 79 <100 mg/dL [facility] Comment:Desirable LDL: less than 100 mg/dLNear Optimal/Above Optimal LDL: 110- 129 mg/dLBorderline High LDL: 130-159 mg/dLHigh LDL: 160-189 mg/dLVery High LDL: greater than or equal to 190 mg/dL HDL Cholesterol 57 >40 mg/dL [facility] Comment:Desirable HDL: great er than 40 mg/dL Note: This HDL assay may give artificially low results in patients with liver disease. Blood Venous blood specimen / Unknown 07/29/2024 6:17 AM EDT 07/29/2024 6:17 AM EDT Urszula Sue MD LAB BLOOD ORDERABLES Final Res ult Performing Organization Address [facility] Co de Phone Number [facility] [address] [place] [phone] * (ABNORMAL) Albumin, Random Urine W/Creatinine (07/29/2024 6:15 AM EDT) Creatinine, Urine 147.38 mg/dL [facility] Microalbumin Urine 62.0 mg/L [facility] Microalbum Creatinine Ratio Ur 42.0(H) <30 ug/mg cr [facility] Comment:Albumin/Creatinine R atio Reference Ranges: Normal: < 30 ug/mg creatinine Microalbuminuria: 30 - 300 ug/mg creatinineClinical Albuminuria: > 300 ug/mg creatinine Urine (Urine, Random) 07/29/2024 6:15 AM EDT 07/29/2024 7:44 AM EDT Urszula Sue MD LAB URINE ORDERABLES Final Res ult Performing Organization Address [facility] Co de Phone Number [facility] [address] [place] [phone] * Hepatitis C Antibody with Reflex to HCV, RNA, Quantitative, Real-Time PCR (10/28/2023 3:39 PM EDT) Hepatitis C Antibody Nonreactive Nonreactive [facility] Comment:Antibodies to HCV no t detected; does not exclude early acuteHCV infection. Blood Venous blood specimen / Unknown 10/28/2023 3:39 PM EDT 10/28/2023 3:39 PM EDT Urszula Sue MD LAB BLOOD ORDERABLES Final Res ult Performing Organization Address [facility] Co de Phone Number [facility] [address] [place] [phone] * Hm Colonoscopy (11/23/2016 3:19 PM EDT) us Historical Provider HEALTH MAINTENANCE Final Result from Last 3 Months or Most Recently Relevant to Health Maintenance Insurance [facility] [employer] OPTIONS (HMO D-SNP) Care Teams Farm Field Manager Relationship Specialty Start Date End Date Urszlua Sue MD [address] [place] [address] PCP - General Family Medicine 11/21/20 Kendy Madsen PharmD [address] [place] [address] Pharmacist Internal Medicine 10/07/24
--- OUTSIDE RECORDS SUMMARY | 2025-01-14 11:50 | XMS_ITS | Encounter Summary ---
Author Organization [employer] Address [address] [facility] [place] [address] Care Team Providers Care Supervisor Pig Machine Name Role Phone Urszula Sue MD Primary Care Provider [phone] PuKendy galeas PharmD Unavailable [phone] Encounter Details Date Type Department Care Team (Late Contact Info) Description 10/31/2022 Orders Only [facility] MED [facility] PEDS [address] [place], [place] [phone] Gregoria Mitchell LPN Social History Tobacco Use [...] Department Care Team (Late Contact Info) Description 01/15/2025 2:00 PM EDT Office Visit [facility] MEDICINE [address] [place] [phone] Corrina Yung NP [address] [place], [place] [phone] 01/28/2025 11:30 AM EDT Medication Management [facility]INE [address] [place], [place] [phone] Puia, Kendy, PharmD [address] [place], [place] [phone] documented as of this encounter Visit Diagnoses Not on filedocumented in this encounter Care Teams Supervisor Pig Machine Relationship Specialty Start Date End Date Urszula Sue MD [address] [place] [address] PCP - General Family Medicine 11/21/20 Kendy Madsen PharmD [address] [place] [address] Pharmacist Internal Medicine 10/07/24 documented as of this encounter
--- OUTSIDE RECORDS SUMMARY | 2025-01-14 11:50 | XMS_ITS | Encounter Summary ---
Author Organization [employer] Address [address] [place] [address] Care Team Providers Care Sourcing Intern Name Role Phone Urszula Sue MD Primary Care Provider [phone] Kendy Madsen PharmD Unavailable [phone] Encounter Details Date Type Department Care Team (Late st Contact Info) Description 09/05/2023 Orders Only [facility] [address] [place] [address] ProviderMartha MD Social History Tobacco Use Types [...] Description 01/15/2025 2:00 PM EDT Office Visit [facility] [address] [place] [phone] Corrina Yung NP [address] [place] [address] 01/28/2025 11:30 AM EDT Medication Management [facility] [address] [place] [phone] Kendy Madsen PharmD [address] [place] [phone] documented as of this encounter Procedures Procedure Name Priority Date/Time Associated Diagnosis Comments HM COLONOSCOPY Routine 11/23/2016 3:19 PM EDT documented in this encounter Results * Hm Colonoscopy (11/23/2016 3:19 PM EDT) us Historical Provider HEALTH MAINTENANCE Final Result documented in this encounter Visit Diagnoses Not on filedocumented in this encounter Care Teams Sourcing Intern Relationship Specialty Start Date End Date Urszula Sue MD [address] [place] [phone] PCP - General Family Medicine 11/21/20 Kendy Madsen PharmD [address] [place] [address] [phone] Pharmacist Internal Medicine 10/07/24 documented as of this encounter
--- OUTSIDE RECORDS SUMMARY | 2025-01-14 11:50 | XMS_ITS | Encounter Summary ---
Author Organization [facility] Address [address] [place] [address] [address] [place] [address] Care Team Providers Care Keyliner Name Role Phone Urszula Sue MD Primary Care Provider [phone] Kendy Madsen PharmD Unavailable [phone] Encounter Details Date Type Department Care Team (Late st Contact Info) Description 08/16/2022 Orders Only [facility] MEDICINE [address] [place] [phone] Barbara Cerna LPN Social History Tobacco Use [...] Description 01/15/2025 2:00 PM EDT Office Visit [facility] [address] [place] [phone] Corrina Yung, ALEXA [address] [place] [phone] 01/28/2025 11:30 AM EDT Medication Management [facility] [address] [place] [phone] Kendy Madsen, PharmD [address] [place] [address] documented as of this encounter Visit Diagnoses Not on filedocumented in this encounter Care Teams Keyliner Relationship Specialty Start Date End Date Urszula Sue MD [address] [place] [address] PCP - General Family Medicine 11/21/20 Kendy Madsen, Ryley [address] [place] [address] Pharmacist Internal Medicine 10/07/24 documented as of this encounter
== END 2025-01-14 10:52 | disposition home or self-care (01) ==
LOC: HO.HCS 10:02
PROVIDERS: PCP General Practice; Visit Provider Nurse Practitioner Family
DX: I44.2 Atrioventricular block, complete (principal); Z95.0 Presence of cardiac pacemaker; R94.39 Abnormal result of other cardiovascular function study; I10 Essential (primary) hypertension; Z09 Encounter for follow-up examination after completed treatment for conditions other than malignant neoplasm
CPT/HCPCS: 99214; G2211

== ENCOUNTER → 2025-01-14 10:01 | Outpatient (BNVA) | payer OTHER, SELFPAY | PROVIDERS: PCP General Practice; Visit Provider Nurse Practitioner Family | DX: Z09 Encounter for follow-up examination after completed treatment for conditions other than malignant neoplasm (principal); I44.2 Atrioventricular block, complete; I10 Essential (primary) hypertension; R94.39 Abnormal result of other cardiovascular function study; Z95.0 Presence of cardiac pacemaker | CPT/HCPCS: 99212 ==

== ENCOUNTER → 2025-01-25 23:59 | Outpatient (BNV) | payer OTHER, SELFPAY ==
--- NOTE | 2025-02-01 09:22 | MHC.OFFVIS ---
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 Pacemaker function is adequate [id number] Cardiac Device Interrogation, pacemaker Procedure code (CPT) selection complete Assessment & Plan Assessment & Plan (1) Pacemaker: Comment: Medtronic dual-chamber 12/29/2024 Code(s): Z95.0 - Presence of cardiac pacemaker Category: Medical Plan: See above Coding Level of Care Code Procedure Only Diagnoses Pacemaker Z95.0 CPT Codes Cardiac Device Check - Cardiac Device 12: [id number] Cardiac Device Interrogation, pacemaker ([id number])
== END ==
PROVIDERS: PCP General Practice; Visit Provider Internal Medicine Cardiovascular Disease
DX: Z45.018 Encounter for adjustment and management of other part of cardiac pacemaker (principal)
CPT/HCPCS: 93294

== ENCOUNTER 2025-02-09 15:14 | Outpatient (AMB) | payer OTHER, SELFPAY ==
--- OUTSIDE RECORDS SUMMARY | 2025-02-09 18:07 | XMS_ITS | Encounter Summary ---
Author Organization [employer] Address [address] [place] [address] Care Team Providers Care Card Brusher Name Role Phone Urszula Sue MD Primary Care Provider [phone] Kendy Madsen PharmD Unavailable [phone] Encounter Details Date Type Department Care Team (Late st Contact Info) Description 09/05/2023 Orders Only [facility] [address] [place] [address] ProviderMartha MD Social History Tobacco Use Types [...] Care Team (Late st Contact Info) Description 02/12/2025 9:30 AM EDT Medication Management [facility] [address] [place] [address] Kendy Madsen PharmD [address] [place] [address] documented as of this encounter Procedures Procedure Name Priority Date/Time Associated Diagnosis Comments HM COLONOSCOPY Routine 11/23/2016 3:19 PM EDT documented in this encounter Results * Hm Colonoscopy (11/23/2016 3:19 PM EDT) Historical Provider HEALTH MAINTENANCE Final Result documented in this encounter Visit Diagnoses Not on filedocumented in this encounter Care Teams Card Brusher Relationship Specialty Start Date End Date Urszula Sue MD [address] [place] [address] PCP - General Family Medicine 11/21/20 Kendy Madsen PharmD [address] [place] [phone] Pharmacist Internal Medicine 10/07/24 documented as of this encounter
--- OUTSIDE RECORDS SUMMARY | 2025-02-09 18:07 | XMS_ITS | Clinical Summary ---
Author Organization [employer] Address [address] [facility] 7[address] [place] [address] Care Team Providers Care Waste Examiner Name Role Phone Urszula Sue MD Primary Care Provider [phone] Kendy Madsen PharmD Unavailable [phone] Allergies Active Allergy Reactions Criticality Noted Date Comments Lisinopril Angioedema 06/06/2017 Medications metFORMIN (Glucophage) 1000 MG tabletIndication s:Diabetes 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, with long-term current use of insulin (HCC) Take 1 tablet (1,000 mg) by mouth with breakfast and with evening meal. 180 tablet 3 4 Active spironolactone (Aldactone) 50 MG tabletIndication s:Essential hypertension Take 1 tablet (50 mg) by mouth Once per day. 90 tablet 3 4 Active albuterol 108 (90 Base) MCG/ACT inhaler Inhale 2 puffs every 4 (four) hours if needed for wheezing. 18 g 11 4 025 Active Blood Pressure Monitoring (Omron [...] hyperglycemia, with long-term current use of insulin (HCC) Take 1 tablet (40 mg) by mouth at bedtime. 90 tablet 3 5 Active insulin pen needle 32G x 4 mm miscIndications: Diabetes 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, with long-term current use of insulin ([facility]) Use to inject insulin 1 times daily 100 each 5 Active TRUEplus Lancets 33G miscIndications: Diabetes 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, with long-term current use of insulin ([facility]) Use to test blood sugar 2 time(s) daily 100 each 5 Active Continuous Glucose Manager Care Management (FreeStyle Gwen 3 [place]) deviceIndication s:Diabetes 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, with long-term current use of insulin ([facility]) 1 each Once per day. Use as directed for CGM 1 each 5 Active Continuous Glucose Sensor (FreeStyle Gwen 3 Plus Sensor) miscIndications: Diabetes 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, with long-term current use of insulin ([facility]) 1 each every 15 days. Apply 1 every 15 days as directed for CGM 2 each 5 Active glucose blood (FreeStyle Precision Tay Test) test stripIndications :Diabetes 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, with long-term current use of insulin ([facility]) Use to test blood sugar 2 times daily in case of CGM failure or extremes of BG 50 each 5 026 Active Calcium Citrate-Vitamin D (Calcium Citrate+D3 Petites) 200-6.25 MG-MCG tablet Take 1 tablet by mouth in the morning and 1 tablet in the evening. OTC. Active tamsulosin (Flomax) 0.4 MG 24 hr capsule Take 0.4 mg by mouth Once per day. Active Dulaglutide (Trulicity) 0.75 MG/0.5ML solution auto-injector Inject 0.75 mg under the skin 1 (one) time per week. 2 mL 5 Active cefadroxil (Duricef) 500 MG capsuleIndicatio ns:Open wound of right lower leg, initial encounter Take 1 capsule (500 mg) by mouth 2 times daily. 10 capsule 5 Active naproxen sodium (Aleve) 220 MG tablet TAKE 1 TABLET BY MOUTH TWICE DAILY IN THE MORNING AND AT BEDTIME NEEDED FOR MILD PAIN (PAIN OF KNEE) 60 tablet 1 5 Active furosemide (Lasix) 20 MG tablet Take 20 mg by mouth Once per day. 5 Active gabapentin (Neurontin) 100 MG capsule Take 1 capsule (100 mg) by mouth 2 times daily. Do not start before January 27, 2025. 60 capsule 1 Active losartan (Cozaar) 25 MG tabletIndication s:Essential hypertension Take 1 tablet (25 mg) by mouth before breakfast. 90 tablet Active insulin glargine (Lantus SoloStar) 100 UNIT/ML penIndications:D iabetes 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, with long-term current use of insulin (HCC) inject 20 units by Subcutaneous route every evening 15 mL 1 5 Active Active Problems Problem Noted Date Diagnosed Date Complete heart block (CMS/HCC) 02/09/2025 Overview (02/09/2025): Medtronic dual-chamber pacemaker placed 12/2024 Assessment & Plan (02/09/2025 11:19 AM EDT): Non-healing wound of lower extremity, sequela Assessment [...] bladder 06/28/2021 Osteoporosis 06/28/2021 Adenocarcinoma of prostate ([facility]/HCC) 01/28/2019 Assessment & Plan (07/28/2024 8:42 AM EDT): Continue GnRH agonist treatments Urologist [place] [facility] Continue q 3 month followup Assessment & Plan (11/10/2022 9:17 AM EDT): Mgmt per HPI Urologist is Dr Choi at [facility] Continue q 3 month followup Vitamin D [...] Encounters Date Type Department Care Team Description 01/15/2025 2:00 PM EDT Office Visit [facility] [address] [place] [address] Corrina Yung NP Complete heart block (CMS/HCC) (Primary Dx) 01/15/2025 Travel 01/08/2025 Telephone [facility] [address] [place] [address] Urszula Sue MD Chart Prep 01/05/2025 Travel 01/05/2025 Refill [facility] [address] [place] [address] Urszula Sue MD 01/05/[address] [address] Kendy Madsen PharmD 12/31/2024 Patient Outreach [address] [address] Urszula Sue MD Transition Of Care (Tcm) (HDF scheduled) 12/25/2024 Orders Only GENERIC EXTERNAL DATA DEPARTMENT Provider, Generic External Data 12/25/2024 Travel 12/25/2024 Telephone [facility] [address] [address] Belia Le MD In person triage 12/20/[address] [address] Urszula Sue MD 12/10/2024 Results Follow-Up [address] [address] Silviano Cunha ANP Gram Stain Result 12/02/2024 3:00 PM EDT Office Visit [address] [address] Urszula Sue MD Diabetes 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, with long-term current use of insulin (CMS/HCC) (Primary Dx); Essential hypertension; Right bundle branch block; Adenocarcinoma of prostate (CMS/HCC); Non-healing wound of lower extremity, sequela 12/02/2024 Travel 12/01/2024 2:00 PM EDT Office Visit [facility] [address] [address] Silviano Cunha ANP Delayed wound healing (Primary Dx); Diabetes 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, with long-term current use of insulin (CMS/HCC); Open wound of right lower leg, initial encounter; Bilateral leg edema 12/01/2024 Results Follow-Up [facility] [address] [place] [phone] Silviano Cunha ANP XR Tibia Fibula 2 Views Right 12/01/2024 Travel 12/01/2024 Orders Only [address] [address] Urszula Sue MD 12/01/2024 Telephone [facility] [address], [place] [phone] Urszula Sue MD chart prep 11/25/2024 Patient Outreach [facility] [address] [place] [address] Urszula Sue MD Pre-visit Planning ([facility] unable to reach LVM ) from Last 3 Months Immunizations Immunization Administration [...] with others, in a hotel, in a prison, living outside on the street, on a [...] Sign Reading Time Taken Comments Blood Pressure 140/92 01/15/2025 1:38 PM EDT w out meds Pulse 96 01/15/2025 1:38 PM EDT Temperature 36.9 C (98.5 F) 01/15/2025 1:38 PM EDT Respiratory Rate 17 01/15/2025 1:38 PM EDT Oxygen Saturation 100% 01/15/2025 1:3 8 PM EDT Inhaled Oxygen Concentration - - Weight 82.8 kg (182 lb 9.6 oz) 01/16/20 25 1:38 PM EDT Height 162.6 cm (5' 4 ) 01/15/2025 1:38 PM EDT Body Mass Index 31.34 01/15/2025 1:38 PM EDT Plan of Treatment Upcoming Encounters Date Type Department Care Team (Late st Contact Info) Description 02/12/2025 9:30 AM EDT Medication Management [facility] [address] [place] [address] Kendy Madsen, PharmD [address] [place], [place] [phone] Health Maintenance Due Date Last Done Comments Diabetes: Foot Exam 1960 Zoster Vaccines (1 of 2) 1998 RSV Patients and Patients Aged 60 years or older (1 - 1-dose 75+ series) 12/17/2023 COVID-19 Vaccine (6 - season) 2024 05/04/2022, 09/29/2021, 04/20/2021, Additional history exists Influenza Vaccine (#1) 2024 , 01/29/2020, 01/28/2019, Additional history exists Diabetes: Hemoglobin A1C 01/28/2025 025, 07/29/2024, 03/20/2024, Additional history exists Diabetes: Urine Protein Screening 07/29/2025 07/29/2024, 10/28/2023, 02/13/2021 Lipid Panel 07/29/2025 07/29/2024, 07/0 04/2023, 02/10/2021 SDOH Screening 08/31/2025 08/31/2024 Alcohol/Substance Use Screening 12/02/2025 12/02/2024 Depression Screening 12/02/2025 12/02/2024, 12/03/19 Tobacco Screening 01/15/2026 01/15/2025 Eye Exam 02/20/2026 02/21/2024 DTaP/Tdap/Td Vaccines (3 [...] hyperglycemia, with long-term current use of insulin ([facility]) GRAM STAIN RESULT (NON ORDERABLE) Routine 12/01/2024 [...] with long-term current use of insulin (CMS/HCC) LIPID PANEL, STANDARD Routine 07/29/2024 6:17 AM [...] (12/25/2024 5:29 PM EDT) Color Urine Yellow [facility] Appearance Urine Clear [facility] PH 6.0 5.0 - 9.0 [facility] Glucose Urine UA Negative Negative mg/dL [facility] Urine Blood Negative Negative [facility] Specific [place] - Urine 1.010 1.005 - 1.025 [facility] Urine Protein Negative Neg-Trace mg/dL [facility] Urine Ketones Negative Negative mg/dL [facility] Nitrite Urine Negative Negative [facility] Leukocyte Esterase Urine Negative Negative [facility] RBC Urine 0-2 0 - 2 /HPF [facility] Urine WBC 0-5 0 - 5 /HPF [facility] Urine Squamous Epithelial Cell 0-2 0 - 2 /HPF [facility] Urine Bacteria None Seen None Seen [facility] Hyaline Casts, Urine 0-2 0 - 2 /LPF [facility] 12/25/2024 5:29 PM EDT 12/25/2024 5:32 PM EDT Narrative [facility] - 12/25/2024 6:01 PM EDT Urine, Clean Catch us Generic External Data Provider LAB URINE ORDERAB LES Final Result Performing Organization Address [facility] Co de Phone Number [facility] [address] [place] [phone] * Influenza A B2 ID NOW (Thomas) (12/25/2024 2:57 PM EDT) IDNOW SERIAL# [id number] [facility] Influenza A Negative Negative [facility] Influenza B2 Negative Negative [facility] Influenza A B2 Note See Note [facility] Comment:The Thomas ID NOW In fluenza [...] EDT us Generic External Data Provider LAB MICROBIOLOGY - GENERAL ORDERABLES Final Result Performing Organization Address [facility] Co de Phone Number [facility] [address] [place] [phone] * COVID-19 ID NOW (THOMAS) (12/25/2024 2:57 PM EDT) [facility] IDNOW SERIAL# [id number] [facility] COVID-19 TEST Negative Negative [facility] COVID-19 NOTE See Note [facility] Comment: Results are for the identification of SARS-CoV2 RNA. TheSARS-CoV2 RNA is generally detectable in respiratory samplesduring the acute phase of infection. Positive results areindicative of the presence of SARS-CoV-2 RNA; clinicalcorrelation with patient history and other diagnosticinformation is necessary to determine patient infectionstatus. Positive results do not rule out bacterial infectionor co- infection with other viruses.Testing facilities within the [facility] and [facility] are required to report all positive [...] use by authorized laboratories.Testing performed on the Thomas ID NOW utilizing NAAT. 12/25/2024 2:57 PM EDT 12/25/2024 3:01 PM EDT us Generic External Data Provider LAB MOLECULAR JULIO GNOSTICS ORDERABLES Final Result [facility] [address] [place] [phone] * High Sensitivity Troponin I (12/25/2024 2:57 PM EDT) [facility] TROPONIN I HIGH SENSITIVITY 19.9 <3.5 - 35.0 ng/L [facility] Comment:The Thomas high sens itivity Troponin-I results should beused in conjunction with other diagnostic information suchas ECG, clinical observations and information, and patientsymptoms to aid in the diagnosis of [place]. 12/25/2024 2:57 PM EDT 12/25/2024 3:01 PM EDT us Generic External Data Provider LAB BLOOD ORDERAB LES Final Result [facility] [address] [place] [address] [phone] * (ABNORMAL) CBC auto differential (12/25/2024 2:57 PM EDT) White Blood Count 4.2(L) 4.8 - 10.8 X10*3/uL [facility] Red Blood Count 3.90(L) 4.60 - 5.80 X10*6/uL [facility] Hemoglobin 12.4(L) 14.0 - 18.0 g/dl [facility] Hematocrit 36.4(L) 42.0 - 52.0 % [facility] Mean Corpuscular Volume 93.3 80.0 - 98.0 fL [facility] Mean Corpuscular Hemoglobin 31.8 27.0 - 33.0 pg [facility] Mean Corpuscular HGB Conc 34.1 31.0 - 36.0 g/dl [facility] Red Cell Distribution Width 14.6 11.0 - 16.0 % [facility] Platelet Count 178 160 - 400 X10*3/uL [facility] Mean Platelet Volume 11.4 9.4 - 12.4 fL [facility] Neutrophils Percent Auto 71.3 45 - 73 % [facility] Imm Gran Pct Auto 0.2 0.0 - 0.4 % [facility] Lymphocytes Percent Auto 13.8(L) 20 - 40 % [facility] Monocytes Percent Auto 11.9(H) 2 - 11 % [facility] Eosinophils Percent Auto 2.6 0 - 4 % [facility] Basophils Percent Auto 0.2 0 - 2 % [facility] NRBC Pct Auto 0.0 0.0 - 0.2 /100WBC [facility] Neutrophils Absolute Auto 3.0 2.0 - 8.3 x10*3/uL [facility] Imm Gran Abs Auto 0.01 0.00 - 0.03 X10*3/uL [facility] Lymphocytes Absolute Auto 0.6(L) 1.2 - 4.9 X10*3/uL [facility] Monocytes Absolute Auto 0.5 0.1 - 1.2 X10*3/uL [facility] Eosinophils Absolute Auto 0.1 0.0 - 0.4 X10*3/uL [facility] Basophils Absolute Auto 0.0 0.0 - 0.2 X10*3/uL [facility] NRBC Abs Auto 0.000 0.0 - 0.012 X10*3/uL [facility] 12/25/2024 2:57 PM EDT 12/25/2024 3:01 PM EDT us Generic External Data Provider LAB BLOOD ORDERAB LES Final Result Performing Organization Address City/[facility]/ZIP Co de Phone Number [facility] [address] [place] [phone] * (ABNORMAL) B Type Natriuretic Peptide (BNP) (12/25/2024 2:57 PM EDT) B Type Natriuretic Peptide 819(H) <100 pg/mL [facility] 12/25/2024 2:57 PM EDT 12/25/2024 3:01 PM EDT us Generic External Data Provider LAB BLOOD ORDERAB LES Final Result Performing Organization Address [facility]/ZIP Co de Phone Number [facility] [address] [place] [phone] * Lipase (12/25/2024 2:57 PM EDT) Lipase 18 8 - 78 U/L [facility] 12/25/2024 2:57 PM EDT 12/25/2024 3:01 PM EDT us Generic External Data Provider LAB BLOOD ORDERAB LES Final Result [facility] [address] [place], [place] [phone] * (ABNORMAL) Comprehensive Metabolic Panel (12/25/2024 2:57 PM EDT) Sodium 142 135 - 145 mmol/L [facility] Potassium 4.0 3.3 - 5.1 mmol/L [facility] Chloride 111(H) 96 - 108 mmol/L [facility] Carbon Dioxide 23 22 - 29 mmol/L [facility] Anion Gap 12 12 - 20 [facility] Urea Nitrogen (BUN) 16 9 - 16 mg/dL [facility] Creatinine, Serum 1.02 0.5 - 1.4 mg/dL [facility] Creatinine Clr Calc Pharmacy 61.4 [facility] Comment:eGFR (calculated fro m the MDRD study equation) and eCrCl(calculated from the Cockcroft-Gault equation) are based ondifferent parameters and may not yield comparable results.If eCrCl result is absurd, please check patient'sheight/weight. Estimated Glomerular Filt Rate >60 [facility] Comment:Chronic Kidney Disea se: Estimated GFR < 60 mL/min/1.00d2Uyrrmc Kidney Disease: Estimated GFR < 15 mL/min/1.73m2 Glucose 173(H) 60 - 115 mg/dL [facility] Calcium 9.0 8.4 - 10.2 mg/dL [facility] Bilirubin, Total 0.8 0.0 - 1.0 mg/dL [facility] Aspartate Amino Transferase 30 5 - 37 U/L [facility] Alanine Aminotransferase 70(H) 0 - 40 U/L [facility] Total Protein 6.9 6.5 - 8.0 g/dL [facility] Albumin Level 3.9 3.5 - 5.0 g/dL [facility] Alkaline Phosphatase 78 39 - 117 U/L [facility] 12/25/2024 2:57 PM EDT 12/25/2024 3:01 PM EDT us Generic External Data Provider LAB BLOOD ORDERAB LES Final Result Performing Organization Address City/State/[facility] Co de Phone Number [facility] [address] [place] [phone] * XR Chest 2 Views (12/25/2024 2:44 PM EDT) Anatomical Region Laterality Modality Chest Radiographic Delmi ging 12/25/2024 2:44 PM EDT Narrative 12/25/2024 3:55 PM EDT [address] [address] XRay Report Signed Patient: Toro Lu MR#: [id number] : 1950 Acct:[id number] Age/Sex: 74 / M ADM Date: 12/25/24 Loc: .ED Attending Dr: Ordering Physician: Boaz Boudreaux Date of Service: 12/25/24 Procedure(s): XR chest 2V Accession Number(s): [id number] cc: Urszula Sue; Boaz Boudreaux EXAMINATION: XR [...] 12/25/24 1552 DD/ 1444 TD/TT: 12/25/24 1543 Piledriver Carpenter: Procedure Note Averyotselenater, Image - 12/25/2024 [place] [address] XRay Report Signed Patient: Toro LuMR#: [id number] : 9Acct:[id number] Age/Sex: 74 / MADM Date: 12/25/24 Loc: .ED Attending Dr: Ordering Physician: Boaz Boudreaux Date of Service: 12/25/24 Procedure(s): XR chest 2V Accession Number(s): [id number] cc: Urszula Sue; Boaz Boudreaux EXAMINATION: XR [...] Trae Heredia MD 12/25/2024 03:52 PM EDT RP Dictated By: Trae Heredia MD Signed By: <Electronically signed by Trae Heredia MD in OV> 12/25/24 1552 DD/ 1444 TD/TT: 12/25/24 1543 Piledriver Carpenter: [facility] External Provider IMG XR PROCEDURES Final Result * POCT glucose manually resulted (12/02/2024 3:45 PM EDT) Glucose Blood, POC 145 60 - 200 mg/dL QC Media Lot # [id number] Lot# Expiration Date [id number] Blood Capillary blood specimen / Unknown 12/02/2024 3:45 PM EDT Urszula Sue MD POINT OF CARE TEST ENTER/EDIT ORDERABLES Final Result * Gram Stain Result (12/01/2024 2:12 PM EDT) 12/01/2024 2:12 PM EDT 12/01/2024 4:55 PM EDT Comment:Leg Rt Narrative [facility] - 12/05/2024 7:43 AM EDT Gram stain results: No polys 4+ Gram-positive cocci Routine Culture Report - external Routine Culture 4+ Mixed skin linda Staphylococcus aureus Quant Org ID 1+ Staphylococcus aureus: Clindamycin <=0.25(S) Staphylococcus aureus: Erythromycin <=0.25(S) Staphylococcus aureus: Levofloxacin <=0.12(S) Staphylococcus aureus: Oxacillin <=0.25(S) Staphylococcus aureus: Penicillin-G >=0.5(R) Staphylococcus aureus: Tetracycline <=1(S) Staphylococcus aureus: Trimethoprim/Sulfamethoxazole <=10(S) Specimen Source: Leg Right Silviano PINA HISTORICAL/NON ORDERABLE LABS Fi nal Result [facility] [address] [place] [phone] * XR Tibia Fibula 2 Views Right (12/01/2024 1:49 PM EDT) Anatomical Region Laterality Modality Lower Extremities, Lower Leg Right Rad iographic Imaging 12/01/2024 1:49 PM EDT Narrative 12/01/2024 2:59 PM EDT [address] [address] XRay Report Signed Patient: Toro Lu MR#: [id number] : 1950 Acct:[id number] Age/Sex: 73 / M ADM Date: 12/01/24 Loc: HO.LAB Attending Dr: Ga Choi MD Ordering Physician: SILVIANO CUNHA NP Date of Service: 12/01/24 Procedure(s): XR tibia fibula RT 2V Accession Number(s): [id number] cc: Urszula Sue; SILVIANO CUNHA NP EXAMINATION: [...] 12/01/24 1456 DD/ 1349 TD/TT: 12/01/24 1350 Piledriver Carpenter: Procedure Note Donotuseinterpreter, Image - 12/01/2024 [place] [address] XRay Report Signed Patient: Manny Lu#: [id number] : 9Acct:[id number] Age/Sex: 73 / MADM Date: 12/01/24 Loc: HO.LAB Attending Dr: Ga Choi MD Ordering Physician: SILVIANO CUNHA NP Date of Service: 12/01/24 Procedure(s): XR tibia fibula RT 2V Accession Number(s): [id number] cc: Urszula Sue; SILVIANO CUNHA NP EXAMINATION: [...] 12/01/24 1456 DD/ 1349 TD/TT: 12/01/24 1350 Piledriver Carpenter: us Silviano PINA IMG XR PROCEDURES Edited Result - Final * (ABNORMAL) Testosterone, Total, males (Adult), IA (12/01/2024 8:10 AM EDT) [facility] Testosterone, Total 12(A) 250 - 1100 ng/dL [facility] Comment:Men with clinically significant hypogonadalsymptoms and testosterone values repeatedly inthe range of the 200-300 ng/dL or less, maybenefit from testosterone treatment afteradequate risk and benefits counseling.For additional information, please refer [email or web address]/faq/[email or web address](This link is being provided for informational/educational purposes only.)This test was developed and its analytical performancecharacteristics have been determined by [employer] [place], [place]. It hasnot been cleared or approved by the U.S. Food and DrugAdministration. This assay has been validated pursuantto the CLIA regulations and is used for clinicalpurposes.THIS TEST WAS PERFORMED AT:[facility] [place] [phone] GONZALEZ MD,PHD 12/01/2024 8:10 AM EDT 12/01/2024 8:10 AM EDT us Generic External Data Provider LAB BLOOD ORDERAB LES Final Result [facility] [address] [place] [phone] * PSA,Total (12/01/2024 8:10 AM EDT) Prostate Specific Antigen <0.10 <0.05 - 4.0 ng/mL [facility] Comment:PSA methodology: Piter Grasia i ChemiluminescentMicroparticle Immunoassay (CMIA) 12/01/2024 8:10 AM EDT 12/01/2024 8:10 AM EDT us Generic External Data Provider LAB BLOOD ORDERAB LES Final Result Performing Organization Address [facility]/ZIP Co de Phone Number [facility] [address] [place] [phone] * Vitamin B12 (12/01/2024 8:10 AM EDT) Vitamin B12 304 200 - 900 pg/mL [facility] Comment:NORMAL 200-900 PG/ML INDETERMINATE 160-199 PG/ML DEFICIENT < 160 PG/ML 12/01/2024 8:10 AM EDT 12/01/2024 8:10 AM EDT Urszula Sue MD LAB BLOOD ORDERABLES Final Res ult Performing Organization Address [facility]/ZIP Co de Phone Number [facility] [address] [place] [phone] * (ABNORMAL) Basic Metabolic Panel (12/01/2024 8:10 AM EDT) Sodium 141 135 - 145 mmol/L [facility] Potassium 4.2 3.3 - 5.1 mmol/L [facility] Chloride 107 96 - 108 mmol/L [facility] Carbon Dioxide 26 22 - 29 mmol/L [facility] Anion Gap 12 12 - 20 [facility] Urea Nitrogen (BUN) 18(H) 9 - 16 mg/dL [facility] Creatinine, Serum 0.94 0.5 - 1.4 mg/dL [facility] Estimated Glomerular Filt Rate >60 [facility] Comment:Chronic Kidney Disea se: Estimated GFR < 60 mL/min/1.19g1Vxyvue Kidney Disease: Estimated GFR < 15 mL/min/1.73m2 Glucose 172(H) 60 - 115 mg/dL [facility] Calcium 9.2 8.4 - 10.2 mg/dL [facility] 12/01/2024 8:10 AM EDT 12/01/2024 8:10 AM EDT Urszula Sue MD LAB BLOOD ORDERABLES Final Res ult [facility] [address] [place] [phone] * (ABNORMAL) POCT HGB A1C (10/28/2024 3:17 PM EDT) Hemoglobin A1C 10.4(A) 4.0 - 5.7 % Blood 10/28/2024 3:17 PM EDT Urszula Sue MD POINT OF CARE TEST ENTER/EDIT ORDERABLES Final Result * (ABNORMAL) Lipid Panel, Standard (07/29/2024 6:17 AM EDT) Triglycerides 171(H) <150 mg/dL [facility] Comment:Desirable Triglyceri de: less than 150 mg/dLBorderline High Triglyceride 150-199 mg/dLHigh Triglyceride: 200-499 mg/dLVery High Triglyceride: greater than or equal to 5OO mg/dL Cholesterol 170 <200 mg/dL [facility] Comment:Desirable Cholestero l: less than 200 mg/dLBorderline High Cholesterol: 200-239 mg/dLHigh Cholesterol: greater than 239 mg/dL LDL Cholesterol Calculated 79 <100 mg/dL [facility] Comment:Desirable LDL: less than 100 mg/dLNear Optimal/Above Optimal LDL: 110- 129 mg/dLBorderline High LDL: 130-159 mg/dLHigh LDL: 160-189 mg/dLVery High LDL: greater than or equal to 190 mg/dL HDL Cholesterol 57 >40 mg/dL [facility] Comment:Desirable HDL: great er than 40 mg/dL Note: This HDL assay may give artificially low results in patients with liver disease. Blood Venous blood specimen / Unknown 07/29/2024 6:17 AM EDT 07/29/2024 6:17 AM EDT Urszula Sue MD LAB BLOOD ORDERABLES Final Res ult Performing Organization Address [facility] de Phone Number [facility] [address] [place] [phone] * (ABNORMAL) Albumin, Random Urine W/Creatinine (07/29/2024 6:15 AM EDT) Creatinine, Urine 147.38 mg/dL [facility] Microalbumin Urine 62.0 mg/L [facility] Microalbum Creatinine Ratio Ur 42.0(H) <30 ug/mg cr [facility] Comment:Albumin/Creatinine R atio Reference Ranges: Normal: < 30 ug/mg creatinine Microalbuminuria: 30 - 300 ug/mg creatinineClinical Albuminuria: > 300 ug/mg creatinine Urine (Urine, Random) 07/29/2024 6:15 AM EDT 07/29/2024 7:44 AM EDT Urszula Sue MD LAB URINE ORDERABLES Final Res ult Performing Organization Address [facility] de Phone Number [facility] [address] [place] [phone] * Hepatitis C Antibody with Reflex to HCV, RNA, Quantitative, Real-Time PCR (10/28/2023 3:39 PM EDT) Hepatitis C Antibody Nonreactive Nonreactive [facility] Comment:Antibodies to HCV no t detected; does not exclude early acuteHCV infection. Blood Venous blood specimen / Unknown 10/28/2023 3:39 PM EDT 10/28/2023 3:39 PM EDT Urszula Sue MD LAB BLOOD ORDERABLES Final Res ult [facility] [address] [place] [phone] [phone] * Colonoscopy (11/23/2016 3:19 PM EDT) Historical Provider HEALTH MAINTENANCE Final Result from Last 3 Months or Most Recently Relevant to Health Maintenance Insurance Member Subscriber Plan / Payer (Ef fective 2024-Present) Name:LuWhitley juarezan Relation to Subscriber:Self Name:LuToro juarez Payer ID:Not on file [place] [place] Address: [place] [address] [address] [id number] * Guarantor: Toro Lu Account Type Relation to Patient Date of Phone Billing Address Personal/Family Self [address] Care Teams Waste Examiner Relationship Specialty Start Date End Date Urszula Sue MD [address] [place] [phone] PCP - General Family Medicine 11/21/20 Kendy Madsen PharmD [address] [place] [phone] Pharmacist Internal Medicine 10/07/24
--- OUTSIDE RECORDS SUMMARY | 2025-02-09 18:07 | XMS_ITS | Encounter Summary ---
Author Organization [employer] Address [address] [facility] 7t [place] [address] Care Team Providers Care Service Dispatcher Name Role Phone Urszula Sue MD Primary Care Provider [phone] Kendy Madsen PharmD Unavailable [phone] Encounter Details Date Type Department Care Team (Late Contact Info) Description 10/31/2022 Orders Only [facility] [address] [place], [place] [phone] Gregoria Mitchell LPN Social History Tobacco Use [...] Department Care Team (Late Contact Info) Description 02/12/2025 9:30 AM EDT Medication Management [facility] [address] [place] [address] Kendy Madsen, PharmD [address] [place] [address] documented as of this encounter Visit Diagnoses Not on filedocumented in this encounter Care Teams Service Dispatcher Relationship Specialty Start Date End Date Urszula Sue MD [address] [place] [phone] PCP - General Family Medicine 11/21/20 Kendy Madsen, Ryley [address] [place] [address] [phone] Pharmacist Internal Medicine 10/07/24 documented as of this encounter
--- OUTSIDE RECORDS SUMMARY | 2025-02-09 18:07 | XMS_ITS | Encounter Summary ---
Author Organization [employer] Address [address] [place] [address] 7t [place] [address] Care Team Providers Care New Car Inspector Name Role Phone Urszula Sue MD Primary Care Provider [phone] Kendy Madsen PharmD Unavailable [phone] Encounter Details Date Type Department Care Team (Late st Contact Info) Description 08/16/[address] [facility] [address] [place] [phone] Barbara Cerna LPN Social History Tobacco Use [...] Description 02/12/2025 9:30 AM EDT Medication Management [facility] [address] [place] [phone] PuiaHomeroKendy, PharmD [address] [place] [address] documented as of this encounter Visit Diagnoses Not on filedocumented in this encounter Care Teams New Car Inspector Relationship Specialty Start Date End Date Urszula Sue MD [address] [place] [phone] PCP - General Family Medicine 11/21/20 Puia Kendy, PharmD [address] [place] [phone] Pharmacist Internal Medicine 10/07/24 documented as of this encounter
--- NOTE | 2025-02-10 14:47 | MHC.OFFVIS ---
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 H/O urinary retention Benign prostatic hyperplasia with lower urinary tract symptoms Renal artery stenosis Pure hypercholesterolemia Type 2 diabetes mellitus without complication, without long-term current use of insulin HTN (hypertension) with goal to be determined Nonrheumatic aortic (valve) stenosis Surgical History History of prostate biopsy Social History Alcohol intake: current Alcohol intake frequency: a few times a week Patient Tobacco Use Status: Never used Tobacco Office Procedures Cardiac Device Check Cardiac Device Check Details: In office Medtronic pacemaker report was generated after evaluation in the pacemaker. This was done on 02/09/2025. Pacemaker is working well. Patient is ventricularly pacer dependent 100% of the time. No arrhythmias noted. Atrial sensing was excellent. Atrial ventricular pacing thresholds adequate. Pacing lead impedance is stable. Battery life is excellent 53511-BB Cardiac Device Check, pacemaker dual lead Procedure code (CPT) selection complete Assessment & Plan Assessment & Plan (1) Pacemaker: Comment: Medtronic dual-chamber 12/29/2024 Code(s): Z95.0 - Presence of cardiac pacemaker Category: Medical Plan: See above Coding Level of Care Code Procedure Only Diagnoses Pacemaker Z95.0 CPT Codes Cardiac Device Check - Cardiac Device 2: 92114-GL Cardiac Device Check, pacemaker dual lead ([id number])
== END 2025-02-09 16:17 | disposition home or self-care (01) ==
LOC: HO.HCS 15:15
PROVIDERS: PCP General Practice; Visit Provider Nurse Practitioner Family
DX: Z45.018 Encounter for adjustment and management of other part of cardiac pacemaker (principal)
CPT/HCPCS: 93280

== ENCOUNTER → 2025-02-09 15:14 | Outpatient (BNVA) | payer OTHER, SELFPAY | PROVIDERS: PCP General Practice; Visit Provider Nurse Practitioner Family | DX: Z45.010 Encounter for checking and testing of cardiac pacemaker pulse generator [battery] (principal) | CPT/HCPCS: 93280 ==

== ENCOUNTER 2025-02-11 11:14 | Outpatient (REF) | payer OTHER, SELFPAY ==
[2025-02-11 13:56] LABS: Anion Gap 13 (12-20); Blood Urea Nitrogen 14 mg/dL (9-16); Calcium 9.3 mg/dL (8.4-10.2); Carbon Dioxide 28 mmol/L (22-29); Chloride 106 mmol/L (96-108); Estimated Glomerular Filt Rate > 60; Potassium 4.2 mmol/L (3.3-5.1); Sodium 143 mmol/L (135-145)
--- OUTSIDE RECORDS SUMMARY | 2025-02-11 14:22 | XMS_ITS | Encounter Summary ---
Author Organization [employer] Address [address] [facility] 7t [place] [address] Care Team Providers Care Cotton Grader Name Role Phone Urszula Sue MD Primary Care Provider [phone] Kendy Madsen PharmD Unavailable [phone] Encounter Details Date Type Department Care Team ([facility] st Contact Info) Description 02/11/2025 Orders Only [facility] [address] [place], [place] [phone] Urszula Sue MD [address] [place], [place] [phone] Social History Tobacco Use Types Packs/Day Years [...] with others, in a hotel, in a snf, living outside on the street, on a [...] Description 02/12/2025 9:30 AM EDT Medication Management [facility] [address] [place] [address] Kendy Madsen, PharmD [address] [place] [address] documented as of this encounter Procedures Procedure Name Priority Date/Time Associated Diagnosis Comments BASIC METABOLIC PANEL Routine 02/11/2025 11:23 AM EDT documented in this encounter Results * (ABNORMAL) Basic Metabolic Panel (02/11/2025 11:23 AM EDT) Sodium 143 135 - 145 mmol/L [facility] Potassium 4.2 3.3 - 5.1 mmol/L [facility] Chloride 106 96 - 108 mmol/L [facility] Carbon Dioxide 28 22 - 29 mmol/L [facility] Anion Gap 13 12 - 20 [facility] Urea Nitrogen (BUN) 14 9 - 16 mg/dL [facility] Creatinine, Serum 0.64 0.5 - 1.4 mg/dL [facility] Estimated Glomerular Filt Rate >60 [facility] Comment:Chronic Kidney Disea se: Estimated GFR < 60 mL/min/[id number] Kidney Disease: Estimated GFR < 15 mL/min/1.73m2 Glucose 148(H) 60 - 115 mg/dL [facility] Calcium 9.3 8.4 - 10.2 mg/dL [facility] 02/11/2025 11:2 3 AM EDT 02/11/2025 1:31 PM EDT us Urszula Sue MD LAB BLOOD ORDERABLES Final Res ult [facility] [address] [place] [phone] [phone] documented in this encounter Visit Diagnoses Not on filedocumented in this encounter Additional Health Concerns Assessment Noted Time PHQ-9 Depression Total Score: 0 12/03/19 25 3:44 PM EDT documented as of this encounter Care Teams Cotton Grader Relationship Specialty Start Date End Date Urszula Sue MD [address] [place] [address] PCP - General Family Medicine 11/21/20 Kendy Madsen PharmD [address] [place] [address] Pharmacist Internal Medicine 10/07/24 documented as of this encounter
--- OUTSIDE RECORDS SUMMARY | 2025-02-11 14:22 | XMS_ITS | Encounter Summary ---
Author Organization [employer] Address [address] [facility] [address] [place] [address] Care Team Providers Care Ice Resurfacing Machine Operators Name Role Phone Urszula Sue MD Primary Care Provider [phone] Kendy Madsen PharmD Unavailable [phone] Encounter Details Date Type Department Care Team (Late Contact Info) Description 10/31/2022 Orders Only [facility] [address] [place], [place] [phone] Gregoria Mitchell LPN Social History Tobacco Use [...] Description 02/12/2025 9:30 AM EDT Medication Management [facility] [address] [place] [address] Kendy Madsen, PharmD [address] [place] [address] documented as of this encounter Visit Diagnoses Not on filedocumented in this encounter Care Teams Ice Resurfacing Machine Operators Relationship Specialty Start Date End Date Urszula Sue MD [address] [place] [address] PCP - General Family Medicine 11/21/20 Kendy Madsen, Ryley [address] [place] [address] [phone] Pharmacist Internal Medicine 10/07/24 documented as of this encounter
--- OUTSIDE RECORDS SUMMARY | 2025-02-11 14:22 | XMS_ITS | Encounter Summary ---
Author Organization [employer] Address [address] [facility] [address] [place] [address] Care Team Providers Care Shipping Clerk Name Role Phone Urszula Sue MD Primary Care Provider [phone] Kendy Madsen PharmD Unavailable [phone] Encounter Details Date Type Department Care Team (Late st Contact Info) Description 09/05/2023 Orders Only [facility] [address] [place] [address] ProviderMartha MD Social History Tobacco Use Types [...] Description 02/12/2025 9:30 AM EDT Medication Management [facility] [address] [place] [phone] Kendy Madsen PharmD [address] [place] [address] documented as of this encounter Procedures Procedure Name Priority Date/Time Associated Diagnosis Comments HM COLONOSCOPY Routine 11/23/2016 3:19 PM EDT documented in this encounter Results * Hm Colonoscopy (11/23/2016 3:19 PM EDT) Historical Provider HEALTH MAINTENANCE Final Result documented in this encounter Visit Diagnoses Not on filedocumented in this encounter Care Teams Shipping Clerk Relationship Specialty Start Date End Date Urszula Sue MD [address] [place] [address] PCP - General Family Medicine 11/21/20 Kendy Madsen PharmD [address] [place] [phone] Pharmacist Internal Medicine 10/07/24 documented as of this encounter
--- OUTSIDE RECORDS SUMMARY | 2025-02-11 14:22 | XMS_ITS | Clinical Summary ---
Author Organization [employer] Address [address] [place] [address] Care Team Providers Care Optical Brightener Maker Helper Name Role Phone Urszula Sue MD Primary Care Provider [phone] Kendy Madsen PharmD Unavailable [phone] Allergies Active Allergy Reactions Criticality Noted [...] hyperglycemia, with long-term current use of insulin ([facility]) Use to inject insulin 1 times daily 100 each 5 Active TRUEplus Lancets 33G miscIndications: Diabetes 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, with long-term current use of insulin ([facility]) Use to test blood sugar 2 time(s) daily 100 each 5 Active Continuous Glucose Elevator Dispatcher (FreeStyle Gwen 3 [place]) deviceIndication s:Diabetes 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, with long-term current use of insulin ([facility]) 1 each Once per day. Use as directed for CGM 1 each 5 Active Continuous Glucose Sensor (FreeStyle Gwen 3 Plus Sensor) miscIndications: Diabetes 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, with long-term current use of insulin ([facility]) 1 each every 15 days. Apply 1 every 15 days as directed for CGM 2 each 5 Active glucose blood (FreeStyle Precision Tay Test) test stripIndications :Diabetes 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, with long-term current use of insulin ([facility]) Use to test blood sugar 2 times [...] bladder 06/28/2021 Osteoporosis 06/28/2021 Adenocarcinoma of prostate ([facility]/HCC) 01/28/2019 Assessment & Plan (07/28/2024 8:42 AM EDT): Continue GnRH agonist treatments Urologist is Dr Choi at [facility] Continue q 3 month followup Assessment & Plan (11/10/2022 9:17 AM EDT): Mgmt per HPI Urologist is Dr Choi at [facility] Continue q 3 month followup Vitamin D [...] Encounters Date Type Department Care Team Description 02/11/[address] [facility] [address] [place] [address] Urszula Sue MD 01/15/2025 2:00 PM EDT Office Visit [facility] [address] [place] [address] Corrina Yung NP Complete heart block (CMS/HCC) (Primary Dx) 01/15/2025 Travel 01/08/[address] [facility] MED & PEDS [address] [place] [address] Urszula Sue MD Chart Prep 01/05/2025 Travel 01/05/[address] [facility] [address] [place] [phone] Urszula Sue MD 01/05/[address] [address] eKndy Madsen PharmD 12/31/2024 Patient Outreach [address] [address] Urszula Sue MD Transition Of Care (Tcm) (HDF scheduled) 12/25/2024 Orders Only GENERIC EXTERNAL DATA DEPARTMENT Provider, Generic External Data 12/25/2024 Travel 12/25/[address] [facility] WALK-IN [facility] [address] [place] [phone] Belia Le MD In person triage 12/20/[address] [address] Urszula Sue MD 12/10/2024 Results Follow-Up [address] [address] Silviano Cunha ANP Gram Stain Result 12/02/2024 3:00 PM EDT Office Visit [address] [address] Urszula Sue MD Diabetes 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, with long-term current use of insulin (CMS/HCC) (Primary Dx); Essential hypertension; Right bundle branch block; Adenocarcinoma of prostate (CMS/HCC); Non-healing wound of lower extremity, sequela 12/02/2024 Travel 12/01/2024 2:00 PM EDT Office Visit [facility] [address] [place] [address] Silviano Cunha ANP Delayed wound healing (Primary Dx); Diabetes 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, with long-term current use of insulin (CMS/HCC); Open wound of right lower leg, initial encounter; Bilateral leg edema 12/01/2024 Results Follow-Up [facility] [address] [place] [address] Silviano Cunha ANP XR Tibia Fibula 2 Views Right 12/01/2024 Travel 12/01/[address] [facility] [address] [place] [address] Urszula Sue MD 12/01/[address] [facility] [address] [place] [address] Urszula Sue MD chart prep 11/25/[address] [facility] [address] [place], [place] [phone] Urszula Sue MD Pre-visit Planning ([facility] unable to reach LV ) from Last 3 Months Immunizations Immunization [...] 02/12/2025 9:30 AM EDT Medication Management [facility] [address] [place] [address] Kendy Madsen, PharmD [address] [place] [address] Health Maintenance Due Date Last Done Comments [...] METABOLIC PANEL Routine 02/11/2025 11:23 AM EDT URINALYSIS, COMPLETE, WITH REFLEX TO CULTURE Routine [...] hyperglycemia, with long-term current use of insulin ([facility]) GRAM STAIN RESULT (NON ORDERABLE) Routine 12/01/2024 [...] Relevant to Health Maintenance Results * (ABNORMAL) Basic Metabolic Panel (02/11/2025 11:23 AM EDT) Only the most recent of2 resultswithin the time period is included. Sodium 143 135 - 145 mmol/L [facility] Potassium 4.2 3.3 - 5.1 mmol/L [facility] Chloride 106 96 - 108 mmol/L [facility] Carbon Dioxide 28 22 - 29 mmol/L [facility] Anion Gap 13 12 - 20 [facility] Urea Nitrogen (BUN) 14 9 - 16 mg/dL [facility] Creatinine, Serum 0.64 0.5 - 1.4 mg/dL [facility] Estimated Glomerular Filt Rate >60 [facility] Comment:Chronic Kidney Disea se: Estimated GFR < 60 mL/min/1.53j0Twpdxh Kidney Disease: Estimated GFR < 15 mL/min/1.73m2 Glucose 148(H) 60 - 115 mg/dL [facility] Calcium 9.3 8.4 - 10.2 mg/dL [facility] 02/11/2025 11:2 3 AM EDT 02/11/2025 1:31 PM EDT us Urszula Sue MD LAB BLOOD ORDERABLES Final Res ult [facility] [address] [place] [phone] * Urinalysis, Complete, with Reflex to Culture (12/25/2024 5:29 PM EDT) Color Urine Yellow [facility] Appearance Urine Clear [facility] PH 6.0 5.0 - 9.0 [facility] Glucose Urine UA Negative Negative mg/dL [facility] Urine Blood Negative Negative [facility] Specific [place] - Urine 1.010 1.005 - 1.025 [facility] Urine Protein Negative Neg-Trace mg/dL [facility] Urine Ketones Negative Negative mg/dL [facility] Nitrite Urine Negative Negative [facility] Leukocyte Esterase Urine Negative Negative [facility] RBC Urine 0-2 0 - 2 /HPF [facility] Urine WBC 0-5 0 - 5 /HPF [facility] Urine Squamous Epithelial Cell 0-2 0 - 2 /HPF [facility] Urine Bacteria None Seen None Seen [facility] Hyaline Casts, Urine 0-2 0 - 2 /LPF [facility] 12/25/2024 5:29 PM EDT 12/25/2024 5:32 PM EDT Narrative [facility] - 12/25/2024 6:01 PM EDT Urine, Clean Catch us Generic External Data Provider LAB URINE ORDERAB LES Final Result Performing Organization Address [facility] Co de Phone Number [facility] [address] [place] [phone] * Influenza A B2 ID NOW (Thomas) (12/25/2024 2:57 PM EDT) IDNOW SERIAL# [id number] [facility] Influenza A Negative Negative [facility] Influenza B2 Negative Negative [facility] Influenza A B2 Note See Note [facility] Comment:The Thomas ID NOW In [...] GENERAL ORDERABLES Final Result Performing Organization Address [facility]/ZIP Co de Phone Number [facility] [address] [place] [phone] * COVID-19 ID NOW (THOMAS) (12/25/2024 2:57 PM EDT) IDNOW SERIAL# [id number] [facility] COVID-19 TEST Negative Negative [facility] COVID-19 NOTE See Note [facility] Comment: Results are for the identification of SARS-CoV2 RNA. TheSARS-CoV2 RNA is generally detectable in respiratory samplesduring the acute phase of infection. Positive results areindicative of the presence of SARS-CoV-2 RNA; clinicalcorrelation with patient history and other diagnosticinformation is necessary to determine patient infectionstatus. Positive results do not rule out bacterial infectionor co- infection with other viruses.Testing facilities within the [facility] and [facility] are required to report all positive [...] use by authorized laboratories.Testing performed on the [employer] ID NOW utilizing NAAT. 12/25/2024 2:57 PM EDT 12/25/2024 3:01 PM EDT us Generic External Data Provider LAB MOLECULAR JULIO GNOSTICS ORDERABLES Final Result [facility] [address] [place] [phone] * High Sensitivity Troponin I (12/25/2024 2:57 PM EDT) TROPONIN I HIGH SENSITIVITY 19.9 <3.5 - 35.0 ng/L [facility] Comment:The Thomas high sens itivity Troponin-I results should beused in conjunction with other diagnostic information suchas ECG, clinical observations and information, and patientsymptoms to aid in the diagnosis of CA. 12/25/2024 2:57 PM EDT 12/25/2024 3:01 PM EDT us Generic External Data Provider LAB BLOOD ORDERAB LES Final Result [facility] [address] [place], [place] [phone] * (ABNORMAL) CBC auto differential (12/25/2024 2:57 PM EDT) White Blood Count 4.2(L) 4.8 - 10.8 X10*3/uL [facility] Red Blood Count 3.90(L) 4.60 - 5.80 X10*6/uL [facility] Hemoglobin 12.4(L) 14.0 - 18.0 g/dl [facility] Hematocrit 36.4(L) 42.0 - 52.0 % [facility] Mean Corpuscular Volume 93.3 80.0 - 98.0 fL [facility] Mean Corpuscular Hemoglobin 31.8 27.0 - 33.0 pg [facility] Mean Corpuscular HGB Conc 34.1 31.0 - 36.0 g/dl [facility] Red Cell Distribution Width 14.6 11.0 - 16.0 % [facility] Platelet Count 178 160 - 400 X10*3/uL [facility] Mean Platelet Volume 11.4 9.4 - 12.4 fL [facility] Neutrophils Percent Auto 71.3 45 - 73 % [facility] Imm Gran Pct Auto 0.2 0.0 - 0.4 % [facility] Lymphocytes Percent Auto 13.8(L) 20 - 40 % [facility] Monocytes Percent Auto 11.9(H) 2 - 11 % [facility] Eosinophils Percent Auto 2.6 0 - 4 % [facility] Basophils Percent Auto 0.2 0 - 2 % [facility] NRBC Pct Auto 0.0 0.0 - 0.2 /100WBC [facility] Neutrophils Absolute Auto 3.0 2.0 - 8.3 x10*3/uL [facility] Imm Gran Abs Auto 0.01 0.00 - 0.03 X10*3/uL [facility] Lymphocytes Absolute Auto 0.6(L) 1.2 - 4.9 X10*3/uL [facility] Monocytes Absolute Auto 0.5 0.1 - 1.2 X10*3/uL [facility] Eosinophils Absolute Auto 0.1 0.0 - 0.4 X10*3/uL [facility] Basophils Absolute Auto 0.0 0.0 - 0.2 X10*3/uL [facility] NRBC Abs Auto 0.000 0.0 - 0.012 X10*3/uL [facility] 12/25/2024 2:57 PM EDT 12/25/2024 3:01 PM EDT us Generic External Data Provider LAB BLOOD ORDERAB LES Final Result Performing Organization Address [facility] Co de Phone Number [facility] [address] [place] [phone] * (ABNORMAL) B Type Natriuretic Peptide (BNP) (12/25/2024 2:57 PM EDT) B Type Natriuretic Peptide 819(H) <100 pg/mL [facility] 12/25/2024 2:57 PM EDT 12/25/2024 3:01 PM EDT Generic External Data Provider LAB BLOOD ORDERAB LES Final Result Performing Organization Address [facility] Co de Phone Number [facility] [address] [place] [phone] * Lipase (12/25/2024 2:57 PM EDT) Lipase 18 8 - 78 U/L [facility] 12/25/2024 2:57 PM EDT 12/25/2024 3:01 PM EDT us Generic External Data Provider LAB BLOOD ORDERAB LES Final Result Performing Organization Address City/[facility] Co de Phone Number [facility] [address] [place] [phone] [phone] * (ABNORMAL) Comprehensive Metabolic Panel (12/25/2024 2:57 PM EDT) Sodium 142 135 - 145 mmol/L [facility] Potassium 4.0 3.3 - 5.1 mmol/L [facility] Chloride 111(H) 96 - 108 mmol/L [facility] Carbon Dioxide 23 22 - 29 mmol/L [facility] Anion Gap 12 12 - 20 [facility] Urea Nitrogen (BUN) 16 9 - 16 mg/dL [facility] Creatinine, Serum 1.02 0.5 - 1.4 mg/dL [facility] Creatinine Clr Calc Pharmacy 61.4 [facility] Comment:eGFR (calculated fro m the MDRD study equation) and eCrCl(calculated from the Cockcroft-Gault equation) are based ondifferent parameters and may not yield comparable results.If eCrCl result is absurd, please check patient'sheight/weight. Estimated Glomerular Filt Rate >60 [facility] Comment:Chronic Kidney Disea se: Estimated GFR < 60 mL/min/1.16f9Xvwbal Kidney Disease: Estimated GFR < 15 mL/min/1.73m2 Glucose 173(H) 60 - 115 mg/dL [facility] Calcium 9.0 8.4 - 10.2 mg/dL [facility] Bilirubin, Total 0.8 0.0 - 1.0 mg/dL [facility] Aspartate Amino Transferase 30 5 - 37 U/L [facility] Alanine Aminotransferase 70(H) 0 - 40 U/L [facility] Total Protein 6.9 6.5 - 8.0 g/dL [facility] Albumin Level 3.9 3.5 - 5.0 g/dL [facility] Alkaline Phosphatase 78 39 - 117 U/L [facility] 12/25/2024 2:57 PM EDT 12/25/2024 3:01 PM EDT us Generic External Data Provider LAB BLOOD ORDERAB LES Final Result [facility] [address] [place] [phone] * XR Chest 2 Views (12/25/2024 2:44 PM EDT) Anatomical Region Laterality Modality Chest Radiographic Delmi ging 12/25/2024 2:44 PM EDT Narrative 12/25/2024 3:55 PM EDT [address] [address] XRay Report Signed Patient: Toro Lu MR#: [id number] : 1950 Acct:[id number] Age/Sex: 74 / M ADM Date: 12/25/24 Loc: .ED Attending Dr: Ordering Physician: Boaz Boudreaux Date of Service: 12/25/24 Procedure(s): XR chest 2V Accession Number(s): [id number] cc: Urszula Sue; Boaz Boudreaux EXAMINATION: XR [...] 12/25/24 1552 DD/ 1444 TD/TT: 12/25/24 1543 Chemistry Faculty Member: Procedure Note Donotuseinterpreter, Image - 12/25/[address] [address] XRay Report Signed Patient: Toro LuMR#: [id number] : 9Acct:[id number] Age/Sex: 74 / MADM Date: 12/25/24 Loc: .ED Attending Dr: Ordering Physician: Boaz Boudreaux Date of Service: 12/25/24 Procedure(s): XR chest 2V Accession Number(s): [id number] cc: Urszula Sue; Boaz Boudreaux EXAMINATION: XR [...] 12/25/24 1552 DD/ 1444 TD/TT: 12/25/24 1543 Chemistry Faculty Member: [facility] External Provider IMG XR PROCEDURES Final Result * POCT glucose manually resulted (12/02/2024 3:45 PM EDT) Glucose Blood, POC 145 60 - 200 mg/dL QC Media Lot # [id number] Lot# Expiration Date [id number] Blood Capillary blood specimen / Unknown 12/02/2024 3:45 PM EDT Urszula Sue MD POINT OF CARE TEST ENTER/EDIT ORDERABLES Final Result * Gram Stain Result (12/01/2024 2:12 PM EDT) 12/01/2024 2:12 PM EDT 12/01/2024 4:55 PM EDT Comment:Leg Rt Narrative [facility] - 12/05/2024 7:43 AM EDT [...] ANP HISTORICAL/NON ORDERABLE LABS Fi nal Result Performing Organization Address City/State/[facility] Co de Phone Number [facility] [address] [place] [phone] * XR Tibia Fibula 2 Views Right (12/01/2024 1:49 PM EDT) Anatomical Region Laterality Modality Lower Extremities, Lower Leg Right Rad iographic Imaging 12/01/2024 1:49 PM EDT Narrative 12/01/2024 2:59 PM EDT [address] [address] XRay Report Signed Patient: Toro Lu MR#: [id number] : 1950 Acct:[id number] Age/Sex: 73 / M ADM Date: 12/01/24 Loc: HO.LAB Attending Dr: Ga Choi MD Ordering Physician: SILVIANO CUNHA NP Date of Service: 12/01/24 Procedure(s): XR tibia fibula RT 2V Accession Number(s): [id number] cc: Urszula Sue; SILVIANO CUNHA NP EXAMINATION: [...] 12/01/24 1456 DD/ 1349 TD/TT: 12/01/24 1350 Chemistry Faculty Member: Procedure Note Donotuseinterpreter, Image - 12/01/2024 [place] [address] XRay Report Signed Patient: Toro Lu#: [id number] : 1950cct:[id number] Age/Sex: 73 / MADM Date: 12/01/24 Loc: HO.LAB Attending Dr: Ga Choi MD Ordering Physician: SILVIANO CUNHA NP Date of Service: 12/01/24 Procedure(s): XR tibia fibula RT 2V Accession Number(s): [id number] cc: Urszula Sue; SILVIANO CUNHA NP EXAMINATION: [...] 12/01/24 1456 DD/ 1349 TD/TT: 12/01/24 1350 Chemistry Faculty Member: Silviano PINA IMG XR PROCEDURES Edited Result - Final * (ABNORMAL) Testosterone, Total, males (Adult), IA (12/01/2024 8:10 AM EDT) Testosterone, Total 12(A) 250 - 1100 ng/dL [facility] Comment:Men with clinically significant hypogonadalsymptoms and testosterone values repeatedly inthe range of the 200-300 ng/dL or less, maybenefit from testosterone treatment afteradequate risk and benefits counseling.For additional information, please refer [email or web address] [email or web address]/faq/[email or web address](This link is being provided for informational/educational purposes only.)This test was developed and its analytical performancecharacteristics have been determined by [employer] [place], [place]. It hasnot been cleared or approved by the U.S. Food and DrugAdministration. This assay has been validated pursuantto the CLIA regulations and is used for clinicalpurposes.THIS TEST WAS PERFORMED AT:[employer] [id number] [place] [id number] GONZALEZ MD,PHD 12/01/2024 8:10 AM EDT 12/01/2024 8:10 AM EDT us Generic External Data Provider LAB BLOOD ORDERAB LES Final Result [facility] [address] [place] [phone] * PSA,Total (12/01/2024 8:10 AM EDT) Prostate Specific Antigen <0.10 <0.05 - 4.0 ng/mL [facility] Comment:PSA methodology: Abb sj Alijg i ChemiluminescentMicroparticle Immunoassay (CMIA) 12/01/2024 8:10 AM EDT 12/01/2024 8:10 AM EDT Generic External Data Provider LAB BLOOD ORDERAB LES Final Result Performing Organization Address [facility] Co de Phone Number [facility] [address] [place] [phone] * Vitamin B12 (12/01/2024 8:10 AM EDT) Vitamin B12 304 200 - 900 pg/mL [facility] Comment:NORMAL 200-900 PG/ML INDETERMINATE 160-199 PG/ML DEFICIENT < 160 PG/ML 12/01/2024 8:10 AM EDT 12/01/2024 8:10 AM EDT Urszula Sue MD LAB BLOOD ORDERABLES Final Res ult Performing Organization Address [facility] Co de Phone Number [facility] [address] [place] [phone] * (ABNORMAL) POCT HGB A1C (10/28/2024 3:17 PM EDT) Pathologist [facility] Hemoglobin A1C 10.4(A) 4.0 - 5.7 % Blood 10/28/2024 3:17 PM EDT Urszula Sue MD POINT OF CARE TEST ENTER/EDIT ORDERABLES Final Result * (ABNORMAL) Lipid Panel, Standard (07/29/2024 6:17 AM EDT) Triglycerides 171(H) <150 mg/dL [facility] Comment:Desirable Triglyceri de: less than 150 mg/dLBorderline High Triglyceride 150-199 mg/dLHigh Triglyceride: 200-499 mg/dLVery High Triglyceride: greater than or equal to 5OO mg/dL Cholesterol 170 <200 mg/dL [facility] Comment:Desirable Cholestero l: less than 200 mg/dLBorderline High Cholesterol: 200-239 mg/dLHigh Cholesterol: greater than 239 mg/dL LDL Cholesterol Calculated 79 <100 mg/dL [facility] Comment:Desirable LDL: less than 100 mg/dLNear Optimal/Above Optimal LDL: 110- 129 mg/dLBorderline High LDL: 130-159 mg/dLHigh LDL: 160-189 mg/dLVery High LDL: greater than or equal to 190 mg/dL HDL Cholesterol 57 >40 mg/dL [facility] Comment:Desirable HDL: great er than 40 mg/dL Note: This HDL assay may give artificially low results in patients with liver disease. Blood Venous blood specimen / Unknown 07/29/2024 6:17 AM EDT 07/29/2024 6:17 AM EDT Urszula Sue MD LAB BLOOD ORDERABLES Final Res ult Performing Organization Address [facility] de Phone Number [facility] [address] [place] [phone] * (ABNORMAL) Albumin, Random Urine W/Creatinine (07/29/2024 6:15 AM EDT) Creatinine, Urine 147.38 mg/dL [facility] Microalbumin Urine 62.0 mg/L [facility] Microalbum Creatinine Ratio Ur 42.0(H) <30 ug/mg cr [facility] Comment:Albumin/Creatinine R atio Reference Ranges: Normal: < 30 ug/mg creatinine Microalbuminuria: 30 - 300 ug/mg creatinineClinical Albuminuria: > 300 ug/mg creatinine Urine (Urine, Random) 07/29/2024 6:15 AM EDT 07/29/2024 7:44 AM EDT Urszula Sue MD LAB URINE ORDERABLES Final Res ult Performing Organization Address [facility] Co de Phone Number [facility] [address] [place] [phone] * Hepatitis C Antibody with Reflex to HCV, RNA, Quantitative, Real-Time PCR (10/28/2023 3:39 PM EDT) Hepatitis C Antibody Nonreactive Nonreactive [facility] Comment:Antibodies to HCV no t detected; does not exclude early acuteHCV infection. Blood Venous blood specimen / Unknown 10/28/2023 3:39 PM EDT 10/28/2023 3:39 PM EDT Urszula Sue MD LAB BLOOD ORDERABLES Final Res ult [facility] [address] [place] [phone] * Hm Colonoscopy (11/23/2016 3:19 PM EDT) us Martha Provider HEALTH MAINTENANCE Final Result from Last 3 Months or Most Recently Relevant to Health Maintenance Insurance [facility] (HMO D-SNP) Care Teams Optical Brightener Maker Helper Relationship Specialty Start Date End Date Urszula Sue MD [address] [place] [address] PCP - General Family Medicine 11/21/20 Kendy Madsen PharmD [address] [place] [phone] Pharmacist Internal Medicine 10/07/24
--- OUTSIDE RECORDS SUMMARY | 2025-02-11 14:22 | XMS_ITS | Encounter Summary ---
Author Organization [email or web address] Address [address] [place] [address] [address] [place] [address] Care Team Providers Care Urban Designer Name Role Phone Urszula Sue MD Primary Care Provider [phone] Kendy Madsen PharmD Unavailable [phone] Encounter Details Date Type Department Care Team (Late st Contact Info) Description 08/16/2022 Orders Only [facility] [address] [place] [phone] Barbara Cerna LPN Social History Tobacco Use [...] Description 02/12/2025 9:30 AM EDT Medication Management [facility] [address] [place] [phone] PuiaHomeroKendy, PharmD [address] [place] [address] documented as of this encounter Visit Diagnoses Not on filedocumented in this encounter Care Teams Urban Designer Relationship Specialty Start Date End Date Urszula Sue MD [address] [place] [phone] PCP - General Family Medicine 11/21/20 Puia Kendy, PharmD [address] [place] [phone] Pharmacist Internal Medicine 10/07/24 documented as of this encounter
== END 2025-02-11 11:15 | disposition home or self-care (01) ==
LOC: HO.HHCL 11:14
PROVIDERS: Urology; PCP General Practice; Visit Provider General Practice
DX: C61 Malignant neoplasm of prostate (principal); I10 Essential (primary) hypertension
CPT/HCPCS: 36415; 80048; 84403

== ENCOUNTER 2025-03-24 09:49 | Outpatient (REF) | payer OTHER, SELFPAY ==
--- OUTSIDE RECORDS SUMMARY | 2025-03-24 11:21 | XMS_ITS | Encounter Summary ---
Author Organization [employer] Address [address] [place] [address] Care Team Providers Care Project Administrative Assistant Name Role Phone Urszula Sue MD Primary Care Provider [phone] Kendy Madsen PharmD Unavailable [phone] Encounter Details Date Type Department Care Team (Late st Contact Info) Description 09/05/2023 Orders Only [facility] [address] [place] [address] ProviderMartha MD Social History Tobacco Use Types [...] Care Team (Late st Contact Info) Description 03/29/2025 9:30 AM EST Medication Management [facility] [address] [place] [phone] Kendy Masden PharmD [address] [place] [phone] 06/25/2025 2:30 PM EST Office Visit [facility] [address] [place] [phone] Urszula Sue MD [address] [place] [phone] documented as of this encounter Procedures Procedure Name Priority Date/Time Associated Diagnosis Comments HM COLONOSCOPY Routine 11/23/2016 3:19 PM EDT documented in this encounter Results * Hm Colonoscopy (11/23/2016 3:19 PM EDT) Historical Provider HEALTH MAINTENANCE Final Result documented in this encounter Visit Diagnoses Not on filedocumented in this encounter Care Teams Project Administrative Assistant Relationship Specialty Start Date End Date Urszula Sue MD [address] [place] [phone] PCP - General Family Medicine 11/21/20 Kendy Madsen PharmD [address] [place] [address] [phone] Pharmacist Internal Medicine 10/07/24 documented as of this encounter
--- OUTSIDE RECORDS SUMMARY | 2025-03-24 11:21 | XMS_ITS | Clinical Summary ---
Author Organization [employer] Address [address] [facility] [address] [place] [address] Care Team Providers Care Tangible Personal Property Appraiser Name Role Phone Urszula Sue MD Primary Care Provider [phone] Kendy Madsen PharmD Unavailable [phone] Allergies Active Allergy Reactions Criticality Noted Date Comments Lisinopril Angioedema 06/06/2017 Medications spironolactone (Aldactone) 50 MG tabletIndication s:Essential hypertension Take 1 tablet (50 mg) by mouth Once per day. 90 tablet 3 4 Active albuterol 108 (90 Base) MCG/ACT inhaler Inhale 2 puffs every 4 (four) hours if needed for wheezing. 18 g 11 03/16/2025 1:06 PM EST 4 025 Active Blood Pressure Monitoring (Omron [...] hyperglycemia, with long-term current use of insulin ([facility]) Take 1 tablet (40 mg) by mouth at bedtime. 90 tablet 3 5 Active insulin pen needle 32G x 4 mm miscIndications: Diabetes 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, with long-term current use of insulin (HCC) Use to inject insulin 1 times daily 100 each 3 5 Active TRUEplus Lancets 33G miscIndications: Diabetes 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, with long-term current use of insulin (HCC) Use to test blood sugar 2 time(s) daily 100 each 03/16/2025 1:06 PM EST 5 Active Continuous Glucose Pediatric Lpn (FreeStyle Gwen 3 Parachute) deviceIndication s:Diabetes 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, with long-term current use of insulin ([facility]) 1 each Once per day. Use as directed for CGM 1 each 5 Active Continuous Glucose Sensor (FreeStyle Gwen 3 Plus Sensor) miscIndications: Diabetes 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, with long-term current use of insulin ([facility]) 1 each every 15 days. Apply 1 every 15 days as directed for CGM 2 each 5 Active glucose blood (FreeStyle Precision Tay Test) test stripIndications :Diabetes 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, with long-term current use of insulin ([facility]) Use to test blood sugar 2 times [...] time per week. 2 mL 5 Active naproxen sodium (Aleve) 220 MG tablet TAKE 1 TABLET BY MOUTH TWICE DAILY IN THE MORNING AND AT BEDTIME NEEDED FOR MILD PAIN (PAIN OF KNEE) 60 tablet 1 03/16/2025 1:06 PM EST 5 Active furosemide (Lasix) 20 MG tablet Take 20 mg by mouth Once per day. 5 Active gabapentin (Neurontin) 100 MG capsule Take 1 capsule (100 mg) by mouth 2 times daily. Do not start before January 27, 2025. 60 capsule 1 03/16/2025 1:06 PM EST 5 Active insulin glargine (Lantus SoloStar) 100 UNIT/ML penIndications:D iabetes 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, with long-term current use of insulin ([facility]) inject 20 units by Subcutaneous route every evening 15 mL 1 03/16/2025 1:06 PM EST Active empagliflozin-me tFORMIN (Synjardy) 5-1000 MGIndications:Di abetes 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, with long-term current use of insulin ([facility]) Take 1 tablet by mouth with breakfast and with evening meal. 60 tablet 5 03/16/2025 1:06 PM EST Active losartan (Cozaar) 50 MG tablet Take 1 tablet (50 mg) by mouth Once per day. 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/28/2019 Assessment & Plan (07/28/2024 8:42 AM EDT): Continue GnRH agonist treatments [place] [facility] Continue q 3 month followup Assessment & Plan (11/10/2022 9:17 AM EDT): Mgmt per HPI Urologist is Dr Choi at [facility] Continue q 3 month followup Vitamin D [...] Encounters Date Type Department Care Team Description 03/01/2025 Orders Only [facility] [address] [place] [address] Urszula Sue MD 02/12/2025 Travel 02/11/2025 Orders Only [facility] [address] [place] [address] Urszula Sue MD 01/15/2025 2:00 PM EDT Office Visit [facility] [address] [place] [address] Corrina Yung NP Complete heart block (CMS/HCC) (Primary Dx) 01/15/2025 Travel 01/08/2025 Telephone [facility] [address] [place] [address] Urszula Sue MD Chart Prep 01/05/2025 Travel 01/05/2025 Refill [facility] [address] [place] [address] Urszula Sue MD 01/05/2025 Telephone [facility] [address] [place] [address] Kendy Madsen, PharmD 12/31/2024 Patient Outreach [facility] [address] [place], [place] [phone] Urszula Sue MD Transition Of Care (Tcm) (HDF scheduled) 12/25/2024 Orders Only GENERIC EXTERNAL DATA DEPARTMENT Provider, Generic External Data 12/25/2024 Travel 12/25/2024 Telephone [facility] [address] [place], [place] [phone] Belia Le MD In person triage from Last 3 Months Immunizations Immunization Administration Dates Next Due Hep B, adult 03/28/2017, 7,04/01/2014,11/20 Influenza High-dose Quadriva lent Preservative Free 02/13/2021,01/29/2020 Influenza injectable quadriv alent IIV4 with preservative 03/28/2017,01/24/2015 Influenza injectable quadriv alent preservative free 01/28/2019,06/09/2018 Influenza, High Dose Seasona l, Preservative Free 02/25/2025 Influenza, IIV3, injectable 04/01/2014, 0 Moderna Covid-19 Vaccine 6+ Bivalent 05/04/2022 Pfizer Covid-19 Vaccine 12+ 02/12/2025 Pneumococcal Conjugate PCV 13 09/05/2016 Pneumococcal Polysaccharide [...] with others, in a hotel, in a senior living, living outside on the street, on a [...] Sign Reading Time Taken Comments Blood Pressure 160/82 02/12/2025 9:48 AM EDT Pulse 96 01/15/2025 1:38 PM EDT Temperature 36.9 C (98.5 F) 01/15/2025 1:38 PM EDT Respiratory Rate 17 01/15/2025 1:38 PM EDT Oxygen Saturation 100% 01/15/2025 1:38 PM EDT Inhaled Oxygen Concentration - - Weight 82.8 kg (182 lb 9.6 oz) 01/15/2025 1:38 P M EDT Height 162.6 cm (5' 4 ) 01/15/2025 1:38 PM EDT Body Mass Index 31.34 01/15/2025 1:38 PM EDT Plan of Treatment Upcoming Encounters Date Type Department Care Team (Late st Contact Info) Description 03/29/2025 9:30 AM EST Medication Management [facility] [address] [place] [phone] Kendy Madsen PharmD [address] [place] [address] 06/25/2025 2:30 PM EST Office Visit [address] [phone] Urszula Sue MD [address] [place], [place] [phone] Health Maintenance Due Date Last Done Comments Diabetes: Foot Exam 1960 Zoster Vaccines (1 of 2) 1998 RSV Patients and Patients Aged 60 years or older (1 - 1-dose 75+ series) 12/17/2023 Diabetes: Hemoglobin A1C 05/15/2025 025, 10/28/2024, 07/29/2024, Additional history exists Diabetes: Urine Protein Screening 07/29/2025 07/29/2024, 10/28/2023, 02/13/2021 Lipid Panel 07/29/2025 07/29/2024, 07/0 04/2023, 02/10/2021 COVID-19 Vaccine ( season) 2025 02/12/2025, 05/04/2022, 09/29/2021, Additional history exists SDOH Screening 08/31/2025 08/31/2024 Alcohol/Substance Use Screening 12/02/2025 12/02/2024 Depression Screening 12/02/2025 12/02/2024, 12/03/19 Tobacco Screening 01/15/2026 01/15/2025 Eye Exam 02/20/2026 02/21/2024 DTaP/Tdap/Td Vaccines (3 - Td or Tdap) 10/28/2034 10/28/2024, 03/20/2010, 10/27/1996 Colonoscopy Discontinued 11/23/2016 Colorectal Cancer Screening Discontinued Hepatitis B Vaccines Completed 03/28/2017, 09/05/2016, 04/01/2014, Additional history exists Pneumococcal Vaccine: 50+ Years Completed 06/09/2018, 09/05/2016, 07/03/2010 Hepatitis C Screening Completed 10/28/2023 Influenza Vaccine Completed 02/25/2025, , 01/29/2020, Additional history exists CT Colonography Discontinued FIT DNA/Cologuard Discontinued FIT [...] Diagnosis Comments POCT GLYCATED HEMOGLOBIN, TOTAL Routine 02/12/2025 10:00 AM EDT Diabetes 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, with long-term current use of insulin (HCC) TESTOSTERONE, TOTAL, MALES (ADULT), IA Routine 02/11/2025 11:23 AM EDT BASIC METABOLIC PANEL Routine 02/11/2025 11:23 AM [...] 2 VIEWS Routine 12/25/2024 2:44 PM EDT LIPID PANEL, STANDARD Routine 07/29/2024 6:17 [...] to Health Maintenance Results * (ABNORMAL) POCT Hgb A1c (02/12/2025 10:00 AM EDT) Hemoglobin A1C 7.1(A) 4.0 - 5.7 % Blood 02/12/2025 10:0 0 AM EDT us Urszula Sue MD POINT OF CARE TEST ENTER/EDIT ORDERABLES Final Result * (ABNORMAL) Testosterone, Total, males (Adult), IA (02/11/2025 11:23 AM EDT) Testosterone, Total 5(A) 250 - 1100 ng/dL [facility] Comment:Men with clinically significant hypogonadalsymptoms and testosterone values repeatedly inthe range of the 200-300 ng/dL or less, maybenefit from testosterone treatment afteradequate risk and benefits counseling.For additional information, please refer tohttp://education.[employer]/faq/LpyvrPqggloaxaaghYMLSGGMIA401(This link is being provided for informational/educational purposes only.)This test was developed and its analytical performancecharacteristics have been determined by [employer] [place], [place]. It hasnot been cleared or approved by the U.S. Food and DrugAdministration. This assay has been validated pursuantto the CLIA regulations and is used for clinicalpurposes.THIS TEST WAS PERFORMED AT:[employer]/[id number] [place] [address]IACAKMAADITYA GONZALEZ MD,PHD 02/11/2025 11:2 3 AM EDT 02/11/2025 1:31 PM EDT us Generic External Data Provider LAB BLOOD ORDERAB LES Final Result [facility] [address] [place] [phone] * (ABNORMAL) Basic Metabolic Panel (02/11/2025 11:23 AM EDT) Pathologist [facility] Sodium 143 135 - 145 mmol/L [facility] Potassium 4.2 3.3 - 5.1 mmol/L [facility] Chloride 106 96 - 108 mmol/L [facility] Carbon Dioxide 28 22 - 29 mmol/L [facility] Anion Gap 13 12 - 20 [facility] Urea Nitrogen (BUN) 14 9 - 16 mg/dL [facility] Creatinine, Serum 0.64 0.5 - 1.4 mg/dL [facility] Estimated Glomerular Filt Rate >60 [facility] Comment:Chronic Kidney Disea se: Estimated GFR < 60 mL/min/1.75v8Ldsica Kidney Disease: Estimated GFR < 15 mL/min/1.73m2 Glucose 148(H) 60 - 115 mg/dL [facility] Calcium 9.3 8.4 - 10.2 mg/dL [facility] 02/11/2025 11:2 3 AM EDT 02/11/2025 1:31 PM EDT us Urszula Sue MD LAB BLOOD ORDERABLES Final Res ult [facility] [address] [place] [phone] * Urinalysis, Complete, with Reflex to Culture (12/25/2024 5:29 PM EDT) Color Urine Yellow [facility] Appearance Urine Clear [facility] PH 6.0 5.0 - 9.0 [facility] Glucose Urine UA Negative Negative mg/dL [facility] Urine Blood Negative Negative [facility] Specific [place] - Urine 1.010 1.005 - 1.025 [facility] Urine Protein Negative Neg-Trace mg/dL [facility] Urine Ketones Negative Negative mg/dL [facility] Nitrite Urine Negative Negative [facility] Leukocyte Esterase Urine Negative Negative [facility] RBC Urine 0-2 0 - 2 /HPF [facility] Urine WBC 0-5 0 - 5 /HPF [facility] Urine Squamous Epithelial Cell 0-2 0 - 2 /HPF [facility] Urine Bacteria None Seen None Seen [facility] Hyaline Casts, Urine 0-2 0 - 2 /LPF [facility] 12/25/2024 5:29 PM EDT 12/25/2024 5:32 PM EDT Narrative [facility] - 12/25/2024 6:01 PM EDT Urine, Clean Catch Generic External Data Provider LAB URINE ORDERAB LES Final Result Performing Organization Address [facility] de Phone Number [facility] [address] [place] [phone] * Influenza A B2 ID NOW (Thomas) (12/25/2024 2:57 PM EDT) IDNOW SERIAL# [id number] [facility] Influenza A Negative Negative [facility] Influenza B2 Negative Negative [facility] Influenza A B2 Note See Note [facility] Comment:The Thomas ID NOW In [...] GENERAL ORDERABLES Final Result Performing Organization Address [facility] Co de Phone Number [facility] [address] [place] [phone] * COVID-19 ID NOW (THOMAS) (12/25/2024 2:57 PM EDT) IDNOW SERIAL# [id number] [facility] COVID-19 TEST Negative Negative [facility] COVID-19 NOTE See Note [facility] Comment: Results are for the identification of SARS-CoV2 RNA. TheSARS-CoV2 RNA is generally detectable in respiratory samplesduring the acute phase of infection. Positive results areindicative of the presence of SARS-CoV-2 RNA; clinicalcorrelation with patient history and other diagnosticinformation is necessary to determine patient infectionstatus. Positive results do not rule out bacterial infectionor co- infection with other viruses.Testing facilities within the [facility] and [facility] are required to report all positive results [...] use by authorized laboratories.Testing performed on the Doctor kinetic ID NOW utilizing NAAT. 12/25/2024 2:57 PM EDT 12/25/2024 3:01 PM EDT us Generic External Data Provider LAB MOLECULAR JULIO GNOSTICS ORDERABLES Final Result Performing Organization Address [facility] Co de Phone Number [facility] [address] [place] [phone] * High Sensitivity Troponin I (12/25/2024 2:57 PM EDT) TROPONIN I HIGH SENSITIVITY 19.9 <3.5 - 35.0 ng/L [facility] Comment:The Thomas high sens itivity Troponin-I results should beused in conjunction with other diagnostic information suchas ECG, clinical observations and information, and patientsymptoms to aid in the diagnosis of [place]. 12/25/2024 2:57 PM EDT 12/25/2024 3:01 PM EDT us Generic External Data Provider LAB BLOOD ORDERAB LES Final Result Performing Organization Address [facility] Co de Phone Number [facility] [address] [place] [phone] * (ABNORMAL) CBC auto differential (12/25/2024 2:57 PM EDT) White Blood Count 4.2(L) 4.8 - 10.8 X10*3/uL [facility] Red Blood Count 3.90(L) 4.60 - 5.80 X10*6/uL [facility] Hemoglobin 12.4(L) 14.0 - 18.0 g/dl [facility] Hematocrit 36.4(L) 42.0 - 52.0 % [facility] Mean Corpuscular Volume 93.3 80.0 - 98.0 fL [facility] Mean Corpuscular Hemoglobin 31.8 27.0 - 33.0 pg [facility] Mean Corpuscular HGB Conc 34.1 31.0 - 36.0 g/dl [facility] Red Cell Distribution Width 14.6 11.0 - 16.0 % [facility] Platelet Count 178 160 - 400 X10*3/uL [facility] Mean Platelet Volume 11.4 9.4 - 12.4 fL [facility] Neutrophils Percent Auto 71.3 45 - 73 % [facility] Imm Gran Pct Auto 0.2 0.0 - 0.4 % [facility] Lymphocytes Percent Auto 13.8(L) 20 - 40 % [facility] Monocytes Percent Auto 11.9(H) 2 - 11 % [facility] Eosinophils Percent Auto 2.6 0 - 4 % [facility] Basophils Percent Auto 0.2 0 - 2 % [facility] NRBC Pct Auto 0.0 0.0 - 0.2 /100WBC [facility] Neutrophils Absolute Auto 3.0 2.0 - 8.3 x10*3/uL [facility] Imm Gran Abs Auto 0.01 0.00 - 0.03 X10*3/uL [facility] Lymphocytes Absolute Auto 0.6(L) 1.2 - 4.9 X10*3/uL [facility] Monocytes Absolute Auto 0.5 0.1 - 1.2 X10*3/uL [facility] Eosinophils Absolute Auto 0.1 0.0 - 0.4 X10*3/uL [facility] Basophils Absolute Auto 0.0 0.0 - 0.2 X10*3/uL [facility] NRBC Abs Auto 0.000 0.0 - 0.012 X10*3/uL [facility] 12/25/2024 2:57 PM EDT 12/25/2024 3:01 PM EDT us Generic External Data Provider LAB BLOOD ORDERAB LES Final Result Performing Organization Address [facility]/ZIP Co de Phone Number [facility] [address] [place] [phone] * (ABNORMAL) B Type Natriuretic Peptide (BNP) (12/25/2024 2:57 PM EDT) B Type Natriuretic Peptide 819(H) <100 pg/mL [facility] 12/25/2024 2:57 PM EDT 12/25/2024 3:01 PM EDT us Generic External Data Provider LAB BLOOD ORDERAB LES Final Result Performing Organization Address [facility] Co de Phone Number [facility] [address] [place] [phone] * Lipase (12/25/2024 2:57 PM EDT) Lipase 18 8 - 78 U/L [facility] 12/25/2024 2:57 PM EDT 12/25/2024 3:01 PM EDT us Generic External Data Provider LAB BLOOD ORDERAB LES Final Result Performing Organization Address [facility] Co de Phone Number [facility] [address] [place] [phone] * (ABNORMAL) Comprehensive Metabolic Panel (12/25/2024 2:57 PM EDT) Sodium 142 135 - 145 mmol/L [facility] Potassium 4.0 3.3 - 5.1 mmol/L [facility] Chloride 111(H) 96 - 108 mmol/L [facility] Carbon Dioxide 23 22 - 29 mmol/L [facility] Anion Gap 12 12 - 20 [facility] Urea Nitrogen (BUN) 16 9 - 16 mg/dL [facility] Creatinine, Serum 1.02 0.5 - 1.4 mg/dL [facility] Creatinine Clr Calc Pharmacy 61.4 [facility] Comment:eGFR (calculated fro m the MDRD study equation) and eCrCl(calculated from the Cockcroft-Gault equation) are based ondifferent parameters and may not yield comparable results.If eCrCl result is absurd, please check patient'sheight/weight. Estimated Glomerular Filt Rate >60 [facility] Comment:Chronic Kidney Disea se: Estimated GFR < 60 mL/min/1.41r7Yhafhv Kidney Disease: Estimated GFR < 15 mL/min/1.73m2 Glucose 173(H) 60 - 115 mg/dL [facility] Calcium 9.0 8.4 - 10.2 mg/dL [facility] Bilirubin, Total 0.8 0.0 - 1.0 mg/dL [facility] Aspartate Amino Transferase 30 5 - 37 U/L [facility] Alanine Aminotransferase 70(H) 0 - 40 U/L [facility] Total Protein 6.9 6.5 - 8.0 g/dL [facility] Albumin Level 3.9 3.5 - 5.0 g/dL [facility] Alkaline Phosphatase 78 39 - 117 U/L [facility] 12/25/2024 2:57 PM EDT 12/25/2024 3:01 PM EDT us Generic External Data Provider LAB BLOOD ORDERAB LES Final Result [facility] [address] [place] [phone] * XR Chest 2 Views (12/25/2024 2:44 PM EDT) Anatomical Region Laterality Modality Chest Radiographic Delmi ging 12/25/2024 2:44 PM EDT Narrative 12/25/2024 3:55 PM EDT [address] [address] XRay Report Signed Patient: Toro Lu MR#: [id number] : 1950 Acct:[id number] Age/Sex: 74 / M ADM Date: 12/25/24 Loc: .ED Attending Dr: Ordering Physician: Boaz Boudreaux Date of Service: 12/25/24 Procedure(s): XR chest 2V Accession Number(s): [id number] cc: Urszula Sue; Boaz Boudreaux EXAMINATION: XR [...] 12/25/24 1552 DD/ 1444 TD/TT: 12/25/24 1543 Girl Friday: Procedure Note Donotuseinterpreter, Image - 12/25/[address] [address] XRay Report Signed Patient: Toro LuMR#: [id number] : 9Acct:[id number] Age/Sex: 74 / MADM Date: 12/25/24 Loc: HO.ED Attending Dr: Ordering Physician: Boaz Boudreaux Date of Service: 12/25/24 Procedure(s): XR chest 2V Accession Number(s): [id number] cc: Urszula Sue; Boaz Boudreaux EXAMINATION: XR [...] 12/25/24 1552 DD/ 1444 TD/TT: 12/25/24 1543 Girl Friday: [facility] External Provider IMG XR PROCEDURES Final Result * (ABNORMAL) Lipid Panel, Standard (07/29/2024 6:17 AM EDT) Triglycerides 171(H) <150 mg/dL [facility] Comment:Desirable Triglyceri de: less than 150 mg/dLBorderline High Triglyceride 150-199 mg/dLHigh Triglyceride: 200-499 mg/dLVery High Triglyceride: greater than or equal to 5OO mg/dL Cholesterol 170 <200 mg/dL [facility] Comment:Desirable Cholestero l: less than 200 mg/dLBorderline High Cholesterol: 200-239 mg/dLHigh Cholesterol: greater than 239 mg/dL LDL Cholesterol Calculated 79 <100 mg/dL [facility] Comment:Desirable LDL: less than 100 mg/dLNear Optimal/Above Optimal LDL: 110- 129 mg/dLBorderline High LDL: 130-159 mg/dLHigh LDL: 160-189 mg/dLVery High LDL: greater than or equal to 190 mg/dL HDL Cholesterol 57 >40 mg/dL [facility] Comment:Desirable HDL: great er than 40 mg/dL Note: This HDL assay may give artificially low results in patients with liver disease. Blood Venous blood specimen / Unknown 07/29/2024 6:17 AM EDT 07/29/2024 6:17 AM EDT Urszula Sue MD LAB BLOOD ORDERABLES Final Res ult Performing Organization Address [facility] Co de Phone Number [facility] [address] [place] [phone] * (ABNORMAL) Albumin, Random Urine W/Creatinine (07/29/2024 6:15 AM EDT) Creatinine, Urine 147.38 mg/dL [facility] Microalbumin Urine 62.0 mg/L [facility] Microalbum Creatinine Ratio Ur 42.0(H) <30 ug/mg cr [facility] Comment:Albumin/Creatinine R atio Reference Ranges: Normal: < 30 ug/mg creatinine Microalbuminuria: 30 - 300 ug/mg creatinineClinical Albuminuria: > 300 ug/mg creatinine Urine (Urine, Random) 07/29/2024 6:15 AM EDT 07/29/2024 7:44 AM EDT Urszula Sue MD LAB URINE ORDERABLES Final Res ult Performing Organization Address [facility] Co de Phone Number [facility] [address] [place] [phone] * Hepatitis C Antibody with Reflex to HCV, RNA, Quantitative, Real-Time PCR (10/28/2023 3:39 PM EDT) Hepatitis C Antibody Nonreactive Nonreactive [facility] Comment:Antibodies to HCV no t detected; does not exclude early acuteHCV infection. Blood Venous blood specimen / Unknown 10/28/2023 3:39 PM EDT 10/28/2023 3:39 PM EDT Urszula Sue MD LAB BLOOD ORDERABLES Final Res ult [facility] [address] [place] [phone] * Hm Colonoscopy (11/23/2016 3:19 PM EDT) Historical Provider HEALTH MAINTENANCE Final Result from Last 3 Months or Most Recently Relevant to Health Maintenance Insurance [employer] [id number] Care Teams Tangible Personal Property Appraiser Relationship Specialty Start Date End Date Urszula Sue MD [address] [place] [address] PCP - General Family Medicine 11/21/20 Kendy Madsen, ClD [address] [place] [phone] Pharmacist Internal Medicine 10/07/24
--- OUTSIDE RECORDS SUMMARY | 2025-03-24 11:21 | XMS_ITS | Encounter Summary ---
Author Organization [employer] Address [address] [place] [address] 7t [place] [address] Care Team Providers Care Magnetic Resonance Imaging Coordinator Name Role Phone Urszula Sue MD Primary Care Provider [phone] Kendy Madsen PharmD Unavailable [phone] Encounter Details Date Type Department Care Team (Late st Contact Info) Description 08/16/2022 Orders Only [facility] MEDICINE [address] [place] [phone] Barbara Cerna LPN Social History Tobacco Use [...] 9:30 AM EST Medication Management [facility] MEDICINE [address] [place] [address] Kendy Madsen, PharmD [address] [place] [address] 06/25/2025 2:30 PM EST Office Visit [facility] MEDICINE [address] [place] [address] Urszula Sue MD [address] [place] [phone] documented as of this encounter Visit Diagnoses Not on filedocumented in this encounter Care Teams Magnetic Resonance Imaging Coordinator Relationship Specialty Start Date End Date Urszula Sue MD [address] [place] [address] PCP - General Family Medicine 11/21/20 Kendy Madsen PharmD [address] [place] [address] Pharmacist Internal Medicine 10/07/24 documented as of this encounter
--- OUTSIDE RECORDS SUMMARY | 2025-03-24 11:21 | XMS_ITS | Encounter Summary ---
Author Organization [email or web address] Address [address] [facility] 7t [place] [address] Care Team Providers Care Mixing Plant Operator Name Role Phone Urszula Sue MD Primary Care Provider [phone] Kendy Madsen PharmD Unavailable [phone] Encounter Details Date Type Department Care Team (Late Contact Info) Description 10/31/2022 Orders Only [facility] [address] [place], [place] [phone] Gregoria Mitchell LPN Social History Tobacco Use [...] Department Care Team (Late Contact Info) Description 03/29/2025 9:30 AM EST Medication Management [facility] MEDICINE [address] [place] [phone] Kendy Madsen, PharmD [address] [place], [place] [phone] 06/25/2025 2:30 PM EST Office Visit [address] [address] Urszula Sue MD [address] [place], [place] [phone] documented as of this encounter Visit Diagnoses Not on filedocumented in this encounter Care Teams Mixing Plant Operator Relationship Specialty Start Date End Date Urszula Sue MD [address] [place] [address] PCP - General Family Medicine 11/21/20 Kendy Madsen PharmD [address] [place] [phone] Pharmacist Internal Medicine 10/07/24 documented as of this encounter
--- OUTSIDE RECORDS SUMMARY | 2025-03-24 11:21 | XMS_ITS | Encounter Summary ---
Author Organization [employer] Address [address] [facility] 7t [place] [address] Care Team Providers Care Manager Fast Food Name Role Phone Urszula Sue MD Primary Care Provider [phone] Kendy Madsen PharmD Unavailable [phone] Encounter Details Date Type Department Care Team ([facility] st Contact Info) Description 03/01/2025 Orders Only [facility] MEDICINE [address] [place], [place] [phone] Urszula Sue MD [address] [place], [place] [phone] Social History Tobacco Use Types Packs/Day Years [...] Description 03/29/2025 9:30 AM EST Medication Management [address] [address] Kendy Madsen PharmD [address] [place] [phone] 06/25/2025 2:30 PM EST Office Visit [address] [address] Urszula Sue MD [address] [place] [address] [phone] documented as of this encounter Visit Diagnoses Not on filedocumented in this encounter Additional Health Concerns Assessment Noted Time PHQ-9 Depression Total Score: 0 12/03/19 25 3:44 PM EDT documented as of this encounter Care Teams Manager Fast Food Relationship Specialty Start Date End Date Urszula Sue MD [address] [place] [phone] PCP - General Family Medicine 11/21/20 Kendy Madsen, PharmD [address] [place] [address] Pharmacist Internal Medicine 10/07/24 documented as of this encounter
[2025-03-24 12:08] LABS: Anion Gap 11 (12-20); Blood Urea Nitrogen 14 mg/dL (9-16); Calcium 9.7 mg/dL (8.4-10.2); Carbon Dioxide 24 mmol/L (22-29); Chloride 107 mmol/L (96-108); Estimated Glomerular Filt Rate > 60; Potassium 4.1 mmol/L (3.3-5.1); Sodium 138 mmol/L (135-145)
[2025-03-24 12:49] LABS: Prostate Specific Antigen < 0.10 ng/mL (<0.05-4.0)
== END 2025-03-24 09:50 | disposition home or self-care (01) ==
LOC: HO.HHCL 09:49
PROVIDERS: Urology; PCP General Practice; Visit Provider General Practice
DX: Z12.5 Encounter for screening for malignant neoplasm of prostate (principal); C61 Malignant neoplasm of prostate; I10 Essential (primary) hypertension; E08.65 Diabetes 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; Z79.4 Long term (current) use of insulin
CPT/HCPCS: 36415; 80048; 84153; 84403

== ENCOUNTER 2025-04-13 14:19 | Outpatient (AMB) | payer MEDICARE, SELFPAY ==
--- NOTE | 2025-04-13 14:20 | MHC.OFFVIS ---
Intake Visit Reasons: 4m/labs/UA/PVR/SET Intake Note: Patient is present for 4m/psa/testo Urology Medication:tamsulosin Antibiotic Allergy:none Blood Thinner:aspirin Labs done : 03/24/25 PSA <0.10, Total testosterone :8 Vessel Crew Member Required: Yes Accompanied by: Self / Same As Patient Allergies lisinopril (LISINOPRIL) Allergy (Unknown, Verified 04/13/25 14:22) ANGIOEDEMA, edema HPI Comments Details: Toro is a pleasant male. He is a patient of Dr. Noel. he is seen for the following urologic conditions - prostate cancer - bladder outlet obstruction German translation provided by qualified medical care manager Move to six-month follow-up Prostate cancer labs stable 03/23 <0.1 8 12/21 <0.1 T 12 08/21 <0.1, T 7 05/23 PSA <0.1, T 14, GnRH 01/20 PSA <0.1, T 13 10/20 PSA 0.2 T 6 - GNRH given, continue finasteride Completed external beam radiation therapy with Dr. Genoveva Khan - 7800 Gy 32 fractions 06/22 follow-up from Visicoil placement - Maximum androgen blockade during radiation 04/20 - PET-CT - enhancement of prostate and single node 12/19 P 0.4, T 7 MRI shows disease localized prostate Discussed possible definitive treatment with radiation Prostate cancer group 5 - primary therapy hormonal - had good response with localization on Imaging and underwent external beam radiation Diagnosed 07/[address] Che Presenting PSA 150 Initial biopsy [place] 8 and 9 disease Staging bone scan 07/18 rib fractures but no evidence of metastatic disease Imaging - 07/19 MRI pelvis disease localized to prostate - 08/18 DEXA osteopenia Current PSA 11/15 <0.1, 07/17 0.45, 10/17 .6 T 8, 01/17 0.7 T 24, 04/18 1.4 T 10, 08/18 1.47 T 6, 11/17 0.1 <1, 02/17 <0.1 T <1, 05/21 <0.1 T , 08/19 0.2 7 Adjuvant therapy calcium and vitamin-D 3 08/18 GnRH given, anti androgen started 03/20 GnRH given, antiandrogen held Bladder outlet obstruction Ongoing urgency, hesitancy Good response to tamsulosin Cystoscopy 08/18 prostatic regrowth left side [facility] Medical History (Updated 01/14/25 @ 10:58 by Naida Guy NP-C) Pacemaker Uncontrolled hypertension 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 H/O urinary retention Benign prostatic hyperplasia with lower urinary tract symptoms Renal artery stenosis Pure hypercholesterolemia Type 2 diabetes mellitus without complication, without long-term current use of insulin HTN (hypertension) with goal to be determined Nonrheumatic aortic (valve) stenosis Surgical History History of prostate biopsy Social History Alcohol intake: current Alcohol intake frequency: a few times a week Patient Tobacco Use Status: Never used Tobacco Review of Systems Const Denies chills and Denies fever(s) Card Reports no additional complaints and Denies syncope Resp Denies cough GI Denies abdominal pain and Denies heartburn Reports as per HPI and Denies change in libido Neuro Denies syncope Psych Denies change in libido Endo Denies change in libido Physical Exam Const General: cooperative, healthy appearing, comfortable and no acute distress Orientation/consciousness: patient oriented x3 HEENT Face and sinus: Yes normal facial exam Mouth: moist mucous membranes Neck Neck: Yes normal visual inspection, Yes full ROM and Yes trachea midline Chest Chest palpation & inspection: normal inspection of the chest Resp Effort & Inspection: normal respiratory effort, able to speak in complete sentences and no respiratory distress GI Inspection: Yes normal to inspection Back/Spine/Pelvis Cervical Spine: normal cervical lordosis Thoracic/Lumbar Spine: thoracic and lumbar spine normal to inspection Skin General skin exam: no rashes or lesions noted Neuro General: patient oriented x3, gait normal, tone normal and moves all extremities Extrem General: Yes normal to inspection and Yes capillary refill normal Assessment & Plan Assessment & Plan (1) Prostate cancer: Comment: High-grade initial treatment hormonal Code(s): C61 - Malignant neoplasm of prostate Category: Medical (2) Bladder outlet obstruction: Code(s): N32.0 - Bladder-neck obstruction Category: Medical Plan Six-month follow-up lab work Orders: Orders Testosterone, Total 6 Months C61 - Malignant neoplasm of prostate Prostate Specific Antigen 6 Months C61 - Malignant neoplasm of prostate Patient Instructions: This note is constructed using voice recognition software. While every effort has been made to ensure accuracy distribution engineering technologist errors may have been included. Imaging studies, laboratory and physical exam results were discussed and reviewed in detail. No major barriers to patient understanding were identified. An opportunity to ask questions regarding the treatment plan was provided. All questions were answered. The patient expressed understanding and agreement with the above treatment plan. The patient is aware they should contact our office by phone for worsening of their current condition or the appearance of new urologic symptoms. Compliance is encouraged with any medications and followup testing that is ordered. It is a privilege to participate in the urologic care of your patient. If you have any questions or concerns regarding treatment for the above conditions, or other urologic issues, please do not hesitate to contact me. The office telephone contact is [phone]. Sincerely, Dr Ga Choi MD, [facility] - Urology Compassionate Specialist Care for the Genitourinary System Coding Level of Care Code Est Pt Level 3 (68044) Add On Problem Visit Only Diagnoses Prostate cancer C61 Bladder outlet obstruction N32.0
--- OUTSIDE RECORDS SUMMARY | 2025-04-13 18:34 | XMS_ITS | Encounter Summary ---
Author Organization [employer] Address [address] [facility] [address] 7t [place] [address] Care Team Providers Care Fairmont Gold Attendant Name Role Phone Urszula Sue MD Primary Care Provider [phone] Kendy Madsen PharmD Unavailable [phone] Encounter Details Date Type Department Care Team (Late st Contact Info) Description 09/05/[address] [facility] MEDICINE [address] [place] [address] ProviderMartha MD Social History Tobacco Use Types [...] Care Team (Late st Contact Info) Description 05/25/2025 9:30 AM EST Medication Management [address] [address] Kendy Madsen PharmD [address] [place] [phone] 06/21/2025 1:00 PM EST Immunization [address] [address] 06/25/2025 2:30 PM EST Office Visit [address] [address] Urszula Sue MD [address] [place] [address] documented as of this encounter Procedures Procedure Name Priority Date/Time Associated Diagnosis Comments HM COLONOSCOPY Routine 11/23/2016 3:19 PM EDT documented in this encounter Results * Hm Colonoscopy (11/23/2016 3:19 PM EDT) Historical Provider HEALTH MAINTENANCE Final Result documented in this encounter Visit Diagnoses Not on filedocumented in this encounter Care Teams Fair[employer] Gold Attendant Relationship Specialty Start Date End Date Urszula Sue MD [address] [place] [address] PCP - General Family Medicine 11/21/20 Kendy Madsen PharmD [address] [place] [address] Pharmacist Internal Medicine 10/07/24 documented as of this encounter
--- OUTSIDE RECORDS SUMMARY | 2025-04-13 18:34 | XMS_ITS | Encounter Summary ---
Author Organization [employer] Address [address] [place] [address] 7t [place] [address] Care Team Providers Care Beveler Name Role Phone Urszula Sue MD Primary Care Provider Kendy Madsen PharmD Unavailable [phone] Encounter Details Date Type Department Care Team (Late st Contact Info) Description 08/16/2022 Orders Only [facility] MEDICINE [address] [place] [phone] Barbara Cerna LPN Social History Tobacco Use [...] Description 05/25/2025 9:30 AM EST Medication Management [address] [address] Kendy Madsen, PharmD [address] [place] [address] 06/21/2025 1:00 PM EST Immunization [address] [address] 06/25/2025 2:30 PM EST Office Visit [address] [address] Urszula Sue MD [address] [place] [address] documented as of this encounter Visit Diagnoses Not on filedocumented in this encounter Care Teams Beveler Relationship Specialty Start Date End Date Urszula Sue MD [address] [place], [place] [phone] PCP - General Family Medicine 11/21/20 Kendy Madsen PharmD [address] [place] [address] Pharmacist Internal Medicine 10/07/24 documented as of this encounter
--- OUTSIDE RECORDS SUMMARY | 2025-04-13 18:34 | XMS_ITS | Encounter Summary ---
Author Organization [employer] Address [address] [facility] 7t [place] [address] Care Team Providers Care Finance Insurance Manager Name Role Phone Urszula Sue MD Primary Care Provider [phone] Kendy Madsen PharmD Unavailable [phone] Encounter Details Date Type Department Care Team ([facility] st Contact Info) Description 03/01/2025 Orders Only [facility] MEDICINE [address] [place], [place] [phone] Urszula Sue MD [address] [place], [place] [phone] Social History Tobacco Use Types Packs/Day Years [...] with others, in a hotel, in a mcfp, living outside on the street, on a [...] Description 05/25/2025 9:30 AM EST Medication Management [address] [address] Kendy Madsen PharmD [address] [place] [address] 06/21/2025 1:00 PM EST Immunization [address] [address] 06/25/2025 2:30 PM EST Office Visit [address] [address] Urszula Sue MD [address] [place] [address] documented as of this encounter Visit Diagnoses Not on filedocumented in this encounter Additional Health Concerns Assessment Noted Time PHQ-9 Depression Total Score: 0 12/03/19 25 3:44 PM EDT documented as of this encounter Care Teams Finance Insurance Manager Relationship Specialty Start Date End Date Urszula Sue MD [address] [place] [address] PCP - General Family Medicine 11/21/20 Kendy Madsen, PharmD [address] [place] [phone] Pharmacist Internal Medicine 10/07/24 documented as of this encounter
--- OUTSIDE RECORDS SUMMARY | 2025-04-13 18:34 | XMS_ITS | Encounter Summary ---
Author Organization [employer] Address [address] [facility] 7t [place] [address] Care Team Providers Care Legal Nurse Consultant Name Role Phone Urszula Sue MD Primary Care Provider [phone] Kendy Madsen PharmD Unavailable [phone] Reason for Visit * Reason Comments Med Refill Encounter Details Date Type Department Care Team ([facility] st Contact Info) Description 04/07/2025 Refill [facility] MEDICINE 230 [place], [place] [phone] Urszula Sue MD 230 [place] [address] Social History Tobacco Use Types Packs/Day Years [...] Description 05/25/2025 9:30 AM EST Medication Management [address] [address] Kendy Madsen, PharmD [address] [place] [address] 06/21/2025 1:00 PM EST Immunization [address] [address] 06/25/2025 2:30 PM EST Office Visit [address] [address] Urszula Sue MD [address] [place] [address] documented as of this encounter Visit Diagnoses Not on filedocumented in this encounter Additional Health Concerns Assessment Noted Time PHQ-9 Depression Total Score: 0 12/03/19 25 3:44 PM EDT documented as of this encounter Care Teams Legal Nurse Consultant Relationship Specialty Start Date End Date Urszula Sue MD [address] [place] [address] PCP - General Family Medicine 11/21/20 Kendy Madsen, ClD [address] [place] [phone] Pharmacist Internal Medicine 10/07/24 documented as of this encounter
--- OUTSIDE RECORDS SUMMARY | 2025-04-13 18:34 | XMS_ITS | Clinical Summary ---
Author Organization [employer] Address [address] [facility] [address] [place] [address] Care Team Providers Care Fitter Armament Name Role Phone Urszula Sue MD Primary Care Provider [phone] Kedny Madsen PharmD Unavailable [phone] Allergies Active Allergy Reactions Criticality Noted Date Comments Lisinopril Angioedema 06/06/2017 Medications spironolactone (Aldactone) 50 MG tabletIndicatio ns:Essential hypertension Take 1 tablet (50 mg) by mouth Once per day. 90 tablet 3 024 Active albuterol 108 (90 Base) MCG/ACT inhaler Inhale 2 puffs every 4 (four) hours if needed for wheezing. 18 g 11 5 1:06 PM EST 024 Active Blood Pressure Monitoring (Omron 3 Series [...] hyperglycemia, with long-term current use of insulin ([facility]) Take 1 tablet (40 mg) by mouth at bedtime. 90 tablet 3 025 Active insulin pen needle 32G x 4 mm miscIndications :Diabetes 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, with long-term current use of insulin (HCC) Use to inject insulin 1 times daily 100 each 3 025 Active TRUEplus Lancets 33G miscIndications :Diabetes 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, with long-term current use of insulin (HCC) Use to test blood sugar 2 time(s) daily 100 each 1:06 PM EST 025 Active Continuous Glucose Sustainability Consultant (FreeStyle Gwen 3 Ferrum) deviceIndicatio ns:Diabetes 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, with long-term current use of insulin ([facility]) 1 each Once per day. Use as directed for CGM 1 each 025 Active Continuous Glucose Sensor (FreeStyle Gwen 3 Plus Sensor) miscIndications :Diabetes 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, with long-term current use of insulin ([facility]) 1 each every 15 days. Apply 1 every 15 days as directed for CGM 2 each 5:18 PM EST 025 Active glucose blood (FreeStyle Precision Tay Test) test stripIndication s:Diabetes 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, with long-term current use of insulin ([facility]) Use to test blood sugar 2 times daily in case of CGM failure or extremes of BG 50 each 2025 Active Calcium Citrate-Vitamin D (Calcium Citrate+D3 Petites) 200-6.25 MG-MCG tablet Take 1 tablet by mouth in the morning and 1 tablet in the evening. OTC. Active tamsulosin (Flomax) 0.4 MG 24 hr capsule Take 0.4 mg by mouth Once per day. Active Dulaglutide (Trulicity) 0.75 MG/0.5ML solution auto-injector Inject 0.75 mg under the skin 1 (one) time per week. 2 mL 5:18 PM EST 025 Active naproxen sodium (Aleve) 220 MG tablet TAKE 1 TABLET BY MOUTH TWICE DAILY IN THE MORNING AND AT BEDTIME NEEDED FOR MILD PAIN (PAIN OF KNEE) 60 tablet 1 1:06 PM EST 025 Active gabapentin (Neurontin) 100 MG capsule Take 1 capsule (100 mg) by mouth 2 times daily. Do not start before January 27, 2025. 60 capsule 1 1:06 PM EST 025 Active empagliflozin-m etFORMIN (Synjardy) 5-1000 MGIndications:D iabetes 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, with long-term current use of insulin ([facility]) Take 1 tablet by mouth with breakfast and with evening meal. 60 tablet 5 5 1:06 PM EST 025 Active furosemide (Lasix) 20 MG tabletIndicatio ns:Essential hypertension,Bi lateral leg edema Take 1 tablet (20 mg) by mouth Once per day. 90 tablet 1 5 5:18 PM EST 025 Active insulin glargine (Lantus SoloStar) 100 UNIT/ML penIndications: Diabetes 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, with long-term current use of insulin ([facility]) Inject 16 Units under the skin at bedtime. 15 mL 1 025 Active losartan (Cozaar) 100 MG tabletIndicatio ns:Diabetes 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, with long-term current use of insulin ([facility]),Essential hypertension Take 1 tablet (100 mg) by mouth Once per day. 90 tablet 1 5 5:18 PM EST 025 Active furosemide (Lasix) 20 MG tablet Take 20 mg by mouth Once per day. 025 2024 Discontinued(R eorder (will not trigger notification to Pharmacy)) insulin glargine (Lantus SoloStar) 100 UNIT/ML penIndications: Diabetes 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, with long-term current use of insulin ([facility]) inject 20 units by Subcutaneous route every evening 15 mL 1 5 1:06 PM EST 025 2024 Discontinued(R eorder (will not trigger notification to Pharmacy)) losartan (Cozaar) 50 MG tablet Take 1 tablet (50 mg) by mouth Once per day. 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/28/2019 Assessment & Plan (07/28/2024 8:42 AM EDT): Continue GnRH agonist treatments Urologist is Dr Choi at [facility] Continue q 3 month followup Assessment & Plan (11/10/2022 9:17 AM EDT): Mgmt per HPI Urologist is Dr hCoi at [facility] Continue q 3 month [...] Encounters Date Type Department Care Team Description 04/07/2025 Refill [facility] [address], [place] [address] Urszula Sue MD 03/29/2025 Travel 03/24/2025 Refill [facility] [address], [place] [address] Urszula Sue MD Essential hypertension (Primary Dx); Bilateral leg edema 03/24/2025 Results Follow-Up [facility] [address], [place] [address] Kendy Madsen PharmD Basic Metabolic Panel 03/24/2025 Orders Only [facility] [address], [place] [address] Urszula Sue MD 03/01/2025 Orders Only [facility] [address], [place] [address] Urszula Sue MD 02/12/2025 Travel 02/11/2025 Orders Only [facility] [address], [place] [address] Urszula Sue MD 01/15/2025 2:00 PM EDT Office Visit [facility] [address], [place] [address] Corrina Yung NP Complete heart block (CMS/HCC) (Primary Dx) 01/15/2025 Travel from Last 3 Months Immunizations Immunization [...] 02/12/2025 Pneumococcal Conjugate PCV 13 09/05/2016 Pneumococcal Conjugate PCV 20 03/29/2025 Pneumococcal Polysaccharide PPSV23 06/09/2018, TD (adult), 2 [...] with others, in a hotel, in a fpc, living outside on the street, on a [...] Sign Reading Time Taken Comments Blood Pressure 150/72 03/29/2025 9:42 AM EST Pulse 96 01/15/2025 1:38 PM EDT Temperature [...] Description 05/25/2025 9:30 AM EST Medication Management [address] [address] Kendy Madsen, PharmD [address] [place] [phone] 06/21/2025 1:00 PM EST Immunization [address] [address] 06/25/2025 2:30 PM EST Office Visit [address] [address] Urszula Sue MD [address] [place] [phone] Health Maintenance Due Date Last Done Comments Diabetes: Foot Exam 1958 Zoster Vaccines (1 of 2) 1998 Diabetes: Hemoglobin A1C 05/15/2025 025, 10/28/2024, 07/29/2024, [...] Completed 03/28/2017, 09/05/2016, 04/01/2014, Additional history exists Hepatitis C Screening Completed 10/28/2023 Influenza Vaccine Completed 02/25/2025, , 01/29/2020, Additional history exists Pneumococcal Vaccine: 50+ Years Completed 03/29/2025, 06/09/2018, 09/05/2016, Additional history exists RSV Patients and Patients Aged 60 years or older Completed 04/12/2025 CT Colonography Discontinued FIT DNA/Cologuard Discontinued FIT [...] Priority Date/Time Associated Diagnosis Comments TESTOSTERONE, TOTAL, MS Routine 03/24/2025 9:54 AM EST PSA, TOTAL Routine 03/24/2025 9:54 AM EST BASIC METABOLIC PANEL Routine 03/24/2025 9:54 AM EST POCT GLYCATED HEMOGLOBIN, TOTAL Routine 02/12/2025 10:00 AM EDT Diabetes 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, with long-term current use of insulin ([facility]) TESTOSTERONE, TOTAL, MALES (ADULT), IA Routine 02/11/2025 11:23 AM EDT BASIC METABOLIC PANEL Routine 02/11/2025 11:23 AM EDT LIPID PANEL, STANDARD Routine 07/29/2024 [...] Health Maintenance Results * (ABNORMAL) Testosterone, Total, MS (03/24/2025 9:54 AM EST) Testosterone, Total 8(A) 250 - 1100 ng/dL [facility] Comment:Men with clinically significant hypogonadalsymptoms and testosterone values repeatedly inthe range of the 200-300 ng/dL or less, maybenefit from testosterone treatment afteradequate risk and benefits counseling.For additional information, please refer tohttp://education.[employer].Scour Prevention/faq/MxcroEjpznkmmkusgVUFFMYDFH172(This link is being provided for informational/educational purposes only.)This test was developed and its analytical performancecharacteristics have been determined by [employer] [place], [place]. It hasnot been cleared or approved by the U.S. Food and DrugAdministration. This assay has been validated pursuantto the CLIA regulations and is used for clinicalpurposes.THIS TEST WAS PERFORMED AT:[email or web address][facility] [place] [address]NVCMVDTADITYA GONZALEZ MD,PHD 03/24/2025 9:54 AM EST 03/24/2025 11:33 AM EST us Generic External Data Provider LAB BLOOD ORDERAB LES Final Result Performing Organization Address [facility]/ZIP Co de Phone Number [facility] [address] [place] [phone] * PSA,Total (03/24/2025 9:54 AM EST) Prostate Specific Antigen <0.10 <0.05 - 4.0 ng/mL [facility] Comment:PSA methodology: Abb sj Aligaboty i ChemiluminescentMicroparticle Immunoassay (CMIA) 03/24/2025 9:54 AM EST 03/24/2025 11:33 AM EST us Generic External Data Provider LAB BLOOD ORDERAB LES Final Result Performing Organization Address [facility]/ZIP Co de Phone Number [facility] [address] [place] [phone] * (ABNORMAL) Basic Metabolic Panel (03/24/2025 9:54 AM EST) Only the most recent of2 resultswithin the time period is included. Pathologist [facility] Sodium 138 135 - 145 mmol/L [facility] Potassium 4.1 3.3 - 5.1 mmol/L [facility] Chloride 107 96 - 108 mmol/L [facility] Carbon Dioxide 24 22 - 29 mmol/L [facility] Anion Gap 11(L) 12 - 20 [facility] Urea Nitrogen (BUN) 14 9 - 16 mg/dL [facility] Creatinine, Serum 0.82 0.5 - 1.4 mg/dL [facility] Estimated Glomerular Filt Rate >60 [facility] Comment:Chronic Kidney Disea se: Estimated GFR < 60 mL/min/1.38z6Yvzilb Kidney Disease: Estimated GFR < 15 mL/min/1.73m2 Glucose 125(H) 60 - 115 mg/dL [facility] Calcium 9.7 8.4 - 10.2 mg/dL [facility] 03/24/2025 9:5 4 AM EST 03/24/2025 11:33 AM EST Urszula Sue MD LAB BLOOD ORDERABLES Final Res ult [facility] [address] [place] [phone] * (ABNORMAL) POCT Hgb A1c (02/12/2025 10:00 AM EDT) Pathologist [facility] Hemoglobin A1C 7.1(A) 4.0 - 5.7 % Blood 02/12/2025 10:0 0 AM EDT us Urszula Sue MD POINT OF CARE TEST ENTER/EDIT ORDERABLES Final Result * (ABNORMAL) Testosterone, Total, males (Adult), IA (02/11/2025 11:23 AM EDT) Pathologist [facility] Testosterone, Total 5(A) 250 - 1100 ng/dL [facility] Comment:Men with clinically significant hypogonadalsymptoms and testosterone values repeatedly inthe range of the 200-300 ng/dL or less, maybenefit from testosterone treatment afteradequate risk and benefits counseling.For additional information, please refer tohttp://education.[employer].Scour Prevention/faq/IbjnwQgvgkbuzbyorPXVRRCPVZ612(This link is being provided for informational/educational purposes only.)This test was developed and its analytical performancecharacteristics have been determined by [employer] [facility] [place], [place]. It hasnot been cleared or approved by the U.S. Food and DrugAdministration. This assay has been validated pursuantto the CLIA regulations and is used for clinicalpurposes.THIS TEST WAS PERFORMED AT:[email or web address] [place] [address]ISUURVYADITYA GONZALEZ MD,PHD 02/11/2025 11:2 3 AM EDT 02/11/2025 1:31 PM EDT us Generic External Data Provider LAB BLOOD ORDERAB LES Final Result [facility] [address] [place] [phone] * (ABNORMAL) Lipid Panel, Standard (07/29/2024 6:17 AM EDT) Pathologist [facility] Triglycerides 171(H) <150 mg/dL [facility] Comment:Desirable Triglyceri de: less than 150 mg/dLBorderline High Triglyceride 150-199 mg/dLHigh Triglyceride: 200-499 mg/dLVery High Triglyceride: greater than or equal to 5OO mg/dL Cholesterol 170 <200 mg/dL [facility] Comment:Desirable Cholestero l: less than 200 mg/dLBorderline High Cholesterol: 200-239 mg/dLHigh Cholesterol: greater than 239 mg/dL LDL Cholesterol Calculated 79 <100 mg/dL [facility] Comment:Desirable LDL: less than 100 mg/dLNear Optimal/Above Optimal LDL: 110- 129 mg/dLBorderline High LDL: 130-159 mg/dLHigh LDL: 160-189 mg/dLVery High LDL: greater than or equal to 190 mg/dL HDL Cholesterol 57 >40 mg/dL [facility] Comment:Desirable HDL: great er than 40 mg/dL Note: This HDL assay may give artificially low results in patients with liver disease. Blood Venous blood specimen / Unknown 07/29/2024 6:17 AM EDT 07/29/2024 6:17 AM EDT Urszula Sue MD LAB BLOOD ORDERABLES Final Res ult Performing Organization Address [facility] Co de Phone Number [facility] [address] [place] [phone] * (ABNORMAL) Albumin, Random Urine W/Creatinine (07/29/2024 6:15 AM EDT) Creatinine, Urine 147.38 mg/dL [facility] Microalbumin Urine 62.0 mg/L [facility] Microalbum Creatinine Ratio Ur 42.0(H) <30 ug/mg cr [facility] Comment:Albumin/Creatinine R atio Reference Ranges: Normal: < 30 ug/mg creatinine Microalbuminuria: 30 - 300 ug/mg creatinineClinical Albuminuria: > 300 ug/mg creatinine Urine (Urine, Random) 07/29/2024 6:15 AM EDT 07/29/2024 7:44 AM EDT Urszula Sue MD LAB URINE ORDERABLES Final Res ult Performing Organization Address [facility] Co de Phone Number [facility] [address] [place] [phone] * Hepatitis C Antibody with Reflex to HCV, RNA, Quantitative, Real-Time PCR (10/28/2023 3:39 PM EDT) Hepatitis C Antibody Nonreactive Nonreactive [facility] Comment:Antibodies to HCV no t detected; does not exclude early acuteHCV infection. Blood Venous blood specimen / Unknown 10/28/2023 3:39 PM EDT 10/28/2023 3:39 PM EDT Urszula Sue MD LAB BLOOD ORDERABLES Final Res ult [facility] [address] [place] [phone] * Colonoscopy (11/23/2016 3:19 PM EDT) Historical Provider HEALTH MAINTENANCE Final Result from Last 3 Months or Most Recently Relevant to Health Maintenance Insurance [facility]O D-SNP) * Guarantor: [employer] Account Type Relation to Patient Date of Phone Billing Address Personal/Family Self [address] [address] Care Teams Fitter Armament Relationship Specialty Start Date End Date Urszula Sue MD [address] [place] [address] PCP - General Family Medicine 11/21/20 Kendy Madsen, PharmD [address] [place] [phone] Pharmacist Internal Medicine 10/07/24
--- OUTSIDE RECORDS SUMMARY | 2025-04-13 18:34 | XMS_ITS | Encounter Summary ---
Author Organization [employer] Address [address] [facility] [address]t [place] [address] Care Team Providers Care Medical Officer Name Role Phone Urszula Sue MD Primary Care Provider [phone] Kendy Madsen PharmD Unavailable [phone] Encounter Details Date Type Department Care Team (Late Contact Info) Description 10/31/2022 Orders Only [facility] [address] [place] [address] Gregoria Mitchell LPN Social History Tobacco Use [...] Department Care Team (Late Contact Info) Description 05/25/2025 9:30 AM EST Medication Management [address] [address] Kendy Madsen, PharmD [address] [place] [address] 06/21/2025 1:00 PM EST Immunization [address] [address] 06/25/2025 2:30 PM EST Office Visit [address] [address] Urszula Sue MD [address] [place] [address] documented as of this encounter Visit Diagnoses Not on filedocumented in this encounter Care Teams Medical Officer Relationship Specialty Start Date End Date Urszula Sue MD [address], [place] [phone] PCP - General Family Medicine 11/21/20 Kendy Madsen PharmD [address], [place] [phone] Pharmacist Internal Medicine 10/07/24 documented as of this encounter
== END 2025-04-13 14:54 | disposition home or self-care (01) ==
LOC: HO.HUSH 14:20
PROVIDERS: PCP General Practice; Visit Provider Urology
DX: C61 Malignant neoplasm of prostate (principal); N32.0 Bladder-neck obstruction
CPT/HCPCS: 99213; G2211

== ENCOUNTER → 2025-04-13 14:19 | Outpatient (BNVA) | payer OTHER, SELFPAY | PROVIDERS: PCP General Practice; Visit Provider Urology | DX: C61 Malignant neoplasm of prostate (principal); N32.0 Bladder-neck obstruction | CPT/HCPCS: 99212 ==

== ENCOUNTER → 2025-04-27 13:56 | Outpatient (BNV) | payer OTHER, SELFPAY | PROVIDERS: PCP General Practice; Visit Provider Internal Medicine Cardiovascular Disease | DX: Z45.018 Encounter for adjustment and management of other part of cardiac pacemaker (principal) | CPT/HCPCS: 93294 ==